=== PATIENT | female | born 1935 | race African-American/Black ===

== ENCOUNTER 2023-07-27 06:03 | Inpatient (IN) | payer OTHER, SELFPAY ==
[2023-07-27] VITALS (9 sets, daily range): BP systolic 86–166; BP diastolic 53–84; BMI 16.8
[2023-07-27 04:35] LABS: % Basophils 0.4 % (0-2); % Eosinophils 0.3 % (0-6); % Immature Granulocytes 0.5 % (0-0.5); % Lymphocytes 15.2 % (20.5-51.1); % Monocytes 6.2 % (1.7-9.3); % Neutrophils 77.4 % (42.2-75.2); Absolute Immature Granulocytes 0.1 10^3/uL (0-0.05); Absolute Lymphocytes 1.4 10^3/uL (1.2-3.4); Absolute Monocytes 0.6 10^3/uL (0.1-0.6); Absolute Neutrophils 7.1 10^3/uL (1.4-6.5); Hematocrit 27.8 % (37.0-47.0); Hemoglobin 9.9 g/dL (12.0-16.0); Mean Corp Hgb Conc. 35.6 g/dL (33.0-37.0); Mean Corpuscular Hgb 22.8 pg (27.0-31.0); Mean Corpuscular Volume 63.9 fL (81.0-99.0); Nucleated Red Blood Cells % 0.2 %; Platelet Count 154 10^3/uL (130-400); Red Blood Cell Count 4.35 10^6/uL (4.20-5.40); Red Cell Dist. Width 21.3 % (11.5-14.5); White Blood Cell Count 9.2 10^3/uL (4.8-10.8)
[2023-07-27 04:49] LABS: ALT (SGPT) 20 U/L (0-35); AST (SGOT) 23 U/L (14-36); Albumin 4.2 g/dl (3.5-5.0); Alkaline Phosphatase 60 U/L (38-126); Blood Urea Nitrogen 27 mg/dl (7-17); Calcium 9.2 mg/dl (8.4-10.2); Carbon Dioxide 28 mmol/L (22-30); Chloride 102 mmol/L (98-107); Estimated Creatinine Clearance 22 ml/min; Glucose 121 mg/dl (70-99); Potassium 3.7 mmol/L (3.5-5.1); Sodium 136 mmol/L (135-145); Total Bilirubin 1.1 mg/dl (0.2-1.3); Total Protein 6.9 g/dl (6.3-8.2); eGFR 48.33
--- NOTE | 2023-07-27 05:04 | ED.GENMED ---
History of Present Illness
<CHRIS Mckeon - Last Filed: 07/27/23 05:08>
General
Chief Complaint: Fall
Source: patient
Exam Limitations: none
Time Seen by Provider: 07/27/23 04:29
Nursing documentation reviewed up to this point in time: agreed with
Travel History
Have you had any contact with someone who has COVID-19?: No
Do you have any symptoms of coronavirus? Fever > 100 degrees, chills, cough, shortness of breath, sore throat, loss of taste or smell, muscle aches, or headache?: No
History of Present Illness
History of Present Illness:
patient is a 88 y/o female presenting after a fall. Patient states she was going to the bathroom when she got disoriented and fell on her right hip. Patient states that she has been in a different room and bathroom due to construction which caused
her disorientation. Patient denies a head strike. Patient denies DELVALLE, SOB, CP, weakness, tingling, blurry vision, V/N/D/C. Patient is on Eliquis.
Past History
<CHRIS Mckeon - Last Filed: 07/27/23 05:08>
Past History
ED Past Medical History: Other (Parkinson's disease)
ED Past Surgical History: None
Social History
Tobacco: Non-smoker
Alcohol: None
Drug: None
Review of Systems
<CHRIS Mckeon - Last Filed: 07/27/23 05:08>
Review of Systems
All Other Systems: Not applicable
Constitutional: Reports no symptoms
EENT: Reports no symptoms
Respiratory: Reports no symptoms
Cardiac: Reports no symptoms
ABD/GI: Reports no symptoms
: Reports no symptoms
Musculoskeletal: Reports joint pain (right hip )
Skin: Reports no symptoms
Neurological: Reports no symptoms
Endocrine: Reports no symptoms
Hematologic/Lymphatic: Reports no symptoms
Psychiatric: Reports no symptoms
Phy Exam
<CHRIS Mckeon - Last Filed: 07/27/23 05:08>
General Physical Exam
General Presentation: well appearing and no apparent distress
General Skin: warm and dry
General Habitus: normal
General Mental: alert
General Hydration: appears well hydrated
ENT Exam
ENT Exam: EOMI, pharynx normal, neck supple and normocephalic
Eye Exam
Eye Exam: PERRL, cornea clear and conjunctiva normal
Cardiovascular Exam
Cardiovascular Exam: regular rate/rhythm, no edema, no murmur and normal peripheral pulses
Pulmonary Exam
Pulmonary Exam: lungs clear, no respiratory distress, no rales, no crackles, no rhonchi, no stridor, no wheezing and no cough
Gastrointestinal Exam
Gastrointestinal Exam: normal bowel sounds, non tender, soft, no organomegaly, no pulsatile mass and non distended
Neurological Exam
Neurological Exam: alert, oriented x3, no motor deficits and speech normal
Musculoskeletal Exam
Musculoskeletal Exam: other (right hip pain with swelling and decreased ROM, hip held in external rotation )
Skin Exam
Skin Exam: normal color, warm/dry, no rash and no petechia
Psychiatric Exam
Psychiatric Exam: normal mood/affect
Course
<CHRIS Mckeon - Last Filed: 07/27/23 05:08>
Orders/Labs/Results
Orders:
Orders
07/27/23 04:19
Hip, Right 2-3 Views [CR Hip - RT w/wo Pel 2-3 Vw*] Urgent
Comment:
Reason For Exam: fall
Include a pelvis x-ray?: Yes
07/27/23 04:21
CMP [Comprehensive Metabolic Panel] Urgent
Complete Blood Count/With Diff Urgent
Abnormal Lab Results
07/27/23
04:21
Hgb 9.9 L g/dL
(12.0-16.0)
Hct 27.8 L %
(37.0-47.0)
MCV 63.9 L fL
(81.0-99.0)
MCH 22.8 L pg
(27.0-31.0)
RDW 21.3 H %
(11.5-14.5)
Abs Immat Gran (auto) 0.1 H 10^3/uL
(0-0.05)
Absolute Neuts (auto) 7.1 H 10^3/uL
(1.4-6.5)
Neutrophils % 77.4 H %
(42.2-75.2)
Lymphocytes % 15.2 L %
(20.5-51.1)
BUN 27 H mg/dl
(7-17)
Creatinine 1.1 H mg/dL
(0.6-1.0)
Glucose 121 H mg/dl
(70-99)
07/27/23 04:21
07/27/23 04:21
Vital Signs
Initial and Last Documented VS:
Initial Vital Signs
Temp Pulse Resp BP Pulse Ox
98.4 F 89 16 166/84 98
07/27/23 04:11 07/27/23 04:11 07/27/23 04:11 07/27/23 04:11 07/27/23 04:11
Last Documented Vital Signs
Temp Pulse Resp BP Pulse Ox
98.4 F 89 16 166/84 98
07/27/23 04:11 07/27/23 04:11 07/27/23 04:11 07/27/23 04:11 07/27/23 04:11
<Darryn Santos, DO - Last Filed: 07/27/23 05:15>
Orders/Labs/Results
Orders:
Orders
07/27/23 04:19
Hip, Right 2-3 Views [CR Hip - RT w/wo Pel 2-3 Vw*] Urgent
Comment:
Reason For Exam: fall
Include a pelvis x-ray?: Yes
07/27/23 04:21
CMP [Comprehensive Metabolic Panel] Urgent
Complete Blood Count/With Diff Urgent
Abnormal Lab Results
07/27/23
04:21
Hgb 9.9 L g/dL
(12.0-16.0)
Hct 27.8 L %
(37.0-47.0)
MCV 63.9 L fL
(81.0-99.0)
MCH 22.8 L pg
(27.0-31.0)
RDW 21.3 H %
(11.5-14.5)
Abs Immat Gran (auto) 0.1 H 10^3/uL
(0-0.05)
Absolute Neuts (auto) 7.1 H 10^3/uL
(1.4-6.5)
Neutrophils % 77.4 H %
(42.2-75.2)
Lymphocytes % 15.2 L %
(20.5-51.1)
BUN 27 H mg/dl
(7-17)
Creatinine 1.1 H mg/dL
(0.6-1.0)
Glucose 121 H mg/dl
(70-99)
07/27/23 04:21
07/27/23 04:21
Vital Signs
Initial and Last Documented VS:
Initial Vital Signs
Temp Pulse Resp BP Pulse Ox
98.4 F 89 16 166/84 98
07/27/23 04:11 07/27/23 04:11 07/27/23 04:11 07/27/23 04:11 07/27/23 04:11
Last Documented Vital Signs
Temp Pulse Resp BP Pulse Ox
98.4 F 89 16 166/84 98
07/27/23 04:11 07/27/23 04:11 07/27/23 04:11 07/27/23 04:11 07/27/23 04:11
<CHRIS Mckeon - Last Filed: 07/27/23 05:08>
MDM/Problems Addressed
Differential Diagnosis Includes:
hip fracture
soft tissue swelling
MDM/Problems Addressed:
fall
<CHRIS Mckeon - Last Filed: 07/27/23 05:08>
*Critical Care Note
Total Time (30-74mins, 75-104mins- exclusive of procedures): Not Applicable
<Darryn Santos DO - Last Filed: 07/27/23 05:15>
Patient Management
Discussion with other providers: Hospitalist and Plant Operator Helper (Dr. Wade, orthopedic surgery)
ED Attending Note
<CHRIS Mckeon - Last Filed: 07/27/23 05:08>
-
Portions of this chart may have been created with voice recognition software.� Occasional wrong word or��sound alike� substitutions may have occurred due to the inherent limitations of voice recognition software.
<Darryn Santos DO - Last Filed: 07/27/23 05:15>
ED Attending Note
Patient seen and examined by attending physician: Yes
I performed the substantive portion of visit, reviewed & personally made and approve the management plan that is documented in note by myself or LESIA.: Yes
ED Attending Note:
88-year-old female presents with right hip pain after a fall. She was getting up to the bathroom and was confused and fell her right hip. Patient did not pass out or hit her head. She is on Eliquis. Denies any other issues. Patient was seen in
conjunction with the PA student. I have reviewed and agree with the history and treatment plan presented. On my independent physical exam, patient is awake, alert, and and in mild to moderate pain while lying on the bed. Heart is regular rate and
rhythm lungs are clear to auscultation bilaterally without wheezes rales or rhonchi. Abdomen is soft and nontender. Right hip tenderness to palpation.
Spoke with orthopedics, Dr. Wade who is aware and has seen the x-rays. Patient to be admitted to the hospitalist service.
Discharge Plan
Departure
Patient Disposition: Admit
Date of Disposition: 07/27/23
Time of Disposition: 05:14
Presentation/result/management discussed w/ accepting MD/DO: Hospitalist
Condition: Good
Discharge Problem:
Closed fracture of right hip
Prescriptions:
No Action
carbidopa-levodopa 1 TABLET tablet extended release
1 tab PO HS
carbidopa-levodopa 1 TABLET tablet
1.5 tab PO TID
coenzyme Q10 100 MG capsule
400 mg PO TID
furosemide 20 MG tablet
20 mg PO DAILY 30 Days Qty: 30 0RF
Eliquis 2.5 MG tablet
2.5 mg PO BID 30 Days Qty: 60 0RF
metoprolol succinate 100 MG tablet extended release 24 hr
100 mg PO DAILY 30 Days Qty: 30 0RF
Referrals:
UNKNOWN - PT DOES,NOT KNOW [Family Provider] -
Interventions
Interventions:
*Risk Screen - Suicide Last Done: 07/27/23 04:11
*General Assessment Last Done: 07/27/23 04:11
*Neglect/Abuse Screening Last Done: 07/27/23 04:11
*ED COVID-19 Vaccine History Last Done: 07/27/23 04:11
Discharge Date and Time
Print Language: YEMENI
--- NOTE | 2023-07-27 05:48 | HPS.HSE ---
Family Physician
-
Family Physician: NOT KNOW UNKNOWN - PT DOES
Chief Complaint
-
fall , Rt hip pain
History of Present Illness
88F on chronic Eliquis for HX Prx AF, HX Chr HFpEF , HX Parkinson dz, ambulatory dysfunction, CKD3a, chr microcytic anemia seen at ER for acute Rt Hip pain s/p fall while going to [place].
last dose of Eliquis on yesterday
ROS
Denies a head strike.
No DELVALLE, SOB, CP, weakness, tingling, blurry vision
Medical History
Past Medical History
Past Medical History: Reports Arrhythmia (Prx AF ), CHF (chr HFpEF ) and Other (chr Microcytic anemia. HX thrombocytopenia. Parkinson's disease. Hyperlipidemia.)
Past Surgical History: Reports None
Social History
Tobacco: Non-smoker
Alcohol: None
Drug: None
Family History
Family History: Not pertinent
Allergies / Home Medications
Allergies reflects when Allergies were last updated in [facility].
Home Medications with original date entered in [facility]
Allergy/Medication List:
Allergies
Allergy/AdvReac Type Severity Reaction Status Date / Time
No Known Allergies Allergy Verified 07/27/23 04:18
Home Medications
carbidopa 25 mg-levodopa 100 mg tablet 1.5 tab PO TID Neurological Condition 11/30/20
carbidopa ER 25 mg-levodopa 100 mg tablet,extended release 1 tab PO HS Neurological Condition 11/30/20
coenzyme Q10 100 mg capsule 400 mg PO TID Supplement 11/30/20
apixaban 2.5 mg tablet (Eliquis) 2.5 mg PO BID 30 days #60 tabs 12/06/20
furosemide 20 mg tablet 20 mg PO DAILY 30 days #30 tabs 12/06/20
metoprolol succinate 100 mg tablet,extended release 24 hr 100 mg PO DAILY 30 days #30 tabs 12/06/20
Review of Systems
-
Constitutional: Reports No Symptoms
EENT: Reports No Symptoms
Respiratory: Reports No Symptoms
Cardiac: Reports No Symptoms
Abdomen/GI: Reports No Symptoms
: Reports No Symptoms and See HPI
Skin: Reports No Symptoms
Neurological: Reports No Symptoms
Endocrine: Reports No Symptoms
Hematologic/Lymphatic: Reports No Symptoms
Psych: Reports No Symptoms
Physical Exam
Vital Signs
Vital Signs
Temp Pulse Resp BP Pulse Ox
98.4 F 89 16 166/84 98
07/27/23 04:11 07/27/23 04:11 07/27/23 04:11 07/27/23 04:11 07/27/23 04:11
Physical Exam
General: No Apparent Distress and Pain (Rt Hip )
HEENT: NormoCephalic and Moist mucous membranes
Respiratory: Clear; No Wheezes, Rales or Rhonchi
Cardiac: S1/S2 and Regular Rhythm
Breast: Deferred by me
GI: Soft, Non Tender, Non Distended and Normal Bowel Sounds
Rectal: Deferred by Provider
Genito-urinary: Deferred by me
Musculoskeletal: No Edema and Other (decreased ROM, hip held in external rotation)
Skin: Warm and Dry
Neuro: AO x 3
Psych: Calm
Laboratory Results
-
07/27/23 04:21
07/27/23 04:21
Laboratory Results
Total Bilirubin 1.1 mg/dl (0.2-1.3) 07/27/23 04:21
AST 23 U/L (14-36) 07/27/23 04:21
ALT 20 U/L (0-35) 07/27/23 04:21
Alkaline Phosphatase 60 U/L (38-126) 07/27/23 04:21
Data Reviewed
-
Diagnostic Radiology: Report Reviewed by me
Lab Data: Labs Reviewed by me
Old Records: Reviewed
Impression/Plan
-
Reviewed VS: afebrile HR 89 BP 165./85 POx 98
Data
nl WCC
Hgb 9.9 - baseline is mid yo hi 9s MCV 63
BUN 27
Cr 1.1 - baseline range is 1.1- 1.3
eGFR 48 c/w CKDa
12/21/20 ECHO
LVEF 55-60
mild MR
mild AR
mild TR
Estimated pulmonary artery pressure of 35-40 mmHg
Last hospitalist admission: 11/30/20 - 12/06/20
DC Dx: fast AF, acute mixed CHF , hyponatremia
ASSESSMENT & PLAN
Pending Rx reconciliation
Acute Rt Hip Fx s/p mechanical fall
last dose of Eliquis on 4/7 AM
Class II RCRI risk but not prohibited ORIF
No CP, No SoB, No palliation
- Held Eliquis
- cont PO diet for today
- Fx set protocol for pain control and supportive care
- per Ortho consult : OR in next 24- 48hrs to wash out Eliquis
HX Prx AF on chr eliquis
P Crd : Dr Reyes /CBC card
- held Eliquis
- cont. Metoprolol succinate
- check preop EKG
- CBC card consult
HX ch r HFpEF stable on PO Lasix and BB
- cont PO Lasix and Metoprolol succinate
HX Parkinson's disease on Sinemet.
HX CKD3 a
- stable
- Observe
DVT Px: SCD
Code: Full code
IP TLM
Case dw daughter on the phone and Grand daughter at bed side.
--- NOTE | 2023-07-27 06:20 | EDRN ---
Patient and family updated on plan, patient reports still no pain, aware to call if pain increases
--- NOTE | 2023-07-27 08:59 | W.PN.UPDATE ---
Update Note
Progress Note Update
Patient seen on AM rounds. Full consult note to follow.
Patient with right intertrochanteric femur fracture. We recommend proceeding with right hip cephalomedullary nail. We plan to proceed with this tomorrow under the direction of Dr. Nick. The risks, benefits, alternative, recovery process and
potential complications were discussed in detail.
--NPO after midnight for OR 07/27.
--NWB to right lower extremity until surgery.
--Continue current pain management regimen.
--T+S ordered.
[2023-07-27] MEDS: SINEMET 25-100 1.5 TABLET PO ×3 (09:06→21:32)
[2023-07-27] MEDS: LASIX 20 MG PO (09:06)
[2023-07-27] MEDS: TOPROL XL 100 MG PO (09:06)
[2023-07-27] MEDS: TYLENOL 650 MG PO ×4 (09:07→19:50)
--- NOTE | 2023-07-27 10:54 | CON.ORTHO ---
Consultation
-
Date/Time Consultation Requested: 07/27/2023; time unknown
Date/Time Consultation Performed: 07/27/2023; 0800
Requesting Provider: unknown
Performing Provider: Gloria Gonsalez PA-C / Dr. Al Hutchison
Reason for Consultation: Right hip fracture
Consultation - Orthopedics
History
Ms. Pinedo is an 88 year old female with PMH of a-fib on Eliquis, Chr HFpEF ,Parkinson dz, ambulatory dysfunction, CKD3a, chr microcytic anemia seen today for her right hip. She reports she was getting up to use the restroom last night when she
tripped and fell onto her right side. She experienced immediate onset of pain, and was unable to get up off the floor. Her granddaughter was able to help her back into bed, but noticed she couldn't bear weight on her right leg. She was brought to
ED via EMS where x-rays revealed a right intertrochanteric femur fracture. She is resting comfortably in bed at present. She does endorse intense pain with movement.
She lives at home with her daughter. She ambulates without assistance at baseline. She reports she is very active, and exercises nearly every day. She denies PMH of blood clot, DM, stroke or heart attack. She denies any known history of difficulty
with anesthesia in the past.
Allergies / Home Medications
Allergy/AdvReac Type Severity Reaction Status Date / Time
No Known Allergies Allergy Verified 07/27/23 04:18
�Medication �Instructions �Recorded
carbidopa 25 mg-levodopa 100 mg 1.5 tab PO TID Neurological 11/30/20
tablet Condition
carbidopa ER 25 mg-levodopa 100 mg 1 tab PO HS Neurological Condition 11/30/20
tablet,extended release
coenzyme Q10 100 mg capsule 400 mg PO TID Supplement 11/30/20
apixaban 2.5 mg tablet (Eliquis) 2.5 mg PO BID 30 days #60 tabs 12/06/20
furosemide 20 mg tablet 20 mg PO DAILY 30 days #30 tabs 12/06/20
metoprolol succinate 100 mg 100 mg PO DAILY 30 days #30 tabs 12/06/20
tablet,extended release 24 hr
Vital Signs / Lab Results
Temp Pulse Resp BP Pulse Ox
98.1 F 81 16 139/78 97
07/27/23 07:48 07/27/23 09:06 07/27/23 07:48 07/27/23 09:06 07/27/23 07:48
07/27/23 04:21
07/27/23 04:21
XR Right Hip 07/27/2023 IMPRESSION:
Comminuted fracture in the intertrochanteric region of the right proximal femur.
Directed exam of the right lower extremity reveals right leg lengthened and externally rotated. No significant erythema, ecchymosis or lesions about the hip. Tenderness to palpation about the anterior and lateral hip. Thigh soft and compressible.
Calf soft and nontender. Patient able to wiggle toes, plantar and dorsiflex ankle. Sensation intact to light touch. Palpable dp and pt pulses.
Assessment / Plan
Right intertrochanteric femur fracture
--Unfortunately, Sheila sustained a right intertrochanteric femur fracture in her fall. I recommend proceeding with surgical fixation of her fracture. The risks, benefits, alternatives, recovery process and potential complications were discussed in
detail. All patient questions were answered. Patient elected to proceed with surgery. We will proceed with right hip cephalomedullary nail under the direction of Dr. Nick tomorrow (07/28/2023). Will obtain surgical and blood consent tomorrow AM.
--NPO after midnight for OR 07/28/23.
--NWB to RLE until surgery.
--Continue pain control per primary. Ice for pain and edema control.
--T+S ordered. Monitor Hgb closely as patient is chronically anemic.
--Orthopedics will continue to follow along.
[2023-07-27] MEDS: NSS 1000 IV ×2 (16:07→18:13)
--- NOTE | 2023-07-27 19:04 | W.PN.HOSP.TC ---
Addendum entered and electronically signed by Andrew Moore MD 07/27/23 20:54:
Attending Addendum-
I saw and evaluated the patient. I reviewed the resident�s note and agree with findings and plan as documented in the resident�s note. Patient seen with granddaughter. Denies pain in hip. Very pleasant. Full 12 point ROS reviewed and negative except
as documented Exam: gen NAD heart irreg irreg lungs clear abd osft LE right LE externally rotated and shortened. pulses in tact B/L no edema b/l Plan:
# Right Hip Fx- for right hip CM nail in am 07/27- Dr. Nick, RCRI class 2 risk due to CHF- patient is medically optimized for OR hold eliquis for restart after OR PT OT likely rehab after DC
# Hypotension- from hypovolemia- hold lasix start IVF repeat labs in am
# Persistent a fib- hold eliquis due to OR per ortho, restart 12-24 after procedure d/w ortho cards c/s pending
# HFpEF- appears on the hypovolemic side- hold lasix start IVF repeat labs in am
# Parkinsons- cont meds
# HTN- hold lasix
# CKD 3b- avoid nephrotoxic agents baseline @ 1.2
Dispo- possibly rehab on DC
Time spent coordinating care, review of plan of care with resident, review of records, med rec, consults, notes, labs, rads, d/w nursing � 55 mins
Original Note:
Today's Communication/Plan
-
Discontinued Lasix and started IV fluids. NPO from midnight. Orthopedic surgery planned for tomorrow.
Assessment / Plan
Assessment / Plan
IMPRESSION:
This is a 88 year old female patient with PMH of persisten Afib, chronic HFpEF, Parkinson's disease, CKD3a, chronic microcytic anemia seen at ED for acute rigth hip pain after she suffered a fall while going to the [employer].
PLAN:
#Acute Right Hip Pain
-Hold Eliquis as per ortho (not taking since 07/25)
-RCRI risk is Class II 6.0% risk,no SOB, can proceed with surgery
-planned for surgery (right hip cephalomedullary nail) with on 07/27
-NPO from midnight
-No weight bearing to RLE until surgery as per Ortho
-continue pain meds prn (oxycodone, dilaudid)
#Hx of Chronic HFpEF
-Discontinued Lasix after assessing volume status (dry) and decreasing BP
-Started IV fluids
-continue metoprolol (hold if SBP <100)
#Hx of Atrial Fibrillation
-hold eliquis as per ortho
-continue metoprolol
-cardiology consulted
#Chronic microcytic anemia
-Hb trending up, today 9.9 from 9.6 yesterday
-monitor CBC
#Parkinson's
-Continue Sinemet, Rasagaline.
DVT: SCD
Full Code
Anticipated Discharge: > 48 hours
Subjective/Interval History
-
Date of Service: July 27, 2023
Patient does not have any acute concerns besides right hip pain.
Objective Data
-
Vital Signs:
Vital Signs
Temp Pulse Resp BP Pulse Ox
98 F 87 16 86/53 98
07/27/23 15:21 07/27/23 15:21 07/27/23 15:21 07/27/23 15:21 07/27/23 15:21
I&O
07/26/23 07/27/23 07/28/23
06:59 06:59 06:59
Intake Total 960 / 960
Balance 960 / 960
Review of Systems
-
History Source: Patient
All other systems: Reviewed and negative
Physical Exam
-
General: No Apparent Distress
HEENT: Normocephalic; Negative Moist Mucous Membranes
Respiratory: Clear to Auscultation
Cardiac: Regular Rhythm and S1/S2; Negative Murmur
GI: Soft, Nontender and Nondistended
Musculoskeletal: Other (right LE externally rotated and appears shorter in length compared to LLE)
Neuro: Awake, Alert and Oriented
Psych: Intact Judgement/Insight
[2023-07-27] MEDS: COLACE 100 MG PO (19:50)
[2023-07-27] MEDS: SENOKOT 17.1999999999999993 MG PO (19:50)
[2023-07-27] MEDS: SINEMET CR 25-100 (EXTENDED RELEASE) 1 TABLET PO (21:32)
[2023-07-28] VITALS (14 sets, daily range): BP systolic 88–154; BP diastolic 52–80; BMI 16.9
[2023-07-28] MEDS: TYLENOL PO ×2 (00:21→15:43)
[2023-07-28] MEDS: ROXICODONE 5 MG PO (03:42)
[2023-07-28] MEDS: TYLENOL 650 MG PO ×4 (03:44→20:41)
[2023-07-28] MEDS: NSS 1000 IV (05:26)
[2023-07-28 06:40] LABS: % Basophils 0.4 % (0-2); % Eosinophils 0.1 % (0-6); % Immature Granulocytes 0.5 % (0-0.5); % Lymphocytes 9.4 % (20.5-51.1); % Monocytes 6.6 % (1.7-9.3); Absolute Immature Granulocytes 0.1 10^3/uL (0-0.05); Absolute Monocytes 0.7 10^3/uL (0.1-0.6); Absolute Neutrophils 8.8 10^3/uL (1.4-6.5); Hemoglobin 7.7 g/dL (12.0-16.0); Mean Corp Hgb Conc. 37.4 g/dL (33.0-37.0); Mean Corpuscular Hgb 23.3 pg (27.0-31.0); Mean Corpuscular Volume 62.2 fL (81.0-99.0); Nucleated Red Blood Cells % 0.2 %; Platelet Count 133 10^3/uL (130-400); Red Blood Cell Count 3.31 10^6/uL (4.20-5.40); Red Cell Dist. Width 21.1 % (11.5-14.5); White Blood Cell Count 10.6 10^3/uL (4.8-10.8)
[2023-07-28 06:41] LABS: Hematocrit 20.6 % (37.0-47.0)
[2023-07-28 07:01] LABS: Blood Urea Nitrogen 33 mg/dl (7-17); Calcium 8.3 mg/dl (8.4-10.2); Carbon Dioxide 27 mmol/L (22-30); Chloride 101 mmol/L (98-107); Estimated Creatinine Clearance 19 ml/min; Glucose 103 mg/dl (70-99); Potassium 4.5 mmol/L (3.5-5.1); Sodium 134 mmol/L (135-145); eGFR 39.55
[2023-07-28] MEDS: RASAGILINE MESYLATE 1 MG PO (08:13)
[2023-07-28] MEDS: SENOKOT 17.1999999999999993 MG PO ×2 (08:13→20:41)
--- NOTE | 2023-07-28 08:13 | W.PN.UPDATE ---
Update Note
Progress Note Update
Ms. Pinedo is resting comfortably in bed this morning. She reports her pain is well controlled at present. She is scheduled for right hip gamma nail under the direction of Dr. Nick later this morning. The risks, benefits, alternatives, recovery
process and potential complications were reviewed again this morning. Surgical and blood consents are signed and in the patients chart. Surgical site marked.
--Patient's hemoglobin this AM came back at 7.7. I have reached out to Dr. Nick, but will place 2 units PRBC on hold for OR.
--NPO until surgery.
--NWB to RLE until surgery.
--Continue current pain management regimen.
[2023-07-28] MEDS: SINEMET 25-100 1.5 TABLET PO ×3 (08:14→22:25)
[2023-07-28] MEDS: COLACE 100 MG PO ×2 (08:14→20:41)
[2023-07-28] MEDS: TOPROL XL 100 MG PO (08:14)
[2023-07-28 09:08] LABS: ALT (SGPT) < 10 U/L (0-35); AST (SGOT) 20 U/L (14-36); Albumin 3.4 g/dl (3.5-5.0); Alkaline Phosphatase 47 U/L (38-126); Direct Bilirubin 0.4 mg/dl (0.0-0.4); Total Bilirubin 0.7 mg/dl (0.2-1.3); Total Protein 5.7 g/dl (6.3-8.2)
[2023-07-28 09:22] LABS: INR 1.19; PT 14.9 Sec (11.4-14.6)
[2023-07-28 09:23] LABS: APTT 31.4 Sec (23.4-35.0)
--- NOTE | 2023-07-28 11:26 | PTCARENOTE ---
While attempting to do second set of CHG wipes, patient on phone w/ daughter, patient confused, disoriented, uncooperative. Refusing CHG wipes. Patient transported to OR.
--- NOTE | 2023-07-28 12:50 | CM ---
Reviewed chart, placed a call to patient's daughter to obtain information for assessment. Patient's daughter answered but stated that she would not be able to talk at the time of call. Will attempt again later this afternoon.
Plan: Case management will continue to follow and assist with discharge planning. Will return call to patient's daughter to obtain information for assessment.
[2023-07-28] MEDS: HALDOL 1 MG IV (15:47)
[2023-07-28 16:13] LABS: Lactic Acid 1.4 mmol/L (0.7-2.0)
[2023-07-28 16:14] LABS: Blood Urea Nitrogen 32 mg/dl (7-17); Calcium 8.3 mg/dl (8.4-10.2); Carbon Dioxide 26 mmol/L (22-30); Chloride 100 mmol/L (98-107); Estimated Creatinine Clearance 20 ml/min; Glucose 113 mg/dl (70-99); Potassium 4.2 mmol/L (3.5-5.1); Sodium 131 mmol/L (135-145); eGFR 43.54
[2023-07-28 16:39] LABS: % Basophils 0.4 % (0-2); % Eosinophils 0.1 % (0-6); % Immature Granulocytes 0.7 % (0-0.5); % Lymphocytes 7.9 % (20.5-51.1); % Monocytes 8.4 % (1.7-9.3); % Neutrophils 82.5 % (42.2-75.2); Absolute Immature Granulocytes 0.1 10^3/uL (0-0.05); Absolute Lymphocytes 0.8 10^3/uL (1.2-3.4); Absolute Monocytes 0.9 10^3/uL (0.1-0.6); Absolute Neutrophils 8.5 10^3/uL (1.4-6.5); Mean Corp Hgb Conc. 35.9 g/dL (33.0-37.0); Mean Corpuscular Hgb 22.7 pg (27.0-31.0); Mean Corpuscular Volume 63.2 fL (81.0-99.0); Nucleated Red Blood Cells % 0.3 %; Platelet Count 128 10^3/uL (130-400); Red Blood Cell Count 3.26 10^6/uL (4.20-5.40); Red Cell Dist. Width 21.8 % (11.5-14.5); White Blood Cell Count 10.3 10^3/uL (4.8-10.8)
[2023-07-28 16:41] LABS: Hematocrit 20.6 % (37.0-47.0); Hemoglobin 7.4 g/dL (12.0-16.0)
[2023-07-28] MEDS: NSS IV (17:07)
[2023-07-28 17:50] LABS: Urine Albumin Negative (Neg - Trace); Urine Bilirubin Negative (Negative); Urine Character Clear (Clear); Urine Color Yellow; Urine Glucose Negative (Negative); Urine Ketone Trace (Negative); Urine Leukocyte Trace (Negative); Urine Nitrite Negative (Negative); Urine Occult Blood Negative (Negative); Urine Specific Gravity 1.015 (<1.030); Urine Urobilinogen Negative (Neg - 1+)
[2023-07-28 18:05] LABS: Urine Red Blood Cell 0-2 /HPF (0-2)
[2023-07-28 18:08] LABS: Urine Bacteria Few (Negative); Urine White Cell 0-2 /HPF (0-5)
--- NOTE | 2023-07-28 19:19 | PTCARENOTE ---
Family able to assist in patient's cooperation in care while at bedside. Due to family presence, restraints were not applied. Restraints order cancelled per protocol.
--- NOTE | 2023-07-28 19:36 | W.PN.HOSP.TC ---
Addendum entered and electronically signed by Andrew Moore MD 07/28/23 20:54:
Attending Addendum-
I saw and evaluated the patient. I reviewed the resident�s note and agree with findings and plan as documented in the resident�s note. called by nursing re severe agitation and confusion. patient is screaming stating she wants to go upstairs and
that she is leaving. tryin got get out of bed. Full 12 point ROS limited due to confusion Exam: gen distressed heart irreg irreg tachycardic lungs clear abd soft LE right LE externally rotated and shortened. pulses in tact B/L no edema b/l Neuro
AAO x 1 oving all extremities PEERLA Plan:
# Acute Delirium- unclear if underlying dementia, full infectious workup ordered, start soft restraints as she is a danger to herself with her fracture, give haldol x 1 STAT cont to monitor check ct head repeat labs in am
# Right Hip Fx- was for right hip CM nail today- Dr. Nick- aborted due to change in mental status. RCRI class 2 risk due to CHF- patient is medically optimized for OR hold eliquis for restart after OR
# Hypotension- from hypovolemia- hold lasix cont IVF repeat labs in am
# CKD3b- mildly worse cont IVF repeat in am check UA renal US/FeNA if not improved
# Anemia- acute- transfuse 2 units prbcs
# Persistent a fib- hold eliquis due to OR per ortho, restart 12-24 after procedure d/w ortho cards c/s pending
# HFpEF- appears on the hypovolemic side- hold lasix start IVF repeat labs in am
# Parkinsons- cont meds
# HTN- hold lasix
Dispo- possibly rehab on DC
Time spent coordinating care, review of plan of care with resident, review of records, med rec, consults, notes, labs, rads, d/w nursing � 65 mins
Original Note:
Today's Communication/Plan
-
Given Halodol for agitation
Assessment / Plan
Assessment / Plan
IMPRESSION:
This is a 88 year old female patient with PMH of persisten Afib, chronic HFpEF, Parkinson's disease, CKD3a, chronic microcytic anemia seen at ED for acute rigth hip pain after she suffered a fall while going to the [employer].
PLAN:
#Acute Right Hip Pain
-Hold Eliquis as per ortho (not taking since 07/25)
-RCRI risk is Class II 6.0% risk
-No weight bearing to RLE until surgery as per Ortho
-continue pain meds prn (oxycodone, dilaudid)
-surgery was not done (right hip cephalomedullary nail) with due to patient agitation
#Agitation
-given single dose of Haloperidol, patient become much calmer upon seeing her afterward
-granddaughter stated that she or the daughter of patient would like to be called when surgery is scheduled and be present before surgery
-Ordered CBC, BMP, lactic acid, blood cultures, U/A stat and soft restraints to upper extremities
-Na: 131, lactic acid 1.4
-U/A: trace leukocytes, trace ketones, few bacteria, could possibly be due to UTI
-check bmp in am
#Hx of Chronic HFpEF
-Discontinued Lasix after assessing volume status (dry) and decreasing BP
-Continue IV fluids
-continue metoprolol (hold if SBP <100)
#Hx of Atrial Fibrillation
-hold eliquis as per ortho
-continue metoprolol
-cardiology consulted
#Chronic microcytic anemia
-Hb trended down, HB 7.4 on 07/27
-Hct: 20.6
-monitor CBC
#Parkinson's
-Continue Sinemet, Rasagaline.
DVT: SCD
Full Code
Anticipated Discharge: > 48 hours
Subjective/Interval History
-
Date of Service: July 28, 2023
Patient was confused and agitated in the morning/early afternoon.
Objective Data
-
Labs:
Laboratory Results
07/28/23 07/28/23 07/28/23
06:14 09:06 15:50
WBC 10.3
Hgb 7.4 L
Hct 20.6 L*
Plt Count 128 L
PT 14.9 H
INR 1.19
APTT 31.4
Sodium 134 L 131 L
Potassium 4.5 4.2
Chloride 101 100
Carbon Dioxide 27 26
BUN 33 H 32 H
Creatinine 1.3 H 1.2 H
Glucose 103 H 113 H
Calcium 8.3 L 8.3 L
Total Bilirubin 0.7
AST 20
ALT < 10
Alkaline Phosphatase 47
Vital Signs:
Vital Signs
Temp Pulse Resp BP Pulse Ox
97.6 F 81 16 94/54 97
07/28/23 17:38 07/28/23 17:38 07/28/23 17:38 07/28/23 17:38 07/28/23 17:38
I&O
07/27/23 07/28/23 07/29/23
06:59 06:59 06:59
Intake Total 2200 / 2200 360 / 360
Output Total 100 / 100 50 / 50
Balance 2100 / 2100 310 / 310
Review of Systems
-
History Source: Patient
All other systems: Reviewed and negative
Physical Exam
-
General: No Apparent Distress
HEENT: Normocephalic
Respiratory: Clear to Auscultation
Cardiac: Regular Rhythm and S1/S2; Negative Murmur
GI: Soft, Nontender and Nondistended
Musculoskeletal: No Edema and Other (RLE externally rotated and shortened )
Neuro: Awake, Alert and Oriented
Psych: Agitated
[2023-07-28] MEDS: SINEMET CR 25-100 (EXTENDED RELEASE) 1 TABLET PO (22:25)
[2023-07-29] VITALS (7 sets, daily range): BP systolic 112–158; BP diastolic 70–88; BMI 17.8
[2023-07-29] MEDS: TYLENOL PO ×4 (00:42→23:03)
--- NOTE | 2023-07-29 02:47 | PTCARENOTE ---
Daughter called this RN asking for nursing assistants teacher. Daughter expressed to this RN that she was frustrated and that she felt 'out of the loop.' Gave daughter updated plan of care, including the new order for a CT head. Daughter expressed that she
wanted to come in to go down to CT with patient. CT notified. Family not allowed to be in CT room. Notified daughter that she would be able to walk down with patient but would not be able to enter the CT room. Daughter and granddaugter agreed and
came to visit patient. PCT wheeled pt down in stretcher with daughter and granddaughter to CT. After CT scan, transferred back into bed in room 316-2. Daughter and granddaughter at bedside. This RN provided emotional support to family and answered
all questions. Daughter and granddaughter again expressed feeling frustrated about lack of communication from medical team. Again, gave updated plan of care and reassurance to family. Daughter expressed wanting patient to be transferred to [place]
tomorrow. Will pass along to appropriate staff. 2nd unit PRBC finished infusing. VSS. Pt. reoriented several times this shift. Pt. believing she needs 'to go upstairs to bed.' This RN able to redirect patient and provide comfort. Bed alarm intact.
Call de jesus within reach. Plan of care ongoing.
[2023-07-29] MEDS: NSS 1000 IV (07:12)
[2023-07-29 07:58] LABS: % Basophils 0.4 % (0-2); % Eosinophils 0.3 % (0-6); % Immature Granulocytes 0.7 % (0-0.5); % Lymphocytes 8.5 % (20.5-51.1); % Monocytes 8.3 % (1.7-9.3); % Neutrophils 81.8 % (42.2-75.2); Absolute Immature Granulocytes 0.1 10^3/uL (0-0.05); Absolute Lymphocytes 0.9 10^3/uL (1.2-3.4); Absolute Monocytes 0.8 10^3/uL (0.1-0.6); Absolute Neutrophils 8.2 10^3/uL (1.4-6.5); Hematocrit 28.7 % (37.0-47.0); Mean Corp Hgb Conc. 36.9 g/dL (33.0-37.0); Mean Corpuscular Hgb 25.1 pg (27.0-31.0); Mean Corpuscular Volume 67.8 fL (81.0-99.0); Nucleated Red Blood Cells % 0.3 %; Platelet Count 109 10^3/uL (130-400); Red Blood Cell Count 4.23 10^6/uL (4.20-5.40); Red Cell Dist. Width 23.6 % (11.5-14.5)
[2023-07-29 08:04] LABS: Hemoglobin 10.6 g/dL (12.0-16.0)
[2023-07-29 08:27] LABS: Blood Urea Nitrogen 29 mg/dl (7-17); Calcium 8.2 mg/dl (8.4-10.2); Carbon Dioxide 25 mmol/L (22-30); Chloride 102 mmol/L (98-107); Estimated Creatinine Clearance 25 ml/min; Glucose 104 mg/dl (70-99); Potassium 4.2 mmol/L (3.5-5.1); Sodium 132 mmol/L (135-145); eGFR 54.19
[2023-07-29 08:37] LABS: Total Iron Binding Capacity 189 ug/dl (265-497)
--- NOTE | 2023-07-29 08:42 | W.PN.UPDATE ---
Update Note
Progress Note Update
Tentative plan to proceed with OR later today under the direction of Dr. Walker or Dr. Richard. NPO until OR.
I spoke with Sheila's nurse, Steffanie, and family would like to wait for surgery until they have spoken with one of the orthopedic surgeons. Dr. Walker will plan to call the family mid-morning to discuss.
Hgb improved to 10.6 after receiving transfusion yesterday.
Patient AAO this AM.
--- NOTE | 2023-07-29 09:06 | W.PN.UPDATE ---
Addendum entered and electronically signed by Garry Walker MD 07/29/23 12:17:
I saw the patient, who is alert and oriented
She also wishes to be transferred to [place].
All risks were explained to the patient
Original Note:
Update Note
Progress Note Update
I had a lengthy conversation with the patient's daughter Linnette Pinedo [phone]
She is adamant that she was wants the patient to be transferred to [facility].
She understands that I can do the surgery today. She also understands that the transfer may not happen today and that they may not be able to do the surgery the day she gets transferred.
She know that the transfer will delay the care of this fracture.
I explained several times that she will be at a risk of complications, including blood clots due to the delay of her care.
She still wants to proceed with the transfer
--- NOTE | 2023-07-29 09:13 | CM ---
Addendum entered by Nery Spencer 07/29/23 10:05:
Per Shira Hutchinson at / please fax clinical information [phone] to /[facility] stating that it is a hospital to hospital transfer and accepted for Dr.Jean-Claude Alvarado . Patient transfer is family request. No hospital to hospital
authorization needed but requested clinical information be faxed or peer portal request completion. Update provided to [facility] nurse Gamez and she will send clinical information. CM will continue to follow for discharge planning needs.
Original Note:
Patient seen at bedside with resident and Physician. Patient indicated that she is aware that her daughter is asking for transfer to [facility] for surgery. Patient states that she lives with her daughter in a 2 story home and normally needs no DME for
ambulation. Patient stated normally she is independent of ADL's. Patient indicated daughter has information about PCP. Per chart review patient Uses the [facility] in [place]. Physician identified accepting physician and awaiting receipt of buy back
agreement to be faxed to unit. CM will continue to follow for discharge planning needs.
Plan; pending possible transfer to [place]; review for possible need for authorization
--- NOTE | 2023-07-29 10:10 | W.PN.HOSP.TC ---
Addendum entered and electronically signed by Carolina Deras MD 07/29/23 18:02:
Patient's BMI corresponds to being underweight
Atrial fibrillation should read persistent
Given patient's age, hip fracture was certainly due to mechanical fall with trauma but cannot rule out age-related osteoporosis
Addendum entered and electronically signed by Carolina Deras MD 07/29/23 11:13:
pt seen and examined independently--agree with resident note as set forth below
GENERAL: well developed, well nourished, female in no apparent distress
HEENT: NC/AT
HEART: irreg irreg
LUNGS : clear to auscultation bilaterally
ABDOM: soft, nontender, nondistended, + bowel sounds
EXT: no cyanosis, clubbing, or edema
NEUROLOGIC: alert, answers questions appropriately--asking about transfer
mechanical fall with traumatic Acute right intertrochanteric femur fracture--awaiting surgery but pt was agitated 07/27 prior to surgery which was then cancelled--cont to hold Eliquis--cont pain meds--bedrest until surgery--cont diet--would start SQ
heparin for DVT prophylaxis in lieu of eliquis at this time
Agitation-- likely hospital delirium--no h/o dementia--? pain meds--infectious w/u underway--UA negative, blood cultures pending--pt calm this AM--did receive haldol x 1 07/28/23
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
Hx of Chronic HFpEF-- no exacerbation--since pt eating can stop IVF--lasix on hold--continue metoprolol (hold if SBP <100)
Hx of permanent Atrial Fibrillation--cont metoprolol--hold eliquis
acute blood loss on Chronic microcytic anemia--due to long bone fracture and IVF dilution--s/p 2 units pRBC--HGB improved to 10.6
Parkinson's--no h/o dementia--Continue Sinemet, Rasagaline
DVT proph--SQ heparin
code status -- FULL CODE
Dr. Benitez and myself were informed that the patient's daughter wanted the patient transferred to [facility] for her surgery. We confirmed this information with the patient's daughter Linnette. We spoke to the [place] transfer center
and spoke with Nasima the coordinator and Dr. Alvarado, the orthopedic surgeon who has agreed to accept the patient in transfer. We did explain that this is patient request and that our surgeons can do the hip surgery today here at [facility].
Orthopedics indicated that it would be in the patient's best interest to have the patient have surgery here at [facility] as she is already out 24 to 48 hours from her fall and fracture; nevertheless, he would accept the patient in transfer if the
family is adamant in that regard. We spoke with the patient's daughter again relating this information, and she is in agreement that she will 'take her chances' and wants the patient transferred to [facility] due to
'miscommunication here'. I did not inquire further as to what that meant.
Accepting physician Dr. Alvarado at [facility]. Patient to be transferred when bed available. Case management aware.
Original Note:
Today's Communication/Plan
-
Continue to hold eliquis, pending transfer to [place] upon bed availability.
Assessment / Plan
Assessment / Plan
IMPRESSION:
This is a 88 year old female patient with PMH of persisten Afib, chronic HFpEF, Parkinson's disease, CKD3a, chronic microcytic anemia seen at ED for acute right hip pain after she suffered a fall while going to the [facility].
PLAN:
#Acute Right Hip Pain
-Hold Eliquis as per ortho (not taking since 07/25)
-RCRI risk is Class II 6.0% risk
-No weight bearing to RLE until surgery as per Ortho
-continue pain meds prn (oxycodone, dilaudid)
-surgery was not done (right hip cephalomedullary nail) with due to patient agitation
-As surgery is not scheduled, restarted diet
#Agitation
-Patient is calm, alert and oriented. (single dose of halodol given yesterday)
-blood cultures still pending
-BMP: Na increased to 132 from 131 yesterday, lactic acic 1.4
-U/A: trace leukocytes, trace ketones, few bacteria
-monitor bmp in AM
#Hx of Chronic HFpEF
-Discontinued Lasix after assessing volume status (dry) and decreasing BP
-Continue IV fluids
-continue metoprolol (hold if SBP <100)
#Hx of Atrial Fibrillation
-hold eliquis as per ortho
-continue metoprolol
#Chronic microcytic anemia
-Hb 10.6, Hct 28.7 after transfusion
-monitor CBC
#Parkinson's
-Continue Sinemet, Rasagaline.
Transfer to [place] Request
Patient's daughter stated that she wants her mother's surgery to be done [place] stating that she did not like miscommunication about surgery. We (myself and ) had called [place] transfer service, spoke with orthopedic and
Nasima the coordinator. We had given orthopedic brief history about patient. They stated that they did not have bed availability for patient but offered by back as an option. Orthopedics stated that he recommended best option is to have surgery for
patient done at [facility] due to it being already 24-48 hours after fall. We had stated that patient's daughter is adamant about transfer and they agreed to put patient in queue for bed availability. We then called patient's daughter
back to explain that patient will need to stay at [facility] until a bed is available at [place] and that it was recommended by [place] orthopedic the best option is to have surgery done at [facility]. Explained to her that transfer will not
happen today and can take 1-2 days. Patient's daughter said she still wants to pursue transfer after being made aware of situation.
DVT: SCD
Full Code
Anticipated Discharge: 24 - 48 hours
Subjective/Interval History
-
Date of Service: July 29, 2023
Patient was feeling fine and was alert and orientated today.
Objective Data
-
Labs:
Laboratory Results
07/29/23
07:04
WBC 10.0
Hgb 10.6 L D
Hct 28.7 L
Plt Count 109 L
Sodium 132 L
Potassium 4.2
Chloride 102
Carbon Dioxide 25
BUN 29 H
Creatinine 1.0
Glucose 104 H
Calcium 8.2 L
Vital Signs:
Vital Signs
Temp Pulse Resp BP Pulse Ox
98.7 F 81 18 154/88 95
07/29/23 07:00 07/29/23 07:00 07/29/23 07:00 07/29/23 07:00 07/29/23 07:00
I&O
07/28/23 07/29/23 07/30/23
06:59 06:59 06:59
Intake Total 2200 / 2200 1420 / 1420
Output Total 100 / 100 50 / 50
Balance 2099 / 2099 1370 / 1370
Review of Systems
-
History Source: Patient
All other systems: Reviewed and negative
Physical Exam
-
General: No Apparent Distress
HEENT: Normocephalic
Respiratory: Clear to Auscultation
Cardiac: S1/S2; Negative Murmur
GI: Soft, Nontender and Nondistended
Musculoskeletal: No Edema and Other (right lower extremity externally rotated and shortened)
Neuro: Awake, Alert and Oriented
Psych: Calm
--- NOTE | 2023-07-29 10:10 | PTCARENOTE ---
Update given to Jeri at [facility], reports patient has been accepted at [facility], pending bed availability.
[2023-07-29] MEDS: SINEMET 25-100 1.5 TABLET PO ×3 (10:30→21:17)
[2023-07-29] MEDS: RASAGILINE MESYLATE 1 MG PO (10:31)
[2023-07-29] MEDS: COLACE PO ×2 (10:31→10:38)
[2023-07-29] MEDS: TOPROL XL 100 MG PO (10:32)
[2023-07-29] MEDS: SENOKOT PO ×2 (10:34→10:38)
[2023-07-29] MEDS: TYLENOL 650 MG PO ×3 (10:34→20:33)
--- NOTE | 2023-07-29 14:48 | PN.CDI ---
CDI
- -
CDI:
Physician Documentation Request
Admit Date: 07/27/23 06:03
Dear Doctor Braeden,
Please review the following and provide your response in the progress notes.
Clinical Indicators:
[place] Former, 07/27
#Chart reviewed due to pt with BMI < 19.
#CBW: 86 lbs 11.2 oz BMI 16.9 underweight range 07/27.
#...Pts weight per external summary report was 88lbs 03/09/23
#...reflective of 2 lb (2%) weight change in 5 months.
Please provide an associated diagnosis related to the BMI,...:
BMI, 16.9, underweight
BMI is not significant
Other (please specify)
BMI < or = to 19
Underweight
Weight Loss
Cachectic
Anorexia
Use of terms such as suspected, likely, concern for, or probable (associated with a specific diagnosis that is being evaluated, monitored, or treated as if it exists) are acceptable and can be coded in the inpatient setting, when documented at the
time of discharge.
Thank you,
Carolina Ray RN BSN CCDS
CDI Specialist
please contact via tiger text
Please use your independent medical judgment in providing your response.
--- NOTE | 2023-07-29 14:52 | PN.CDI ---
CDI
- -
CDI:
Physician Documentation Request
Admit Date: 07/27/23 06:03
Dear Doctor Braeden,
Please review the following and provide your response in the progress notes.
Due to conflicting documentation, please clarify the specificity of the atrial fibrillation...
Clinical Indicators:
H+P, 07/26
#HX Prx AF on chr eliquis
PN, 07/26
# Persistent a fib- hold eliquis due to OR per ortho,
#...restart 12-24 after procedure d/w ortho cards c/s pending
PN, 07/28
#Hx of permanent Atrial Fibrillation--cont metoprolol--hold eliquis
Please clarify specificity regarding atrial fibrillation, such as:
Paroxysmal atrial fibrillation - terminates spontaneously or with intervention within 7 days of onset
Persistent atrial fibrillation - episodes of continuous AF that last more than 7 days and do not self-terminate
Permanent atrial fibrillation - when a decision has been made to accept the presence of AF and there is no further attempt to restore or maintain sinus rhythm
Other - please specify
Use of terms such as suspected, likely, concern for, or probable (associated with a specific diagnosis that is being evaluated, monitored, or treated as if it exists) are acceptable and can be coded in the inpatient setting, when documented at the
time of discharge.
Thank you,
Carolina Ray RN BSN CCDS
CDI Specialist
please contact via tiger text
Please use your independent medical judgment in providing your response.
--- NOTE | 2023-07-29 14:57 | PN.CDI ---
CDI
- -
CDI:
Physician Documentation Request
Admit Date: 07/27/23 06:03
Dear Doctor Braeden,
Please review the following and provide your response in the progress notes.
Clinical Indicators:
ED, 07/26
#ED Past Medical History: Other (Parkinson's disease)
#Closed fracture of right hip
PN, 07/27
mechanical fall with traumatic Acute right intertrochanteric femur fracture
#...--awaiting surgery but pt was agitated 07/27 prior to surgery which was then cancelled--
Please clarify the etiology of the right hip fracture:
Multifactorial due to mechanical fall, trauma and age related osteoporosis
Traumatic fracture only
Other(please specify)
Type Fracture
Age-related With current pathological fx
Drug induced (specify drug) without current pathological fx
Idiopathic
Osteoporosis of disuse
Post traumatic
Use of terms such as suspected, likely, concern for, or probable (associated with a specific diagnosis that is being evaluated, monitored, or treated as if it exists) are acceptable and can be coded in the inpatient setting, when documented at the
time of discharge.
Thank you,
Carolina Ray RN BSN CCDS
CDI Specialist
please contact via tiger text
Please use your independent medical judgment in providing your response.
[2023-07-29] MEDS: HEPARIN 5000 UNITS SC (20:33)
[2023-07-29] MEDS: COLACE 100 MG PO (20:33)
[2023-07-29] MEDS: SENOKOT 17.1999999999999993 MG PO (20:34)
[2023-07-29] MEDS: SINEMET CR 25-100 (EXTENDED RELEASE) 1 TABLET PO (21:18)
[2023-07-30] MEDS: TYLENOL PO (03:17)
[2023-07-30 03:49] VITALS: BP 124/77
[2023-07-30 04:01] VITALS: BMI 17.8
[2023-07-30 06:00] VITALS: BMI 17.8
[2023-07-30 07:00] VITALS: BP 133/91
[2023-07-30 07:23] LABS: Hematocrit 29.4 % (37.0-47.0); Hemoglobin 10.8 g/dL (12.0-16.0); Mean Corp Hgb Conc. 36.7 g/dL (33.0-37.0); Mean Corpuscular Hgb 25.2 pg (27.0-31.0); Mean Corpuscular Volume 68.5 fL (81.0-99.0); Platelet Count 117 10^3/uL (130-400); Red Blood Cell Count 4.29 10^6/uL (4.20-5.40); Red Cell Dist. Width 24.6 % (11.5-14.5); White Blood Cell Count 8.8 10^3/uL (4.8-10.8)
[2023-07-30 07:49] LABS: Blood Urea Nitrogen 25 mg/dl (7-17); Calcium 8.7 mg/dl (8.4-10.2); Carbon Dioxide 28 mmol/L (22-30); Chloride 102 mmol/L (98-107); Estimated Creatinine Clearance 25 ml/min; Glucose 102 mg/dl (70-99); Magnesium 2.1 mg/dl (1.6-2.3); Potassium 4.3 mmol/L (3.5-5.1); Sodium 136 mmol/L (135-145); eGFR 54.19
[2023-07-30] MEDS: RASAGILINE MESYLATE 1 MG PO (08:20)
[2023-07-30] MEDS: TYLENOL 650 MG PO ×5 (08:21→23:23)
[2023-07-30] MEDS: HEPARIN 5000 UNITS SC ×2 (08:21→20:21)
[2023-07-30] MEDS: SINEMET 25-100 1.5 TABLET PO ×3 (08:21→21:22)
[2023-07-30] MEDS: TOPROL XL 100 MG PO (08:21)
[2023-07-30] MEDS: COLACE 100 MG PO ×2 (08:21→20:21)
[2023-07-30] MEDS: SENOKOT PO ×2 (08:22→20:21)
--- NOTE | 2023-07-30 09:50 | PTOTSP ---
chart reviewed, noted daughter wanting transfer to outside facility for surgery. will sign off at this time, as fracture unstable. will require new orders once pt is medically optimized to participate in therapy.
[2023-07-30 11:00] VITALS: BP 116/72
--- NOTE | 2023-07-30 11:28 | W.PN.HOSP.TC ---
Today's Communication/Plan
-
Transfer pending;patient not agitated.
Assessment / Plan
Assessment / Plan
IMPRESSION:
This is a 88 year old female patient with PMH of persisten Afib, chronic HFpEF, Parkinson's disease, CKD3a, chronic microcytic anemia seen at ED for acute right hip pain after she suffered a fall while going to the bathroom.
PLAN:
#Acute Right Hip Pain
-Hold Eliquis as per ortho (not taking since 07/25)
-RCRI risk is Class II 6.0% risk
-No weight bearing to RLE until surgery as per Ortho
-continue pain meds prn (oxycodone, dilaudid)
-surgery pending on transfer to [place] bed availability
#Agitation
-Patient is calm today (single dose of halodol given on 07/27)
-blood cultures negative
-BMP: Na 136 today
-monitor bmp in AM
#Hx of Chronic HFpEF
-Discontinued Lasix after assessing volume status (dry) and decreasing BP
-Discontinued IVF
-continue metoprolol (hold if SBP <100)
#Hx of Atrial Fibrillation
-hold eliquis as per ortho
-continue metoprolol
#Chronic microcytic anemia
-Hb 10.6, Hct 28.7 after transfusion on 07/27
-Hb.10.8 today.
-monitor CBC
#Parkinson's
-Continue Sinemet, Rasagaline.
Transfer to [place] Request
Patient's daughter stated that she wants her mother's surgery to be done [place] stating that she did not like miscommunication about surgery. We (myself and ) had called [place] transfer service, spoke with orthopedic and
Nasima the coordinator. We had given orthopedic brief history about patient. They stated that they did not have bed availability for patient but offered by back as an option. Orthopedics stated that he recommended best option is to have surgery for
patient done at [facility] due to it being already 24-48 hours after fall. We had stated that patient's daughter is adamant about transfer and they agreed to put patient in queue for bed availability. We then called patient's daughter
back to explain that patient will need to stay at [facility] until a bed is available at [place] and that it was recommended by [facility] the best option is to have surgery done at [place]. Explained to her that transfer will not
happen today and can take 1-2 days. Patient's daughter said she still wants to pursue transfer after being made aware of situation.
DVT: SCD
Full Code
Anticipated Discharge: 24 - 48 hours
Subjective/Interval History
-
Date of Service: July 30, 2023
Patient continues to have right hip pain.
Objective Data
-
Labs:
Laboratory Results
07/30/23
06:48
WBC 8.8
Hgb 10.8 L
Hct 29.4 L
Plt Count 117 L
Sodium 136
Potassium 4.3
Chloride 102
Carbon Dioxide 28
BUN 25 H
Creatinine 1.0
Glucose 102 H
Calcium 8.7
Vital Signs:
Vital Signs
Temp Pulse Resp BP Pulse Ox
98.4 F 82 18 133/91 96
07/30/23 07:00 07/30/23 08:21 07/30/23 07:00 07/30/23 08:21 07/30/23 07:00
I&O
07/29/23 07/30/23 07/31/23
06:59 06:59 06:59
Intake Total 1420 / 1420 360 / 360
Output Total 50 / 50 950 / 950
Balance 1370 / 1370 -590 / -590
Review of Systems
-
History Source: Patient
All other systems: Reviewed and negative
Physical Exam
-
General: No Apparent Distress
HEENT: Normocephalic
Respiratory: Clear to Auscultation
Cardiac: Regular Rhythm and S1/S2; Negative Murmur
GI: Soft, Nontender and Nondistended
Musculoskeletal: No Edema and Other (right lower extremity externally and shortened in length)
Neuro: Awake, Alert and Oriented
Psych: Calm
--- NOTE | 2023-07-30 12:14 | W.PN.HOSP.TC ---
Today's Communication/Plan
-
waiting for transfer to [facility]
Assessment / Plan
Assessment / Plan
pt is an 88 year old female
07/29/23 Dr. Benitez and myself were informed that the patient's daughter wanted the patient transferred to [facility] for her surgery. We confirmed this information with the patient's daughter Linnette. We spoke to the [facility] transfer
center and spoke with Nasima the coordinator and Dr. Alvarado, the orthopedic surgeon who has agreed to accept the patient in transfer. We did explain that this is patient request and that our surgeons can do the hip surgery today here at
[place]. Orthopedics indicated that it would be in the patient's best interest to have the patient have surgery here at [place] as she is already out 24 to 48 hours from her fall and fracture; nevertheless, he would accept the patient in
transfer if the family is adamant in that regard. We spoke with the patient's daughter again relating this information, and she is in agreement that she will 'take her chances' and wants the patient transferred to [facility] due to
'miscommunication here'. I did not inquire further as to what that meant.
Accepting physician Dr. Alvarado at [facility]. Patient to be transferred when bed available. Case management aware.
mechanical fall with traumatic Acute right intertrochanteric femur fracture but cannot rule out age-related osteoporosis --awaiting surgery but pt was agitated 07/27 prior to surgery which was then cancelled--cont to hold Eliquis--cont pain
meds--bedrest until surgery--cont diet--would start SQ heparin for DVT prophylaxis in lieu of eliquis at this time
Agitation-- likely hospital delirium--no h/o dementia--? pain meds--infectious w/u underway--UA negative, blood cultures pending--pt calm this AM--did receive haldol x 1 07/28/23
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
Hx of Chronic HFpEF-- no exacerbation--since pt eating can stop IVF--lasix on hold--continue metoprolol (hold if SBP <100)
Hx of persistent Atrial Fibrillation--cont metoprolol--hold eliquis
acute blood loss on Chronic microcytic anemia--due to long bone fracture and IVF dilution--s/p 2 units pRBC--HGB improved to 10.6
Parkinson's--no h/o dementia--Continue Sinemet, Rasagaline
underweight BMI
DVT proph--SQ heparin
code status -- FULL CODE
From Dr. Benitez
Transfer to [facility] Request
Patient's daughter stated that she wants her mother's surgery to be done [facility] stating that she did not like miscommunication about surgery. We (myself and ) had called [facility] transfer service, spoke with orthopedic and
Nasima the coordinator. We had given orthopedic brief history about patient. They stated that they did not have bed availability for patient but offered by back as an option. Orthopedics stated that he recommended best option is to have surgery for
patient done at [facility] due to it being already 24-48 hours after fall. We had stated that patient's daughter is adamant about transfer and they agreed to put patient in queue for bed availability. We then called patient's daughter
back to explain that patient will need to stay at [facility] until a bed is available at [facility] and that it was recommended by [facility] orthopedic the best option is to have surgery done at [place]. Explained to her that transfer will not
happen today and can take 1-2 days. Patient's daughter said she still wants to pursue transfer after being made aware of situation.
DVT: SCD
Full Code
Anticipated Discharge: 24 - 48 hours
Subjective/Interval History
-
Date of Service: July 30, 2023
pt waiting for transfer to [facility]
Objective Data
-
Labs:
Laboratory Results
07/30/23
06:48
WBC 8.8
Hgb 10.8 L
Hct 29.4 L
Plt Count 117 L
Sodium 136
Potassium 4.3
Chloride 102
Carbon Dioxide 28
BUN 25 H
Creatinine 1.0
Glucose 102 H
Calcium 8.7
Vital Signs:
max temp for 24 hour
07/30/23
07:00
Temp 98.4 F
Vital Signs
Temp Pulse Resp BP Pulse Ox
97.9 F 76 16 116/72 97
07/30/23 11:00 07/30/23 11:00 07/30/23 11:00 07/30/23 11:00 07/30/23 11:00
I&O
07/29/23 07/30/23 07/31/23
06:59 06:59 06:59
Intake Total 1420 / 1420 360 / 360
Output Total 50 / 50 950 / 950
Balance 1370 / 1370 -590 / -590
Review of Systems
-
All other systems: Reviewed and negative
Physical Exam
-
General: Well Developed, Well Nourished and No Apparent Distress
HEENT: Normocephalic and Atraumatic
Respiratory: Clear to Auscultation; Negative Wheezes or Rhonchi
Cardiac: Regular Rhythm and S1/S2; Negative Murmur
GI: Soft, Nontender, Nondistended and Normal Bowel Sounds
Musculoskeletal: No Clubbing, No Cyanosis and No Edema
Neuro: Awake and Alert
--- NOTE | 2023-07-30 12:50 | CM ---
Buyback for patient completed and signed by family and attending MD. Faxed to [facility] as requested to initiate transfer. Copy on chart. Medical Records scanned copy in electronically.
Plan: Case management will continue to follow and assist with discharge planning. Transfer for sx to [facility].
[2023-07-30 15:00] VITALS: BP 141/87
[2023-07-30] MEDS: SINEMET CR 25-100 (EXTENDED RELEASE) 1 TABLET PO (21:22)
[2023-07-30 23:00] VITALS: BP 124/78
[2023-07-31 01:41] LABS: Transferrin 134 mg/dL (200-360)
[2023-07-31] MEDS: TYLENOL 650 MG PO ×4 (03:56→16:33)
[2023-07-31 06:00] VITALS: BMI 17.4
[2023-07-31 07:12] LABS: % Basophils 0.6 % (0-2); % Eosinophils 1.2 % (0-6); % Immature Granulocytes 0.4 % (0-0.5); % Monocytes 7.5 % (1.7-9.3); % Neutrophils 76.3 % (42.2-75.2); Absolute Eosinophils 0.1 10^3/uL (0-0.7); Absolute Monocytes 0.5 10^3/uL (0.1-0.6); Absolute Neutrophils 5.2 10^3/uL (1.4-6.5); Hematocrit 28.2 % (37.0-47.0); Hemoglobin 10.1 g/dL (12.0-16.0); Mean Corp Hgb Conc. 35.8 g/dL (33.0-37.0); Mean Corpuscular Volume 69.8 fL (81.0-99.0); Nucleated Red Blood Cells % 0 %; Platelet Count 120 10^3/uL (130-400); Red Blood Cell Count 4.04 10^6/uL (4.20-5.40); Red Cell Dist. Width 25.4 % (11.5-14.5); White Blood Cell Count 6.8 10^3/uL (4.8-10.8)
[2023-07-31 07:25] LABS: Blood Urea Nitrogen 23 mg/dl (7-17); Calcium 8.3 mg/dl (8.4-10.2); Carbon Dioxide 24 mmol/L (22-30); Chloride 106 mmol/L (98-107); Estimated Creatinine Clearance 28 ml/min; Glucose 93 mg/dl (70-99); Potassium 4.2 mmol/L (3.5-5.1); Sodium 134 mmol/L (135-145); eGFR > 60.00
[2023-07-31 08:00] VITALS: BP 137/79
[2023-07-31 09:39] LABS: Anisocytosis 2+; Hypochromasia 2+; Poikilocytosis 1+; Target Cells 1+
[2023-07-31 09:40] LABS: Acanthocytes 1+; Tear Drop Red Blood Cells 1+
[2023-07-31] MEDS: SINEMET 25-100 1.5 TABLET PO ×2 (10:46→16:33)
[2023-07-31] MEDS: RASAGILINE MESYLATE 1 MG PO (10:46)
[2023-07-31] MEDS: SENOKOT PO (10:47)
[2023-07-31] MEDS: HEPARIN 5000 UNITS SC (10:47)
[2023-07-31] MEDS: TOPROL XL 100 MG PO (10:47)
[2023-07-31] MEDS: COLACE PO (10:47)
--- NOTE | 2023-07-31 10:49 | PTOTSP ---
Speech Therapy Assessment
No overt signs of aspiration during bedside assessment but risk is elevated given history of Parkinson's Disease, reported baseline coughing with intake and current deconditioned state. Education and strategies provided to patient and family member
at bedside.
Recommend
1. Regular Solids and Thin Liquids
2. Upright with meals
3. Single sips of liquid
4. Meds with liquid as tolerated. Whole in applesauce if coughing/difficulty when taking with liquids.
5. ST will follow up to ensure diet tolerance before signing off
[2023-07-31 11:33] LABS: Normal RBC Morphology No
--- NOTE | 2023-07-31 11:40 | W.PN.HOSP.TC ---
Addendum entered and electronically signed by Lonny Norris MD 07/31/23 19:03:
Dictation- [id number]
Original Note:
Today's Communication/Plan
-
Has a bed at [place]
Transport set up per staff
Already has a [place] placed for retention, follow protocol
Had a a BM yesterday
Assessment / Plan
Assessment / Plan
IMPRESSION:
This is a 88 year old female patient with PMH of persisten Afib, chronic HFpEF, Parkinson's disease, CKD3a, chronic microcytic anemia seen at ED for acute right hip pain after she suffered a fall while going to the bathroom.
CVS: S1-S2 normal
Chest: CTA B/L
Abdomen: Soft, NT / Bowel sounds present
Extremities: No edema
PLAN:
#Acute Right Hip Pain
-Hold Eliquis as per ortho (not taking since 07/25)
-RCRI risk is Class II 6.0% risk
-No weight bearing to RLE until surgery as per Ortho
-continue pain meds prn (oxycodone, Dilaudid)
-surgery pending on transfer to [place] bed availability
-Bed available today
#Agitation
-Patient is calm today (single dose of halodol given on 07/27)
-blood cultures negative
-U/A Neg
-If staying will get CXR
-BMP: Na 136 today
-monitor bmp in AM
#Hx of Chronic HFpEF
-Discontinued Lasix after assessing volume status (dry) and decreasing BP
-Discontinued IVF
-continue metoprolol (hold if SBP <100)
#Anemia
#Hx of Atrial Fibrillation, Paroxysmal
-In SR now
-hold eliquis as per ortho
-continue metoprolol
#Chronic microcytic anemia
-Hb 10.6, Hct 28.7 after transfusion on 07/27
-Hb.10.1 today.
-monitor CBC
#Parkinson's
-Continue Sinemet, Rasagaline.
#DVT: SCD, SQ heparin
#Full Code
'Transfer to [place] Request
Patient's daughter stated that she wants her mother's surgery to be done [place] stating that she did not like miscommunication about surgery. We (myself and ) had called [place] transfer service, spoke with orthopedic and
Nasima the coordinator. We had given orthopedic brief history about patient. They stated that they did not have bed availability for patient but offered by back as an option. Orthopedics stated that he recommended best option is to have surgery for
patient done at [facility] due to it being already 24-48 hours after fall. We had stated that patient's daughter is adamant about transfer and they agreed to put patient in queue for bed availability. We then called patient's daughter
back to explain that patient will need to stay at [facility] until a bed is available at [place] and that it was recommended by [place] orthopedic the best option is to have surgery done at [place]. Explained to her that transfer will not
happen today and can take 1-2 days. Patient's daughter said she still wants to pursue transfer after being made aware of situation.'
Anticipated Discharge: Today
Subjective/Interval History
-
Date of Service: July 31, 2023
Objective Data
-
Labs:
Laboratory Results
07/31/23
06:39
WBC 6.8
Hgb 10.1 L
Hct 28.2 L
Plt Count 120 L
Sodium 134 L
Potassium 4.2
Chloride 106
Carbon Dioxide 24
BUN 23 H
Creatinine 0.9
Glucose 93
Calcium 8.3 L
Vital Signs:
Vital Signs
Temp Pulse Resp BP Pulse Ox
98.3 F 77 16 137/79 95
07/31/23 08:00 07/31/23 08:00 07/31/23 08:00 07/31/23 08:00 07/31/23 08:00
I&O
07/30/23 07/31/23 08/01/23
06:59 06:59 06:59
Intake Total 360 / 360 1260 / 1260
Output Total 950 / 950 950 / 950
Balance -590 / -590 310 / 310
[2023-07-31 14:54] VITALS: BP 108/74
--- NOTE | 2023-07-31 17:09 | PTCARENOTE ---
Report called to receiving TANI Cabral at [place]. Transport scheduled for 1700.
== END 2023-07-31 17:40 | disposition short-term general hospital (02) | DRG 543 ==
LOC: 3 WEST ACU 06:03
PROVIDERS: Family Medicine; Internal Medicine; Student in an Organized Health Care Education/Training Program; ADMITTING PHYSICIAN Internal Medicine; ATTENDING PHYSICIAN Hospitalist; CONSULT PHYSICIAN Orthopaedic Surgery; EMERGENCY PHYSICIAN Student in an Organized Health Care Education/Training Program
PROC: 30233N1 Transfusion of Nonautologous Red Blood Cells into Peripheral Vein, Percutaneous Approach (ICD-10-PCS; 2023-07-28)
DX: M80.051A Age-related osteoporosis with current pathological fracture, right femur, initial encounter for fracture (principal); D62 Acute posthemorrhagic anemia; E22.2 Syndrome of inappropriate secretion of antidiuretic hormone; F05 Delirium due to known physiological condition; I50.32 Chronic diastolic (congestive) heart failure; I48.19 Other persistent atrial fibrillation; I13.0 Hypertensive heart and chronic kidney disease with heart failure and stage 1 through stage 4 chronic kidney disease, or unspecified chronic kidney disease; Z68.1 Body mass index [BMI] 19.9 or less, adult; G20.A1 Parkinson's disease without dyskinesia, without mention of fluctuations; N18.32 Chronic kidney disease, stage 3b; R26.2 Difficulty in walking, not elsewhere classified; R63.6 Underweight; I95.89 Other hypotension; D50.9 Iron deficiency anemia, unspecified; D69.6 Thrombocytopenia, unspecified; R45.1 Restlessness and agitation; E78.5 Hyperlipidemia, unspecified; W01.0XXA Fall on same level from slipping, tripping and stumbling without subsequent striking against object, initial encounter; Y93.01 Activity, walking, marching and hiking; Y92.002 Bathroom of unspecified non-institutional (private) residence as the place of occurrence of the external cause; Z53.8 Procedure and treatment not carried out for other reasons; Z79.01 Long term (current) use of anticoagulants; Z78.1 Physical restraint status; R33.9 Retention of urine, unspecified
CPT/HCPCS: 70450; 73502; 80048; 80053; 81003; 81015; 82248; 82728; 83550; 83605; 83735; 84466; 85025; 85027; 85610; 85730; 86850; 86900; 86901; 86920; 87040; 92610; 93005; 99285; P9016

== ENCOUNTER → 2023-08-10 11:37 | Outpatient (REF) | payer OTHER, SELFPAY ==
[2023-08-10 13:13] LABS: Hematocrit 22.3 % (37.0-47.0); Hemoglobin 7.9 g/dL (12.0-16.0); Mean Corp Hgb Conc. 35.4 g/dL (33.0-37.0); Mean Corpuscular Hgb 24.8 pg (27.0-31.0); Mean Corpuscular Volume 69.9 fL (81.0-99.0); Platelet Count 235 10^3/uL (130-400); Red Blood Cell Count 3.19 10^6/uL (4.20-5.40); Red Cell Dist. Width 27.5 % (11.5-14.5); White Blood Cell Count 8.9 10^3/uL (4.8-10.8)
[2023-08-10 13:53] LABS: ALT (SGPT) < 10 U/L (0-35); AST (SGOT) 23 U/L (14-36); Alkaline Phosphatase 78 U/L (38-126); Blood Urea Nitrogen 25 mg/dl (7-17); Calcium 8.5 mg/dl (8.4-10.2); Carbon Dioxide 29 mmol/L (22-30); Chloride 103 mmol/L (98-107); Glucose 88 mg/dl (70-99); Potassium 4.8 mmol/L (3.5-5.1); Sodium 134 mmol/L (135-145); Total Bilirubin 0.7 mg/dl (0.2-1.3); Total Protein 5.5 g/dl (6.3-8.2); eGFR > 60.00
== END ==
LOC: OLABWHC 11:37
PROVIDERS: ATTENDING PHYSICIAN Family Medicine
DX: D64.9 Anemia, unspecified (principal); I50.30 Unspecified diastolic (congestive) heart failure; S72.114D Nondisplaced fracture of greater trochanter of right femur, subsequent encounter for closed fracture with routine healing
CPT/HCPCS: 36415; 80053; 85027

== ENCOUNTER → 2023-08-13 10:21 | Outpatient (REF) | payer OTHER, SELFPAY ==
[2023-08-13 10:54] LABS: Hematocrit 21.3 % (37.0-47.0); Hemoglobin 7.5 g/dL (12.0-16.0); Mean Corp Hgb Conc. 35.2 g/dL (33.0-37.0); Mean Corpuscular Hgb 24.2 pg (27.0-31.0); Mean Corpuscular Volume 68.7 fL (81.0-99.0); Platelet Count 221 10^3/uL (130-400); Red Cell Dist. Width 27.7 % (11.5-14.5); White Blood Cell Count 6.4 10^3/uL (4.8-10.8)
== END ==
LOC: OLABWHC 10:21
PROVIDERS: ATTENDING PHYSICIAN Student in an Organized Health Care Education/Training Program; FAMILY PHYSICIAN Family Medicine
DX: D64.9 Anemia, unspecified (principal)
CPT/HCPCS: 36415; 85027

== ENCOUNTER → 2023-08-14 11:10 | Outpatient (REF) | payer OTHER, SELFPAY ==
[2023-08-14 11:34] LABS: % Basophils 0.3 % (0-2); % Eosinophils 1.1 % (0-6); % Lymphocytes 15.7 % (20.5-51.1); % Monocytes 8.6 % (1.7-9.3); % Neutrophils 73.3 % (42.2-75.2); Absolute Eosinophils 0.1 10^3/uL (0-0.7); Absolute Immature Granulocytes 0.1 10^3/uL (0-0.05); Absolute Lymphocytes 1.2 10^3/uL (1.2-3.4); Absolute Monocytes 0.6 10^3/uL (0.1-0.6); Absolute Neutrophils 5.4 10^3/uL (1.4-6.5); Hematocrit 22.2 % (37.0-47.0); Hemoglobin 7.7 g/dL (12.0-16.0); Mean Corp Hgb Conc. 34.7 g/dL (33.0-37.0); Mean Corpuscular Volume 69.2 fL (81.0-99.0); Nucleated Red Blood Cells % 0.3 %; Platelet Count 237 10^3/uL (130-400); Red Blood Cell Count 3.21 10^6/uL (4.20-5.40); Red Cell Dist. Width 28.2 % (11.5-14.5); White Blood Cell Count 7.3 10^3/uL (4.8-10.8)
[2023-08-14 12:20] LABS: Anisocytosis 1+; Hypochromasia 2+; Normal RBC Morphology No; Polychromasia 1+
[2023-08-14 12:21] LABS: Target Cells 1+
== END ==
LOC: OLABWHC 11:10
PROVIDERS: ATTENDING PHYSICIAN Family Medicine
DX: D64.9 Anemia, unspecified (principal); D69.6 Thrombocytopenia, unspecified
CPT/HCPCS: 36415; 85025; 86850; 86900; 86901; 86920

== ENCOUNTER → 2023-08-17 13:40 | Outpatient (REF) | payer OTHER, SELFPAY ==
[2023-08-17 15:13] LABS: Hematocrit 22.5 % (37.0-47.0); Hemoglobin 7.8 g/dL (12.0-16.0); Mean Corp Hgb Conc. 34.7 g/dL (33.0-37.0); Mean Corpuscular Hgb 23.6 pg (27.0-31.0); Mean Corpuscular Volume 68.2 fL (81.0-99.0); Platelet Count 217 10^3/uL (130-400); Red Cell Dist. Width 27.8 % (11.5-14.5); White Blood Cell Count 5.8 10^3/uL (4.8-10.8)
== END ==
LOC: OLABWHC 13:40
PROVIDERS: ATTENDING PHYSICIAN Family Medicine
DX: D64.9 Anemia, unspecified (principal); D69.6 Thrombocytopenia, unspecified
CPT/HCPCS: 36415; 85027

== ENCOUNTER → 2023-08-21 10:44 | Outpatient (REF) | payer OTHER, SELFPAY ==
[2023-08-21 11:31] LABS: Hematocrit 26.4 % (37.0-47.0); Hemoglobin 9.2 g/dL (12.0-16.0); Mean Corp Hgb Conc. 34.8 g/dL (33.0-37.0); Mean Corpuscular Hgb 23.3 pg (27.0-31.0); Mean Corpuscular Volume 66.8 fL (81.0-99.0); Platelet Count 208 10^3/uL (130-400); Red Blood Cell Count 3.95 10^6/uL (4.20-5.40); Red Cell Dist. Width 27.8 % (11.5-14.5); White Blood Cell Count 10.9 10^3/uL (4.8-10.8)
== END ==
LOC: OLABWHC 10:44
PROVIDERS: ATTENDING PHYSICIAN Family Medicine
DX: D64.9 Anemia, unspecified (principal)
CPT/HCPCS: 36415; 85027

== ENCOUNTER 2023-10-23 20:46 | Inpatient (IN) | payer OTHER, SELFPAY ==
[2023-10-23] VITALS (18 sets, daily range): BP systolic 87–117; BP diastolic 48–95; BMI 18.9
[2023-10-23 17:52] LABS: % Basophils 0.4 % (0-2); % Eosinophils 0.4 % (0-6); % Immature Granulocytes 0.5 % (0-0.5); % Lymphocytes 14.3 % (20.5-51.1); % Neutrophils 75.4 % (42.2-75.2); ALT (SGPT) 16 U/L (0-35); AST (SGOT) 38 U/L (14-36); Absolute Lymphocytes 1.1 10^3/uL (1.2-3.4); Absolute Monocytes 0.7 10^3/uL (0.1-0.6); Albumin 4.1 g/dl (3.5-5.0); Alkaline Phosphatase 86 U/L (38-126); Blood Urea Nitrogen 61 mg/dl (7-17); Calcium 9.4 mg/dl (8.4-10.2); Carbon Dioxide 23 mmol/L (22-30); Chloride 105 mmol/L (98-107); Glucose 99 mg/dl (70-99); Hematocrit 28.2 % (37.0-47.0); Hemoglobin 10.4 g/dL (12.0-16.0); Mean Corp Hgb Conc. 36.9 g/dL (33.0-37.0); Mean Corpuscular Hgb 22.2 pg (27.0-31.0); Mean Corpuscular Volume 60.3 fL (81.0-99.0); Nucleated Red Blood Cells % 0.4 %; Platelet Count 144 10^3/uL (130-400); Potassium 5.2 mmol/L (3.5-5.1); Red Blood Cell Count 4.68 10^6/uL (4.20-5.40); Red Cell Dist. Width 26.1 % (11.5-14.5); Sodium 137 mmol/L (135-145); Total Bilirubin 1.1 mg/dl (0.2-1.3); Total Protein 6.5 g/dl (6.3-8.2); White Blood Cell Count 7.9 10^3/uL (4.8-10.8); eGFR 25.08
[2023-10-23 18:01] LABS: NT-proBNP 15600 pg/ml; Troponin I < 0.012 ng/ml
[2023-10-23 18:20] LABS: Acanthocytes 1+; Anisocytosis 2+; Hypochromasia 2+; Poikilocytosis 2+; Target Cells Slight; Tear Drop Red Blood Cells Slight
[2023-10-23 18:21] LABS: Normal RBC Morphology No
--- NOTE | 2023-10-23 19:28 | ED.GENMED ---
History of Present Illness
General
Chief Complaint: Breathing Problem
Source: patient
Exam Limitations: none
Time Seen by Provider: 10/23/23 19:07
History of Present Illness
History of Present Illness:
88-year-old female presents to referral from family doctor's office with increased work of breathing shortness of breath leg swelling. She has a history of A-fib, CHF, and Parkinsons. She had a femur fracture on the right side that was fixed in
July of this year. She is prescribed Eliquis however she does admit and her daughter admits as well that she regularly misses doses of the Eliquis. She denies chest pain. No fever.
Past History
Past History
ED Past Medical History: Other (Parkinson's disease)
ED Past Surgical History: None
Social History
Tobacco: Non-smoker
Alcohol: None
Drug: None
Phy Exam
Physical Exam
Physical Exam:
General: Well-appearing female no acute respiratory distress
HEENT: Normocephalic atraumatic
Heart: Tachycardic and irregular
Lungs: Subtle rales at the base
Extremities: Pitting edema bilateral lower extremities
Skin: Warm no rash
Neurologic: Alert and oriented no facial asymmetry
Scores
Heart Failure Risk
Heart Failure Risk Score: Not Applicable
Course
Orders/Labs/Results
Orders:
Orders
10/23/23 17:11
Electrocardiogram (*1) Urgent
Reason for Study: Chest Pain
EKG- Treatment ONCE
10/23/23 17:24
Complete Blood Count/With Diff Urgent
Comprehensive Metabolic Panel Urgent
Pro-BNP [NT-proBNP] Urgent
Troponin I Urgent
10/23/23 19:25
Diltiazem 125 mg/125 ml Nss [Cardizem] 125 mg in 125 ml IV NOW
Initial dose in mg/hr, then titrate:: 5
Titrate to keep:: Heart rate 80-100 bpm
Titrate by mg/hr:: 5 mg/hr
Frequency of titrations (minutes):: 15
Maximum dose in mg/hr:: 15
Diltiazem HCl [Cardizem] 5 mg IV NOW STA
CR Chest Portable - 1 View Urgent
Comment:
Reason For Exam: sob
Reason Study Needs to be Portable: Unable to Transport
Abnormal Lab Results
10/23/23
17:24
Hgb 10.4 L g/dL
(12.0-16.0)
Hct 28.2 L %
(37.0-47.0)
MCV 60.3 L fL
(81.0-99.0)
MCH 22.2 L pg
(27.0-31.0)
RDW 26.1 H %
(11.5-14.5)
Absolute Lymphs (auto) 1.1 L 10^3/uL
(1.2-3.4)
Absolute Monos (auto) 0.7 H 10^3/uL
(0.1-0.6)
Neutrophils % 75.4 H %
(42.2-75.2)
Lymphocytes % 14.3 L %
(20.5-51.1)
Potassium 5.2 H mmol/L
(3.5-5.1)
BUN 61 H mg/dl
(7-17)
Creatinine 1.9 H mg/dL
(0.6-1.0)
AST 38 H U/L
(14-36)
10/23/23 17:24
10/23/23 17:24
Vital Signs
Initial and Last Documented VS:
Initial Vital Signs
Temp Pulse Resp BP Pulse Ox
98.1 F 79 16 112/72 95
10/23/23 17:07 10/23/23 17:07 10/23/23 17:07 10/23/23 17:07 10/23/23 17:07
Last Documented Vital Signs
Temp Pulse Resp BP Pulse Ox
98.1 F 119 16 111/82 99
10/23/23 17:07 10/23/23 20:00 10/23/23 20:00 10/23/23 20:00 10/23/23 19:10
MDM/Problems Addressed
Differential Diagnosis Includes:
Patient presents with increased work of breathing weight gain and leg swelling. Consider CHF versus A-fib versus anemia versus electrolyte abnormality
I have personally visualized EKG was demonstrates rapid atrial fibrillation which is likely causing her CHF flare. Will attempt rate control with 5 mg of Cardizem IV bolus as well as infusion starting at 5 mg. Portable chest x-ray pending. BNP is
elevated at over 15,000.
Patient also has acute kidney injury
*Critical Care Note
Total Time (30-74mins, 75-104mins- exclusive of procedures): Not Applicable
Update Note
Update Note:
Chest x-ray demonstrates vascular congestion with right-sided pleural effusion. Will start with rate control with diltiazem. Admit to hospitalist for A-fib, CHF and acute kidney injury
ED Attending Note
-
Portions of this chart may have been created with voice recognition software.� Occasional wrong word or��sound alike� substitutions may have occurred due to the inherent limitations of voice recognition software.
Discharge Plan
Departure
Patient Disposition: Admit
Date of Disposition: 10/23/23
Time of Disposition: 20:07
Admit to: Telemetry
Presentation/result/management discussed w/ accepting MD/DO: Hospitalist
Discharge Problem:
Atrial fibrillation, rapid, CHF (congestive heart failure), KALYAN (acute kidney injury)
Prescriptions:
No Action
carbidopa-levodopa 25-100 mg Tablet Extended Release
1 tab PO HS
metoprolol succinate 100 mg Tablet Extended Release 24 Hr
100 mg PO HS
furosemide 20 mg Tablet
20 mg PO MOWEFR
carbidopa-levodopa 25-100 mg Tablet
1.5 tab PO TID
Eliquis 2.5 MG tablet
2.5 mg PO BID
rasagiline 1 mg Tablet
1 mg PO HS
CoQ-10 capsule
1 cap PO TID
Referrals:
Josephine Zarate MD [Family Provider] -
Interventions
Interventions:
*Risk Screen - Suicide Last Done: 10/23/23 17:07
*General Assessment Last Done: 10/23/23 17:07
*Neglect/Abuse Screening Last Done: 10/23/23 17:07
*ED COVID-19 Vaccine History Last Done: 10/23/23 19:07
ED- Cardiac Assessment Last Done: 10/23/23 19:08
ED- Pulmonary Assessment Last Done: 10/23/23 19:08
Discharge Date and Time
Print Language: LAO
[2023-10-23] MEDS: CARDIZEM 5 MG IV (19:34)
[2023-10-23] MEDS: CARDIZEM 125 IV (19:42)
--- NOTE | 2023-10-23 20:07 | HPS.HSE ---
Family Physician
-
Family Physician: Josephine Zarate MD
Chief Complaint
-
LE edema
sob
palpitation
History of Present Illness
81-year-old with past medical history for Parkinson disease, A-fib, congestive heart failure, Parkinson's presented to close with progressively worsening short of breath for 1 week and bilateral lower extremities edema. Patient reports palpitations
this morning. As per daughter, patient not taking her medication for past few days. Patient denies any headache, dizziness, syncopal episode. Patient denies any fever, chills, c runny nose, congestion, cough patient denied abdominal pain, nausea,
vomiting, diarrhea. Patient denies dysuria hematuria.
Upon her arrival she was noted A-fib with RVR and CHF exacerbation. Initiated on Cardizem drip admitted for further management.
Medical History
Past Medical History
Past Medical History: Reports Other
Additional Past Medical History:
Stage III chronic kidney disease
Hypertension
paroxysmal atrial fib
Chronic heart failure
Parkinson disease
Past Surgical History: Reports Other
Additional Past Surgical History:
Right femur surgery
[place] tooth extraction
Social History
Tobacco: Non-smoker
Alcohol: None
Drug: None
Living: With Family
Family History
Family History: Not pertinent
Allergies / Home Medications
Allergies reflects when Allergies were last updated in [employer].
Home Medications with original date entered in [employer]
Allergy/Medication List:
Allergies
Allergy/AdvReac Type Severity Reaction Status Date / Time
No Known Allergies Allergy Verified 10/23/23 17:06
Home Medications
apixaban 2.5 mg tablet (Eliquis) 2.5 mg PO BID blod clot prevention 07/27/23
carbidopa 25 mg-levodopa 100 mg tablet 1.5 tab PO TID parkinsons 07/27/23
carbidopa ER 25 mg-levodopa 100 mg tablet,extended release 1 tab PO HS Parkinsons 07/27/23
furosemide 20 mg tablet 20 mg PO MOWEFR Fluid Retention/Swelling 07/27/23
metoprolol succinate 100 mg tablet,extended release 24 hr 100 mg PO HS Blood Pressure 07/27/23
rasagiline 1 mg tablet 1 mg PO HS parkinsons 07/27/23
CoQ-10 1 cap PO TID 10/23/23
Review of Systems
-
Constitutional: Reports No Symptoms
EENT: Reports No Symptoms
Respiratory: Reports Trouble Breathing
Cardiac: Reports No Symptoms
Abdomen/GI: Reports No Symptoms
: Reports No Symptoms
Musculoskeletal: Reports Edema (Lower extremities edema)
Skin: Reports No Symptoms
Neurological: Reports No Symptoms
Endocrine: Reports No Symptoms
Hematologic/Lymphatic: Reports No Symptoms
Psych: Reports No Symptoms
Physical Exam
Vital Signs
Vital Signs
Temp Pulse Resp BP Pulse Ox
98.1 F 119 16 111/82 99
10/23/23 17:07 10/23/23 20:00 10/23/23 20:00 10/23/23 20:00 10/23/23 19:10
Physical Exam
General: Well Developed, Well Nourished and No Apparent Distress
HEENT: NormoCephalic, Moist mucous membranes and Atraumatic
Respiratory: Rales
Cardiac: S1/S2 and Regular Rhythm; No Murmur or Rub
GI: Soft, Non Tender, Non Distended and Normal Bowel Sounds; No Organomegaly
Rectal: Deferred by Provider
Musculoskeletal: No Clubbing, No Cyanosis and Other (Bilateral lower extremities edema noted)
Skin: No Rash
Neuro: AO x 3 and Nonfocal/grossly intact
Psych: Calm
Laboratory Results
-
10/23/23 17:24
10/23/23 17:24
Laboratory Results
Total Bilirubin 1.1 mg/dl (0.2-1.3) 10/23/23 17:24
AST 38 U/L (14-36) H 10/23/23 17:24
ALT 16 U/L (0-35) 10/23/23 17:24
Alkaline Phosphatase 86 U/L (38-126) 10/23/23 17:24
Troponin I < 0.012 ng/ml 10/23/23 17:24
Data Reviewed
-
Diagnostic Radiology: Report Reviewed by me
Lab Data: Labs Reviewed by me
Impression/Plan
-
# Atrial fibrillation RVR likely from CHF exacerbation
-Initiated on diltiazem in ER
-EKG with atrial flutter with RVR
-Eliquis continued
# acute on chronic CHF exacerbation
-BNP 15,600
-Chest x-ray with small pleural effusion, mild pulmonary vascular congestion
-IV Lasix 40 daily
-Strict HARVINDER
-Daily weight
-Cardiology consult
-Obtain echocardiogram
# Anemia of chronic disease
-Hemoglobin stable at 10.4
-No active bleeding
-Continue to monitor
# Hyperkalemia/KALYAN likely from fluid overload
-K5.2, creatinine 1.9
-Continue diuretics
-monitor BMP in a.m.
#Parkinson's
-Continue Sinemet, Rasagiline.
#DVT: SCD, Eliquis
#Full Code
--- NOTE | 2023-10-23 20:32 | W.PN.UPDATE ---
Update Note
Progress Note Update
This is an addendum to the H&P written by Karla Vega on 10/23/2023.� Patient seen examined independently with FINAL TESTER.
88-year-old female past medical history of chronic HFpEF, paroxysmal atrial fibrillation on Eliquis , chronic microcytic anemia, Parkinson's, presenting with shortness of breath/leg swelling. Not compliant with Eliquis.
Labs show acute kidney injury, mild hyperkalemia.� Cardiac BNP 15,000.� Chest x-ray shows small right pleural effusion, mild pulmonary vascular congestion.� EKG shows atrial fibrillation with RVR with rate of 147.
Patient with CHF exacerbation, Afib with RVR and cardiorenal syndrome.
Cardizem drip started.� IV Lasix.� Continue Eliquis.� Check echo.� Cardiology consulted.
[2023-10-23] MEDS: LASIX 40 MG IV (20:47)
[2023-10-23] MEDS: RASAGILINE MESYLATE 1 MG PO (22:51)
[2023-10-23] MEDS: TOPROL XL PO (22:52)
[2023-10-23] MEDS: SINEMET CR 25-100 (EXTENDED RELEASE) 1 TABLET PO (22:52)
--- NOTE | 2023-10-23 23:26 | PTCARENOTE ---
Patient admitted to IVU. She is alert and oriented, forgetful especially in taking her medications at home. A-FIB HR 60-70, Cardizem dripped decreased to 5 mg/hr, last BP 94/68. Fingers cool, difficulty obtaining pulse ox, warmed with blankets,
placed on 2 liters NC, POX 100%, fine rales right base. Dependent +2 pitting edema, weak pulses. Patient oriented to call de jesus and instructed to ring for assistance out of bed, commode at bedside
[2023-10-24] VITALS (11 sets, daily range): BP systolic 84–118; BP diastolic 67–86; PULSE 81–100; BMI 18.4
[2023-10-24 04:36] LABS: ALT (SGPT) 18 U/L (0-35); AST (SGOT) 33 U/L (14-36); Albumin 3.6 g/dl (3.5-5.0); Alkaline Phosphatase 68 U/L (38-126); Blood Urea Nitrogen 63 mg/dl (7-17); Calcium 8.7 mg/dl (8.4-10.2); Carbon Dioxide 26 mmol/L (22-30); Chloride 105 mmol/L (98-107); Direct Bilirubin 0.4 mg/dl (0.0-0.4); Estimated Creatinine Clearance 14 ml/min; Glucose 127 mg/dl (70-99); HDL Cholesterol 59 mg/dl; LDL Cholesterol, Calculated 46 mg/dl; Magnesium 2.1 mg/dl (1.6-2.3); Potassium 4.9 mmol/L (3.5-5.1); Sodium 139 mmol/L (135-145); Total Bilirubin 0.9 mg/dl (0.2-1.3); Total Cholesterol 115 mg/dl (50-199); Total Protein 5.8 g/dl (6.3-8.2); Triglyceride 50 mg/dl (10-149); Very Low Density Lipoprotein 10 mg/dl (0-30); eGFR 25.08
[2023-10-24 05:07] LABS: TSH Reflex To Free T4 0.07 uIU/ml (0.47-4.68)
[2023-10-24 05:36] LABS: Free T4 1.56 ng/dl (0.78-2.19)
[2023-10-24] MEDS: ELIQUIS 2.5 MG PO ×2 (07:48→19:56)
[2023-10-24] MEDS: LASIX 40 MG IV (07:48)
[2023-10-24] MEDS: SINEMET 25-100 1.5 TABLET PO ×3 (07:52→18:43)
--- NOTE | 2023-10-24 09:04 | PTCARENOTE ---
Pt on O2 at 2L/min. O2 sat 100%. O2 removed, Pt 94% on RA. Denies SOB.
--- NOTE | 2023-10-24 10:15 | CON.CAR ---
Addendum entered and electronically signed by Gerson Casper MD 10/24/23 14:44:
I saw and examined the patient.
The resident's note was reviewed and edited portions of the note and I agree with the note. I was involved in all MDM including reviewing all data independently,reviewing imaging and tracings, labs.
Comment: Rate control, diuresis, continue anticoagulation. May need to progress to [place]/DCCV this admit. The impression and plan is my impression and plan below.
Original Note:
Consultation
Consultation Request
Date/Time Consultation Requested: 10/24/23 - 7.58am
Date/Time Consultation Performed: 10/24/23 - 10.18am
Requesting Provider: Christopher Michael
Performing Provider: Linda Major for Gerson Esparza
Reason for Consultation: Afib with RVR, Cardiorenal syndrome, CHF
Medical History
-
Chief Complaint: Shortness of breath and swelling of feet.
History of Present Illness:
81-year-old female with PMHx significant for Paroxysmal atrial fibrillation on Eliquis, CKD stage IIIa, Parkinson's disease, thrombocytopenia, CHF (HFpEF), anemia of chronic disease presents to the emergency room yesterday with gradual onset
shortness of breath and lower extremity swelling worsening for 1 week. Her shortness of breath is exertional, denies any orthopnea, PND, headache, dizziness, palpitations, syncopal episodes, change in bladder or bowel habits, fevers and chills.
Past Medical History
Past Medical History: Other (Paroxysmal atrial fibrillation on Eliquis, CKD stage IIIa, Parkinson's disease, thrombocytopenia, CHF (HFpEF), anemia of chronic disease.)
Past Surgical History: None
Social History
Tobacco: Non-Smoker
Alcohol: None
Drug: None
Personal: Single
Living: With Family
Employment: Retired
Family History
Family History: Reviewed & Not Pertinent
Allergies / Home Medications
Allergy/AdvReac Type Severity Reaction Status Date / Time
No Known Allergies Allergy Verified 10/23/23 17:06
�Medication �Instructions �Recorded �Confirmed �Type
apixaban 2.5 mg tablet (Eliquis) 2.5 mg PO BID blod clot prevention 07/27/23 10/23/23 History
carbidopa 25 mg-levodopa 100 mg 1.5 tab PO TID parkinsons 07/27/23 10/23/23 History
tablet
carbidopa ER 25 mg-levodopa 100 mg 1 tab PO HS Parkinsons 07/27/23 10/23/23 History
tablet,extended release
furosemide 20 mg tablet 20 mg PO MOWEFR Fluid 07/27/23 10/23/23 History
Retention/Swelling
metoprolol succinate 100 mg 100 mg PO HS Blood Pressure 07/27/23 10/23/23 History
tablet,extended release 24 hr
rasagiline 1 mg tablet 1 mg PO HS parkinsons 07/27/23 10/23/23 History
CoQ-10 1 cap PO TID Supplement 10/23/23 10/23/23 History
Was not taking meds at least for several days prior to admission
Review of Systems
-
History Source: Patient
All other systems: Negative unless noted (Unreliable b/c of her dementia)
Respiratory: Trouble Breathing (For 1 week, improving.)
Musculoskeletal: Edema
Physical Exam
Vital Signs
Temp Pulse Resp BP Pulse Ox
97.8 F 103 16 97/69 94
10/24/23 06:50 10/24/23 09:15 10/24/23 06:50 10/24/23 06:50 10/24/23 08:06
Lab Results
10/23/23 17:24
10/24/23 03:25
Troponin I < 0.012 ng/ml 10/23/23 17:24
Blo-M-Rfxywtjkmiw Pept 17700 pg/ml 10/23/23 17:24
Physical Exam
Respiratory: Crackles (In bilateral lower lobes anteriorly and posteriorly)
Cardiac: S1/S2 and Irregular Rhythm; Negative Murmur or Rub
GI: Soft, Non Tender, Non Distended and Normal Bowel Sounds
Musculoskeletal: Edema (3+ pitting B/L LE)
Neuro: AO x 3
Psych: Calm
Impression / Plan
-
Background: 88-year-old female with PMHx significant for paroxysmal A-fib, stage III CKD,essential hypertension, chronic heart failure, previously known to cardiology service for O-zap-Aizfjf 2021-was cardioverted, and started on rate control with
metoprolol and anticoagulation presents to the hospital with worsening shortness of breath for 1 week and bilateral swelling of lower legs.
From review of notes patient is found to be noncompliant with her home medication regimen over the last 1 week.
primary reed repairer - Darryn Lopez.
Impression:
Afib
- Recurrent
- Pattern uncertain, duration uncertain
- Rate fast on admit (147 bpm)
- Anticoagulated with Eliquis, but known missed doses
- Did well with Cardioversion 2020
- Will consider [place] / Cardioversion this admit, mona if rate hard to control
- [id number] 5 (HF, HTN, age2, female gender)
Acute on chronic HFpEF (by last echo):
- Goal weight for this admission may be 39kgs.
- CXR and pBNP support heart failure
- restrict fluid intake, salt intake/ Monitor daily weights and I&O.
- Repeat echocardiogram in the a.m. on Thursday.
- Main treatment is likely control of AFib and diuresis
- Can also pursue standard GDMT for HFpEF over time
Acute KALYAN
- Etiology may be cardiorenal
- Lets see how renal function responds to diuresis
- May need nephrology input
- Cr 0.28 July 2023
Subjective:
Feels better this morning
Data:
Echo 12/21/2020:EF 55-60%, mild LVH/MR/AR/TR, est PASP 35-40 mmHg
Data Reviewed
-
EKG: Tracing Personally Visualized and interpreted
Radiology: Image Personally Visualized and interpreted
Labs: Labs Reviewed by me
--- NOTE | 2023-10-24 10:45 | W.PN.HOSP.TC ---
Addendum entered and electronically signed by Christopher Mobley MD 10/24/23 13:04:
Updated daughter over the phone in detail.
Original Note:
Today's Communication/Plan
-
monitor HR
Trend cr
daily weight
IV lasix
Assessment / Plan
Assessment / Plan
General: Well Developed, Well Nourished and No Apparent Distress
HEENT: NormoCephalic, Moist mucous membranes and Atraumatic
Respiratory: Rales
Cardiac: S1/S2 and irregularly irregular
GI: Soft, Non Tender, Non Distended and Normal Bowel Sounds; No Organomegaly
Rectal: Deferred by Provider
Musculoskeletal: No Clubbing, No Cyanosis and Other (Bilateral lower extremities edema noted)
Skin: No Rash
Neuro: awake, non focal grossly intact
Psych: Calm
# Atrial fibrillation RVR likely from CHF exacerbation
-Initiated on diltiazem in ER
-EKG with atrial flutter with RVR
-Eliquis continued
#Acute on chronic CHF exacerbation
-BNP 15,600
-Chest x-ray with small pleural effusion, mild pulmonary vascular congestion
-IV Lasix 40 daily
-Strict HARVINDER
-Daily weight
-Cardiology consult
-Obtain echocardiogram
# Anemia of chronic disease
-Hemoglobin stable at 10.4
-No active bleeding
-Continue to monitor
# Hyperkalemia/KALYAN likely from fluid overload
-K5.2, creatinine 1.9
-Continue diuretics
-K improved.
-Trnd cr.
#Parkinson's
-Continue Sinemet, Rasagiline.
#DVT: SCD, Eliquis
#Full Code
Anticipated Discharge: > 48 hours
Subjective/Interval History
-
Date of Service: October 24, 2023
Remains in A-fib on Cardizem
Objective Data
-
Labs:
Laboratory Results
10/24/23
03:25
Sodium 139
Potassium 4.9
Chloride 105
Carbon Dioxide 26
BUN 63 H
Creatinine 1.9 H
Glucose 127 H
Calcium 8.7
Total Bilirubin 0.9
AST 33
ALT 18
Alkaline Phosphatase 68
Vital Signs:
Vital Signs
Temp Pulse Resp BP Pulse Ox
97.8 F 103 16 97/69 94
10/24/23 06:50 10/24/23 09:15 10/24/23 06:50 10/24/23 06:50 10/24/23 08:06
I&O
10/23/23 10/24/23 10/25/23
06:59 06:59 06:59
Intake Total 80 / 80
Output Total 175 / 175
Balance -95 / -95
[2023-10-24] MEDS: CARDIZEM 30 MG PO ×3 (13:06→22:22)
[2023-10-24] MEDS: TOPROL XL 100 MG PO (19:56)
[2023-10-24] MEDS: RASAGILINE MESYLATE 1 MG PO (22:22)
[2023-10-24] MEDS: SINEMET CR 25-100 (EXTENDED RELEASE) 1 TABLET PO (22:22)
--- NOTE | 2023-10-24 22:41 | PTCARENOTE ---
Patient walking to the bathroom assisted with rolling walker HR 140-100, A-FIB, irregular, +2 dependent pitting edema. Right base rales, denies SOB, POX 98%. She is forgetful at times but using the call de jesus for assistance.
[2023-10-25] VITALS (11 sets, daily range): BP systolic 85–121; BP diastolic 60–98; BMI 18.3
--- NOTE | 2023-10-25 03:30 | PTCARENOTE ---
Patient up walking in room, assisted to bathroom and bed. Confused to place and time of day. Bed alarm placed for safety. Labs collected, weight obtained, VSS, lights dimmed, call de jesus placed in reach
[2023-10-25 03:53] LABS: Blood Urea Nitrogen 53 mg/dl (7-17); Calcium 8.6 mg/dl (8.4-10.2); Carbon Dioxide 29 mmol/L (22-30); Chloride 101 mmol/L (98-107); Estimated Creatinine Clearance 17 ml/min; Glucose 101 mg/dl (70-99); Magnesium 1.8 mg/dl (1.6-2.3); Potassium 4.5 mmol/L (3.5-5.1); Sodium 136 mmol/L (135-145); eGFR 33.31
[2023-10-25] MEDS: CARDIZEM 30 MG PO ×2 (07:57→12:48)
[2023-10-25] MEDS: ELIQUIS 2.5 MG PO ×2 (07:57→19:29)
[2023-10-25] MEDS: SINEMET 25-100 1.5 TABLET PO ×3 (07:58→17:38)
[2023-10-25] MEDS: LASIX 40 MG IV (07:59)
--- NOTE | 2023-10-25 11:39 | W.PN.HOSP.TC ---
Today's Communication/Plan
-
monitor HR
IV lasix
trend cr
cards recs
Assessment / Plan
Assessment / Plan
General: Well Developed, Well Nourished and No Apparent Distress
HEENT: NormoCephalic, Moist mucous membranes and Atraumatic
Respiratory: Rales
Cardiac: S1/S2 and irregularly irregular
GI: Soft, Non Tender, Non Distended and Normal Bowel Sounds; No Organomegaly
Rectal: Deferred by Provider
Musculoskeletal: No Clubbing, No Cyanosis and Other (Bilateral lower extremities edema noted)
Skin: No Rash
Neuro: awake, non focal grossly intact
Psych: Calm
# Atrial fibrillation RVR likely from CHF exacerbation
-Initiated on diltiazem gtt in ER and now on 30mg cardizem QID
-HR remains elevated. Limited further adjustment due to soft bp.
-may need [place] DCCV
-EKG with atrial flutter with RVR
-Eliquis continued-
#Acute on chronic CHF exacerbation
-BNP 15,600
-Chest x-ray with small pleural effusion, mild pulmonary vascular congestion
-IV Lasix 40 daily
-Strict HARVINDER
-Daily weight
-Cardiology consult
-Obtain echocardiogram
# Anemia of chronic disease
-Hemoglobin stable at 10.4
-No active bleeding
-Continue to monitor
# Hyperkalemia
#KALYAN likely 2/2 CRS
-Cr improving to 1.5
-Continue diuretics
-K improved.
-Trnd cr.
#Parkinson's
-Continue Sinemet, Rasagiline.
#DVT: SCD, Eliquis
#Full Code
PT/OT-Home health.
update daughter on 10/23
Anticipated Discharge: > 48 hours
Subjective/Interval History
-
Date of Service: October 25, 2023
remains in afib w/ RVR
eating breakfast
Objective Data
-
Labs:
Laboratory Results
10/25/23
03:23
Sodium 136
Potassium 4.5
Chloride 101
Carbon Dioxide 29
BUN 53 H
Creatinine 1.5 H
Glucose 101 H
Calcium 8.6
Vital Signs:
Vital Signs
Temp Pulse Resp BP Pulse Ox
98.4 F 126 20 121/98 95
10/25/23 11:09 10/25/23 08:30 10/25/23 11:09 10/25/23 07:23 10/25/23 11:09
I&O
10/24/23 10/25/23 10/26/23
06:59 06:59 06:59
Intake Total 80 / 80 40 / 40
Output Total 425 / 425 900 / 900
Balance -345 / -345 -860 / -860
--- NOTE | 2023-10-25 14:52 | W.PN.CD ---
Today's Communication / Plan
-
A bit more rate control
Continue Diuresis, need lower weight
Impression / Plan
-
Background: 88-year-old female with PMHx significant for paroxysmal A-fib, stage III CKD,essential hypertension, chronic heart failure, previously known to cardiology service for H-soa-Uzrkjx 2021-was cardioverted, and started on rate control with
metoprolol and anticoagulation presents to the hospital with worsening shortness of breath for 1 week and bilateral swelling of lower legs.
From review of notes patient is found to be noncompliant with her home medication regimen over the last 1 week.
primary engineering surveyor - Darryn Lopez.
Impression:
Afib
- Recurrent
- Pattern uncertain, duration uncertain
- Rate fast on admit (147 bpm), but better now, not perfect yet
- Anticoagulated with Eliquis, but known missed doses
- Did well with Cardioversion 2020
- Will consider [place] / Cardioversion this admit, mona if rate hard to control
- [id number] 5 (HF, HTN, age2, female gender)
Acute on chronic HFpEF (by last echo):
- Goal weight for this admission may be 39kgs.
- CXR and pBNP support heart failure
- restrict fluid intake, salt intake/ Monitor daily weights and I&O.
- Repeat echocardiogram in the a.m. on Thursday.
- Main treatment is likely control of AFib and diuresis
- Can also pursue standard GDMT for HFpEF over time
Acute KALYAN
- Etiology may be cardiorenal
- Lets see how renal function responds to diuresis => so far Cr falling 1.9=>1.5
- May need nephrology input
- Cr 0.28 July 2023
Subjective:
Feels better this morning
Data:
Echo 12/21/2020:EF 55-60%, mild LVH/MR/AR/TR, est PASP 35-40 mmHg
Physical Exam
Vital Signs/Labs
Vital Signs
Temp Pulse Resp BP Pulse Ox
98.2 F 126 20 103/83 94
10/25/23 14:42 10/25/23 08:30 10/25/23 14:42 10/25/23 12:48 10/25/23 14:42
10/24/23 10/25/23 10/26/23
06:59 06:59 06:59
Actual Weight 42.7 kg 42.6 kg
10/23/23 17:24
10/25/23 03:23
Magnesium 1.8 mg/dl (1.6-2.3) 10/25/23 03:23
Triglycerides 50 mg/dl (10-149) 10/24/23 03:25
LDL Cholesterol, Calc 46 mg/dl 10/24/23 03:25
VLDL Cholesterol, Calc 10 mg/dl (0-30) 10/24/23 03:25
HDL Cholesterol 59 mg/dl 10/24/23 03:25
Free T4 1.56 ng/dl (0.78-2.19) 10/24/23 03:25
10/23/23
17:24
Jtf-D-Zysntxdmjsh Pept [id number]
LAB Results
10/23/23
17:24
Troponin I < 0.012
Physical Exam
Constitutional: No acute distress
Cardiovascular: Rhythm/rate is irregular, Systolic murmur present and S1S2 is normal
Respiratory: Respiratory effort normal and Lungs clear to auscul.
GI: Soft and Distention absent
Neuro/Psych: Alert
Data Reviewed
-
Date of Service: October 25, 2023
[2023-10-25] MEDS: CARDIZEM 60 MG PO (17:37)
--- NOTE | 2023-10-25 18:15 | PTCARENOTE ---
Pt ambulating in room with rolling walker, magalis well, HR in 110's in A-fib.
[2023-10-25] MEDS: CARDIZEM PO (22:20)
[2023-10-25] MEDS: SINEMET CR 25-100 (EXTENDED RELEASE) 1 TABLET PO (22:20)
[2023-10-25] MEDS: RASAGILINE MESYLATE 1 MG PO (22:21)
[2023-10-25] MEDS: TOPROL XL PO (22:21)
--- NOTE | 2023-10-25 22:29 | PTCARENOTE ---
Pt remains in afib 80-90s. BP 90/68. Cardizem and Metoprolol held per admin parameters. Pt currently offers no complaints. Assessment completed as documented. Currently in bed; call liza w/in reach.
[2023-10-26] VITALS (16 sets, daily range): BP systolic 72–123; BP diastolic 50–91; PULSE 54–64; BMI 17.9
[2023-10-26] MEDS: TOPROL XL 100 MG PO (03:11)
--- NOTE | 2023-10-26 03:39 | PTCARENOTE ---
Pt HR sustaining 120-130s. BP 114/68. POX 93% RA. Asymptomatic. Lucas SPLICING MACHINE OPERATOR AUTOMATIC notified. Metoprolol XL 100mg ordered and administered. Call liza w/in reach.
[2023-10-26 04:40] LABS: Blood Urea Nitrogen 49 mg/dl (7-17); Calcium 8.4 mg/dl (8.4-10.2); Carbon Dioxide 30 mmol/L (22-30); Chloride 99 mmol/L (98-107); Estimated Creatinine Clearance 18 ml/min; Glucose 90 mg/dl (70-99); Magnesium 1.7 mg/dl (1.6-2.3); Potassium 3.9 mmol/L (3.5-5.1); Sodium 135 mmol/L (135-145); eGFR 36.19
[2023-10-26] MEDS: CARDIZEM 60 MG PO ×4 (06:29→21:59)
--- NOTE | 2023-10-26 06:32 | PTCARENOTE ---
pt remains afib in 120s at rest. BP 123/91. 0800 PO Cardizem dose administered now per Chrissy Soliman DIESEL ENGINE OPERATOR. See JUN.
--- NOTE | 2023-10-26 08:22 | W.PN.CD ---
Today's Communication / Plan
-
Continue furosemide.
Allow for 3-4 doses of diltiazem 60 mg before changing medications (closer to steady state).
If HR remains uncontrolled, consider amiodarone vs. digoxin vs. [place] DCCV. If not controlled by EOD, we will make her NPO for [place] DCCV tomorrow as she responded well in the past.
Impression / Plan
-
Impression/Plan: 88-year-old female with PMHx significant for Parkinson's disease, paroxysmal A-fib, recent hip Fx (s/p unknown surgery @ [facility]), stage III CKD and essential hypertension admitted with AF/RVR leading to acute on chronic HFpEF
exacerbation in the context of medication misadventure/non-compliance.
#Atrial Fibrillation
-Recurrent.
-Pattern uncertain, duration uncertain.
-Rate fast on admit (147 bpm). Heart rate has improved but is still relatively uncontrolled.
-[id number] 5 (HF, HTN, age2, female gender)
-Anticoagulated with apixaban, but known missed doses.
-Continue to titrate diltiazem/metoprolol. Other options include amiodarone. Renal function may limit digoxin use.
-Will consider [place] / Cardioversion this admit, especially if rate hard to control.
#Acute on chronic HFpEF (by last echo):
-Goal weight for this admission ~ 39kgs.
-CXR and pBNP support heart failure.
-Restrict fluid intake, salt intake. Monitor daily weights and I&O.
-Repeat echocardiogram today.
-Main treatment is likely control of AFib and diuresis. Continue furosemide 40 mg IV.
-She may benefit from SGLT2i as renal function improves.
#Acute KALYAN
-Baseline Cr = 0.9.
-Etiology appears to be cardiorenal.
-Lets see how renal function responds to diuresis => so far Cr falling 1.9=>1.5 => 1.4.
Subjective/Interval History:
Weight is falling. Weight 41.5 <-- 42.6 <-- 42.7 <-- 43.9 <-- 44 (admission).
HR controlled overnight (70-90) but increases in the research study assistant hours. It is now hovering around 120 bpm.
Diltiazem increased to 60 mg q6h yesterday.
Mild hypotension yesterday (86/60).
SaO2 96% on room air.
Cr down to 1.4.
Data:
Echo, 12/21/2020:
CONCLUSIONS
Normal left ventricular systolic function. Left ventricular ejection fraction
is 55-60%.
Mild concentric left ventricular hypertrophy.
Mild mitral regurgitation.
Mild aortic regurgitation.
Mild tricuspid regurgitation. Estimated pulmonary artery pressure of 35-40 mmHg
Compared to prior study of Dec 03, 2020:
- MR is improved
- TR is improved and PASP is less
- overall appearance consistent with initial echocardiogram done in HF and
this one done after diuresis.
Physical Exam
Vital Signs/Labs
Vital Signs
Temp Pulse Resp BP Pulse Ox
36.6 C 119 16 123/91 96
10/26/23 07:44 10/26/23 07:44 10/26/23 03:28 10/26/23 06:29 10/26/23 07:44
10/24/23 10/25/23 10/26/23
11:59 11:59 11:59
Actual Weight 42.7 kg 42.6 kg 41.5 kg
10/23/23 17:24
10/26/23 03:36
Magnesium 1.7 mg/dl (1.6-2.3) 10/26/23 03:36
Triglycerides 50 mg/dl (10-149) 10/24/23 03:25
LDL Cholesterol, Calc 46 mg/dl 10/24/23 03:25
VLDL Cholesterol, Calc 10 mg/dl (0-30) 10/24/23 03:25
HDL Cholesterol 59 mg/dl 10/24/23 03:25
Free T4 1.56 ng/dl (0.78-2.19) 10/24/23 03:25
10/23/23
17:24
Hrw-E-Odcmrakjkec Pept [id number]
LAB Results
10/23/23
17:24
Troponin I < 0.012
Physical Exam
Constitutional: No acute distress and Comfortable
EENT: Anicteric and Moist mucous membranes
Cardiovascular: Pedal edema is absent, JVD pressure is normal, Rhythm/rate is irregular, S1S2 is normal and Murmur/rub/gallop absent
Respiratory: Respiratory effort normal, Lungs clear to auscul., Wheeze Absent, Crackles Absent and Rhonchi Absent
GI: Soft, Distention absent, Flat, Non tender and Normal bowel sounds
Neuro/Psych: AO x 3
Data Reviewed
-
Date of Service: October 26, 2023
Medical Decision Making: Reviewed Test Results, Independent Historian Assessment and Test Interpretation
EKG: Tracing Personally Visualized and interpreted and Report Reviewed by me
Echo: Report Reviewed by me
X-Ray/CT/US/MRI/NUC/PET: Image Personally Visualized and interpreted and Report Reviewed by me
Labs: Labs Reviewed by me
Old Records: Reviewed
[2023-10-26] MEDS: LASIX 40 MG IV (09:01)
[2023-10-26] MEDS: SINEMET 25-100 1.5 TABLET PO ×3 (09:14→17:37)
[2023-10-26] MEDS: ELIQUIS 2.5 MG PO ×2 (09:15→19:47)
--- NOTE | 2023-10-26 10:48 | W.PN.HOSP.TC ---
Addendum entered and electronically signed by Christopher Mobley MD 10/26/23 13:14:
underweight
Original Note:
Today's Communication/Plan
-
Monitor heart rate
Continue with Cardizem and metoprolol
IV Lasix
Trend BMP
Assessment / Plan
Assessment / Plan
General: Well Developed, Well Nourished and No Apparent Distress
HEENT: NormoCephalic, Moist mucous membranes and Atraumatic
Respiratory: Rales
Cardiac: S1/S2 and irregularly irregular
GI: Soft, Non Tender, Non Distended and Normal Bowel Sounds; No Organomegaly
Rectal: Deferred by Provider
Musculoskeletal: No Clubbing, No Cyanosis and Other (Bilateral lower extremities edema noted)
Skin: No Rash
Neuro: awake, non focal grossly intact
Psych: Calm
# Atrial fibrillation RVR likely from CHF exacerbation
-Initiated on diltiazem gtt in ER and now on 60mg cardizem QID and continue with Toprol 100 mg nightly
-Monitor blood pressure with high-dose medications
-may need [place] DCCV
-Eliquis continued-
#Acute on chronic CHF exacerbation
-BNP 15,600
-Chest x-ray with small pleural effusion, mild pulmonary vascular congestion
-IV Lasix 40 daily. Losing weight.
-Strict HARVINDER
-Daily weight
-Cardiology consult
-Obtain echocardiogram
# Anemia of chronic disease
-Hemoglobin stable at 10.4
-No active bleeding
-Continue to monitor
# Hyperkalemia
#KALYAN likely 2/2 CRS
-Cr improving to 1.4
-Continue diuretics
-K improved.
-Trnd cr.
#Parkinson's
-Continue Sinemet, Rasagiline.
#DVT: SCD, Eliquis
#Full Code
PT/OT-Home health.
update daughter on 7/6
Anticipated Discharge: > 48 hours
Subjective/Interval History
-
Date of Service: October 26, 2023
Yesterday with A-fib with rapid ventricular response
This morning heart rate improved
Objective Data
-
Labs:
Laboratory Results
10/26/23
03:36
Sodium 135
Potassium 3.9
Chloride 99
Carbon Dioxide 30
BUN 49 H
Creatinine 1.4 H
Glucose 90
Calcium 8.4
Vital Signs:
Vital Signs
Temp Pulse Resp BP Pulse Ox
97.8 F 76 16 100/69 96
10/26/23 07:44 10/26/23 09:15 10/26/23 03:28 10/26/23 09:04 10/26/23 07:44
I&O
10/25/23 10/26/23 10/27/23
06:59 06:59 06:59
Intake Total 40 / 40 510 / 510
Output Total 900 / 900 400 / 400 100 / 100
Balance -860 / -860 110 / 110 -100 / -100
--- NOTE | 2023-10-26 11:52 | CM ---
Chart reviewed. Patient is independent of ADLS, lives with her daughter in a [address], 5 [address], ambulates with a rolling walker. Patient did use [facility] in the past and is interested in restarting services. Referral sent to [facility]. Plan is for the
patient to return home with VN. CM to follow
--- NOTE | 2023-10-26 13:00 | PN.CDI ---
CDI
- -
CDI:
Physician Documentation Request
Admit Date: 10/23/23 20:46
Dear Doctor Leandra,
Clinical Indicators:
Patient admitted with acute on chronic CHF exacerbation.
Height: 5 ft
Weight: 91 lbs 7.8 oz
BMI: 17.9
10/23 note/assessment: '(BMI18.4-underweight) 10/23. As per current clinical data pt denied history of wt loss or decreased intake.'
If possible, please provide an associated diagnosis related to the abnormal BMI (BMI < or = to 19.9) , such as:
Underweight
Cachectic
BMI is not significant
Other
Use of terms such as suspected, likely, concern for, or probable (associated with a specific diagnosis that is being evaluated, monitored, or treated as if it exists) are acceptable and can be coded in the inpatient setting, when documented at the
time of discharge.
Thank you,
FARZANEH Lakhani RN
CDI Specialist
available via tiger text
Please use your independent medical judgment in providing your response.
--- NOTE | 2023-10-26 20:08 | PTCARENOTE ---
Received pt at handoff. OOB in chair. Tele- afib. HR 50-70s. Pt offers no complaints at this time. Assessment completed as documented. Currently in bed; call liza w/in reach.
[2023-10-26] MEDS: RASAGILINE MESYLATE 1 MG PO (21:56)
[2023-10-26] MEDS: SINEMET CR 25-100 (EXTENDED RELEASE) 1 TABLET PO (21:56)
[2023-10-26] MEDS: TOPROL XL PO (23:00)
[2023-10-27] VITALS (8 sets, daily range): BP systolic 89–127; BP diastolic 68–89; PULSE 88; BMI 17.8
[2023-10-27 05:49] LABS: Blood Urea Nitrogen 42 mg/dl (7-17); Calcium 8.7 mg/dl (8.4-10.2); Carbon Dioxide 31 mmol/L (22-30); Chloride 99 mmol/L (98-107); Estimated Creatinine Clearance 20 ml/min; Glucose 94 mg/dl (70-99); Magnesium 1.7 mg/dl (1.6-2.3); Potassium 3.8 mmol/L (3.5-5.1); Sodium 137 mmol/L (135-145); eGFR 39.55
--- NOTE | 2023-10-27 07:01 | PTCARENOTE ---
Pt remains in afib. Pt tachy in the 170s for short run and broke back into 90-100s in afib. Pt asymptomatic. BP 107/83. K 3.8 and Mag 1.7. Caterina PIERRE made aware and no new orders at this time. Jasmyn FREIRE aware. Call liza w/in reach.
[2023-10-27] MEDS: FLUSH (NSS) 1 FLUSH IV (07:12)
[2023-10-27] MEDS: ELIQUIS 2.5 MG PO ×2 (07:12→19:55)
[2023-10-27] MEDS: CARDIZEM 60 MG PO ×2 (07:12→12:56)
--- NOTE | 2023-10-27 08:04 | W.PN.CD ---
Today's Communication / Plan
-
KCl 20 mEq.
Mg 1g IV now.
Change diltiazem to ER 240 mg PO daily (qHS dosing to avoid further BP issues).
Start dapagliflozin 10 mg daily.
Case management consult.
Discuss management strategy with the patient's daughter at her request.
Impression / Plan
-
Impression/Plan: 88-year-old female with PMHx significant for Parkinson's disease, paroxysmal A-fib, recent hip Fx (s/p unknown surgery @ [facility]), stage III CKD and essential hypertension admitted with AF/RVR leading to acute on chronic HFpEF
exacerbation in the context of medication misadventure/non-compliance.
#Atrial Fibrillation
-Recurrent.
-Pattern uncertain, duration uncertain.
-Rate is controlled on metoprolol 50 mg PO BID and diltiazem 60 mg PO QID. Change diltiazem to ER 240 mg daily (PM dosing to avoid hypotension issues).
-[id number] = 5 (CHF, HTN, age x2, female gender).
-Anticoagulated with apixaban, but known missed doses.
#Tachycardia on monitor
-New diagnosis.
-Telemetry shows non-sustained monomorphic VT (23 seconds).
-DDx includes electrolyte abnormality vs. ischemia (less likely given monomorphic nature) vs. scar. Echo shows new regional wall motion abnormality compared to 2020.
-She is chest pain free.
-Correct Mg/K+ this morning.
-Given her age/frailty, pursuing an invasive course (cath +/- ICD) may not be in her best interest. She has asked me to discuss it with her daughter.
#Acute on chronic HFmEF
-Cardiomyopathy is new, LVEF now 42% with inferior/inferolateral hypokinesis.
-Goal weight for this admission ~ 39kgs.
-CXR and pBNP support heart failure.
-The presence of new inferior/inferolateral hypokinesis with reduced EF raises the possibility of ischemia, but I am reluctant to offer invasive management to this frail 88 y/o.
-Restrict fluid intake, salt intake. Monitor daily weights and I&O.
-Main treatment remains control of AFib, GDMT and diuresis.
-Start dapagliflozin 10 mg daily. Case management consult.
-Hold ACEI/ARB/ARNi given episodes of hypotension.
#Acute KALYAN
-Baseline Cr = 0.9.
-Etiology appears to be cardiorenal.
-Lets see how renal function responds to diuresis => so far Cr falling 1.9=>1.5 => 1.4 => 1.3.
Subjective/Interval History:
Rates are improved on higher doses of diltiazem (60 mg PO q6 hours).
Metoprolol PM dose held due to hypotension.
There was a brief run of tachycardia to 170 bpm which then broke.
K+ 3.8 and Mg++ 1.7.
Weight is down 0.2 kg from yesterday (41.3 <-- 41.5).
BP's remain borderline.
Cr down to 1.3.
Data:
TTE, 10/26/2023:
CONCLUSIONS
Mildly reduced left ventricular systolic function. Left ventricular ejection
fraction is 42%, by volumetric assessment.
Mild global hypokinesis of the basal to mid inferior and inferolateral wall.
Moderate to severe mitral regurgitation.
Mild eccentric aortic regurgitation.
Mild pulmonary hypertension.
Compared to previous echo 12/21/2020, there is new regional wall motion
abnormality with newly depressed systolic function. The mitral regurgitation
has increased. The pulmonary hypertension is new.
Echo, 12/21/2020:
CONCLUSIONS
Normal left ventricular systolic function. Left ventricular ejection fraction
is 55-60%.
Mild concentric left ventricular hypertrophy.
Mild mitral regurgitation.
Mild aortic regurgitation.
Mild tricuspid regurgitation. Estimated pulmonary artery pressure of 35-40 mmHg
Compared to prior study of Dec 03, 2020:
- MR is improved
- TR is improved and PASP is less
- overall appearance consistent with initial echocardiogram done in HF and
this one done after diuresis.
Physical Exam
Vital Signs/Labs
Vital Signs
Temp Pulse Resp BP Pulse Ox
36.5 C 99 18 127/83 96
10/27/23 06:56 10/27/23 07:30 10/27/23 06:56 10/27/23 07:12 10/27/23 06:56
10/25/23 10/26/23 10/27/23
11:59 11:59 11:59
Actual Weight 42.6 kg 41.5 kg 41.3 kg
10/23/23 17:24
10/27/23 04:30
Magnesium 1.7 mg/dl (1.6-2.3) 10/27/23 04:30
Triglycerides 50 mg/dl (10-149) 10/24/23 03:25
LDL Cholesterol, Calc 46 mg/dl 10/24/23 03:25
VLDL Cholesterol, Calc 10 mg/dl (0-30) 10/24/23 03:25
HDL Cholesterol 59 mg/dl 10/24/23 03:25
Free T4 1.56 ng/dl (0.78-2.19) 10/24/23 03:25
10/23/23
17:24
Vvl-C-Uavhqbqqedi Pept [id number]
Physical Exam
Constitutional: No acute distress and Comfortable
EENT: Anicteric and Moist mucous membranes
Cardiovascular: JVD pressure is normal, Rhythm/rate is irregular, Pedal edema present, S1S2 is normal and Murmur/rub/gallop absent
Respiratory: Respiratory effort normal, Lungs clear to auscul., Wheeze Absent, Rhonchi Absent and Crackles Present (Bibasilar.)
GI: Soft, Distention absent, Flat, Non tender and Normal bowel sounds
Neuro/Psych: AO x 3
Data Reviewed
-
Date of Service: October 27, 2023
Medical Decision Making: Reviewed Test Results, Independent Historian Assessment, Test Interpretation and Review of Case with other Provider
EKG: Tracing Personally Visualized and interpreted and Report Reviewed by me
Echo: Report Reviewed by me
X-Ray/CT/US/MRI/NUC/PET: Image Personally Visualized and interpreted and Report Reviewed by me
Labs: Labs Reviewed by me
Old Records: Reviewed
[2023-10-27] MEDS: MAGNESIUM SULFATE 100 IV (08:09)
[2023-10-27] MEDS: SINEMET 25-100 1.5 TABLET PO ×3 (08:10→17:45)
[2023-10-27] MEDS: KCL 20 MEQ PO (08:10)
--- NOTE | 2023-10-27 08:48 | PTCARENOTE ---
Received patient this morning resting in bed. While PCT was obtaining AM vitals patient had burst of AT/?VT on the monitor with rate up to 180's. Patient was asymptomatic with BP 127/83. Cardiology notified by freight router RN via tt. Gave patient her
AM dose of PO cardizem and eliquis. I notified attending via tt of event. Patient remains in AF, receiving mag rider as ordered and given stat dose of KCL PO. Call de jesus within reach, bed alarm in place. Patient to remain on bedrest until seen by
cardiology as per Dr. Mobley.
[2023-10-27] MEDS: LASIX 40 MG IV (10:10)
--- NOTE | 2023-10-27 12:05 | W.PN.HOSP.TC ---
Addendum entered and electronically signed by Christopher Mobley MD 10/27/23 13:05:
Acute on chronic HFmEF
Addendum entered and electronically signed by Christopher Mobley MD 10/27/23 12:30:
underweight
Original Note:
Today's Communication/Plan
-
Monitor heart rate
Monitor blood pressure
Replete KCl and mag
IV Lasix
Cardiology rec
? Ischemic eval
Assessment / Plan
Assessment / Plan
General: Well Developed, Well Nourished and No Apparent Distress
HEENT: NormoCephalic, Moist mucous membranes and Atraumatic
Respiratory: Rales
Cardiac: S1/S2 and irregularly irregular
GI: Soft, Non Tender, Non Distended and Normal Bowel Sounds; No Organomegaly
Rectal: Deferred by Provider
Musculoskeletal: No Clubbing, No Cyanosis and Other (Bilateral lower extremities edema noted)
Skin: No Rash
Neuro: awake, non focal grossly intact
Psych: Calm
# Atrial fibrillation RVR likely from CHF exacerbation
-Initiated on diltiazem gtt in ER
-Cont Toprol 100 mg nightly and cardizem 60qid switched to 240mg CD
-Monitor blood pressure with high-dose medications
-may need [place] DCCV
-Eliquis continued-
#NSVT
-Replete lytes KCl and IV mag orderd
-ECHO with reduce EF
-Ischemic eval -will defer to cards
#Acute on chronic CHF exacerbation
-BNP 15,600
-Chest x-ray with small pleural effusion, mild pulmonary vascular congestion
-IV Lasix 40 daily. Losing weight.
-Strict HARVINDER
-Daily weight
-Cardiology consult
-ECHO with mildly reduced left ventricular systolic function. EF 42%. Mild global hypokinesis of the basal to mid inferior inferior lateral wall. Moderate to severe mitral regurgitation. Mild eccentric aortic regurgitation. Mild pulmonary
hypertension. Compared to echo 01/08 newly depressed systolic function. Primary hypertension is new.
# Anemia of chronic disease
-Hemoglobin stable
-No active bleeding
-Continue to monitor
# Hyperkalemia
#KALYAN likely 2/2 CRS
-Cr improving to 1.4
-Continue diuretics
-K improved.
-Trnd cr.
#Parkinson's
-Continue Sinemet, Rasagiline.
#DVT: SCD, Eliquis
#Full Code
PT/OT-Home health.
update daughter on 10/26 over the phone in details
Anticipated Discharge: > 48 hours
Subjective/Interval History
-
Date of Service: October 27, 2023
episode of severe tachycardia
tolerating diet
no cp or palpaptions
Objective Data
-
Labs:
Laboratory Results
10/27/23
04:30
Sodium 137
Potassium 3.8
Chloride 99
Carbon Dioxide 31 H
BUN 42 H
Creatinine 1.3 H
Glucose 94
Calcium 8.7
Vital Signs:
Vital Signs
Temp Pulse Resp BP Pulse Ox
97.4 F 88 16 118/76 94
10/27/23 11:51 10/27/23 10:10 10/27/23 11:51 10/27/23 10:10 10/27/23 11:51
I&O
10/26/23 10/27/23 10/28/23
06:59 06:59 06:59
Intake Total 510 / 510 660 / 660 340 / 340
Output Total 400 / 400 875 / 875 200 / 200
Balance 110 / 110 -215 / -215 140 / 140
Data Reviewed
-
Total Time Spent with Patient (in minutes): 55
--- NOTE | 2023-10-27 12:41 | PN.CDI ---
CDI
- -
CDI:
Physician Documentation Request
Admit Date: 10/23/23 20:46
Dear Doctor Leandra,
Clinical Indicators:
Patient admitted with A Fib with RVR and CHF exacerbation. PMH includes HFpEF.
10/26 PN, 'Acute on chronic CHF exacerbation'
10/25 Echo report, 'Left ventricular ejection fraction is 42%, by volumetric assessment... Compared to previous echo 12/21/2020, there is no regional wall motion abnormality with newly depressed systolic function.'
Please provide further specificity regarding the most likely type of CHF you are evaluating, treating or monitoring.
Acute on chronic HFmrEF
Acute on chronic HFrEF
Other, please specify
Use of terms such as suspected, likely, concern for, or probable (associated with a specific diagnosis that is being evaluated, monitored, or treated as if it exists) are acceptable and can be coded in the inpatient setting, when documented at the
time of discharge.
Thank you,
FARZANEH Lakhani RN
CDI Specialist
available via tiger text
Please use your independent medical judgment in providing your response.
--- NOTE | 2023-10-27 12:47 | CM ---
Chart reviewed. Patient OOB sitting in the chair. Patient lives with her daughter in a [address], 5 [address], ambulates with a rolling walker. Plan [facility] CM to follow
--- NOTE | 2023-10-27 16:39 | CM ---
Pricing on [employer] is $47 for a 30 day supply. I placed a free 30 day coupon in the patients red discharge folder
--- NOTE | 2023-10-27 19:26 | PTCARENOTE ---
Pt. seen in room, AOx3, no complaints. Continuing to monitor the pt.
[2023-10-27] MEDS: CARDIZEM CD 240 MG PO (19:55)
[2023-10-27] MEDS: RASAGILINE MESYLATE 1 MG PO (21:24)
[2023-10-27] MEDS: SINEMET CR 25-100 (EXTENDED RELEASE) 1 TABLET PO (21:24)
[2023-10-27] MEDS: TOPROL XL 100 MG PO (21:25)
[2023-10-28] VITALS (13 sets, daily range): BP systolic 84–127; BP diastolic 58–79; PULSE 90–94; BMI 17.4
[2023-10-28 03:15] LABS: % Basophils 0.6 % (0-2); % Immature Granulocytes 0.4 % (0-0.5); % Lymphocytes 22.4 % (20.5-51.1); % Monocytes 7.6 % (1.7-9.3); Absolute Eosinophils 0.1 10^3/uL (0-0.7); Absolute Lymphocytes 1.6 10^3/uL (1.2-3.4); Absolute Monocytes 0.5 10^3/uL (0.1-0.6); Absolute Neutrophils 4.7 10^3/uL (1.4-6.5); Hematocrit 30.6 % (37.0-47.0); Hemoglobin 11.4 g/dL (12.0-16.0); Mean Corp Hgb Conc. 37.3 g/dL (33.0-37.0); Nucleated Red Blood Cells % 0.3 %; Platelet Count 133 10^3/uL (130-400); Red Blood Cell Count 5.19 10^6/uL (4.20-5.40); Red Cell Dist. Width 25.5 % (11.5-14.5)
[2023-10-28 03:38] LABS: Blood Urea Nitrogen 29 mg/dl (7-17); Calcium 9.1 mg/dl (8.4-10.2); Carbon Dioxide 30 mmol/L (22-30); Chloride 97 mmol/L (98-107); Estimated Creatinine Clearance 22 ml/min; Glucose 90 mg/dl (70-99); Magnesium 1.8 mg/dl (1.6-2.3); Potassium 3.9 mmol/L (3.5-5.1); Sodium 135 mmol/L (135-145); eGFR 48.33
--- NOTE | 2023-10-28 06:43 | W.PN.HOSP.TC ---
Addendum entered and electronically signed by Shay Rosales MD 10/28/23 16:36:
Addendum
Plan d/w Dr Reyes, dc meds were reviewed
Total discharge time spent to see the patient, examine the patient, review data and lab results, and discuss the discharge plan with patient, laserist, nurse around 65 minutes
Original Note:
Today's Communication/Plan
-
f/w cardiology recommendation if further work up is planned or not
then we work on dc planning
Assessment / Plan
Assessment / Plan
Physical exam:
General: No Apparent Distress
HEENT: NormoCephalic, Moist mucous membranes and Atraumatic
Respiratory:limited, no Rales
Cardiac: S1/S2 and irregularly irregular
GI: Soft, Non Tender, Non Distended and Normal Bowel Sounds; No Organomegaly
Rectal: No rectal bleeding
Musculoskeletal: No Clubbing, No Cyanosis and Other (Bilateral lower extremities edema noted)
Skin: No Rash
Neuro: awake, non focal grossly intact
Psych: Calm
# Hx of paroxysmal atrial fibrillation RVR likely from CHF exacerbation
-Initiated on diltiazem gtt in ER
-Cont Toprol 100 mg nightly and Cardizem 60qid switched to 240mg CD
-Monitor blood pressure with high-dose medications
-Eliquis continued-
#NSVT
-Replete lytes KCl and IV mag orderd
-ECHO with reduce EF
-Ischemic eval -will defer to cards
#Acute on chronic CHF exacerbation
-BNP 15,600
-Chest x-ray with small pleural effusion, mild pulmonary vascular congestion
-IV Lasix 40 daily. Losing weight.
-Daily weight
-ECHO with mildly reduced left ventricular systolic function. EF 42%. Mild global hypokinesis of the basal to mid inferior inferior lateral wall. Moderate to severe mitral regurgitation. Mild eccentric aortic regurgitation. Mild pulmonary
hypertension. Compared to echo 9/21 newly depressed systolic function. Primary hypertension is new.
# Anemia of chronic disease
-Hemoglobin stable
-No active bleeding
-Continue to monitor
# Hyperkalemia
#KALYAN likely 2/2 CRS
-Cr improving to 1.4
-Continue diuretics
-K improved.
#Parkinson's
-Continue Sinemet, Rasagiline.
#DVT: SCD, Eliquis
#Full Code
PT/OT-Home health.
Total time spent to see the patient, examine the patient, review data and lab results, and discuss the treatment plan with patient, nurse around 55 minutes
Anticipated Discharge: 24 - 48 hours
Subjective/Interval History
-
Date of Service: October 28, 2023
No chest pain
No sob
Objective Data
-
Labs:
Laboratory Results
10/28/23
02:50
WBC 7.0
Hgb 11.4 L
Hct 30.6 L
Plt Count 133
Sodium 135
Potassium 3.9
Chloride 97 L
Carbon Dioxide 30
BUN 29 H
Creatinine 1.1 H
Glucose 90
Calcium 9.1
Vital Signs:
Vital Signs
Temp Pulse Resp BP Pulse Ox
98.0 F 97 20 105/76 97
10/27/23 19:24 10/28/23 02:38 10/27/23 19:24 10/28/23 02:38 10/27/23 19:24
I&O
10/26/23 10/27/23 10/28/23
06:59 06:59 06:59
Intake Total 510 / 510 660 / 660 780 / 780
Output Total 400 / 400 875 / 875 1400 / 1400
Balance 110 / 110 -215 / -215 -620 / -620
[2023-10-28] MEDS: ELIQUIS 2.5 MG PO (08:57)
[2023-10-28] MEDS: CARDIZEM CD 240 MG PO (08:57)
[2023-10-28] MEDS: SINEMET 25-100 1.5 TABLET PO ×3 (08:58→18:31)
[2023-10-28] MEDS: LASIX 40 MG IV (08:58)
[2023-10-28] MEDS: FLUSH (NSS) 2 FLUSH IV (08:59)
--- NOTE | 2023-10-28 10:20 | PTCARENOTE ---
Received patient this morning, assisted oob to the bathroom and sitting in the chair now. Offers no complaints, chair alarm in place.
--- NOTE | 2023-10-28 10:28 | CM ---
Chart reviewed. Patient is independent of ADLS, lives with her daughter in a [address], 5 [address], ambulates with a RW. Plan [facility] for the [facility].
--- NOTE | 2023-10-28 12:57 | W.PN.CD ---
Today's Communication / Plan
-
-Continue Toprol-XL 100 mg daily.
-Continue Cardizem CD 240 mg daily (although suboptimal in CHF; options are limited due to patient comorbidities and partial medication noncompliance).
-Anticoagulated with apixaban, but known missed doses; patient and daughter (Linnette) counseled on the importance of medication compliance.
-Given her age/frailty and KALYAN, pursuing an invasive course (cath, etc.) may not be in her best interest; discussed with patient and daughter--conservative cardiac management will be maintained.
-Recommend Lasix 20 mg PO daily at home.
-Compression stockings recommended.
-Relatively stable for discharge to home today; outpatient follow-up with Cardiology.
Impression / Plan
-
Impression/Plan: 88-year-old female with PMHx significant for Parkinson's disease, paroxysmal A-fib, recent hip Fx (s/p unknown surgery @ [facility]), stage III CKD and essential hypertension admitted with AF/RVR leading to acute on chronic HFpEF
exacerbation in the context of medication misadventure/non-compliance.
# Paroxysmal Atrial Fibrillation
-Heart rate is fairly controlled for the most part.
-Continue Toprol-XL 100 mg daily.
-Continue Cardizem CD 240 mg daily (although suboptimal in CHF; options are limited due to patient comorbidities and partial medication noncompliance).
-[id number] = 5 (CHF, HTN, age x2, female gender).
-Anticoagulated with apixaban, but known missed doses; patient and daughter (Linnette) counseled on the importance of medication compliance.
#Acute HFmEF (EF 40-45%)/moderate to severe MR
-Given her age/frailty and KALYAN, pursuing an invasive course (cath, etc.) may not be in her best interest; discussed with patient and daughter--conservative cardiac management will be maintained.
-The presence of new inferior/inferolateral hypokinesis with reduced EF raises the possibility of ischemia, but conservative cardiac management overall.
-On Eliquis as above; would not place on aspirin due to possible increased bleeding risk.
-No ACEi/ARB/ARNi given KALYAN and episodes of hypotension.
-Recommend Lasix 20 mg PO daily at home.
-Compression stockings recommended.
#Acute KALYAN
-Baseline Cr = 0.9.
-Etiology appears to be cardiorenal.
-Continues to improve 1.9=>1.5 => 1.4 => 1.3-->1.1.
Subjective/Interval History:
No major events overnight.
Data:
TTE, 10/26/2023:
CONCLUSIONS
Mildly reduced left ventricular systolic function. Left ventricular ejection
fraction is 42%, by volumetric assessment.
Mild global hypokinesis of the basal to mid inferior and inferolateral wall.
Moderate to severe mitral regurgitation.
Mild eccentric aortic regurgitation.
Mild pulmonary hypertension.
Compared to previous echo 12/21/2020, there is new regional wall motion
abnormality with newly depressed systolic function. The mitral regurgitation
has increased. The pulmonary hypertension is new.
Echo, 12/21/2020:
CONCLUSIONS
Normal left ventricular systolic function. Left ventricular ejection fraction
is 55-60%.
Mild concentric left ventricular hypertrophy.
Mild mitral regurgitation.
Mild aortic regurgitation.
Mild tricuspid regurgitation. Estimated pulmonary artery pressure of 35-40 mmHg
Compared to prior study of Dec 03, 2020:
- MR is improved
- TR is improved and PASP is less
- overall appearance consistent with initial echocardiogram done in HF and
this one done after diuresis.
Physical Exam
Vital Signs/Labs
Vital Signs
Temp Pulse Resp BP Pulse Ox
97.7 F 94 20 87/62 97
10/28/23 10:58 10/28/23 11:34 10/28/23 10:58 10/28/23 11:34 10/28/23 10:58
10/27/23 10/28/23 10/29/23
06:59 06:59 06:59
Actual Weight 41.3 kg 40.3 kg
10/28/23 02:50
10/28/23 02:50
Magnesium 1.8 mg/dl (1.6-2.3) 10/28/23 02:50
Triglycerides 50 mg/dl (10-149) 10/24/23 03:25
LDL Cholesterol, Calc 46 mg/dl 10/24/23 03:25
VLDL Cholesterol, Calc 10 mg/dl (0-30) 10/24/23 03:25
HDL Cholesterol 59 mg/dl 10/24/23 03:25
Free T4 1.56 ng/dl (0.78-2.19) 10/24/23 03:25
10/23/23
17:24
Vad-B-Mablezfzveg Pept [id number]
Physical Exam
Constitutional: No acute distress and Comfortable
EENT: Anicteric
Cardiovascular: Rhythm/rate is irregular, Pedal edema present (1+), Systolic murmur present (2/6) and S1S2 is normal
Respiratory: Respiratory effort normal, Wheeze Absent and Rhonchi Present (Mild bibasilar)
GI: Soft
Neuro/Psych: AO x 3
Other: Skin (Warm, dry)
Data Reviewed
-
Date of Service: October 28, 2023
EKG: Tracing Personally Visualized and interpreted (Telemetry: A-fib)
Echo: Report Reviewed by me (EF 42%, moderate to severe MR)
Medical Tests (PFT, Pathology etc): Discussed with Physician (Primary Hospitalist) and Discussed with Family (Daughter, Linnette)
Labs: Labs Reviewed by me
--- NOTE | 2023-10-28 15:54 | W.DCSUMMARY ---
Discharge Summary
Discharge Data
Date of Admission: 10/23/23
Date of Discharge: 10/28/23
-
Pending Results: No
Hospital Course
88 years old female presented with progressive shortness of breath and bilateral lower extremities edema. Possibility of noncompliance to medications and confusion regarding medications intake. Patient was found to have atrial fibrillation with
rapid ventricular response. And she was diagnosed with congestive heart failure. She was initially started on intravenous Cardizem drip, intravenous furosemide. She was admitted to the intermediate unit. Echocardiogram done on October 25 showed
left ventricular ejection fraction 42% with mild global hypokinesis, moderate to severe mitral regurgitation with mild pulmonary hypertension. Patient was followed by digital content coordinator. Intravenous Cardizem was stopped and she was started on oral
Cardizem. Options were limited due to the patient's comorbidities and partial medication noncompliance. She was maintained on apixaban and Toprol 100 mg. Patient was counseled regarding the importance of medication compliance. Patient had acute
kidney injury and creatinine was monitored with stability of around 1.1 upon discharge. She was able to void without hematuria or flank pain. Risk And Insurance Manager recommended to continue with daily Lasix 20 mg and to use compression stockings. Patient
remained hemodynamically stable and was discharged home with home care services to follow-up with digital content coordinator in the office.
Discharge Plan
-
Patient Disposition: Home with Home Care
Discharge Diagnosis/Procedures: Paroxysmal Atrial Fibrillation : new medication called Cardizem. Continue with Toprol and Eliquis regularly
Acute heart failure/moderate to severe mitral regurgitation: Continue with daily Lasix and compression stockings
Acute kidney injury, creatinine improved to 1.1
Parkinson disease, no changes recommended
Diet: As tolerated
Instructions: *CBC Heart Failure Instructions
Referrals:
[facility] [Outside]
Yenny Brown NP [Specified Professional Personl] - 11/18/23 9:00 am
Josephine Zarate MD [Family Provider] - in one to two weeks
Prescriptions:
New
diltiazem HCl 240 mg Capsule,Extended Release 24hr
240 mg PO DAILY Qty: 30 0RF
furosemide 20 mg Tablet
20 mg PO DAILY Qty: 30 0RF
Continued
carbidopa-levodopa 25-100 mg Tablet Extended Release
1 tab PO HS
metoprolol succinate 100 mg Tablet Extended Release 24 Hr
100 mg PO HS
carbidopa-levodopa 25-100 mg Tablet
1.5 tab PO TID
Eliquis 2.5 MG tablet
2.5 mg PO BID
rasagiline 1 mg Tablet
1 mg PO HS
CoQ-10 capsule
1 cap PO TID
Discontinued
furosemide 20 mg Tablet
20 mg PO MOWEFR
Discharge Orders:
Discharge Patient (As Directed); Ordered 10/28/23
Ordered By: Shay Rosales
Care Plan Goals
Care Plan Goals:
Problem: Readiness for enhanced knowledge related to diagnosis and treatment plan
Goal: Understand your diagnosis and treatment plan needs, including medications if applicable.
Instructions: Know your diagnosis, underlying causes and treatment plan options, including medications if applicable. Consult with your health care team to learn about your diagnosis and treatment plan, including medications if applicable.
Discharge Date and Time
Print Language: BHUTANESE
--- NOTE | 2023-10-28 19:35 | PTCARENOTE ---
Pt discharged home with granddaughter, granddaughter verbalized understanding of discharge instructions.
--- NOTE | 2023-10-29 08:27 | W.HF.CON ---
Heart Failure
- LV Function
Left ventricular function study result: LV Ejection fraction >40%
Ejection Fraction Percentage: 40-45
- ARNI
Patient already on ARNI: No
Heart Failure ARNI Not Indicated: LV Ejection Fraction >/= 40%
- ACEI/ARB
Patient already on ACEI/ARB: No
Heart Failure ACEI/ARB Not Indicated: LV Ejection Fraction > 40%
- Beta Peggy
Patient already on Evidence Based Beta Peggy: Yes
- Mineralocorticord Receptor Antagonist
Patient already on MRA: No
Heart Failure MRA Not Indicated: LV Ejection Fraction > 40%
- SGLT-2 Inhibitor
Patient already on SGLT-2 Inhibitor: No
Heart Failure SGLT-2 Inhibitor Not Indicated: LV Ejection Fraction >40%
- Afib Anticoagulation
Patient already on Anticoagulation for Afib: Yes
- NYHA CHF Classification
NYHA CHF Classification Level: Class III - Symptoms w/ min exertion, interferes w/ nml daily activity
- ACC/AHA Stage
ACC/AHA Stage: Stage C: Symptomatic Heart Failure
== END 2023-10-28 19:30 | disposition home health service (06) | DRG 291 ==
LOC: IVU 20:46
PROVIDERS: Emergency Medicine; Hospitalist; Registered Nurse; ADMITTING PHYSICIAN Hospitalist; ATTENDING PHYSICIAN Internal Medicine; CONSULT PHYSICIAN Internal Medicine Cardiovascular Disease; EMERGENCY PHYSICIAN Emergency Medicine; FAMILY PHYSICIAN Family Medicine
DX: I13.0 Hypertensive heart and chronic kidney disease with heart failure and stage 1 through stage 4 chronic kidney disease, or unspecified chronic kidney disease (principal); I50.23 Acute on chronic systolic (congestive) heart failure; N17.9 Acute kidney failure, unspecified; I48.92 Unspecified atrial flutter; Z68.1 Body mass index [BMI] 19.9 or less, adult; I47.29 Other ventricular tachycardia; I27.20 Pulmonary hypertension, unspecified; Z91.148 Patient's other noncompliance with medication regimen for other reason; N18.30 Chronic kidney disease, stage 3 unspecified; R63.6 Underweight; I48.0 Paroxysmal atrial fibrillation
CPT/HCPCS: 71045; 80048; 80053; 80061; 82248; 83735; 83880; 84439; 84443; 84484; 85025; 93005; 93306; 96374; 97116; 97163; 97166; 97535; 99285

== ENCOUNTER 2023-12-02 15:26 | Emergency (ER) | payer OTHER, SELFPAY ==
[2023-12-02] VITALS (8 sets, daily range): BP systolic 92–140; BP diastolic 64–97; BMI 21.3
--- NOTE | 2023-12-02 16:56 | EDRN ---
Jose WONG in room w/ pt.
--- NOTE | 2023-12-02 17:53 | EDRN ---
IV VAT RN Patricia in room w/pt at this time.
[2023-12-02 18:28] LABS: ALT (SGPT) 14 U/L (0-35); AST (SGOT) 92 U/L (14-36); Albumin 4.2 g/dl (3.5-5.0); Alkaline Phosphatase 61 U/L (38-126); Blood Urea Nitrogen 34 mg/dl (7-17); Calcium 9.2 mg/dl (8.4-10.2); Carbon Dioxide 27 mmol/L (22-30); Chloride 98 mmol/L (98-107); Estimated Creatinine Clearance 18 ml/min; Glucose 113 mg/dl (70-99); Potassium 5.3 mmol/L (3.5-5.1); Sodium 133 mmol/L (135-145); Total Bilirubin 1.2 mg/dl (0.2-1.3); Total Protein 6.6 g/dl (6.3-8.2); eGFR 33.31
[2023-12-02 18:37] LABS: NT-proBNP 9230 pg/ml; Troponin I < 0.012 ng/ml
[2023-12-02 19:04] LABS: % Basophils 0.5 % (0-2); % Eosinophils 0.3 % (0-6); % Immature Granulocytes 0.8 % (0-0.5); % Monocytes 8.6 % (1.7-9.3); % Neutrophils 77.8 % (42.2-75.2); Absolute Immature Granulocytes 0.1 10^3/uL (0-0.05); Absolute Monocytes 0.7 10^3/uL (0.1-0.6); Absolute Neutrophils 6.2 10^3/uL (1.4-6.5); Hematocrit 28.3 % (37.0-47.0); Hemoglobin 10.8 g/dL (12.0-16.0); Mean Corp Hgb Conc. 38.2 g/dL (33.0-37.0); Mean Corpuscular Hgb 22.2 pg (27.0-31.0); Mean Corpuscular Volume 58.1 fL (81.0-99.0); Nucleated Red Blood Cells % 1.5 %; Platelet Count 119 10^3/uL (130-400); Red Blood Cell Count 4.87 10^6/uL (4.20-5.40); White Blood Cell Count 7.9 10^3/uL (4.8-10.8)
[2023-12-02 19:12] LABS: Anisocytosis 1+; Macrocytosis 2+; Microcytosis 1+; Normal RBC Morphology No
[2023-12-02 19:13] LABS: Hypochromasia 1+; Poikilocytosis 1+
[2023-12-02 19:14] LABS: Stomatocytes Slight
[2023-12-02 19:15] LABS: Target Cells Slight
[2023-12-02 21:08] LABS: Urine Albumin Trace (Neg - Trace); Urine Bilirubin Negative (Negative); Urine Character Clear (Clear); Urine Color Yellow; Urine Glucose Negative (Negative); Urine Ketone Negative (Negative); Urine Leukocyte 2+ (Negative); Urine Nitrite Negative (Negative); Urine Occult Blood 2+ (Negative); Urine Urobilinogen Negative (Neg - 1+)
--- NOTE | 2023-12-02 21:13 | ED.GENMED ---
History of Present Illness
General
Chief Complaint: Fainting/Passed Out
Source: patient and family
Exam Limitations: none
Time Seen by Provider: 12/02/23 16:49
Nursing documentation reviewed up to this point in time: agreed with
History of Present Illness
History of Present Illness:
Patient to ED for eval after syncopal event. She was sitting outside with grandaughter and fainted. No head injury. SHe did not fall out of chair. [place] weak after. Brought to ED by family for eval. Denies fever/chills, recent illness. No n/v/d.
No cp/pressure, SOB. Brought to ED by daughter for eval.
Past History
Past History
ED Past Medical History: Other (Parkinson's disease)
ED Past Surgical History: None
Social History
Tobacco: Non-smoker
Alcohol: None
Drug: None
Review of Systems
Review of Systems
Allergies reviewed?: Yes
All Other Systems: ROS reviewed and negative except as documented in HPI and ROS
Constitutional: Reports no symptoms
EENT: Reports no symptoms
Respiratory: Reports no symptoms
Cardiac: Reports syncope
ABD/GI: Reports no symptoms
: Reports no symptoms
Musculoskeletal: Reports no symptoms
Skin: Reports no symptoms
Neurological: Reports weakness
Psychiatric: Reports no symptoms
Phy Exam
General Physical Exam
General Presentation: well appearing
General age: appears stated age
General Skin: warm and dry
General Habitus: normal
General Mental: alert
Pulmonary Exam
Pulmonary Exam: lungs clear and no respiratory distress
Gastrointestinal Exam
Gastrointestinal Exam: normal bowel sounds, non tender and soft
Musculoskeletal Exam
Musculoskeletal Exam: full ROM and neuro vasc intact
Skin Exam
Skin Exam: normal color, warm/dry and no rash
Psychiatric Exam
Psychiatric Exam: normal mood/affect
Course
Orders/Labs/Results
Orders:
Orders
12/02/23 15:30
Electrocardiogram (*1) Urgent
Reason for Study: Chest Pain
EKG- Treatment ONCE
12/02/23 17:05
Add On- LAB Urgent
Tests Added?: BNP
12/02/23 17:07
Cardiac Monitoring- Treatment ONCE
12/02/23 18:03
Complete Blood Count/With Diff Urgent
Comprehensive Metabolic Panel Urgent
NT-proBNP Urgent
Comment: ADD ON
Troponin I Urgent
12/02/23 21:01
Urinalysis Reflex To Culture Urgent
Date Specimen was Collected: 12/02/23
Time Specimen was Collected: 21:00
Urine Microscopic Reflex Cult Urgent
Urine Culture Urgent
VILMA Source: U
Specimen Description:
Date Specimen was Collected: 12/02/23
Time Specimen was Collected: 21:00
12/02/23 21:24
Cephalexin Monohydrate [Keflex] 500 mg PO NOW STA
Abnormal Lab Results
12/02/23 12/02/23
18:03 21:01
Hgb 10.8 L g/dL
(12.0-16.0)
Hct 28.3 L %
(37.0-47.0)
MCV 58.1 L fL
(81.0-99.0)
MCH 22.2 L pg
(27.0-31.0)
MCHC 38.2 H g/dL
(33.0-37.0)
RDW 24.0 H %
(11.5-14.5)
Plt Count 119 L 10^3/uL
(130-400)
Abs Immat Gran (auto) 0.1 H 10^3/uL
(0-0.05)
Absolute Lymphs (auto) 1.0 L 10^3/uL
(1.2-3.4)
Absolute Monos (auto) 0.7 H 10^3/uL
(0.1-0.6)
Immature Gran % 0.8 H %
(0-0.5)
Neutrophils % 77.8 H %
(42.2-75.2)
Lymphocytes % 12.0 L %
(20.5-51.1)
Sodium 133 L mmol/L
(135-145)
Potassium 5.3 H mmol/L
(3.5-5.1)
BUN 34 H mg/dl
(7-17)
Creatinine 1.5 H mg/dL
(0.6-1.0)
Glucose 113 H mg/dl
(70-99)
AST 92 H U/L
(14-36)
Ur Occult Blood Reflex 2+ A
(Negative)
Leukocyte Esterase Rfl 2+ A
(Negative)
Urine RBC 7-10 A /HPF
(0-2)
Urine WBC (Reflex) >100 A /HPF
(0-5)
Urine Bacteria (Reflex) Many A
(Negative)
12/02/23 18:03
12/02/23 18:03
Vital Signs
Initial and Last Documented VS:
Initial Vital Signs
Temp Pulse Resp BP Pulse Ox
98.2 F 54 16 92/64 98
12/02/23 15:28 12/02/23 15:28 12/02/23 15:28 12/02/23 15:28 12/02/23 15:28
Last Documented Vital Signs
Temp Pulse Resp BP Pulse Ox
98.2 F 107 17 132/84 97
12/02/23 15:28 12/02/23 21:25 12/02/23 21:25 12/02/23 21:25 12/02/23 21:25
*Radiology
Radiology exam reviewed: radiology read reviewed
*Pulse Oximetry
Patient hypoxic: no
*Critical Care Note
Total Time (30-74mins, 75-104mins- exclusive of procedures): Not Applicable
ED Attending Note
-
Portions of this chart may have been created with voice recognition software.� Occasional wrong word or��sound alike� substitutions may have occurred due to the inherent limitations of voice recognition software.
Discharge Plan
Departure
Patient Disposition: Home (Routine Discharge)
Date of Disposition: 12/02/23
Time of Disposition: 21:25
Patient with high blood pressure during this ER visit?: No
Condition: Good
Covid-19: Not Applicable
Discharge Problem:
Syncope, Acute UTI
Instructions: Urinary tract infections in adults, Syncope (Fainting) (DC)
Prescriptions:
New
cephalexin 500 mg capsule
500 mg PO BID 7 Days Qty: 14 0RF
No Action
carbidopa-levodopa 25-100 mg Tablet Extended Release
1 tab PO HS
metoprolol succinate 100 mg Tablet Extended Release 24 Hr
100 mg PO HS
carbidopa-levodopa 25-100 mg Tablet
1.5 tab PO TID
Eliquis 2.5 MG tablet
2.5 mg PO BID
rasagiline 1 mg Tablet
1 mg PO HS
CoQ-10 capsule
1 cap PO TID
diltiazem HCl 240 mg Capsule,Extended Release 24hr
240 mg PO DAILY Qty: 30 0RF
furosemide 20 mg Tablet
20 mg PO DAILY Qty: 30 0RF
Referrals:
Josephine Zarate MD [Family Provider] - Tomorrow
Activity Restrictions/Additional Instructions:
Return to the emergency department immediately for any changes in/worsening of your symptoms
Interventions
Interventions:
*Risk Screen - Suicide Last Done: 12/02/23 15:28
*General Assessment Last Done: 12/02/23 17:49
*Neglect/Abuse Screening Last Done: 12/02/23 15:28
ED- Fall Risk Assessment Last Done: 12/02/23 17:49
*ED COVID-19 Vaccine History Last Done: 12/02/23 17:49
*Nursing Disposition Last Done: 12/02/23 21:42
ED- Cardiac Assessment Last Done: 12/02/23 17:51
ED- Neurological Assessment Last Done: 12/02/23 17:51
Discharge Date and Time
Discharge Date/Time: 12/02/23 21:43
Print Language: HUNGARIAN
[2023-12-02 21:17] LABS: Urine Squamous Cell 0-2 /LPF (Few)
[2023-12-02 21:18] LABS: Urine Bacteria Many (Negative); Urine White Cell >100 /HPF (0-5)
[2023-12-02] MEDS: KEFLEX 500 MG PO (21:33)
== END 2023-12-02 21:43 | disposition home or self-care (01) ==
LOC: EMR 15:26
PROVIDERS: Emergency Medicine; Nurse Practitioner; EMERGENCY PHYSICIAN Emergency Medicine; FAMILY PHYSICIAN Family Medicine
DX: R55 Syncope and collapse (principal); N39.0 Urinary tract infection, site not specified; G20.A1 Parkinson's disease without dyskinesia, without mention of fluctuations; I48.91 Unspecified atrial fibrillation
CPT/HCPCS: 99283; 80053; 81003; 81015; 83880; 84484; 85025; 87077; 87086; 87186; 93005

== ENCOUNTER 2024-02-02 19:37 | Inpatient (IN) | payer OTHER, SELFPAY ==
[2024-02-02] VITALS (10 sets, daily range): BP systolic 61–137; BP diastolic 37–108; BMI 17.3
[2024-02-02 17:56] LABS: Glucose - Point of Care 171 mg/dl (70-99)
[2024-02-02] MEDS: NSS 1000 IV ×2 (18:02→19:45)
--- NOTE | 2024-02-02 18:10 | ED.GENMED ---
History of Present Illness
General
Chief Complaint: Fainting/Passed Out
Source: patient, records and ambulance crew
Exam Limitations: clinical condition and altered mental status
Time Seen by Provider: 02/02/24 17:44
Nursing documentation reviewed up to this point in time: agreed with
History of Present Illness
History of Present Illness:
80-year-old female chronic kidney disease Parkinson's UTIs A-fib heart failure
Apparently passed out in her chair today, EMS was called and left, called back as she was confused she is bradycardic hypotensive treated with atropine x 2 without any improvement in her heart rate also appears to be hypothermic unclear if this is
acute or chronic problem she was admitted previously with a UTI thought to have chronic kidney disease, not thought to be a candidate for aggressive cardiac interventions
Past History
Past History
ED Past Medical History: Other (Parkinson's disease)
ED Past Surgical History: None
Social History
Tobacco: Non-smoker
Alcohol: None
Drug: None
Phy Exam
Physical Exam
Physical Exam:
Physical Exam
General: Ill-appearing female
Neck: Dry lips
Heart: Bradycardia
Lungs: Crackles at the base
Abdomen: Not
Neuro: Confused globally weak moves extremity
Skin: no rash
Psychiatric: cooperative
Extremities: Edema is
Course
Orders/Labs/Results
Orders:
Orders
02/02/24 17:49
Electrocardiogram (*1) Urgent
Reason for Study: Other
Other Reason for Exam: sepsis
Cardiac Monitoring- Treatment ONCE
EKG- Treatment ONCE
IV Insert/Care/Rem.- Treatment PRN
Straight cath- Treatment ONCE
Urinalysis Reflex To Culture Urgent
Date Specimen was Collected: 02/02/24
Time Specimen was Collected: 18:02
0.9% Sodium Chloride 1000 ml [Nss] 1,000 ml IV BOLUS
02/02/24 17:50
Rectal Temp- Treatment ONCE
Cortisol, Random Urgent
TSH Urgent
CR Chest Portable - 1 View Urgent
Comment:
Reason For Exam: slow hr
Reason Study Needs to be Portable: Patient Unstable
02/02/24 17:56
Comprehensive Metabolic Panel Urgent
Troponin I Urgent
Blood Culture Routine
VILMA Source: Blood/Venous
Specimen Description:
Blood Culture Urgent
VILMA Source: Blood/Venous
Specimen Description:
02/02/24 17:57
Complete Blood Count/With Diff Urgent
Lactic Acid Q4H
Comment: CANCEL 2nd LACTIC ACID IF 1st LACTIC ACID IS LESS THAN 2
02/02/24 18:35
0.9% Sodium Chloride 1000 ml [Nss] 1,000 ml IV BOLUS
Piperacillin/Tazo 2.25 Gram [Zosyn] 2.25 grams in 50 ml IV NOW
02/02/24 18:36
Cardiac Monitoring- Treatment ONCE
Calcium Gluconate 1,000 mg IV NOW STA
Sodium Bicarbonate 50 meq IV NOW STA
02/02/24 18:37
Insulin Human Regular [Novolin R] 4 units IV NOW STA
02/02/24 18:38
Dextrose 50%-Water [Dextrose 50% Syringe] 25 grams IV NOW STA
02/02/24 18:45
NORepinephrine 4 MG/250 ML [Levophed] 4 mg in 250 ml IV PER PROTOCOL
Initial dose in mcg/min, then titrate:: 2
Titrate to keep:: SBP > 90 mmHg
Titrate by mcg/min:: 1-2 mcg/min
Frequency of titrations (minutes):: 5
Maximum dose in ICU in mcg/min:: 30
Maximum dose in IMU in mcg/min:: 8
Maximum dose in IVU in mcg/min:: 4
Begin to taper infusion when:: Remained at goal for 4hrs
Taper by mcg/min:: 1-2 mcg/min
Frequency of taper (minutes) if patient maintains goal:: 30
Taper to off?: Yes
If infusion off & no longer maintaining goal:: Contact Provider
02/02/24 19:03
Admit/Transfer Patient As Directed
Co-Sign Provider:
Level of Care: Inpatient admission
Assign to:: ICU
Physician / Group: hospitalist
Diagnosis: sepsis
Reason for Hospitalization: septic shock
Expected length of stay greater than two midnights?: Yes
ELOS- Estimated Length of Stay in days: 2
I certify the patient meets the requirements for IP care: Yes
Code Status As Directed
Resuscitation Status: Full Code
02/02/24 19:04
PRN Pain Medication Management As Directed
May give lesser potent ordered pain med per pt: Yes
preference::
Protocol:: Medication orders for pain may be administered in a
manner that supports deferring to patient preference
when the pt is:
- Requesting an ordered lesser potent pain medication.
Least to most potent pain medications are defined
as: acetaminophen < NSAID < tramadol < opioids
(morphine, oxycodone, hydromorphone).
- Requesting a lesser dose of the same medication IF
ORDERED.
- Requesting a less intrusive route of administration
if both routes are prescribed by the provider (PO <
IV).
02/02/24 19:10
Dexamethasone Sod Phosphate [Decadron] 10 mg IV NOW STA
EPINEPHrine PF [Adrenalin] 0.3 mg IM NOW STA
02/02/24 22:00
Lactic Acid Q4H
Comment: CANCEL 2nd LACTIC ACID IF 1st LACTIC ACID IS LESS THAN 2
Carbidopa/Levodopa Cr [Sinemet Cr 25-100 (Extended Release)] 1 tablet PO HS
Carbidopa/Levodopa [Sinemet 25-100] 1.5 tablet PO TID
Abnormal Lab Results
02/02/24 02/02/24 02/02/24
17:54 17:56 17:57
Hgb 10.7 L g/dL
(12.0-16.0)
Hct 29.2 L %
(37.0-47.0)
MCV 60.0 L fL
(81.0-99.0)
MCH 22.0 L pg
(27.0-31.0)
RDW 24.2 H %
(11.5-14.5)
Abs Immat Gran (auto) 0.1 H 10^3/uL
(0-0.05)
Absolute Neuts (auto) 7.5 H 10^3/uL
(1.4-6.5)
Absolute Lymphs (auto) 1.1 L 10^3/uL
(1.2-3.4)
Absolute Monos (auto) 0.7 H 10^3/uL
(0.1-0.6)
Neutrophils % 80.0 H %
(42.2-75.2)
Lymphocytes % 11.4 L %
(20.5-51.1)
Potassium 6.0 H mmol/L
(3.5-5.1)
Chloride 97 L mmol/L
(98-107)
Carbon Dioxide 17 L mmol/L
(22-30)
BUN 53 H mg/dl
(7-17)
Creatinine 2.8 H mg/dL
(0.6-1.0)
Glucose 149 H mg/dl
(70-99)
Lactic Acid 6.6 H* mmol/L
(0.7-2.0)
Total Bilirubin 2.0 H mg/dl
(0.2-1.3)
AST 332 H U/L
(14-36)
POC Glucose 171 H mg/dl
(70-99)
02/02/24 17:57
02/02/24 17:56
Vital Signs
Initial and Last Documented VS:
Initial Vital Signs
Pulse Resp BP Pulse Ox
40 15 77/52 90
02/02/24 17:38 02/02/24 17:38 02/02/24 17:38 02/02/24 17:38
Last Documented Vital Signs
Temp Pulse Resp BP Pulse Ox
96.1 F L 37 21 83/57 94
02/02/24 18:17 02/02/24 18:15 02/02/24 18:15 02/02/24 18:07 02/02/24 18:07
MDM/Problems Addressed
Differential Diagnosis Includes:
Sepsis heart block adrenal insufficiency hypothyroid electrolyte abnormality hyperkalemia UTI
MDM/Problems Addressed:
Fatigue weakness bradycardia
Chronic conditions affecting care: HTN, Cardiomyopathy, Arrhythmia, Neurological disorder and Kidney disease
Acute Exacerbation and/or Progression of Chronic Illness: HTN, Cardiomyopathy, Arrhythmia, Neurological disorder and Kidney disease
*Radiology
Radiology exam reviewed: preliminary read by ED provider
*Pulse Oximetry
Patient hypoxic: no
*EKG
Interpreted by ED Provider?: Yes
Interpretation: abnormal
Comparison EKG: changes noted
Heart Rate: 40
Rate: bradycardiac
Rhythm: a-fib
Ischemia: non-specific ST changes
*Property Claims Manager Interpretation
Rate: bradycardiac
Interpretation: abnormal
Heart Rate: 40
Rhythm: a-fib
*Critical Care Note
Total Time (30-74mins, 75-104mins- exclusive of procedures): 40
Update Note
Update Note:
Update labs noted, blood pressure low started on volume, norepinephrine treat for hyperkalemia antibiotics for sepsis likely urinary source
7:10 PM called the room received bicarb insulin glucose, tongue swelling no tongue bite, will give IM epi, and some steroid hold on Benadryl due to decreased mental status
Confirmed with daughter would not want shocks or intubation
ED Attending Note
-
Portions of this chart may have been created with voice recognition software.� Occasional wrong word or��sound alike� substitutions may have occurred due to the inherent limitations of voice recognition software.
Discharge Plan
Departure
Patient Disposition: Admit
Date of Disposition: 02/02/24
Time of Disposition: 18:41
Admit to: ICU
Presentation/result/management discussed w/ accepting MD/DO: Hospitalist
Patient with high blood pressure during this ER visit?: No
Condition: Serious
Covid-19: Not Applicable
Discharge Problem:
KALYAN (acute kidney injury), Hyperkalemia, Septic shock
Prescriptions:
No Action
carbidopa-levodopa 25-100 mg Tablet Extended Release
1 tab PO HS
metoprolol succinate 100 mg Tablet Extended Release 24 Hr
100 mg PO HS
carbidopa-levodopa 25-100 mg Tablet
1.5 tab PO TID
Eliquis 2.5 MG tablet
2.5 mg PO BID
rasagiline 1 mg Tablet
1 mg PO HS
diltiazem HCl 240 mg Capsule,Extended Release 24hr
240 mg PO DAILY Qty: 30 0RF
furosemide 20 mg Tablet
20 mg PO DAILY Qty: 30 0RF
metoprolol succinate 50 mg Tablet Extended Release 24 Hr
50 mg PO DAILY
acetaminophen [Tylenol Extra Strength] 500 mg Tablet
500 mg PO Q6HPRN PRN (Reason: mild pain)
coenzyme Q10 [CoQ-10] 100 mg Capsule
100 mg PO TID
Interventions
Interventions:
*Risk Screen - Suicide Last Done: 02/02/24 17:38
*General Assessment Last Done: 02/02/24 17:38
*Neglect/Abuse Screening Last Done: 02/02/24 17:38
Discharge Date and Time
Print Language: LUXEMBOURGISH
[2024-02-02 18:28] LABS: ALT (SGPT) 29 U/L (0-35); AST (SGOT) 332 U/L (14-36); Albumin 4.7 g/dl (3.5-5.0); Alkaline Phosphatase 53 U/L (38-126); Blood Urea Nitrogen 53 mg/dl (7-17); Carbon Dioxide 17 mmol/L (22-30); Chloride 97 mmol/L (98-107); Estimated Creatinine Clearance 10 ml/min; Glucose 149 mg/dl (70-99); Sodium 137 mmol/L (135-145); Total Protein 7.1 g/dl (6.3-8.2); eGFR 15.75
[2024-02-02 18:29] LABS: % Basophils 0.2 % (0-2); % Immature Granulocytes 0.5 % (0-0.5); % Lymphocytes 11.4 % (20.5-51.1); % Monocytes 7.9 % (1.7-9.3); Absolute Immature Granulocytes 0.1 10^3/uL (0-0.05); Absolute Lymphocytes 1.1 10^3/uL (1.2-3.4); Absolute Monocytes 0.7 10^3/uL (0.1-0.6); Absolute Neutrophils 7.5 10^3/uL (1.4-6.5); Anisocytosis 3+; Hematocrit 29.2 % (37.0-47.0); Hemoglobin 10.7 g/dL (12.0-16.0); Macrocytosis 1+; Mean Corp Hgb Conc. 36.6 g/dL (33.0-37.0); Microcytosis 2+; Nucleated Red Blood Cells % 4.3 %; Platelet Count 155 10^3/uL (130-400); Red Blood Cell Count 4.87 10^6/uL (4.20-5.40); Red Cell Dist. Width 24.2 % (11.5-14.5); White Blood Cell Count 9.4 10^3/uL (4.8-10.8)
[2024-02-02 18:30] LABS: Target Cells 3+
[2024-02-02 18:31] LABS: Normal RBC Morphology No
[2024-02-02 18:33] LABS: Troponin I < 0.012 ng/ml
[2024-02-02] MEDS: SODIUM BICARBONATE 50 MEQ IV (18:50)
[2024-02-02] MEDS: DEXTROSE 50% SYRINGE 25 GRAMS IV (18:50)
[2024-02-02] MEDS: NOVOLIN R 4 UNITS IV (18:51)
[2024-02-02] MEDS: CALCIUM GLUCONATE 1000 MG IV (18:51)
[2024-02-02 18:54] LABS: Lactic Acid 6.6 mmol/L (0.7-2.0)
[2024-02-02] MEDS: ADRENALIN 0.3 MG IM (19:15)
[2024-02-02] MEDS: DECADRON 10 MG IV (19:15)
--- NOTE | 2024-02-02 20:03 | HPS.HSE ---
Family Physician
-
Family Physician: Josephine Zarate MD
Chief Complaint
-
Found collapsed unresponsive
History of Present Illness
Patient nausea and home with past medical history significant for CHF with EF of around 42%, slow atrial fibrillation/atrial flutter, CKD, advanced Parkinson's disease, recurrent UTIs who presented from senior care with syncopal episode. Patient
was found to have collapsed in the chair. When aroused she was confused and barely coherent. She is currently awake and able to make decisions known. EMS was called and patient was immediately brought to the emergency department. Unable to
provide any additional history.
On arrival in the ED she was hypotensive to 80s over 50s pulse was in the 30s and temperature was 36.1. She was at 94% on room air. She complained of tongue swelling on arrival in the ED with dyspnea and was given Decadron and epinephrine.
ECG showed atrial fibrillation in the 30s. Potassium was 6.0 creatinine 2.8 and BUN 53. Bicarb was 17. White count was 9.4 hemoglobin 10.7 and platelet count of 155. Chest x-ray had findings suggesting moderate left lower lobe pneumonia which is
new. Progression of a mild right lower lobe pneumonia. Prominence of the central vasculature. Troponin was negative. BNP pending. Lactic acid was elevated at 6.4. UA is pending.
Medical History
Past Medical History
Past Medical History: Reports Arrhythmia (afib), CHF, HTN and Other (Parkinson)
Additional Past Medical History:
Parkinson's disease
CHF
Atrial flutter
Slow atrial fibrillation
Hypertension
Past Surgical History: Reports None
Social History
Tobacco: Non-smoker
Alcohol: None
Drug: None
Personal: Single
Living: With Family
Family History
Family History: Not pertinent
Allergies / Home Medications
Allergies reflects when Allergies were last updated in [facility].
Home Medications with original date entered in [facility]
Allergy/Medication List:
Allergies
Allergy/AdvReac Type Severity Reaction Status Date / Time
No Known Allergies Allergy Verified 02/02/24 17:37
Home Medications
apixaban 2.5 mg tablet (Eliquis) 2.5 mg PO BID blod clot prevention 07/27/23
carbidopa 25 mg-levodopa 100 mg tablet 1.5 tab PO TID parkinsons 07/27/23
carbidopa ER 25 mg-levodopa 100 mg tablet,extended release 1 tab PO HS Parkinsons 07/27/23
metoprolol succinate 100 mg tablet,extended release 24 hr 100 mg PO HS Blood Pressure 07/27/23
rasagiline 1 mg tablet 1 mg PO HS parkinsons 07/27/23
diltiazem HCl 240 mg capsule,extended release 24 hr 240 mg PO DAILY #30 caps 10/28/23
furosemide 20 mg tablet 20 mg PO DAILY #30 tabs 10/28/23
acetaminophen 500 mg tablet (Tylenol Extra Strength) 500 mg PO Q6HPRN PRN mild pain 02/02/24
coenzyme Q10 100 mg capsule (CoQ-10) 100 mg PO TID 02/02/24
metoprolol succinate 50 mg tablet,extended release 24 hr 50 mg PO DAILY 02/02/24
Review of Systems
-
Unable to obtain full review of systems at this time due to: Acuity
Physical Exam
Vital Signs
Vital Signs
Temp Pulse Resp BP Pulse Ox
96.1 F L 58 22 125/75 95
02/02/24 18:17 02/02/24 19:31 02/02/24 19:31 02/02/24 19:31 02/02/24 19:30
Physical Exam
General: Appears in Distress
HEENT: NormoCephalic, Anicteric, Moist mucous membranes and PERRLA
Respiratory: Clear
Cardiac: S1/S2 and Bradycardia
Breast: Deferred by me
GI: Soft, Non Tender and Non Distended
Rectal: Deferred by Provider
Genito-urinary: Deferred by me
Musculoskeletal: No Clubbing, No Cyanosis, Edema, Left Lower Extremity and Edema, Right Lower Extremity
Skin: Warm
Neuro: Alert
Hematologic/Lymphatic: No Lymphadenopathy
Psych: Calm
Laboratory Results
-
02/02/24 17:57
02/02/24 17:56
Laboratory Results
Lactic Acid 6.6 mmol/L (0.7-2.0) H* 02/02/24 17:57
Total Bilirubin 2.0 mg/dl (0.2-1.3) H 02/02/24 17:56
AST 332 U/L (14-36) H 02/02/24 17:56
ALT 29 U/L (0-35) 02/02/24 17:56
Alkaline Phosphatase 53 U/L (38-126) 02/02/24 17:56
Troponin I < 0.012 ng/ml 02/02/24 17:56
Data Reviewed
-
Diagnostic Radiology: Image Personally Visualized and interpreted and Report Reviewed by me
Medical Tests (Nuc Med, Echo, EKG etc): Image Personally Visualized and interpreted
Lab Data: Labs Reviewed by me
Old Records: Reviewed
Impression/Plan
-
IMPRESSION:
There is here 88-year-old with history of Parkinson's disease, congestive heart failure, atrial fibrillation hypertension CKD found down and hypotensive outside of the hospital brought into the ED found to be hyperkalemic and hypotensive and slow
afebrile. Chest x-ray shows bilateral pneumonia and new 1 in the left lower lobe and progression of the right lower lobe infiltrate. She is not hypoxic. In ED complaint of tongue swelling prior to getting any medications. Was given Decadron and
epinephrine x 1.
PLAN:
1. Sepsis/Pna -hypotension, elevated lactic acid, positive x-ray for pneumonia. UA pending. ?Cardiogenic given slow afib and peripheral edema but no significant pulmonary edema.
- admit to ICU
- s/p 1.5 L NS bolus, repeat for 500 if respiratory stable
- Vanc/Zosyn. check procalcitonin, MRSA swab
- ID consultation
- started on pressors to maintain map > 60 and heart rate > 40
2. CHF - Chronic, no obvious exacerbation.
- holding lasix for now
- holding metoprolol
- echo in am
3. AFIB - Slow, rate controlled on dilt and metoprolol
- holding rate agents for now
- restart apixaban in am if CBC stable
4 Tongue Swelling - Unclear if real. No stridor or wheezing. Given epi and decadrone
- monitor airways
5 KALYAN/Hyperkalemia - suspect hemodynamic
- s/p temporization in Ed with ca/gluc, insulin, dextrose. Gave kayexellate enema
- repeat in 3 hours and evaluate
- map > 60, Renal dose medications and avoid nephrotoxins
- consider nephrology consult in am
DVT PPX - heparin sq
Code Status - DNR
--- NOTE | 2024-02-02 20:40 | PTCARENOTE ---
pt adm from ED; oriented to self, intermittently to place; AFib HR 30s-40s. Rectal probe inserted- temp 94.9F- BDoughertyNP aware- Thiago bass applied. RA IV x 2 patent. 6LNC, Sat difficult to obtain consistently due to cold extremities. purewick in
place. CHG cloths. family to bedside and updated. bed alarm on.
[2024-02-02 21:00] LABS: TSH 0.31 uIU/ml (0.47-4.68)
[2024-02-02] MEDS: ZOSYN 50 IV (21:40)
[2024-02-02] MEDS: VANCOCIN 200 IV (21:40)
[2024-02-02] MEDS: HEPARIN 5000 UNITS SC (21:40)
[2024-02-02 21:42] LABS: Cortisol, Random 66.1 ug/dl
--- NOTE | 2024-02-02 22:01 | W.PN.UPDATE ---
Update Note
Progress Note Update
Rediscussed with daughter Code status if patient would escalate to a cardiac arrest. (Need a clear direction in case) Per ED doctor notes, �Confirmed with daughter would not want shocks or intubation.� She was admitted a as DNR. �The daughter wants
her as a full code and if her prognosis was poor after arrest she will progress to comfort.�
[2024-02-02] MEDS: SINEMET CR 25-100 (EXTENDED RELEASE) PO (22:05)
[2024-02-02 22:24] LABS: Lactic Acid 4.7 mmol/L (0.7-2.0)
[2024-02-02 22:49] LABS: Blood Urea Nitrogen 52 mg/dl (7-17); Calcium 8.9 mg/dl (8.4-10.2); Carbon Dioxide 21 mmol/L (22-30); Chloride 100 mmol/L (98-107); Estimated Creatinine Clearance 10 ml/min; Glucose 157 mg/dl (70-99); Potassium 4.9 mmol/L (3.5-5.1); Sodium 139 mmol/L (135-145); eGFR 16.45
[2024-02-03] VITALS (24 sets, daily range): BP systolic 103–157; BP diastolic 43–106; BMI 17.0
--- NOTE | 2024-02-03 04:06 | CON.INTV ---
Consultation
Consultation Request
Date/Time Consultation Requested: 02/03/2024-6 AM
Date/Time Consultation Performed: 02/03/2024-6 AM
Requesting Provider: Hospitalist
Performing Provider: Dr. Kelly
Reason for Consultation: Sepsis
Medical History
-
Chief Complaint: Sepsis and pneumonia
History of Present Illness:
88-year-old female patient with underlying Parkinson's, CHF, atrial fibrillation, hypertension, chronic kidney disease presented with hypotension, hyperkalemia, and felt to be in septic shock requiring pressors-appliance service representative consulted for septic
shock/pneumonia/critical care management 02/03/2024. Patient overall feels better, tongue swelling is decreased, does not complain of shortness of breath at rest, chest pain, chest congestion, productive cough, abdominal pain, nausea, focal
weakness or increased swelling
Past Medical History
Past Medical History: None (Parkinson's. CHF. Atrial fibrillation. Hypertension. Chronic kidney disease.)
Social History
Tobacco: Non-smoker
Alcohol: None
Drug: None
Personal: Single
Living: With Family
Occupational Exposures: No known asbestos exposure
Environmental Exposures: No known tuberculosis exposure
Family History
Family History: Reviewed & Not Pertinent
Allergies / Home Medications
Allergies
Allergy/AdvReac Type Severity Reaction Status Date / Time
No Known Allergies Allergy Verified 02/02/24 17:37
Home Medications
�Medication �Instructions �Recorded �Confirmed �Last Taken �Type
apixaban 2.5 mg tablet (Eliquis) 2.5 mg PO BID blod clot prevention 07/27/23 02/02/24 02/02/24 History
carbidopa 25 mg-levodopa 100 mg 1.5 tab PO TID parkinsons 07/27/23 02/02/24 02/02/24 History
tablet
carbidopa ER 25 mg-levodopa 100 mg 1 tab PO HS Parkinsons 07/27/23 02/02/24 02/01/24 History
tablet,extended release
metoprolol succinate 100 mg 100 mg PO HS Blood Pressure 07/27/23 02/02/24 02/01/24 History
tablet,extended release 24 hr
rasagiline 1 mg tablet 1 mg PO HS parkinsons 07/27/23 02/02/24 02/01/24 History
diltiazem HCl 240 mg 240 mg PO DAILY #30 caps 10/28/23 02/02/24 02/02/24 Rx
capsule,extended release 24 hr
furosemide 20 mg tablet 20 mg PO DAILY #30 tabs 10/28/23 02/02/24 02/02/24 Rx
acetaminophen 500 mg tablet 500 mg PO Q6HPRN PRN mild pain 02/02/24 02/02/24 02/02/24 History
(Tylenol Extra Strength)
coenzyme Q10 100 mg capsule 100 mg PO TID 02/02/24 02/02/24 02/02/24 History
(CoQ-10)
metoprolol succinate 50 mg 50 mg PO DAILY 02/02/24 02/02/24 02/02/24 History
tablet,extended release 24 hr
Review of Systems
-
Unable to Obtain full review of systems at this time due to: Other (Per HPI)
Vitals / Labs / Diagnostic Testing
Vital Signs
Temp Pulse Resp BP Pulse Ox
97 F 74 17 112/87 100
02/03/24 00:00 02/03/24 00:45 02/03/24 00:45 02/03/24 00:00 02/03/24 00:45
Lab Data
02/02/24 21:50
Diagnostic Testing:
Physical Exam
-
Exam:
Well-nourished and well-developed in no apparent distress
HEENT-atraumatic, normocephalic
Neck-supple, no JVD, no bruit
Heart-regular rate and rhythm-no murmurs, rubs or gallops
Chest with basilar crackles but no wheezes or rhonchi
Back without tenderness
Abdomen-soft, nontender, nondistended, no hepatosplenomegaly
Extremities-no cyanosis, clubbing, edema and good peripheral pulses
Integument-intact, no rashes, lesions or ecchymosis
Neurology-alert and oriented, nonfocal motor and sensory exam
Assessment
-
88-year-old female patient with underlying Parkinson's, CHF, atrial fibrillation, hypertension, chronic kidney disease presented with hypotension, hyperkalemia, and felt to be in septic shock requiring pressors-appliance service representative consulted for septic
shock/pneumonia/critical care management 02/03/2024.
Septic shock unresponsive to fluids requiring pressors
Ceoznflkm-btrdmsoqa-cpenyugx
Aspiration risk
Tongue swelling status post epinephrine and Decadron of unclear etiology
KALYAN
Hyperkalemia
Ibsvcp-czmdgaxare-tqhcbvdfeg 10.2, MCV 60
Thrombocytopenia-platelet count 128
Lactic acidosis
Hyperglycemia
Conditions present prior to admission:
Parkinson's.
CHF-EF 42%
Atrial fibrillation/atrial flutter
Mitral regurgitation-severe
Hypertension.
Chronic kidney disease.
Plan
Admit patient to medical intensive care unit for persistent hypotension despite fluid resuscitation requiring pressors
Supplement oxygen as needed
High flow oxygen if needed
BiPAP if necessary
Intubate and mechanically ventilate if necessary
Aspiration precautions-at risk for swallowing dysfunction with underlying Parkinson's
Consider speech therapy evaluation
Nebulizers if needed
Obtain cultures
Empiric antibiotics-Zosyn initiated-1 dose of vancomycin also provided in ED-add doxycycline to cover atypicals
Consider Infectious disease consultation
Monitor leukocytosis
Follow chest x-ray
Fluid resuscitation with 30 mL/kg crystalloid-preferably lactated ringer-(less KALYAN) with subsequent boluses as needed
Monitor lactate
Follow CVP if possible
Attempt noninvasive bedside tissue perfusion evaluation to see if fluid bolus responsive
Measure pulse pressure and stroke volume variation if patient on ventilator, passively breathing without arrhythmia and with temporary large tidal volume ventilation and if > 13% then likely fluid bolus responsive
If patient active then consider measuring bedside leg lift for 3 minutes and if cardiac output increases or if there is a rise of 2-4 on end-tidal CO2 then fluid bolus
If bedside ultrasound available then measure IVC diameter variation to evaluate for fluid bolus responsiveness
Begin pressors as needed for MAP goal of 65-Norepinephrine first, then Vasopressin and consider Angiotensin II if continues to be hypotensive
Consider methylene blue if available-specific inhibitor of induced nitric oxide synthase iNOS and its downstream enzyme soluble guanylate cyclase-noninferiority study shown to reduce time to vasopressor discontinuation, decreased ICU length of stay,
hospital stay but no change in mortality-published Critical Care 06/30/2022
If persistently hypotensive then consider checking random cortisol-hydrocortisone if random less than 3, if 3-15 then consider ACTH stimulation test
If persistently hyperthermic then correcting hyperthermia can decrease pressor requirements, increased chances of reversal of shock and decrease mortality
Monitor tongue swelling-received epinephrine and Decadron-etiology unclear
Monitor blood sugar
Insulin supplementation as needed
Monitor hemoglobin
Check iron studies if not recently performed
Transfuse as needed
DVT prophylaxis-on heparin
GI prophylaxis-on pantoprazole
Early nutrition if possible
Early mobilization/bedside range of motion
If able to be weaned off norepinephrine then could be transferred out of ICU-pulmonary will follow briefly for pneumonia
Critical care statement: A total of 50 minutes of critical care time was provided for this patient today. This includes management of unstable vital signs, evaluation of the patient at bedside, reviewing the patient's pertinent medical records
including radiographs, microbiology, laboratory evaluations, and discussion with primary team, consultants, pharmacy, nutrition, physical therapy, case management, charge nurse, critical care nursing, and respiratory therapy.
Diagnostic data:
Chest x-ray 11/30/2020-mild CHF and trace right pleural effusion
Chest x-ray 10/23/2023-small right pleural effusion, mild pulmonary vascular congestion
Chest x-ray 02/02/2024-moderate left lower lobe pneumonia
Echocardiogram 10/26/2023-EF 42%, severe mitral regurgitation, mild pulmonary hypertension
Data Reviewed
-
EKG: Report reviewed by me
Radiology: Image personally visualized and interpreted and Report reviewed by me
CT Scan: Report reviewed by me
MRI: Report reviewed by me
Medical Tests (Nuc Med, Echo etc): Report reviewed by me
Labs: Labs reviewed by me
Critical Care Time (in minutes): 50
--- NOTE | 2024-02-03 04:11 | DOWNTIME ---
There was a [employer] Client Sonogram Technician Downtime on 02/03/2024 from 0100 to 02/03/2024 at 0355. Downtime documentation of patient's care, including medication administrations, has been reconciled in the electronic record per guidelines. Refer to the
patient's paper chart under the miscellaneous tab to see printed paper medication records and downtime forms.
[2024-02-03 04:22] LABS: Lactic Acid 2.7 mmol/L (0.7-2.0)
[2024-02-03 04:46] LABS: White Blood Cell Count 9.5 10^3/uL (4.8-10.8)
[2024-02-03 04:48] LABS: Hematocrit 27.7 % (37.0-47.0); Hemoglobin 10.2 g/dL (12.0-16.0); Mean Corp Hgb Conc. 36.8 g/dL (33.0-37.0); Mean Corpuscular Hgb 22.1 pg (27.0-31.0); Mean Corpuscular Volume 60.1 fL (81.0-99.0); Platelet Count 128 10^3/uL (130-400); Red Blood Cell Count 4.61 10^6/uL (4.20-5.40)
[2024-02-03] MEDS: ZOSYN 50 IV ×3 (05:00→21:10)
[2024-02-03 05:35] LABS: Cortisol, Random 32.5 ug/dl
--- NOTE | 2024-02-03 08:06 | CON.CAR ---
Addendum entered and electronically signed by Gerson Casper MD 02/03/24 13:15:
I saw and examined the patient.
The ASSISTANT IN NURSING's note was reviewed and I agree with the note.
Comment:
She clearly was poorly responsive prompting EMS but it is not clear she was unconscious and it is not clear that she had syncope.
Her presenting bradycardia seems to have been precipitated by her medical illness with presumed infection, hypothermia, acidosis (HCO3 17) and hyperkalemia (K+ 6) combined with her meds used for AFib rate control. As her metabolic status has
improved and meds washed out her AFib rates are increasing.
I do not think that she needs a cardiac workup for her bradycardia or neurologic status prompting admit.
I do not think that she will require a pacemaker.
Last time I saw sinus was July 2023. She may be progressing to persistent AFib.
Low voltage on EKG noted. Could consider work up for amyloid as an outpatient.
Family tells me that her LE edema is chronic and may be a bit less than normal. 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
Add back rate controlling meds as she improves.
Add back HF meds as she improves (furosemide and metorpolol ER).
Will watch telemetry.
Original Note:
Consultation
Consultation Request
Date/Time Consultation Requested: 02/03/2024 07:30
Date/Time Consultation Performed: 02/03/2024 08:05
Requesting Provider: Dr. Sherman
Performing Provider: MARVIN Foley for Dr. Casper
Reason for Consultation: Bradycardia
Medical History
-
Chief Complaint: Unresponsive
History of Present Illness:
Sheila Pinedo is an 81-year-old female (known to Dr. Reyes, her primary funeral service apprentice), with a past medical history significant for paroxysmal atrial fibrillation (on Eliquis), CKD stage IIIa, Parkinson's disease, thrombocytopenia, HFmrEF,
moderate to severe mitral regurgitation, and anemia of chronic disease who presented with an episode of unresponsiveness. She was found to be significantly bradycardic and was given atropine x 2 by EMS. This did not improve her heart rate. ECG
showed junctional bradycardia in the 30s. On arrival she was found to be hyperkalemic, hypotensive, and hypothermic. Labs were also notable for KALYAN. She complained of tongue swelling on arrival and was given Decadron and epinephrine. Per EMS
report there was no syncopal episode.
Past Medical History
Past Medical History: Arrhythmias, CHF (HFmrEF), Renal Failure (CKD), Valvular Disease (moderate to severe mitral regurgitation) and Other (Advanced Parkinson's disease)
Past Surgical History: and Orthopedic
Social History
Tobacco: Non-Smoker
Alcohol: None
Drug: None
Personal: Single
Living: With Family
Employment: Retired
Family History
Family History: Reviewed & Not Pertinent
Allergies / Home Medications
Allergy/AdvReac Type Severity Reaction Status Date / Time
No Known Allergies Allergy Verified 02/02/24 17:37
�Medication �Instructions �Recorded �Confirmed �Type
apixaban 2.5 mg tablet (Eliquis) 2.5 mg PO BID blod clot prevention 07/27/23 02/02/24 History
carbidopa 25 mg-levodopa 100 mg 1.5 tab PO TID parkinsons 07/27/23 02/02/24 History
tablet
carbidopa ER 25 mg-levodopa 100 mg 1 tab PO HS Parkinsons 07/27/23 02/02/24 History
tablet,extended release
metoprolol succinate 100 mg 100 mg PO HS Blood Pressure 07/27/23 02/02/24 History
tablet,extended release 24 hr
rasagiline 1 mg tablet 1 mg PO HS parkinsons 07/27/23 02/02/24 History
diltiazem HCl 240 mg 240 mg PO DAILY #30 caps 10/28/23 02/02/24 Rx
capsule,extended release 24 hr
furosemide 20 mg tablet 20 mg PO DAILY #30 tabs 10/28/23 02/02/24 Rx
acetaminophen 500 mg tablet 500 mg PO Q6HPRN PRN mild pain 02/02/24 02/02/24 History
(Tylenol Extra Strength)
coenzyme Q10 100 mg capsule 100 mg PO TID 02/02/24 02/02/24 History
(CoQ-10)
metoprolol succinate 50 mg 50 mg PO DAILY 02/02/24 02/02/24 History
tablet,extended release 24 hr
Review of Systems
-
History Source: Patient
All other systems: Negative unless noted
Constitutional: Fatigue
EENT: No Symptoms
Respiratory: No Symptoms
Cardiac: No Symptoms
Abdomen/GI: No Symptoms
: No Symptoms
Musculoskeletal: No Symptoms
Skin: No Symptoms
Neurological: No Symptoms
Endocrine: No Symptoms
Hematologic/Lymphatic: No Symptoms
Physical Exam
Vital Signs
Temp Pulse Resp BP Pulse Ox
99.4 F 70 28 150/85 98
02/03/24 07:00 02/03/24 06:00 02/03/24 06:00 02/03/24 06:00 02/03/24 06:00
Lab Results
Troponin I < 0.012 ng/ml 02/02/24 17:56
Physical Exam
General: Well Developed, Well Nourished, No Apparent Distress and Comfortable
HEENT: Normocephalic, Anicteric and Moist Mucous Membranes
Respiratory: Clear and Non Labored Respirations
Cardiac: S1/S2, Murmur and Peripheral Edema (+2 B/L LE)
Breast: Deferred by me
GI: Soft, Non Tender, Non Distended and Normal Bowel Sounds
Rectal: Deferred by Provider
Genito-urinary: No Costovertebral Tender
Musculoskeletal: No Clubbing
Skin: Warm and Dry
Neuro: Awake and Alert
Hematologic/Lymphatic: No Lymphadenopathy
Psych: Calm
Impression / Plan
-
BACKGROUND: 88F with paroxysmal atrial fibrillation, heart failure with mildly reduced ejection fraction, CKD, moderate to severe mitral regurgitation, and advanced Parkinson's disease presented unresponsive.
Manager Strategy & Account: Dr. Reyes
PLAN:
Sepsis, in the setting of pneumonia
-Initial lactate 6.6, now down to 2.7
-Hypothermic on arrival
Junctional bradycardia
Paroxysmal Atrial Fibrillation
-AV gadiel agents are on hold
-She was on Cardizem despite her HFmrEF (although suboptimal in CHF; options are limited due to patient comorbidities and partial medication noncompliance).
-Oral anticoagulation: Apixaban 2.5 mg twice daily, on hold per primary service, consider resumption
-[id number] = 5 (CHF, HTN, age x2, female gender)
CKD on KALYAN
-BMP pending, trend
Hyperkalemia, resolved, per primary
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
-Her proBNP is less than last time and she has an KALYAN
-Prior hospitalization as reflected given age/frail, conservative management
-No ACEi/ARB/ARNi given KALYAN
-Hold diuretic in the setting of sepsis and KALYAN
-Compression for her LE edema
Moderate to severe mitral regurgitation, maintain euvolemia
Advanced Parkinson's disease
DATA:
Transthoracic echocardiogram, 10/26/2023:
Mildly reduced left ventricular systolic function. Left ventricular ejection
fraction is 42%, by volumetric assessment.
Mild global hypokinesis of the basal to mid inferior and inferolateral wall.
Moderate to severe mitral regurgitation.
Mild eccentric aortic regurgitation.
Mild pulmonary hypertension.
Compared to previous echo 12/21/2020, there is no regional wall motion
abnormality with newly depressed systolic function. The mitral regurgitation
has increased. The pulmonary hypertension is new.
Data Reviewed
-
EKG: Report Reviewed by me (Junctional bradycardia, low voltage QRS, rate 40)
Radiology: Report Reviewed by me (CXR: Mild right lower lobe pneumonia, progressed. Moderate left lower lobe pneumonia.)
Labs: Labs Reviewed by me
Old Records: Reviewed
[2024-02-03 08:29] LABS: PT 23.8 Sec (11.4-14.6)
[2024-02-03 08:30] LABS: APTT 31.7 Sec (23.4-35.0); Hemoglobin 11.1 g/dL (12.0-16.0); Mean Corpuscular Hgb 22.3 pg (27.0-31.0); Mean Corpuscular Volume 60.4 fL (81.0-99.0); Platelet Count 120 10^3/uL (130-400); Red Blood Cell Count 4.97 10^6/uL (4.20-5.40); Red Cell Dist. Width 24.1 % (11.5-14.5); White Blood Cell Count 9.9 10^3/uL (4.8-10.8)
[2024-02-03 08:37] LABS: Lactic Acid 2.2 mmol/L (0.7-2.0)
[2024-02-03 08:44] LABS: COVID-19 Antigen Negative (Negative)
[2024-02-03 08:50] LABS: NT-proBNP 10900 pg/ml; Troponin I < 0.012 ng/ml
--- NOTE | 2024-02-03 09:13 | PTCARENOTE ---
Heparin gtt started via R wrist IV site at 500 units/hr.
--- NOTE | 2024-02-03 09:30 | PTCARENOTE ---
Rec'd pt at 0800 dozing. Awakened easily to verbal stimuli. Oriented to self and could tell me her birthdate but initally could not tell me she is in the hospital or what had happened. Later she could say she was in the hospital but did not know
which one only saying that she thought it was [facility] because she had been there before. [place]. Speech is clear. Denies pain. Skin is brown wm and dry. Respirs are shallow but non-labored- initally on 6l nc with sats of 99%- currently decreased to 4l
nc with sats of 98-99%. BS with few base crackles otherwise clear. Coughs an intermittent non-prod cough. Monitor AFib rates 70-100's. Denies chest pain. VS as documented. +2LE edema. ABd is soft with + BS. Took am meds with sip of water and
swallowed them ok. Denies need to void. Purewick in place. Capped ints intact R wrist and R ac-sites wnl. Turned and repositioned. Skin and mouth care given. Labs sent. Covid and Flu swabs sent as ordered. Call de jesus in reach. Plan of care reviewed
with pt and with granddaughters who are at the bedside,
[2024-02-03] MEDS: PROTONIX IV 40 MG IV (09:37)
[2024-02-03] MEDS: HEPARIN 25000 UNITS/250 ML IV (09:39)
[2024-02-03] MEDS: SINEMET 25-100 1.5 TABLET PO ×3 (09:41→18:41)
[2024-02-03] MEDS: FLUSH (NSS) 1 FLUSH IV (09:45)
--- NOTE | 2024-02-03 10:51 | W.PN.HOSP.TC ---
Today's Communication/Plan
-
now tachycardic - start low dose lopressor
Deescalate Abx
UA pending
Assessment / Plan
Assessment / Plan
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 She was also feeling weak for the past few days and on the day of admission noted to have tongue swelling. On admission
found severely bradycardic and with concern for LLL pneumonia
A/P:
#Syncope, most likely 2/2 bradycardia, possible iatrogenic
resolved while holding CCB and BB
Cardio consult
#sepsis 2/2 LLL CAP with unspecified organism
Vanco/Zosyn to be deescalated to Ceftriaxone/Doxy
Bcx pending
Check UA
COVID-19 and influenza neg
#Swallen tongue
resolved
s/p Decadron and Epi-pen x2 in ED
Could be after she took Joseph Gluconate on the day prior as it was not her usual supplement
monitor
#Afib, permanent
gradually restart AV gadiel blocking agents
Telemetry
Cardio consult
Heparin drip and restart Eliquis if confirmed Hgb stable
#KALYAN on CKD stage 3a
unclear if 2/2 sepsis or hypotension
monitor off diuretics
#chronic HFmrEF exacerbation
#Parkinson
#Chronic anemia
#recurrent mild thrombocytopenia
cont home meds and monitor
No need in Lasix as proBNP on the baseline as per Cardio
DVT ppx on hep drip
FUll code as per family
I have spent at least 59min reviewing chart, test results, communication with consultants and direct patient care
Anticipated Discharge: > 48 hours
Subjective/Interval History
-
Date of Service: February 03, 2024
Objective Data
-
Labs:
Laboratory Results
02/03/24 02/03/24 02/03/24
03:34 08:05 08:05
WBC 9.5 9.9
Hgb 10.2 L 11.1 L
Hct 27.7 L 30.0 L
Plt Count 128 L 120 L
PT 23.8 H
INR 2.10
APTT 31.7 Pending
Sodium Pending
Potassium Pending
Chloride Pending
Carbon Dioxide Pending
BUN Pending
Creatinine Pending
Glucose Pending
Calcium Pending
02/03/24
10:46
WBC
Hgb
Hct
Plt Count
PT
INR
APTT
Sodium Pending
Potassium Pending
Chloride Pending
Carbon Dioxide Pending
BUN Pending
Creatinine Pending
Glucose Pending
Calcium Pending
Vital Signs:
Vital Signs
Temp Pulse Resp BP Pulse Ox
99.4 F 70 28 150/85 98
02/03/24 07:00 02/03/24 06:00 02/03/24 06:00 02/03/24 06:00 02/03/24 06:00
I&O
02/02/24 02/03/24 02/04/24
06:59 06:59 06:59
Intake Total 250 / 250
Balance 250 / 250
Review of Systems
-
Unable to obtain full review of systems at this time due to: Dementia
History Source: Patient
All other systems: Reviewed and negative
Physical Exam
-
General: No Apparent Distress
HEENT: Normocephalic
Respiratory: Clear to Auscultation
Cardiac: Irregular Rhythm and Tachycardic
GI: Soft, Nontender and Nondistended
Skin: Warm
Neuro: Awake, Alert and Oriented (not to time)
Psych: Calm
--- NOTE | 2024-02-03 11:00 | PTCARENOTE ---
Changed to room air currently- sats are 97-98%.
--- NOTE | 2024-02-03 11:30 | PTCARENOTE ---
Pt a little more appropriately conversant. States she feels comfortable. Speech therapy consulted as she does have some coughing after drinking liquids. Has not voided. Bladder scanned for [address] cathed for 130 mls. Urine studies sent. BMP
sent as ordered and ECG done as ordered. Remains in Afib iwth rates in the 90-[address] Casper in and updated. Heparin gtt infusing at 500 units/hr. Turned and repositioned. Call de jesus in reach.
[2024-02-03 11:54] LABS: Blood Urea Nitrogen 61 mg/dl (7-17); Calcium 9.4 mg/dl (8.4-10.2); Carbon Dioxide 21 mmol/L (22-30); Chloride 101 mmol/L (98-107); Estimated Creatinine Clearance 9 ml/min; Glucose 153 mg/dl (70-99); Potassium 5.5 mmol/L (3.5-5.1); Sodium 138 mmol/L (135-145)
[2024-02-03 12:03] LABS: Urine Albumin 1+ (Neg - Trace); Urine Bilirubin Negative (Negative); Urine Character Slightly Cloudy (Clear); Urine Color Yellow; Urine Glucose Negative (Negative); Urine Ketone Trace (Negative); Urine Leukocyte 2+ (Negative); Urine Nitrite Positive (Negative); Urine Occult Blood 3+ (Negative); Urine Specific Gravity 1.015 (<1.030); Urine Urobilinogen Negative (Neg - 1+)
[2024-02-03] MEDS: LOPRESSOR 25 MG PO (12:30)
[2024-02-03 12:57] LABS: Urine Mucus Few
[2024-02-03 12:58] LABS: Urine Amorphous Seen
[2024-02-03 12:59] LABS: Urine Red Blood Cell 16-20 /HPF (0-2)
[2024-02-03 13:00] LABS: Urine Bacteria Many (Negative); Urine White Cell >100 /HPF (0-5)
[2024-02-03 13:21] LABS: Blood Urea Nitrogen 62 mg/dl (7-17); Calcium 9.5 mg/dl (8.4-10.2); Carbon Dioxide 19 mmol/L (22-30); Chloride 101 mmol/L (98-107); Estimated Creatinine Clearance 9 ml/min; Glucose 155 mg/dl (70-99); Iron 87 ug/dl (37-170); Potassium 5.5 mmol/L (3.5-5.1); Sodium 138 mmol/L (135-145)
--- NOTE | 2024-02-03 13:29 | W.PN.UPDATE ---
Update Note
Progress Note Update
Persistent KALYAN and hyperkalemia - locelma given, as per RN - bladder scan 100ml. Urine NA and Cr ordered, with concern for UTI - Zosyn to cont and will get CT abd/pelvis w/o contrast. Nephrology consult. Serial BMP
[2024-02-03 13:30] LABS: Percent Saturation 38 % (20-50); Total Iron Binding Capacity 226 ug/dl (265-497)
--- NOTE | 2024-02-03 13:54 | CM ---
CM following re: discharge planning.
Discussed in rounds, reviewed pt's chart, met with pt. Two pt's granddaughters at bedside. CM spoke to pt's daughter over the phone.
Pt is an 88 year old female, admitted with primary dx of Syncope, most likely 2/2 bradycardia.
Per granddaughters, pt lives with daughter in a 2SH, 4 steps to enter, pt stays mostly in the basement and was able to take steps. Per daughter, pt ambulates with a walker and a cane, known to [facility] and was at [facility] in the past. per daughter, if
SNF level of care recommended, then she preferred pt goes to [facility] and of home PT/OT recommended then pt's daughter preferred [facility].
PT and OT will evaluate the pt to determine a level of care at discharge.
PCP: Josephine Shannon
Pharmacy: [facility]
D/C plan: [facility] or home with [facility]. PT and OT to confirm.
CM will follow with discharge plan updates as hospitalization progresses
--- NOTE | 2024-02-03 14:00 | PTCARENOTE ---
Speech therapy in to evaluate pt. Pureed diet recommended and VSE 02/03. Pt then taken via bed for CT of the abd and pelvis. Assessment is unchanged. Heparin gtt continues at 500 units/hr
--- NOTE | 2024-02-03 14:08 | PTOTSP ---
SPEECH THERAPY SWALLOW EVALUATION:
Patient exhibits clinical signs of oropharyngeal dysphagia, likely chronic related to Parkinson's Disease and acutely exacerbated by sepsis/pneumonia/UTI. Patient currently with pneumonia in lower lobes, suspicious for aspiration-related infection.
Family/pt endorse history of coughing with p.o. intake. Recommend Videofluoroscopic Swallowing Study to further assess swallow physiology. Given no signs of aspiration at bedside, chronicity of dysphagia, and stable respiratory status during CSE,
patient appears safe for oral diet prior to VSE. Recommend cautious IDDSI Level 4 Puree diet, thin liquids. Medications whole or crushed in puree. Aspiration precautions: 1:1 assistance/supervision with meals; Upright positioning; Only feed when
awake/alert; Only provide p.o. when Sp)2>90% and RR<30; Small single sips/bites; Slow rate of intake; Ensure pt swallows prior to next bite; Monitor for signs of aspiration; D/c oral diet and initiate NPO should pt exhibit any decline in mental or
respiratory status. ST to continue to follow with additional recommendations following VSE results. Pt/family agreeable to plan of care.
RECOMMEND:
1) Videofluoroscopic Swallowing Study
2) cautious IDDSI Level 4 Puree diet, thin liquids
3) Medications whole or crushed in puree
4) Aspiration precautions: 1:1 assistance/supervision with meals; Upright positioning; Only feed when awake/alert; Only provide p.o. when Sp)2>90% and RR<30; Small single sips/bites; Slow rate of intake; Ensure pt swallows prior to next bite;
Monitor for signs of aspiration; D/c oral diet and initiate NPO should pt exhibit any decline in mental or respiratory status
5) ST to follow
[2024-02-03 14:22] LABS: Creatine Phosphokinase 35 U/L (30-135)
[2024-02-03] MEDS: LOKELMA 5 GRAM PO (14:28)
--- NOTE | 2024-02-03 14:30 | PTCARENOTE ---
K+5.5 on labs sent at 1130- Dr. Sherman aware and [place]elne [address] Thornton in to see pt and updated.
--- NOTE | 2024-02-03 14:41 | PN.CDI ---
CDI
- -
CDI:
Physician Documentation Request
Admit Date: 02/02/24 19:37
Dear Doctor Mark,
Patient admitted with sepsis.
Please review the following and provide your response in the progress notes.
Clinical Indicators:
Height: 5' 3'
Weight: 96 lb 1 oz
BMI: 17.0
Please provide an associated diagnosis related to the abnormal BMI, such as:
Underweight
Cachectic
Anorexia
BMI is not significant
Other
BMI < or = to 19
Underweight
Weight Loss
Cachectic
Anorexia
Use of terms such as suspected, likely, concern for, or probable (associated with a specific diagnosis that is being evaluated, monitored, or treated as if it exists) are acceptable and can be coded in the inpatient setting, when documented at the
time of discharge.
Thank you,
Joseline MOY,RN,CCDS
CDI Specialist
Available via [place] text
Please use your independent medical judgment in providing your response.
--- NOTE | 2024-02-03 14:44 | W.CON.NEPH ---
Consultation
-
Date/Time Consultation Requested: 02/03/2024 1 PM
Date/Time Consultation Performed: 02/03/2024 2:45 PM
Requesting Provider: Dr. Aguirre
Performing Provider: Dr. Thornton
Reason for Consultation: KALYAN
Medical History
-
Chief Complaint: Unresponsiveness
History of Present Illness:
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
She is brought in by EMS after family found her unarousable. Initially it seemed that she was improving decompensated again and EMS returned and brought her to the hospital. She was noted to be hypotensive and bradycardic. Her creatinine at the
time of admission was 2.8 off her baseline of 1.3 representing acute kidney injury. She also had significant hyperkalemia and metabolic acidosis. She was sent to the ICU on pressors. She is currently critically ill.
Past Medical History
Parkinson's disease
CHFrEF
Atrial flutter
atrial fibrillation
Hypertension
?vitiligo
Right femur screw
Social History
Tobacco: Non-Smoker
Alcohol: None
Family History
Family History: Not Pertinent
Allergies / Home Medications
Allergy/AdvReac Type Severity Reaction Status Date / Time
No Known Allergies Allergy Verified 02/02/24 17:37
�Medication �Instructions �Recorded �Confirmed �Type
apixaban 2.5 mg tablet (Eliquis) 2.5 mg PO BID blod clot prevention 07/27/23 02/02/24 History
carbidopa 25 mg-levodopa 100 mg 1.5 tab PO TID parkinsons 07/27/23 02/02/24 History
tablet
carbidopa ER 25 mg-levodopa 100 mg 1 tab PO HS Parkinsons 07/27/23 02/02/24 History
tablet,extended release
metoprolol succinate 100 mg 100 mg PO HS Blood Pressure 07/27/23 02/02/24 History
tablet,extended release 24 hr
rasagiline 1 mg tablet 1 mg PO HS parkinsons 07/27/23 02/02/24 History
diltiazem HCl 240 mg 240 mg PO DAILY #30 caps 10/28/23 02/02/24 Rx
capsule,extended release 24 hr
acetaminophen 500 mg tablet 500 mg PO Q6HPRN PRN mild pain 02/02/24 02/02/24 History
(Tylenol Extra Strength)
coenzyme Q10 100 mg capsule 100 mg PO TID Supplement 02/02/24 02/02/24 History
(CoQ-10)
metoprolol succinate 50 mg 50 mg PO DAILY Heart 02/02/24 02/02/24 History
tablet,extended release 24 hr Disease/Condition
furosemide 20 mg tablet 20 mg PO DAILY Fluid 02/03/24 02/02/24 History
Retention/Swelling
Review of Systems
-
No chest pain or shortness of breath. Hungry and thirsty. No pain. No issues with urination.
All other systems: Negative unless noted
Physical Exam
Vital Signs
Vital Signs
Temp Pulse Resp BP Pulse Ox
98.9 F 102 22 132/55 98
02/03/24 11:00 02/03/24 12:30 02/03/24 11:00 02/03/24 12:30 02/03/24 11:00
Lab Results
WBC 9.9 10^3/uL (4.8-10.8) 02/03/24 08:05
RBC 4.97 10^6/uL (4.20-5.40) 02/03/24 08:05
Hgb 11.1 g/dL (12.0-16.0) L 02/03/24 08:05
Hct 30.0 % (37.0-47.0) L 02/03/24 08:05
Plt Count 120 10^3/uL (130-400) L 02/03/24 08:05
eGFR 14.50 02/03/24 11:25
Fkc-Z-Gubagcbzxwi Pept 20797 pg/ml 02/03/24 08:05
Albumin 4.7 g/dl (3.5-5.0) 02/02/24 17:56
Laboratory Tests
12/02/23 02/02/24 02/03/24
18:03 17:56 03:34
Potassium 5.3 H
Creatinine 1.5 H 2.8 H
Lactic Acid
Creatine Kinase
Azr-U-Gwejcuirfkj Pept
Random Cortisol 32.5
02/03/24 02/03/24
08:05 11:25
Potassium
Creatinine
Lactic Acid 2.2 H
Creatine Kinase 35
Mnj-R-Xsbimnhadbd Pept 45934
Random Cortisol
Physical Exam
Patient is awake alert oriented and in no distress. Mood and affect were pleasant, insight and judgment were good. Pupils are equal round and reactive to light, extraocular movements are intact, sclera were anicteric. Hearing was normal, ears and
nose are intact. Oropharynx was clear and slightly dry. Neck was supple with trachea midline and no thyromegaly. Heart was regular rate and rhythm without rubs. Lower extremities with 2+ edema. Lungs were coarse to auscultation bilaterally and
with normal excursion. Abdomen was soft, nontender, with normal active bowel sounds, and no hepatosplenomegaly. Skin was without rash and with normal turgor. There is depigmentation lower jaw
Data Reviewed
-
Radiology: Image Personally Visualized and interpreted (Chest x-ray on 02/02/2024 by my reading shows bilateral lower lobe pneumonia, cardiomegaly)
CT Scan: Report Reviewed by me (CT abdomen and pelvis without contrast on 02/03/2024 shows no hydronephrosis right renal cysts, subcentimeter hypodensity lesions in the left kidney, L1 hemangioma)
Medical Tests (Nuc Med, Echo etc): Image Personally Visualized and interpreted (EKG on 02/03/2024 by read shows atrial fibrillation)
Labs: Labs Reviewed by me
Old Records: Reviewed
Assessment/Plan
-
Assessment
KALYAN
Sepsis
Hypotension
A-fib
Bradycardia now tachycardia
Hyperkalemia
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
Heart failure reduced ejection fraction 42%
Parkinson's
UTI
Pneumonia bilateral
Plan
Empiric antibiotics per primary team
Light IV fluids today
Follow BMP
Check urine studies
No evidence of obstruction
KALYAN likely from hypotension, bradycardia, sepsis
Discussed with daughter and granddaughter and patient
Critical care time spent 31 minutes
[2024-02-03] MEDS: NSS 500 IV (16:30)
--- NOTE | 2024-02-03 16:30 | PTCARENOTE ---
Assessment is unchanged. PTT sent as ordered. Pt still forgetful and at times keeps sliding down in the bed-however some conversation is more appropriate. Denies pain. SKin care given. Repositioned.
--- NOTE | 2024-02-03 17:00 | PTCARENOTE ---
NSS hung at 70 ml/hr via rAC IV site per md order
[2024-02-03 17:16] LABS: APTT 50.1 Sec (23.4-35.0)
[2024-02-03 17:19] LABS: Osmolality Urine 349 mOsm/kg (300-900)
[2024-02-03 17:28] LABS: Urine Sodium 33 mmol/L (30-90)
--- NOTE | 2024-02-03 18:30 | PTCARENOTE ---
Labs sent as ordered. Pt has not voided since st cathed earlier. Bladder scanned for 86 mls. Will update RIPSAWYER. No other changes. Dinner ordered.
[2024-02-03 18:59] LABS: Lactic Acid 1.9 mmol/L (0.7-2.0)
[2024-02-03 20:40] LABS: Blood Urea Nitrogen 63 mg/dl (7-17); Calcium 9.2 mg/dl (8.4-10.2); Carbon Dioxide 21 mmol/L (22-30); Chloride 99 mmol/L (98-107); Estimated Creatinine Clearance 9 ml/min; Glucose 141 mg/dl (70-99); Potassium 4.8 mmol/L (3.5-5.1); Sodium 139 mmol/L (135-145); eGFR 13.94
[2024-02-03] MEDS: TOPROL XL 25 MG PO (21:10)
[2024-02-03] MEDS: VIBRAMYCIN 100 MG PO (21:10)
[2024-02-03] MEDS: SINEMET CR 25-100 (EXTENDED RELEASE) 1 TABLET PO (21:11)
[2024-02-04] VITALS (21 sets, daily range): BP systolic 109–140; BP diastolic 70–119; BMI 17.4
[2024-02-04 00:33] LABS: APTT 66.4 Sec (23.4-35.0)
[2024-02-04] MEDS: ZOSYN 50 IV ×3 (04:49→20:16)
[2024-02-04 06:57] LABS: APTT 97.9 Sec (23.4-35.0)
--- NOTE | 2024-02-04 07:29 | W.PN.INTV ---
Today's Communication / Plan
Recommendations
Antibiotics
Wean oxygen
Increase activity
Video swallow
Aspiration precautions
Transfer out of ICU-call pulmonary if respiratory issues arise
Assessment
-
88-year-old female patient with underlying Parkinson's, CHF, atrial fibrillation, hypertension, chronic kidney disease presented with hypotension, hyperkalemia, and felt to be in septic shock requiring pressors-marine engine machinist consulted for septic
shock/pneumonia/critical care management 02/03/2024.
Septic shock unresponsive to fluids requiring pressors
Izzgfxouu-gsxpofzry-qihsaicr
Aspiration risk
Tongue swelling status post epinephrine and Decadron of unclear etiology
KALYAN
Hyperkalemia
Rxbooh-zoaqhsxsqo-yxcozrysku 10.2, MCV 60
Thrombocytopenia-platelet count 128
Lactic acidosis
Hyperglycemia
Conditions present prior to admission:
Parkinson's.
CHF-EF 42%
Atrial fibrillation/atrial flutter
Mitral regurgitation-severe
Hypertension.
Chronic kidney disease.
Plan
Hemodynamics have improved, not requiring pressors
Supplement oxygen as needed-currently on nasal cannula
Aspiration precautions-at risk for swallowing dysfunction with underlying Parkinson's
Speech therapy evaluation noted
Video swallow study recommended
Level few pur�ed diet with thin liquids
Nebulizers if needed
Cultures reviewed
Influenza negative
Blood cultures negative
Urine 02/03/2024 with gram-negative bacilli
Empiric antibiotics-Zosyn initiated-1 dose of vancomycin also provided in ED-add doxycycline to cover atypicals
Consider Infectious disease consultation
Monitor leukocytosis
Follow chest x-ray
Decrease IV fluids
Lactate trended
Norepinephrine discontinued
Monitor tongue swelling-received epinephrine and Decadron-etiology unclear-possibly zinc oxalate or gluconate
Monitor blood sugar
Insulin supplementation as needed
Monitor hemoglobin
Check iron studies if not recently performed
Transfuse as needed
DVT prophylaxis-on heparin
GI prophylaxis-on pantoprazole
Early nutrition if possible
Early mobilization/bedside range of motion
If able to be weaned off norepinephrine then could be transferred out of ICU--follow chest x-ray to clearing-marine engine machinist will sign off-call pulmonary if respiratory issues arise
Reviewed the patient's pertinent medical records including radiographs, microbiology, laboratory evaluations, and discussion with primary team, consultants, pharmacy, nutrition, physical therapy, case management, charge nurse, critical care
nursing, and respiratory therapy.
Diagnostic data:
Chest x-ray 11/30/2020-mild CHF and trace right pleural effusion
Chest x-ray 10/23/2023-small right pleural effusion, mild pulmonary vascular congestion
Chest x-ray 02/02/2024-moderate left lower lobe pneumonia
Echocardiogram 10/26/2023-EF 42%, severe mitral regurgitation, mild pulmonary hypertension
Subjective Dataa
Subjective Data
Date of Service:
Date of Service: February 04, 2024
Chief Complaint: Air Crew Supervisor Follow Up and Pulmonary Follow Up
Subjective:
Did not sleep well, no complaints of shortness of breath, chest pain or abdominal pain
Review of Systems
General: Other (Per HPI)
Objective Data
Data Reviewed
Vital Signs / I&O / Oxygen:
Vital Signs
Temp Pulse Resp BP Pulse Ox
97.0 F 124 16 139/106 99
02/04/24 03:49 02/04/24 06:00 02/04/24 06:00 02/04/24 04:00 02/04/24 03:00
Intake and Output
02/03/24 02/04/24 02/05/24
06:59 06:59 06:59
Intake Total 250 / 250 1221 / 1221
Output Total 130 / 130
Balance 250 / 250 1091 / 1091
SaO2 99
Nasal Cannula flow liters per 2
minute
Physical Exam
General: Respiratory Distress (n) and Comfortable
HEENT: Normocephalic, Anicteric and Moist Mucous Membranes
Cardiovascular: Regular Rhythm
Respiratory: Crackles (n), Rhonchi (n), Non-Labored Respirations, Accessory Resp Muscle Use (n) and Stridor (n)
GI: Soft, Non Distended and Non Tender
Neurology: Awake, Alert and No Motor Deficits
Skin: Warm, Good Color, Cyanosis (n), Jaundice (n) and Rash (n)
Labs/Micro/Reports
Lab Data
02/03/24 08:05
Laboratory Results
02/03/24 02/03/24 02/03/24
08:05 08:05 16:21
PT 23.8 H
INR 2.10
APTT 31.7 Cancelled 50.1 H
02/04/24 02/04/24
00:13 06:28
PT
INR
APTT 66.4 H 97.9 H
Microbiology
02/02/24 17:56 Blood/Venous Blood Culture - Preliminary
No Growth in 24 hours- Final report to follow
02/02/24 17:56 Blood/Venous Blood Culture - Preliminary
No Growth in 24 hours- Final report to follow
02/03/24 08:05 Nasal Swab Influenza Types A & B (MELITA) - Final
Negative for Influenza A & B, NAAT
Negative results must be combined with clinical observations
and patient history.
Nucleic Acid Amplification test (NAAT)performed on the
[employer] platform.
[2024-02-04 07:38] LABS: Blood Urea Nitrogen 65 mg/dl (7-17); Carbon Dioxide 22 mmol/L (22-30); Chloride 100 mmol/L (98-107); Estimated Creatinine Clearance 10 ml/min; Glucose 142 mg/dl (70-99); Potassium 4.7 mmol/L (3.5-5.1); Sodium 137 mmol/L (135-145); eGFR 16.45
[2024-02-04] MEDS: ELIQUIS 2.5 MG PO ×2 (07:55→19:56)
[2024-02-04] MEDS: SINEMET 25-100 1.5 TABLET PO ×3 (07:55→17:23)
[2024-02-04] MEDS: NSS (PRESERVATIVE FREE) 10 ML IV (07:55)
[2024-02-04] MEDS: VIBRAMYCIN 100 MG PO ×2 (07:55→19:56)
[2024-02-04] MEDS: TOPROL XL 25 MG PO ×2 (07:55→10:52)
[2024-02-04] MEDS: PROTONIX IV 40 MG IV (07:56)
[2024-02-04] MEDS: FLUSH (NSS) 1 FLUSH IV ×2 (07:58→11:24)
--- NOTE | 2024-02-04 08:50 | PTCARENOTE ---
Rec'd pt at 0730 sleeping. Does awaken easily to verbal stimuli. Overall oriented to self. Could tell me her birthdate and with some prompting that she is in the hospital but could not tell me which one then became focused on her dog that she
thought was with her and she couldn't find. Is forgetful and does make confusing/forgetful comments. Reoriented. Denies pain-just always admits to feeling cold. Multiple blankets in place. Skin is brown wm and dry. Respirs are shallow but overall
non-labored although does get sl ROTH.. Currently remains on RA with sats of 97. BS are decreased at the bases wiith few base crackles. Coughs an occasional non-prod cough- did one time after swallowing applejuice. Monitor AFib. HR 118-140's mostly
in the 130's. Will update Dr. Casper. + pulses. +2 LE edema. Denies chest pain. Abd is soft with + BS. Fed some breakfast-Pureed diet but appetite is limited. Denies nausea. Purewick in place and voided earlier sarah urine. Rec'd pt on Heparin gtt at
800 units/hr via RAC IV site. Heparin gtt dc'd at 0815 after Eliquis given. Capped int intact L forearm. Sites wnl. Pt repositioned. Mouth care given. Pt for VSE this am. Call de jesus in reach and pt reoriented and plan of care reviewed with pt.
--- NOTE | 2024-02-04 09:09 | W.PN.NEPH.PH ---
Today's Communication / Plan
-
follow BMP
Assessment/Plan
-
Assessment
KALYAN
Sepsis
Hypotension
A-fib
Bradycardia now tachycardia
Hyperkalemia
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
Heart failure reduced ejection fraction 42%
Parkinson's
UTI
Pneumonia bilateral
Plan
Empiric antibiotics per primary team
no IVF/Lasix today
Follow BMP
KALYAN likely from hypotension, bradycardia, sepsis
will need more rate control. BP is better, so more room for beta blockade
Critical care time spent 31 minutes
-
-
Date of Service: February 04, 2024
CC / HPI / ROS
-
Chief Complaint:
KALYAN
History of Present Illness:
KALYAN/Cr down to 2.7
Platelets drifting down 120
BP stable
remains in Afib RVR
Review of Systems:
no CP/SOB
back pain
Labs
-
Labs:
WBC 9.9 10^3/uL (4.8-10.8) 02/03/24 08:05
RBC 4.97 10^6/uL (4.20-5.40) 02/03/24 08:05
Hgb 11.1 g/dL (12.0-16.0) L 02/03/24 08:05
Hct 30.0 % (37.0-47.0) L 02/03/24 08:05
Plt Count 120 10^3/uL (130-400) L 02/03/24 08:05
Sodium 137 mmol/L (135-145) 02/04/24 06:28
Potassium 4.7 mmol/L (3.5-5.1) 02/04/24 06:28
Chloride 100 mmol/L (98-107) 10/17/24 06:28
Carbon Dioxide 22 mmol/L (22-30) 02/04/24 06:28
BUN 65 mg/dl (7-17) H 02/04/24 06:28
Creatinine 2.7 mg/dL (0.6-1.0) H 02/04/24 06:28
eGFR 16.45 02/04/24 06:28
Glucose 142 mg/dl (70-99) H 02/04/24 06:28
Calcium 9.0 mg/dl (8.4-10.2) 02/04/24 06:28
Wcq-U-Cmlvqejwvgd Pept 25274 pg/ml 02/03/24 08:05
Albumin 4.7 g/dl (3.5-5.0) 02/02/24 17:56
Physical Exam
-
Vital Signs:
Vital Signs
Temp Pulse Resp BP Pulse Ox
98.0 F 131 22 127/87 97
02/04/24 08:14 02/04/24 07:55 02/04/24 07:35 02/04/24 07:55 02/04/24 08:00
Cardiovascular:: Irregular rate and rhythm
Respiratory:: Bilateral: CTA
Lung Excursion:: Normal
Abdomen:: Nontender and Soft
Bowel Sounds:: Normal
Extremity Edema:: +2: Bilateral:
--- NOTE | 2024-02-04 09:13 | W.PN.CD ---
Today's Communication / Plan
-
-
- Resuming her rate control meds (short acting and or divided dosing for now but later convert to once daily dosing
- Hold diuretic for another day of two
- Watch for bradycardia
- 34 min spent in ICU today caring for this patient today
-
Impression / Plan
-
Background: 88F with paroxysmal atrial fibrillation, heart failure with mildly reduced ejection fraction, CKD, moderate to severe mitral regurgitation, and advanced Parkinson's disease presented unresponsive.
Looper Operator: Dr. Reyes
Junctional bradycardia, RESOLVED
- Almost certainly secondary from acute medical illness
- Primary heart block (paroxysmal) leading to her presentation is much much less likely
Paroxysmal Atrial Fibrillation => progressing to persistent as we have not documented sinus since July 2023
- Resuming her rate control meds (short acting and or divided dosing for now but later convert to once daily dosing
- She was on Cardizem despite her HFmrEF (although suboptimal in HF; options are limited
- [id number] = 5 (CHF, HTN, age x2, female gender)
KALYAN on CKD, improving
Hyperkalemia, resolved, per primary
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
- Her proBNP is less than last time and she has an KALYAN
- Conservative management
- No ACEi/ARB/ARNi at this time given KALYAN
- Hold diuretic for another day of two
- Compression for her LE edema
Moderate to severe mitral regurgitation, maintain euvolemia
Advanced Parkinson's disease
Subjective:
No palps/CP/dyspnea
DATA:
Transthoracic echocardiogram, 10/26/2023:
Mildly reduced left ventricular systolic function. Left ventricular ejection
fraction is 42%, by volumetric assessment.
Mild global hypokinesis of the basal to mid inferior and inferolateral wall.
Moderate to severe mitral regurgitation.
Mild eccentric aortic regurgitation.
Mild pulmonary hypertension.
Compared to previous echo 12/21/2020, there is no regional wall motion
abnormality with newly depressed systolic function. The mitral regurgitation
has increased. The pulmonary hypertension is new.
Physical Exam
Vital Signs/Labs
Vital Signs
Temp Pulse Resp BP Pulse Ox
98.0 F 131 22 127/87 97
02/04/24 08:14 02/04/24 07:55 02/04/24 07:35 02/04/24 07:55 02/04/24 08:00
02/03/24 02/04/24 02/05/24
06:59 06:59 06:59
Actual Weight 43.6 kg 44.6 kg
02/03/24 08:05
02/04/24 06:28
PT 23.8 Sec (11.4-14.6) H 02/03/24 08:05
INR 2.10 02/03/24 08:05
APTT 97.9 Sec (23.4-35.0) H 02/04/24 06:28
TSH 0.31 uIU/ml (0.47-4.68) L 02/02/24 17:56
02/03/24
08:05
Rmj-S-Rztzjgdtvti Pept 45217
LAB Results
02/02/24 02/03/24 02/03/24
17:56 08:05 13:45
Troponin I < 0.012 < 0.012 Cancelled
02/03/24
19:45
Troponin I Cancelled
Physical Exam
Constitutional: No acute distress
EENT: Anicteric
Cardiovascular: Rhythm/rate is irregular, Systolic murmur present and S1S2 is normal
Respiratory: Respiratory effort normal and Rhonchi Present
GI: Soft and Distention absent
Neuro/Psych: Alert
Data Reviewed
-
Date of Service: February 04, 2024
--- NOTE | 2024-02-04 09:23 | PTCARENOTE ---
Pt sent for VSE via stretcher on tele pack. Magdalena Casper and Hillary in prior to leaving. Dr. Casper aware of HR 118-140's A fib.
--- NOTE | 2024-02-04 11:07 | PTCARENOTE ---
Returned from [facility] at 1030. See speech recommendations. Complete CHG bath given. Pt incont of a saturated amt of urine and also on arrival back to ICU assisted on to the commode for yellow urine and a Very small amt of brown stool. Gait is sl weak
but easily able to bear wt. Currently sitting oob in the chair. Will place chair alarm on pt as she is forgetful. Hr remains 120-140's afib. Per Cardiology additional 25 mg Toprol XL given po. Pt for transfer to IMU
--- NOTE | 2024-02-04 12:30 | PTOTSP ---
Speech Therapy VSE:
Pt with moderate oral stage dysphagia and mild - moderate pharyngeal stage dysphagia as characterized by silent aspiration of thin liquids, trace penetration of mildly thick liquids, and mild pharyngeal stasis. Pt remains at an increased risk of
aspiration due to advanced Parkinson's with acute exacerbation related to sepsis, pneumonia, and UTI.
Recommend:
1. IDDSI Level 5 (minced and moist) and mildly thick liquids
2. medications whole in puree
3. Initiate AHRP following thorough oral care. Allow sips of water per AHRP protocol.
4. Assistance/supervision with PO intake
5. Standard aspiration precautions
6. Continued ST to assess tolerance of diet and assess ability to advance diet.
--- NOTE | 2024-02-04 12:47 | PN.CDI ---
CDI
- -
CDI:
Physician Documentation Request
Admit Date: 02/02/24 19:37
Dear Doctor Mark,
Patient admitted with sepsis.
02/03 PN, 'Afib, permanent....gradually restart AV gadiel blocking agents.'
02/03 Cardiology note, 'Paroxysmal Atrial Fibrillation => progressing to persistent as we have not documented sinus since July 2023.'
Due to conflicting documentation, please clarify in your note the type of atrial fibrillation being evaluated, monitored and/ or treated:
Paroxysmal atrial fibrillation - terminates spontaneously or with intervention within 7 days of onset
Persistent atrial fibrillation - episodes of continuous AF that last more than 7 days and do not self-terminate
Permanent atrial fibrillation - when a decision has been made to accept the presence of AF and there is no further attempt to restore or maintain sinus rhythm
Other - please specify
Use of terms such as suspected, likely, concern for, or probable (associated with a specific diagnosis that is being evaluated, monitored, or treated as if it exists) are acceptable and can be coded in the inpatient setting, when documented at the
time of discharge.
Thank you,
Joseline MOY,RN,CCDS
CDI Specialist
Available via [place] text
Please use your independent medical judgment in providing your response.
--- NOTE | 2024-02-04 13:00 | W.PN.HOSP.TC ---
Today's Communication/Plan
-
cont Abx
started Eliquis
Assessment / Plan
Assessment / Plan
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 She was also feeling weak for the past few days and on the day of admission noted to have tongue swelling. On admission
found severely bradycardic and with concern for LLL pneumonia and UTI. ALso had KALYAN most likely 2/2 sepsis and hypotension
A/P:
#Syncope, most likely 2/2 bradycardia, possible iatrogenic
resolved while holding CCB and BB
Cardio consult
#sepsis 2/2 LLL CAP with unspecified organism
#Cannot r/o UTI
Vanco/Zosyn to be deescalated to Zosyn/Doxy
Bcx pending
Ucx pending
CT abd/pelvis without hydronephrosis or nephrolithiasis
COVID-19 and influenza neg
#Swollen tongue
resolved
s/p Decadron and Epi-pen x2 in ED
Could be after she took Joseph Gluconate on the day prior as it was not her usual supplement
monitor
#Extremely elevated ferritin
most likely acute reaction
advise repeat test as outpatient, might need hematology as outpatient if remains high
#Afib, permanent
gradually restart AV gadiel blocking agents
Telemetry
Cardio consult
COnt Eliquis
#KALYAN on CKD stage 3a
#Hyperkalemia 2/2 KALYAN
S/P Lokelma
unclear if 2/2 sepsis or hypotension
monitor off diuretics
Nephro: light hydration completed, monitor
#Dysphagia
unspecified
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
VSE
Dysphagia diet
#chronic HFmrEF exacerbation
#Parkinson
#Chronic anemia
#recurrent mild thrombocytopenia
cont home meds and monitor
No concern for CHF exacerbation as proBNP on the baseline as per Cardio
DVT ppx on hep drip
FUll code as per family
I have spent at least 59min reviewing chart, test results, communication with consultants and direct patient care
Anticipated Discharge: > 48 hours
Subjective/Interval History
-
Date of Service: February 04, 2024
Objective Data
-
Labs:
Laboratory Results
02/04/24
06:28
APTT 97.9 H
Sodium 137
Potassium 4.7
Chloride 100
Carbon Dioxide 22
BUN 65 H
Creatinine 2.7 H
Glucose 142 H
Calcium 9.0
Vital Signs:
Vital Signs
Temp Pulse Resp BP Pulse Ox
97.6 F 125 24 130/101 95
02/04/24 11:52 02/04/24 12:00 02/04/24 12:00 02/04/24 12:00 02/04/24 11:00
I&O
02/03/24 02/04/24 02/05/24
06:59 06:59 06:59
Intake Total 250 / 250 1221 / 1229 166 / 166
Output Total 230 / 230 150 / 150
Balance 250 / 250 991 / 999
Review of Systems
-
Unable to obtain full review of systems at this time due to: Dementia
History Source: Patient
All other systems: Reviewed and negative
Physical Exam
-
General: No Apparent Distress
HEENT: Normocephalic and Atraumatic
Respiratory: Clear to Auscultation
Cardiac: Regular Rhythm
GI: Soft, Nontender and Nondistended
Neuro: Awake, Alert and Oriented
Psych: Calm
[2024-02-04] MEDS: CARDIZEM 60 MG PO ×3 (13:04→21:31)
--- NOTE | 2024-02-04 13:10 | PTCARENOTE ---
No changes in assessment. HR 120-140's Afib. VS as documented. Remains resting in the recliner chair. Pt for transfer to IMU. Report given and pt transferred via chair on monitor
--- NOTE | 2024-02-04 13:38 | CM ---
CM following re: discharge planning.
Discussed in Rounds, reviewed pt's chart, met with pt. Per Rounds meeting, pt is downgraded from ICU level of care, continue supportive care.
PT and OT will evaluate the pt to determine a level of care at discharge.
Both pt and her daughter agree if SNF level of care recommended, then she preferred pt goes to [facility] and of home PT/OT recommended then pt's daughter preferred [facility].
Awaiting for PT/OT evaluations and recommendations.
D/C plan: [facility] or home with [facility]. PT and OT to confirm.
CM will follow with discharge plan updates as hospitalization progresses
--- NOTE | 2024-02-04 14:41 | PTCARENOTE ---
Pt received from ICU via chair. Aox1, forgetful/confused but easily reoriented. Afib on tele monitor, rates mostly controlled in 80-90's with occasional burst to 150's. Assessment as documented. Call de jesus within reach. Chair alarm in place for
safety.
[2024-02-04] MEDS: TOPROL XL 50 MG PO (19:56)
[2024-02-04] MEDS: SINEMET CR 25-100 (EXTENDED RELEASE) 1 TABLET PO (21:31)
[2024-02-05] VITALS (16 sets, daily range): BP systolic 106–140; BP diastolic 66–95; PULSE 76–92
[2024-02-05] MEDS: ZOSYN 50 IV (04:58)
[2024-02-05 05:53] LABS: % Basophils 0.1 % (0-2); % Immature Granulocytes 0.9 % (0-0.5); % Lymphocytes 7.7 % (20.5-51.1); % Monocytes 8.5 % (1.7-9.3); % Neutrophils 82.8 % (42.2-75.2); Absolute Immature Granulocytes 0.1 10^3/uL (0-0.05); Absolute Lymphocytes 0.8 10^3/uL (1.2-3.4); Absolute Monocytes 0.9 10^3/uL (0.1-0.6); Hematocrit 28.2 % (37.0-47.0); Hemoglobin 10.4 g/dL (12.0-16.0); Mean Corp Hgb Conc. 36.9 g/dL (33.0-37.0); Mean Corpuscular Hgb 22.2 pg (27.0-31.0); Mean Corpuscular Volume 60.3 fL (81.0-99.0); Nucleated Red Blood Cells % 2.3 %; Platelet Count 110 10^3/uL (130-400); Red Blood Cell Count 4.68 10^6/uL (4.20-5.40); Red Cell Dist. Width 24.1 % (11.5-14.5); White Blood Cell Count 10.8 10^3/uL (4.8-10.8)
[2024-02-05 06:01] LABS: ALT (SGPT) 40 U/L (0-35); AST (SGOT) 80 U/L (14-36); Albumin 3.7 g/dl (3.5-5.0); Alkaline Phosphatase 55 U/L (38-126); Blood Urea Nitrogen 64 mg/dl (7-17); Calcium 8.7 mg/dl (8.4-10.2); Carbon Dioxide 24 mmol/L (22-30); Chloride 102 mmol/L (98-107); Estimated Creatinine Clearance 11 ml/min; Glucose 126 mg/dl (70-99); Potassium 4.7 mmol/L (3.5-5.1); Sodium 139 mmol/L (135-145); Total Bilirubin 1.1 mg/dl (0.2-1.3); Total Protein 6.1 g/dl (6.3-8.2); eGFR 18.95
[2024-02-05] MEDS: VIBRAMYCIN 100 MG PO ×2 (08:20→21:28)
[2024-02-05] MEDS: SINEMET 25-100 1.5 TABLET PO ×3 (08:20→17:51)
[2024-02-05] MEDS: CARDIZEM 60 MG PO ×4 (08:20→21:29)
[2024-02-05] MEDS: TOPROL XL 50 MG PO ×2 (08:30→21:28)
[2024-02-05] MEDS: NSS (PRESERVATIVE FREE) 10 ML IV (08:30)
[2024-02-05] MEDS: PROTONIX IV 40 MG IV (08:30)
[2024-02-05] MEDS: ELIQUIS 2.5 MG PO ×2 (08:30→21:28)
--- NOTE | 2024-02-05 09:55 | CM ---
Patient with Hx Parkinson Dz with Dx PAF, KALYAN, VSE yesterday - dysphagia diet. Receiving IV Zosyn. Per nurse assessment; confused/forgetful.
Message to Dr Flores requesting PT/OT Evals- he was planning to order today.
As per prior CM notes, patient's daughter prefers [facility] or home with [facility].
Plan follow up with daughter Linnette after seen by PT/OT.
--- NOTE | 2024-02-05 10:34 | W.PN.NEPH.PH ---
Today's Communication / Plan
-
Follow BMP
Will likely add back Lasix if creatinine continues to improve tomorrow
Assessment/Plan
-
Assessment
KALYAN
Sepsis
Hypotension
A-fib
Bradycardia now tachycardia
Hyperkalemia
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
Heart failure reduced ejection fraction 42%
Parkinson's
UTI
Pneumonia bilateral
Plan
Urine output recorded at 150 cc
will add back lasix in am
Creatinine improved to 2.4
Empiric antibiotics per primary team
no IVF/Lasix today
Follow BMP
KALYAN likely from hypotension, bradycardia, sepsis, currently hemodynamically stable
Gram-negative bacilli identified in urine, remains on Zosyn renally dosed
-
-
Date of Service: February 05, 2024
CC / HPI / ROS
-
Chief Complaint:
KALYAN
History of Present Illness:
KALYAN/Cr down to 2.4
Platelets drifting down 120
BP stable
Review of Systems:
no CP/SOB
back pain
Subjectively nonoliguric
Labs
-
Labs:
WBC 10.8 10^3/uL (4.8-10.8) 02/05/24 05:11
RBC 4.68 10^6/uL (4.20-5.40) 02/05/24 05:11
Hgb 10.4 g/dL (12.0-16.0) L 02/05/24 05:11
Hct 28.2 % (37.0-47.0) L 02/05/24 05:11
Plt Count 110 10^3/uL (130-400) L 02/05/24 05:11
Sodium 139 mmol/L (135-145) 02/05/24 05:11
Potassium 4.7 mmol/L (3.5-5.1) 02/05/24 05:11
Chloride 102 mmol/L (98-107) 02/05/24 05:11
Carbon Dioxide 24 mmol/L (22-30) 02/05/24 05:11
BUN 64 mg/dl (7-17) H 02/05/24 05:11
Creatinine 2.4 mg/dL (0.6-1.0) H 02/05/24 05:11
eGFR 18.95 02/05/24 05:11
Glucose 126 mg/dl (70-99) H 02/05/24 05:11
Calcium 8.7 mg/dl (8.4-10.2) 02/05/24 05:11
Xct-L-Dregijqmzsy Pept 09585 pg/ml 02/03/24 08:05
Albumin 3.7 g/dl (3.5-5.0) 02/05/24 05:11
Physical Exam
-
Vital Signs:
Vital Signs
Temp Pulse Resp BP Pulse Ox
97.9 F 68 21 125/94 99
02/05/24 07:17 02/05/24 10:00 02/05/24 10:00 02/05/24 10:00 02/04/24 21:37
Cardiovascular:: Irregular rate and rhythm and Regular rate and rhythm
Respiratory:: Bilateral: Coarse and Bilateral: Wheeze
Lung Excursion:: Normal
Abdomen:: Nontender
Bowel Sounds:: Normal
Extremity Edema:: +1: Bilateral:
[2024-02-05] MEDS: STERILE WATER FOR INJECTION 10 ML IV (12:29)
[2024-02-05] MEDS: ROCEPHIN 1000 MG IV (12:30)
--- NOTE | 2024-02-05 13:13 | W.PN.CD ---
Today's Communication / Plan
-
- Will transition to Toprol-XL 100 mg daily and Cardizem CD 120 mg daily tomorrow morning.
- Holding diuretic for another day; Nephrology following, appreciate input.
Impression / Plan
-
Background: 88F with paroxysmal atrial fibrillation, heart failure with mildly reduced ejection fraction, CKD, moderate to severe mitral regurgitation, and advanced Parkinson's disease presented unresponsive.
Ironworker: Dr. Reyes
Pneumonia/UTI:
-Continue antibiotics as per primary team.
Junctional bradycardia, RESOLVED
- Almost certainly secondary from acute medical illness
- Primary heart block (paroxysmal) leading to her presentation is much much less likely
Paroxysmal Atrial Fibrillation => progressing to persistent as we have not documented sinus since July 2023
-Will transition to Toprol-XL 100 mg daily and Cardizem CD 120 mg daily tomorrow morning.
- She was on Cardizem despite her HFmrEF (although suboptimal in HF; options are limited
- [id number] = 5 (CHF, HTN, age x2, female gender)
KALYAN on CKD, improving
-Management as per primary team.
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
- Her proBNP is less than last time and she has an KALYAN
- Conservative management
- No ACEi/ARB/ARNi at this time given KALYAN
- Holding diuretic for another day; Nephrology following, appreciate input.
- Compression for her LE edema
Moderate to severe mitral regurgitation - maintain euvolemia
Advanced Parkinson's disease
Subjective:
No major events overnight. No cardiac complaints this a.m.
DATA:
Transthoracic echocardiogram, 10/26/2023:
Mildly reduced left ventricular systolic function. Left ventricular ejection
fraction is 42%, by volumetric assessment.
Mild global hypokinesis of the basal to mid inferior and inferolateral wall.
Moderate to severe mitral regurgitation.
Mild eccentric aortic regurgitation.
Mild pulmonary hypertension.
Compared to previous echo 12/21/2020, there is no regional wall motion
abnormality with newly depressed systolic function. The mitral regurgitation
has increased. The pulmonary hypertension is new.
Physical Exam
Vital Signs/Labs
Vital Signs
Temp Pulse Resp BP Pulse Ox
97.5 F 76 20 140/82 94
02/05/24 11:49 02/05/24 12:29 02/05/24 11:00 02/05/24 12:29 02/05/24 08:00
02/04/24 02/05/24 02/06/24
06:59 06:59 06:59
Actual Weight 44.6 kg
02/05/24 05:11
02/05/24 05:11
PT 23.8 Sec (11.4-14.6) H 02/03/24 08:05
INR 2.10 02/03/24 08:05
APTT 97.9 Sec (23.4-35.0) H 02/04/24 06:28
TSH 0.31 uIU/ml (0.47-4.68) L 02/02/24 17:56
02/03/24
08:05
Grj-I-Mzfswydoudb Pept 11907
LAB Results
02/02/24 02/03/24 02/03/24
17:56 08:05 13:45
Troponin I < 0.012 < 0.012 Cancelled
02/03/24
19:45
Troponin I Cancelled
Physical Exam
Constitutional: No acute distress and Comfortable
EENT: Anicteric
Cardiovascular: Rhythm/rate is irregular, Pedal edema present (1+), Systolic murmur present (2/6) and S1S2 is normal
Respiratory: Respiratory effort normal and Crackles Present (left >> right)
GI: Soft
Neuro/Psych: Alert and Oriented
Other: Skin (warm)
Data Reviewed
-
Date of Service: February 05, 2024
EKG: Tracing Personally Visualized and interpreted (Telemetry: A-fib)
Medical Tests (PFT, Pathology etc): Discussed with Family (Granddaughter at bedside and daughter via telephone)
Labs: Labs Reviewed by me
--- NOTE | 2024-02-05 13:50 | W.PN.HOSP.TC ---
Today's Communication/Plan
-
Ceftriaxone
PT/OT
Assessment / Plan
Assessment / Plan
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 She was also feeling weak for the past few days and on the day of admission noted to have tongue swelling. On admission
found severely bradycardic and with concern for LLL pneumonia and UTI. ALso had KALYAN most likely 2/2 sepsis and hypotension. Improved on Abx tailored to cultures.
A/P:
#Syncope, most likely 2/2 bradycardia, possible iatrogenic
resolved while holding CCB and BB
Cardio consult: adjusting meds
#sepsis 2/2 LLL CAP with unspecified organism
#Cannot r/o UTI
Vanco/Zosyn to be deescalated to Zosyn/Doxy, then Doxy/Ceftriaxone
Bcx pending
Ucx with E.coli - switch to ceftriaxone
CT abd/pelvis without hydronephrosis or nephrolithiasis
COVID-19 and influenza neg
#Swollen tongue
resolved
s/p Decadron and Epi-pen x2 in ED
Could be after she took Joseph Gluconate on the day prior as it was not her usual supplement
monitor
#Extremely elevated ferritin
most likely acute reaction
advise repeat test as outpatient, might need hematology as outpatient if remains high
#Afib, paroxysmal
gradually restart AV gadiel blocking agents
Telemetry
Cardio consult
COnt Eliquis
#KALYAN on CKD stage 3a
#Hyperkalemia 2/2 KALYAN
S/P Lokelma
unclear if 2/2 sepsis or hypotension
monitor off diuretics
Nephro: light hydration completed, monitor
#Dysphagia
unspecified
MANAGER ONLINE
VSE
Dysphagia diet
#chronic HFmrEF exacerbation
#Parkinson
#Chronic anemia
#recurrent mild thrombocytopenia
cont home meds and monitor
No concern for CHF exacerbation as proBNP on the baseline as per Cardio
#Underweight
BMI 17.4
advice supplement with Ensure
DVT ppx on Eliquis
FUll code as per family
I have spent at least 59min reviewing chart, test results, communication with consultants and direct patient care
Anticipated Discharge: 24 - 48 hours
Subjective/Interval History
-
Date of Service: February 05, 2024
Objective Data
-
Labs:
Laboratory Results
02/05/24
05:11
WBC 10.8
Hgb 10.4 L
Hct 28.2 L
Plt Count 110 L
Sodium 139
Potassium 4.7
Chloride 102
Carbon Dioxide 24
BUN 64 H
Creatinine 2.4 H
Glucose 126 H
Calcium 8.7
Total Bilirubin 1.1
AST 80 H
ALT 40 H
Alkaline Phosphatase 55
Vital Signs:
Vital Signs
Temp Pulse Resp BP Pulse Ox
97.5 F 76 20 140/82 94
02/05/24 11:49 02/05/24 12:29 02/05/24 11:00 02/05/24 12:29 02/05/24 08:00
I&O
02/04/24 02/05/24 02/06/24
06:59 06:59 06:59
Intake Total 1221 / 1229 166 / 166 240 / 240
Output Total 230 / 230 150 / 150
Balance 991 / 999 16 240 / 240
--- NOTE | 2024-02-05 16:39 | PTCARENOTE ---
Patient AAOx1-2. No complaints. Confused but pleasant. Bed alarm on for safety. Tolerating diet, good appetite. RA 95%. Afib on monitor. Continuing to closely monitor.
[2024-02-05] MEDS: SINEMET CR 25-100 (EXTENDED RELEASE) 1 TABLET PO (21:28)
[2024-02-06] VITALS (12 sets, daily range): BP systolic 113–136; BP diastolic 79–101; BMI 17.9
--- NOTE | 2024-02-06 02:09 | PTCARENOTE ---
Pt AAOx2-3. During assessment Pt able to tell me she is in the hospital but not sure which one. Pt able to tell me it was Thursday. Pt able to make needs known. Pt has no complaints at this time. Pt appearing to be able to get some sleep this evening,
respiration even unlabored spo2 96% RA. Assessment care and vitals as charted. Call de jesus within reach bed alarm on.
[2024-02-06 04:31] LABS: % Basophils 0.1 % (0-2); % Eosinophils 0.2 % (0-6); % Immature Granulocytes 0.8 % (0-0.5); % Lymphocytes 10.9 % (20.5-51.1); % Monocytes 10.3 % (1.7-9.3); % Neutrophils 77.7 % (42.2-75.2); Absolute Immature Granulocytes 0.1 10^3/uL (0-0.05); Absolute Neutrophils 7.4 10^3/uL (1.4-6.5); Hematocrit 28.2 % (37.0-47.0); Hemoglobin 10.4 g/dL (12.0-16.0); Mean Corp Hgb Conc. 36.9 g/dL (33.0-37.0); Mean Corpuscular Hgb 22.7 pg (27.0-31.0); Mean Corpuscular Volume 61.4 fL (81.0-99.0); Platelet Count 117 10^3/uL (130-400); Red Blood Cell Count 4.59 10^6/uL (4.20-5.40); Red Cell Dist. Width 23.8 % (11.5-14.5); White Blood Cell Count 9.6 10^3/uL (4.8-10.8)
[2024-02-06 04:43] LABS: Blood Urea Nitrogen 61 mg/dl (7-17); Calcium 8.3 mg/dl (8.4-10.2); Carbon Dioxide 25 mmol/L (22-30); Chloride 105 mmol/L (98-107); Estimated Creatinine Clearance 16 ml/min; Glucose 113 mg/dl (70-99); Potassium 4.8 mmol/L (3.5-5.1); Sodium 142 mmol/L (135-145); eGFR 26.77
[2024-02-06] MEDS: SINEMET 25-100 1.5 TABLET PO ×3 (08:07→18:25)
[2024-02-06] MEDS: VIBRAMYCIN 100 MG PO ×2 (08:08→20:28)
[2024-02-06] MEDS: TOPROL XL 100 MG PO (08:08)
[2024-02-06] MEDS: CARDIZEM CD 120 MG PO (08:12)
[2024-02-06] MEDS: ELIQUIS 2.5 MG PO ×2 (08:12→20:28)
[2024-02-06] MEDS: PROTONIX 40 MG PO (08:13)
--- NOTE | 2024-02-06 08:54 | W.PN.NEPH.PH ---
Today's Communication / Plan
-
Add back Lasix 20 mg daily
Follow-up BMP in a.m.
Assessment/Plan
-
Assessment
KALYAN
Sepsis
Hypotension
A-fib
Bradycardia now tachycardia
Hyperkalemia
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
Heart failure reduced ejection fraction 42%
Parkinson's
UTI
Pneumonia bilateral
Plan
Urine output not recorded
Creatinine improved to 1.8
Empiric antibiotics per primary team
Will add back Lasix 20 mg today as weights climbing
Follow BMP
KALYAN likely from hypotension, bradycardia, sepsis, currently hemodynamically stable
Gram-negative bacilli identified in urine, remains on Zosyn renally dosed
-
-
Date of Service: February 06, 2024
CC / HPI / ROS
-
Chief Complaint:
KALYAN
History of Present Illness:
KALYAN/Cr down to 1.8
Platelets drifting down 120
BP stable
Review of Systems:
no CP/SOB
back pain
Subjectively nonoliguric
Weights up
Labs
-
Labs:
WBC 9.6 10^3/uL (4.8-10.8) 02/06/24 03:59
RBC 4.59 10^6/uL (4.20-5.40) 02/06/24 03:59
Hgb 10.4 g/dL (12.0-16.0) L 02/06/24 03:59
Hct 28.2 % (37.0-47.0) L 02/06/24 03:59
Plt Count 117 10^3/uL (130-400) L 02/06/24 03:59
Sodium 142 mmol/L (135-145) 02/06/24 03:59
Potassium 4.8 mmol/L (3.5-5.1) 02/06/24 03:59
Chloride 105 mmol/L (98-107) 02/06/24 03:59
Carbon Dioxide 25 mmol/L (22-30) 02/06/24 03:59
BUN 61 mg/dl (7-17) H 02/06/24 03:59
Creatinine 1.8 mg/dL (0.6-1.0) H 02/06/24 03:59
eGFR 26.77 02/06/24 03:59
Glucose 113 mg/dl (70-99) H 02/06/24 03:59
Calcium 8.3 mg/dl (8.4-10.2) L 02/06/24 03:59
Jpt-G-Ivfpgsjppqp Pept 06875 pg/ml 02/03/24 08:05
Albumin 3.7 g/dl (3.5-5.0) 02/05/24 05:11
Physical Exam
-
Vital Signs:
Vital Signs
Temp Pulse Resp BP Pulse Ox
98.5 F 68 11 118/88 96
02/06/24 04:28 02/06/24 06:00 02/06/24 06:00 02/06/24 06:00 02/06/24 06:00
Cardiovascular:: Irregular rate and rhythm and Regular rate and rhythm
Respiratory:: Bilateral: Coarse and Bilateral: Wheeze
Lung Excursion:: Normal
Abdomen:: Nontender
Bowel Sounds:: Normal
Extremity Edema:: +1: Bilateral:
[2024-02-06] MEDS: LASIX 20 MG PO (10:30)
--- NOTE | 2024-02-06 12:14 | W.PN.HOSP.TC ---
Today's Communication/Plan
-
Noted Lasix
Watch Cr
Transfer to F
Assessment / Plan
Assessment / Plan
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 She was also feeling weak for the past few days and on the day of admission noted to have tongue swelling. On admission
found severely bradycardic and with concern for LLL pneumonia and UTI. ALso had KALYAN most likely 2/2 sepsis and hypotension. Improved on Abx tailored to cultures. If Cr continues to improve - will be able to switch to oral Abx and D/C to rehab as
recommended and agreed with the family
A/P:
#Syncope, most likely 2/2 bradycardia, possible iatrogenic
resolved while holding CCB and BB
Cardio consult: adjusting meds
#sepsis 2/2 LLL CAP with unspecified organism
#Cannot r/o UTI
Vanco/Zosyn to be deescalated to Zosyn/Doxy, then Doxy/Ceftriaxone, cont to 02/10/24, can switch to oral upon d/c
Bcx NTD
Ucx with E.coli - switch to ceftriaxone
CT abd/pelvis without hydronephrosis or nephrolithiasis
COVID-19 and influenza neg
#Swollen tongue
resolved
s/p Decadron and Epi-pen x2 in ED
Could be after she took Joseph Gluconate on the day prior as it was not her usual supplement
monitor
#Extremely elevated ferritin
most likely acute reaction
advise repeat test as outpatient, might need hematology as outpatient if remains high
#Afib, paroxysmal
gradually restart AV gadiel blocking agents
Telemetry
Cardio consult
COnt Eliquis
#KALYAN on CKD stage 3a
#Hyperkalemia 2/2 KALYAN
S/P Lokelma
unclear if 2/2 sepsis or hypotension
monitor off diuretics
Nephro: light hydration completed, monitor. started Lasix on 02/06/24
#Dysphagia
unspecified
PHYSICS TUTOR
VSE
Dysphagia diet
#chronic HFmrEF
#Parkinson
#Chronic anemia
#recurrent mild thrombocytopenia
cont home meds and monitor
No concern for CHF exacerbation as proBNP on the baseline as per Cardio
#Underweight
BMI 17.4
advice supplement with Ensure
DVT ppx on Eliquis
FUll code as per family
I have spent at least 59min reviewing chart, test results, communication with consultants and direct patient care
Anticipated Discharge: 24 - 48 hours
Subjective/Interval History
-
Date of Service: February 06, 2024
Objective Data
-
Labs:
Laboratory Results
02/06/24
03:59
WBC 9.6
Hgb 10.4 L
Hct 28.2 L
Plt Count 117 L
Sodium 142
Potassium 4.8
Chloride 105
Carbon Dioxide 25
BUN 61 H
Creatinine 1.8 H
Glucose 113 H
Calcium 8.3 L
Vital Signs:
Vital Signs
Temp Pulse Resp BP Pulse Ox
98.4 F 68 11 118/88 96
02/06/24 07:23 02/06/24 06:00 02/06/24 06:00 02/06/24 06:00 02/06/24 06:00
I&O
02/05/24 02/06/24 02/07/24
06:59 06:59 06:59
Intake Total 166 / 166 360 / 360
Output Total 150 / 150
Balance 16 / 16 360 / 360
Review of Systems
-
History Source: Patient
All other systems: Reviewed and negative
Physical Exam
-
General: No Apparent Distress
HEENT: Normocephalic
Respiratory: Clear to Auscultation
GI: Soft, Nontender and Nondistended
Musculoskeletal: No Clubbing, No Cyanosis and No Edema
Neuro: Awake, Alert, Oriented and AO x 3
Psych: Calm
--- NOTE | 2024-02-06 12:28 | W.PN.CD ---
Today's Communication / Plan
-
- Toprol-XL 100 mg daily and Cardizem CD 120 mg daily today
- Restart Lasix 20 mg once a day.
Impression / Plan
-
Background: 88F with paroxysmal atrial fibrillation, heart failure with mildly reduced ejection fraction, CKD, moderate to severe mitral regurgitation, and advanced Parkinson's disease presented unresponsive.
Booster Plant Operator: Dr. Reyes
Pneumonia/UTI:
-Continue antibiotics as per primary team.
Junctional bradycardia, RESOLVED
- Almost certainly secondary from acute medical illness
- Primary heart block (paroxysmal) leading to her presentation is much much less likely
Paroxysmal Atrial Fibrillation => progressing to persistent as we have not documented sinus since July 2023
-Will transition to Toprol-XL 100 mg daily and Cardizem CD 120 mg daily today
- She was on Cardizem despite her HFmrEF (although suboptimal in HF; options are limited
- [id number] = 5 (CHF, HTN, age x2, female gender)
KALYAN on CKD, improving
-Management as per primary team.
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
- Her proBNP is less than last time and she has an KALYAN
- Conservative management
- No ACEi/ARB/ARNi at this time given KALYAN
- Holding diuretic for another day; Nephrology following, appreciate input.
- Compression for her LE edema
Moderate to severe mitral regurgitation - maintain euvolemia
Advanced Parkinson's disease
Subjective:
No major events overnight. No cardiac complaints this a.m.
DATA:
Transthoracic echocardiogram, 10/26/2023:
Mildly reduced left ventricular systolic function. Left ventricular ejection
fraction is 42%, by volumetric assessment.
Mild global hypokinesis of the basal to mid inferior and inferolateral wall.
Moderate to severe mitral regurgitation.
Mild eccentric aortic regurgitation.
Mild pulmonary hypertension.
Compared to previous echo 12/21/2020, there is no regional wall motion
abnormality with newly depressed systolic function. The mitral regurgitation
has increased. The pulmonary hypertension is new.
Physical Exam
Vital Signs/Labs
Vital Signs
Temp Pulse Resp BP Pulse Ox
98.4 F 68 11 118/88 96
02/06/24 07:23 02/06/24 06:00 02/06/24 06:00 02/06/24 06:00 02/06/24 06:00
02/05/24 02/06/24 02/07/24
06:59 06:59 06:59
Actual Weight 45.9 kg
02/06/24 03:59
02/06/24 03:59
PT 23.8 Sec (11.4-14.6) H 02/03/24 08:05
INR 2.10 02/03/24 08:05
APTT 97.9 Sec (23.4-35.0) H 02/04/24 06:28
TSH 0.31 uIU/ml (0.47-4.68) L 02/02/24 17:56
02/03/24
08:05
Ess-Z-Tyddiyfcgqk Pept 40520
Physical Exam
Constitutional: No acute distress and Comfortable
EENT: Anicteric and Moist mucous membranes
Cardiovascular: JVD pressure is normal, Systolic murmur absent and Rhythm/rate is irregular
Respiratory: Respiratory effort normal, Crackles Absent and Rhonchi Absent
GI: Soft and Normal bowel sounds
Neuro/Psych: Alert and Oriented
Data Reviewed
-
Date of Service: February 06, 2024
Medical Decision Making: Reviewed Test Results, Test Interpretation and Review of Case with other Provider
EKG: Tracing Personally Visualized and interpreted
Echo: Report Reviewed by me
Labs: Labs Reviewed by me
Old Records: Reviewed
[2024-02-06] MEDS: STERILE WATER FOR INJECTION 10 ML IV (13:12)
[2024-02-06] MEDS: ROCEPHIN 1000 MG IV (13:13)
[2024-02-06] MEDS: VISBIOME 2 CAP PO (13:31)
--- NOTE | 2024-02-06 14:20 | PTCARENOTE ---
report called to Ayse FREIRE, pt to be transferred to [address] [place] [address].
--- NOTE | 2024-02-06 15:00 | PTCARENOTE ---
Rec'd pt from IMU via wheelchair. Pt AAO x3, flat affect but pleasant. Pt had no c/o pain. AHR irreg and Lungs are clear but decreased throughout. Pt on monitor with a hx of Afib. HR rate increase at times to 130. will cont to monitor.
[2024-02-06] MEDS: LOPRESSOR 2.5 MG IV ×2 (21:26→22:23)
[2024-02-06] MEDS: SINEMET CR 25-100 (EXTENDED RELEASE) 1 TABLET PO (21:26)
[2024-02-06 21:46] LABS: Blood Urea Nitrogen 47 mg/dl (7-17); Calcium 8.6 mg/dl (8.4-10.2); Carbon Dioxide 28 mmol/L (22-30); Chloride 103 mmol/L (98-107); Estimated Creatinine Clearance 19 ml/min; Glucose 115 mg/dl (70-99); Magnesium 1.6 mg/dl (1.6-2.3); Potassium 4.8 mmol/L (3.5-5.1); Sodium 141 mmol/L (135-145); eGFR 33.31
[2024-02-07] VITALS (8 sets, daily range): BP systolic 100–137; BP diastolic 64–94; BMI 17.0
--- NOTE | 2024-02-07 00:01 | W.PN.UPDATE ---
Update Note
Progress Note Update
Patient is a-fib with hr 130-140s, bp 138/88, afebrile, SPO2 97% on RA. asymptomatic, EKG done, BMP and mag ordered. K and mag within normal level.
One time order of Lopressor 5 mg, hr still with 120s-140s, Cardizem IV bolus give total 10mg hr rate still in 130s-140s, Cardizem drip started at rate 5mg/hr.
[2024-02-07] MEDS: CARDIZEM 5 MG IV ×2 (00:05→01:40)
[2024-02-07] MEDS: CARDIZEM 125 IV (02:53)
--- NOTE | 2024-02-07 05:43 | PTCARENOTE ---
Pt in afib RVR with HR between 120s-140s. BP 132/88. Pt asymptomatic. Notified PROSPECT MANAGER, Lopressor 2.5mg ordered and administered x2. HR still sustaining 120s-140s. PROSPECT MANAGER ordered 5mg Cardizem IV push x2. HR sustaining 100-120s. PROSPECT MANAGER placed order for
Cardizem gtt. Cardizem gtt initiated at 5 mg/hr @ 02:53. Pt HR remains in Afib with HR mainly in the 90s. BP stable at 125/87. Pt comfortable in bed, no complaints at this time.
[2024-02-07 07:09] LABS: Blood Urea Nitrogen 43 mg/dl (7-17); Calcium 8.7 mg/dl (8.4-10.2); Carbon Dioxide 27 mmol/L (22-30); Chloride 104 mmol/L (98-107); Estimated Creatinine Clearance 21 ml/min; Glucose 84 mg/dl (70-99); Magnesium 1.7 mg/dl (1.6-2.3); Potassium 4.7 mmol/L (3.5-5.1); Sodium 141 mmol/L (135-145); eGFR 39.55
[2024-02-07] MEDS: MAGNESIUM SULFATE 50 IV (08:22)
[2024-02-07] MEDS: LASIX 20 MG PO (08:24)
[2024-02-07] MEDS: ELIQUIS 2.5 MG PO ×2 (08:24→21:26)
[2024-02-07] MEDS: PROTONIX 40 MG PO (08:24)
[2024-02-07] MEDS: SINEMET 25-100 1.5 TABLET PO ×3 (08:25→19:28)
[2024-02-07] MEDS: TOPROL XL 100 MG PO (08:26)
[2024-02-07] MEDS: VIBRAMYCIN 100 MG PO ×2 (08:26→21:26)
[2024-02-07] MEDS: VISBIOME 2 CAP PO (08:26)
[2024-02-07] MEDS: CARDIZEM CD 120 MG PO ×2 (08:29→11:21)
--- NOTE | 2024-02-07 09:09 | W.PN.CD ---
Today's Communication / Plan
-
- Home regimen initiated
- Persistent AF with rate control and Eliquis for now.
- Please call with questions.
Impression / Plan
-
Background: 88F with paroxysmal atrial fibrillation, heart failure with mildly reduced ejection fraction, CKD, moderate to severe mitral regurgitation, and advanced Parkinson's disease presented unresponsive.
Commercial Sales Director: Dr. Reyes
Pneumonia/UTI:
-Continue antibiotics as per primary team.
Junctional bradycardia, RESOLVED
- Almost certainly secondary from acute medical illness
- Primary heart block (paroxysmal) leading to her presentation is much much less likely
Persistent Atrial Fibrillation => progressing to persistent as we have not documented sinus since July 2023
-on Toprol-XL 100 mg daily and Cardizem CD 240 mg daily today
- She was on Cardizem despite her HFmrEF (although suboptimal in HF; options are limited
- [id number] = 5 (CHF, HTN, age x2, female gender)
- rates are better controlled now.
KALYAN on CKD, improving
-Management as per primary team.
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
- Her proBNP is less than last time and she has an KALYAN
- Conservative management
- No ACEi/ARB/ARNi at this time given KALYAN
- Lasix 20 mg QD restarted.
- Compression for her LE edema
Moderate to severe mitral regurgitation - maintain euvolemia
Advanced Parkinson's disease
Subjective:
No major events overnight. No cardiac complaints this a.m.
DATA:
Transthoracic echocardiogram, 10/26/2023:
Mildly reduced left ventricular systolic function. Left ventricular ejection
fraction is 42%, by volumetric assessment.
Mild global hypokinesis of the basal to mid inferior and inferolateral wall.
Moderate to severe mitral regurgitation.
Mild eccentric aortic regurgitation.
Mild pulmonary hypertension.
Compared to previous echo 12/21/2020, there is no regional wall motion
abnormality with newly depressed systolic function. The mitral regurgitation
has increased. The pulmonary hypertension is new.
Physical Exam
Vital Signs/Labs
Vital Signs
Temp Pulse Resp BP Pulse Ox
98.4 F 68 18 130/88 99
02/07/24 07:58 02/07/24 07:58 02/07/24 07:58 02/07/24 07:58 02/07/24 07:58
02/06/24 02/07/24 02/08/24
06:59 06:59 06:59
Actual Weight 45.9 kg 43.59 kg
02/06/24 03:59
02/07/24 06:01
PT 23.8 Sec (11.4-14.6) H 02/03/24 08:05
INR 2.10 02/03/24 08:05
APTT 97.9 Sec (23.4-35.0) H 02/04/24 06:28
Magnesium 1.7 mg/dl (1.6-2.3) 02/07/24 06:01
TSH 0.31 uIU/ml (0.47-4.68) L 02/02/24 17:56
02/03/24
08:05
Pkg-B-Vznvvccogox Pept [id number]
Physical Exam
Constitutional: No acute distress and Comfortable
EENT: Anicteric and Moist mucous membranes
Cardiovascular: Pedal edema is absent, JVD pressure is normal, Systolic murmur absent and Rhythm/rate is irregular
Respiratory: Respiratory effort normal, Lungs clear to auscul. and Crackles Absent
GI: Soft, Distention absent and Normal bowel sounds
Neuro/Psych: Oriented, AO x 3 and Motor deficits absent
Data Reviewed
-
Date of Service: February 07, 2024
Medical Decision Making: Reviewed Test Results, Independent Historian Assessment and Review of Case with other Provider
EKG: Tracing Personally Visualized and interpreted
Echo: Report Reviewed by me
Medical Tests (PFT, Pathology etc): Discussed with Physician and Discussed with Patient
Labs: Labs Reviewed by me
Old Records: Reviewed
--- NOTE | 2024-02-07 11:07 | W.PN.HOSP.TC ---
Today's Communication/Plan
-
Increase oral diltizem to 240mg (home dose) and RN to attempt to wean off
cont ABx
PT/OT to reassess
Assessment / Plan
Assessment / Plan
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 She was also feeling weak for the past few days and on the day of admission noted to have tongue swelling. On admission
found severely bradycardic and with concern for LLL pneumonia and UTI. ALso had KALYAN most likely 2/2 sepsis and hypotension. Improved on Abx tailored to cultures. If Cr continues to improve - will be able to switch to oral Abx. PT/OT recommended home
PT, but needs to reassess. Developed RVR on 02/07/24 - continue to adjust rate control meds
A/P:
#Syncope, most likely 2/2 bradycardia, possible iatrogenic
#Afib, paroxysmal with RVR
bradycardia resolved while holding CCB and BB, however later patient developed RVR
Cardio consult: adjusting meds
#sepsis 2/2 LLL CAP with unspecified organism
#Cannot r/o UTI
Vanco/Zosyn to be deescalated to Zosyn/Doxy, then Doxy/Ceftriaxone, cont to 02/10/24, can switch to oral upon d/c
Bcx NTD
Ucx with E.coli - switch to ceftriaxone
CT abd/pelvis without hydronephrosis or nephrolithiasis
COVID-19 and influenza neg
#Swollen tongue
resolved
s/p Decadron and Epi-pen x2 in ED
Could be after she took Joseph Gluconate on the day prior as it was not her usual supplement
monitor
#Extremely elevated ferritin
most likely acute reaction
advise repeat test as outpatient, might need hematology as outpatient if remains high
#Afib, paroxysmal
gradually restart AV gadiel blocking agents
Telemetry
Cardio consult
COnt Eliquis
#KALYAN on CKD stage 3a
#Hyperkalemia 2/2 KALYAN
S/P Lokelma
unclear if 2/2 sepsis or hypotension
monitor off diuretics
Nephro: light hydration completed, monitor. started Lasix on 02/06/24
#Dysphagia
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
Dysphagia diet
#chronic HFmrEF
#Parkinson
#Chronic anemia
#recurrent mild thrombocytopenia
cont home meds and monitor
No concern for CHF exacerbation as proBNP on the baseline as per Cardio
#Underweight
BMI 17.4
advice supplement with Ensure
DVT ppx on Eliquis
FUll code as per family
I have spent at least 59min reviewing chart, test results, communication with consultants and direct patient care
Anticipated Discharge: 24 - 48 hours
Subjective/Interval History
-
Date of Service: February 07, 2024
Objective Data
-
Labs:
Laboratory Results
02/07/24
06:01
Sodium 141
Potassium 4.7
Chloride 104
Carbon Dioxide 27
BUN 43 H
Creatinine 1.3 H
Glucose 84
Calcium 8.7
Vital Signs:
Vital Signs
Temp Pulse Resp BP Pulse Ox
98.4 F 68 18 130/88 99
02/07/24 07:58 02/07/24 07:58 02/07/24 07:58 02/07/24 07:58 02/07/24 07:58
I&O
02/06/24 02/07/24 02/08/24
06:59 06:59 06:59
Intake Total 360 / 360 960 / 960
Balance 360 / 360 960 / 960
Review of Systems
-
History Source: Patient
All other systems: Reviewed and negative
Physical Exam
-
General: No Apparent Distress
HEENT: Normocephalic
Respiratory: Clear to Auscultation
Cardiac: Irregular Rhythm
GI: Soft, Nontender and Nondistended
Neuro: Awake, Alert, Oriented and AO x 3
Psych: Calm
[2024-02-07] MEDS: ROCEPHIN 1000 MG IV (11:50)
[2024-02-07] MEDS: STERILE WATER FOR INJECTION 10 ML IV (11:51)
--- NOTE | 2024-02-07 12:34 | W.PN.NEPH.PH ---
Today's Communication / Plan
-
Sign off
Maintain Lasix
Assessment/Plan
-
Assessment
KALYAN
Sepsis
Hypotension
A-fib
Bradycardia now tachycardia
Hyperkalemia
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
Heart failure reduced ejection fraction 42%
Parkinson's
UTI
Pneumonia bilateral
Plan
Urine output not recorded
Creatinine improved to 1.3 (baseline)
Empiric antibiotics per primary team
back on Lasix 20 mg , weights down
Follow BMP
KALYAN likely from hypotension, bradycardia, sepsis, currently hemodynamically stable
Gram-negative bacilli identified in urine, remains on Zosyn renally dosed
We will sign off
-
-
Date of Service: February 07, 2024
CC / HPI / ROS
-
Chief Complaint:
KALYAN
History of Present Illness:
KALYAN/Cr down to 1.3
Platelets drifting down 120
BP stable
Review of Systems:
no CP/SOB
back pain
Subjectively nonoliguric
Weights down
Labs
-
Labs:
WBC 9.6 10^3/uL (4.8-10.8) 02/06/24 03:59
RBC 4.59 10^6/uL (4.20-5.40) 02/06/24 03:59
Hgb 10.4 g/dL (12.0-16.0) L 02/06/24 03:59
Hct 28.2 % (37.0-47.0) L 02/06/24 03:59
Plt Count 117 10^3/uL (130-400) L 02/06/24 03:59
Sodium 141 mmol/L (135-145) 02/07/24 06:01
Potassium 4.7 mmol/L (3.5-5.1) 02/07/24 06:01
Chloride 104 mmol/L (98-107) 02/07/24 06:01
Carbon Dioxide 27 mmol/L (22-30) 02/07/24 06:01
BUN 43 mg/dl (7-17) H 02/07/24 06:01
Creatinine 1.3 mg/dL (0.6-1.0) H 02/07/24 06:01
eGFR 39.55 02/07/24 06:01
Glucose 84 mg/dl (70-99) 02/07/24 06:01
Calcium 8.7 mg/dl (8.4-10.2) 02/07/24 06:01
Khm-L-Ewvuvcelvfl Pept 75986 pg/ml 02/03/24 08:05
Albumin 3.7 g/dl (3.5-5.0) 02/05/24 05:11
Physical Exam
-
Vital Signs:
Vital Signs
Temp Pulse Resp BP Pulse Ox
97.5 F 79 18 100/64 96
02/07/24 11:43 02/07/24 11:43 02/07/24 11:43 02/07/24 11:43 02/07/24 11:43
Cardiovascular:: Irregular rate and rhythm and Regular rate and rhythm
Respiratory:: Bilateral: Coarse and Bilateral: Wheeze
Lung Excursion:: Normal
Abdomen:: Nontender
Bowel Sounds:: Normal
Extremity Edema:: +1: Bilateral:
--- NOTE | 2024-02-07 16:27 | CM ---
CM reviewed chart. Plan is for SNF. Pt will require a repeat PT and OT eval within 24hrs of discharge for insurance auth. Bed offer follow up needed/pending.
CM/SW will continue to follow to ensure a safe and timely dc.
[2024-02-07] MEDS: SINEMET CR 25-100 (EXTENDED RELEASE) 1 TABLET PO (21:26)
[2024-02-08] VITALS (7 sets, daily range): BP systolic 105–139; BP diastolic 63–91; PULSE 72; O2SAT 95; BMI 17.1
[2024-02-08] MEDS: CARDIZEM 125 IV (05:20)
[2024-02-08 07:14] LABS: Blood Urea Nitrogen 41 mg/dl (7-17); Calcium 8.9 mg/dl (8.4-10.2); Carbon Dioxide 29 mmol/L (22-30); Chloride 102 mmol/L (98-107); Estimated Creatinine Clearance 21 ml/min; Glucose 96 mg/dl (70-99); Potassium 4.3 mmol/L (3.5-5.1); Sodium 142 mmol/L (135-145); eGFR 39.55
[2024-02-08] MEDS: TOPROL XL 100 MG PO (08:59)
[2024-02-08] MEDS: VISBIOME 2 CAP PO (08:59)
[2024-02-08] MEDS: ELIQUIS 2.5 MG PO ×2 (08:59→21:10)
[2024-02-08] MEDS: CARDIZEM CD 240 MG PO (09:00)
[2024-02-08] MEDS: PROTONIX 40 MG PO (09:00)
[2024-02-08] MEDS: VIBRAMYCIN 100 MG PO ×2 (09:00→21:10)
[2024-02-08] MEDS: LASIX 20 MG PO (09:01)
[2024-02-08] MEDS: SINEMET 25-100 1.5 TABLET PO ×3 (09:01→17:09)
--- NOTE | 2024-02-08 11:59 | W.PN.HOSP.TC ---
Today's Communication/Plan
-
Monitor vital signs
see plan
PT/OT
Monitor heart rate; cw cardizem,metoprolol
wean gtt
Assessment / Plan
Assessment / Plan
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 She was also feeling weak for the past few days and on the day of admission noted to have tongue swelling. On admission
found severely bradycardic and with concern for LLL pneumonia and UTI. ALso had KALYAN most likely 2/2 sepsis and hypotension. Improved on Abx tailored to cultures. If Cr continues to improve - will be able to switch to oral Abx. PT/OT recommended home
PT, but needs to reassess. Developed RVR on 02/07/24 - continue to adjust rate control meds
A/P:
#Syncope, most likely 2/2 bradycardia, possible iatrogenic
#Afib, paroxysmal with RVR
bradycardia resolved while holding CCB and BB, however later patient developed RVR. Now back on Cardizem and metoprolol
Cardio consult: adjusting meds
wean gtt
#sepsis 2/2 LLL CAP with unspecified organism
#Cannot r/o UTI
Vanco/Zosyn to be deescalated to Zosyn/Doxy, then Doxy/Ceftriaxone, cont to 02/10/24, can switch to oral upon d/c
Bcx NTD
Ucx with E.coli - switch to ceftriaxone
CT abd/pelvis without hydronephrosis or nephrolithiasis
COVID-19 and influenza neg
#Swollen tongue
resolved
s/p Decadron and Epi-pen x2 in ED
Could be after she took Joseph Gluconate on the day prior as it was not her usual supplement
monitor
#Extremely elevated ferritin
most likely acute reaction
advise repeat test as outpatient, might need hematology as outpatient if remains high
#Afib, paroxysmal
gradually restart AV gadiel blocking agents
Telemetry
Cardio consult
COnt Eliquis
#KALYAN on CKD stage 3a
#Hyperkalemia 2/2 KALYAN
S/P Lokelma
unclear if 2/2 sepsis or hypotension
monitor off diuretics
Nephro: light hydration completed, monitor. started Lasix on 02/06/24
#Dysphagia
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
Dysphagia diet per speech
#chronic HFmrEF
#Parkinson
#Chronic anemia
#recurrent mild thrombocytopenia
cont home meds and monitor
No concern for CHF exacerbation as proBNP on the baseline as per Cardio
#Underweight
BMI 17.4
advice supplement with Ensure
DVT ppx on Eliquis
FUll code as per family
I have spent at least 52 min reviewing chart, test results, communication with consultants and direct patient care
General: No Apparent Distress
HEENT: Normocephalic
Respiratory: Clear to Auscultation
Cardiac: Irregular Rhythm
GI: Soft, Nontender and Nondistended
Neuro: Awake, Alert, Oriented and AO x 3
Psych: Calm
Anticipated Discharge: 24 - 48 hours
Subjective/Interval History
-
Date of Service: February 08, 2024
denies pain
Objective Data
-
Labs:
Laboratory Results
02/08/24
06:07
Sodium 142
Potassium 4.3
Chloride 102
Carbon Dioxide 29
BUN 41 H
Creatinine 1.3 H
Glucose 96
Calcium 8.9
Vital Signs:
Vital Signs
Temp Pulse Resp BP Pulse Ox
97.8 F 91 16 107/73 94
02/08/24 11:20 02/08/24 11:20 02/08/24 11:20 02/08/24 11:20 02/08/24 11:20
I&O
02/07/24 02/08/24 02/09/24
06:59 06:59 06:59
Intake Total 960 / 960 120 / 120
Output Total
Balance 960 / 960 118 / 118
[2024-02-08] MEDS: ROCEPHIN 1000 MG IV (12:22)
[2024-02-08] MEDS: STERILE WATER FOR INJECTION 10 ML IV (12:23)
--- NOTE | 2024-02-08 14:25 | CM ---
Reviewed the chart notes. PT recommending SNF/rehab. Per notes, family interested in [facility]. Referral sent. CM continues to be available to patient/family and is monitoring medical plan for needs at discharge.
Plan: Discharge to SNF/rehab once bed found. Precert will be required.
[2024-02-08] MEDS: SINEMET CR 25-100 (EXTENDED RELEASE) 1 TABLET PO (21:10)
[2024-02-09] VITALS (7 sets, daily range): BP systolic 110–145; BP diastolic 69–88; PULSE 63; BMI 17.2
[2024-02-09 07:37] LABS: Blood Urea Nitrogen 45 mg/dl (7-17); Carbon Dioxide 29 mmol/L (22-30); Chloride 102 mmol/L (98-107); Estimated Creatinine Clearance 21 ml/min; Glucose 108 mg/dl (70-99); Potassium 4.4 mmol/L (3.5-5.1); Sodium 142 mmol/L (135-145); eGFR 39.55
[2024-02-09] MEDS: SINEMET 25-100 1.5 TABLET PO ×3 (09:17→17:14)
[2024-02-09] MEDS: VIBRAMYCIN 100 MG PO ×2 (09:18→20:29)
[2024-02-09] MEDS: VISBIOME 2 CAP PO (09:18)
[2024-02-09] MEDS: CARDIZEM CD 240 MG PO (09:19)
[2024-02-09] MEDS: TOPROL XL 100 MG PO (09:20)
[2024-02-09] MEDS: LASIX 20 MG PO (09:20)
[2024-02-09] MEDS: PROTONIX 40 MG PO (09:20)
[2024-02-09] MEDS: ELIQUIS 2.5 MG PO ×2 (09:20→20:29)
--- NOTE | 2024-02-09 11:38 | W.PN.HOSP.TC ---
Today's Communication/Plan
-
Monitor vital signs
see plan
Continue antibiotics
PT/OT
Add metoprolol adjust as well
Continue with Cardizem, metoprolol
Assessment / Plan
Assessment / Plan
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 She was also feeling weak for the past few days and on the day of admission noted to have tongue swelling. On admission
found severely bradycardic and with concern for LLL pneumonia and UTI. ALso had KALYAN most likely 2/2 sepsis and hypotension. Improved on Abx tailored to cultures. If Cr continues to improve - will be able to switch to oral Abx. PT/OT recommended home
PT, but needs to reassess. Developed RVR on 02/07/24 - continue to adjust rate control meds
A/P:
#Syncope, most likely 2/2 bradycardia, possible iatrogenic
#Afib, paroxysmal with RVR
bradycardia resolved while holding CCB and BB, however later patient developed RVR. Now back on Cardizem and metoprolol
Cardio consult: adjusting meds; start metoprolol HS as well in addition to morning metoprolol
wean gtt
#sepsis 2/2 LLL CAP with unspecified organism
#Cannot r/o UTI
Vanco/Zosyn to be deescalated to Zosyn/Doxy, then Doxy/Ceftriaxone, cont to 02/10/24, can switch to oral upon d/c
Bcx NTD
Ucx with E.coli - switch to ceftriaxone
CT abd/pelvis without hydronephrosis or nephrolithiasis
COVID-19 and influenza neg
#Swollen tongue
resolved
s/p Decadron and Epi-pen x2 in ED
Could be after she took Joseph Gluconate on the day prior as it was not her usual supplement
monitor
#Extremely elevated ferritin
most likely acute reaction
advise repeat test as outpatient, might need hematology as outpatient if remains high
#Afib, paroxysmal
gradually restart AV gadiel blocking agents
Telemetry
Cardio consult
COnt Eliquis
#KALYAN on CKD stage 3a
#Hyperkalemia 2/2 KALYAN
S/P Lokelma
unclear if 2/2 sepsis or hypotension
monitor off diuretics
Nephro: light hydration completed, monitor. started Lasix on 02/06/24
#Dysphagia
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
Dysphagia diet per speech
#chronic HFmrEF
#Parkinson
#Chronic anemia
#recurrent mild thrombocytopenia
cont home meds and monitor
No concern for CHF exacerbation as proBNP on the baseline as per Cardio
#Underweight
BMI 17.4
advice supplement with Ensure
DVT ppx on Eliquis
FUll code as per family
I have spent at least 51 min reviewing chart, test results, communication with consultants and direct patient care
General: No Apparent Distress
HEENT: Normocephalic
Respiratory: Clear to Auscultation
Cardiac: Irregular Rhythm
GI: Soft, Nontender and Nondistended
Neuro: Awake, Alert, Oriented and AO x 3
Psych: Calm
Anticipated Discharge: 24 - 48 hours
Subjective/Interval History
-
Date of Service: February 09, 2024
denies pain
Objective Data
-
Labs:
Laboratory Results
02/09/24
06:10
Sodium 142
Potassium 4.4
Chloride 102
Carbon Dioxide 29
BUN 45 H
Creatinine 1.3 H
Glucose 108 H
Calcium 9.0
Vital Signs:
Vital Signs
Temp Pulse Resp BP Pulse Ox
98.8 F 106 18 145/88 98
02/09/24 07:40 02/09/24 09:19 02/09/24 07:40 02/09/24 09:19 02/09/24 11:03
I&O
02/08/24 02/09/24 02/10/24
06:59 06:59 06:59
Intake Total 120 / 120 1380 / 1380
Output Total 2 / 2
Balance 118 / 118 1380 / 1380
[2024-02-09 11:42] LABS: Magnesium 1.7 mg/dl (1.6-2.3)
[2024-02-09] MEDS: ROCEPHIN 1000 MG IV (11:46)
[2024-02-09] MEDS: LOPRESSOR 5 MG IV (11:46)
[2024-02-09] MEDS: STERILE WATER FOR INJECTION 10 ML IV (11:46)
--- NOTE | 2024-02-09 12:23 | CM ---
Reviewed the chart notes and spoke with the patient at the bedside. Patient agreeable to SNF. Referral sent to [facility] inquiring if a bed will be available for patient. Precert will be required. If [facility] will not have a bed to offer will need to reach
out to patient's daughter for additional names. CM continues to be available to patient/family and is monitoring medical plan for needs at discharge.
Plan: Discharge to SNF/rehab once bed found and precert obtained.
[2024-02-09] MEDS: MAGNESIUM SULFATE 50 IV (14:29)
[2024-02-09] MEDS: TOPROL XL 25 MG PO (21:42)
[2024-02-09] MEDS: SINEMET CR 25-100 (EXTENDED RELEASE) 1 TABLET PO (21:43)
[2024-02-10] VITALS (7 sets, daily range): BP systolic 115–150; BP diastolic 55–93; PULSE 77; O2SAT 97; BMI 16.8
[2024-02-10] MEDS: PROTONIX 40 MG PO (08:47)
[2024-02-10] MEDS: VIBRAMYCIN 100 MG PO (08:47)
[2024-02-10] MEDS: TOPROL XL 100 MG PO (08:47)
[2024-02-10] MEDS: ELIQUIS 2.5 MG PO ×2 (08:47→20:09)
[2024-02-10] MEDS: SINEMET 25-100 1.5 TABLET PO ×3 (08:47→18:17)
[2024-02-10 08:48] LABS: Blood Urea Nitrogen 41 mg/dl (7-17); Calcium 8.8 mg/dl (8.4-10.2); Carbon Dioxide 27 mmol/L (22-30); Chloride 102 mmol/L (98-107); Estimated Creatinine Clearance 24 ml/min; Glucose 86 mg/dl (70-99); Magnesium 2.2 mg/dl (1.6-2.3); Potassium 4.6 mmol/L (3.5-5.1); Sodium 139 mmol/L (135-145); eGFR 48.33
[2024-02-10] MEDS: CARDIZEM CD 240 MG PO (08:48)
[2024-02-10] MEDS: LASIX 20 MG PO (08:48)
[2024-02-10] MEDS: VISBIOME 2 CAP PO (08:48)
--- NOTE | 2024-02-10 11:55 | W.PN.HOSP.TC ---
Today's Communication/Plan
-
monitor vitals
see plan
Continue with Cardizem, metoprolol; depending on HR data, will determine if need to increase PM metoprolol
dc planning; needs SNF
on abx
Assessment / Plan
Assessment / Plan
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 She was also feeling weak for the past few days and on the day of admission noted to have tongue swelling. On admission
found severely bradycardic and with concern for LLL pneumonia and UTI. ALso had KALYAN most likely 2/2 sepsis and hypotension. Improved on Abx tailored to cultures. If Cr continues to improve - will be able to switch to oral Abx. PT/OT recommended home
PT, but needs to reassess. Developed RVR on 02/07/24 - continue to adjust rate control meds
A/P:
#Syncope, most likely 2/2 bradycardia, possible iatrogenic
#Afib, paroxysmal with RVR
bradycardia resolved while holding CCB and BB, however later patient developed RVR. Now back on Cardizem and metoprolol
Cardio consult: adjusting meds; start metoprolol HS as well in addition to morning metoprolol
wean gtt
#sepsis 2/2 LLL CAP with unspecified organism
#Cannot r/o UTI
Vanco/Zosyn to be deescalated to Zosyn/Doxy, then Doxy/Ceftriaxone, cont to 02/10/24, can switch to oral upon d/c
Bcx NTD
Ucx with E.coli - switch to ceftriaxone
CT abd/pelvis without hydronephrosis or nephrolithiasis
COVID-19 and influenza neg
#Swollen tongue
resolved
s/p Decadron and Epi-pen x2 in ED
Could be after she took Joseph Gluconate on the day prior as it was not her usual supplement
monitor
#Extremely elevated ferritin
most likely acute reaction
advise repeat test as outpatient, might need hematology as outpatient if remains high
#Afib, paroxysmal
uncontrolled at times; currently on Cardizem, metoprolol. Metoprolol 100 mg daily in a.m., started 25 mg at bedtime
Telemetry
Cardio consult
COnt Eliquis
#KALYAN on CKD stage 3a
#Hyperkalemia 2/2 KALYAN
S/P Lokelma
unclear if 2/2 sepsis or hypotension
monitor off diuretics
Nephro: light hydration completed, monitor. started Lasix on 02/06/24
#Dysphagia
unspecified
CLAY ARTIST
VSE noted;
Dysphagia diet per speech
#chronic HFmrEF
#Parkinson
#Chronic anemia
#recurrent mild thrombocytopenia
cont home meds and monitor
No concern for CHF exacerbation as proBNP on the baseline as per Cardio
#Underweight
BMI 17.4
advice supplement with Ensure
DVT ppx on Eliquis
FUll code as per family
I have spent at least 52 min reviewing chart, test results, communication with consultants and direct patient care
General: No Apparent Distress
HEENT: Normocephalic
Respiratory: Clear to Auscultation
Cardiac: Irregular Rhythm
GI: Soft, Nontender and Nondistended
Neuro: Awake, Alert, Oriented and AO x 3
Psych: Calm
Anticipated Discharge: Within 24 hours
Subjective/Interval History
-
Date of Service: February 10, 2024
denies pain
Objective Data
-
Labs:
Laboratory Results
02/10/24
07:54
Sodium 139
Potassium 4.6
Chloride 102
Carbon Dioxide 27
BUN 41 H
Creatinine 1.1 H
Glucose 86
Calcium 8.8
Vital Signs:
Vital Signs
Temp Pulse Resp BP Pulse Ox
97.7 F 106 18 123/71 99
02/10/24 11:17 02/10/24 11:17 02/10/24 11:17 02/10/24 11:17 02/10/24 11:17
I&O
02/09/24 02/10/24 02/11/24
06:59 06:59 06:59
Intake Total 1380 / 1380 800 / 800
Balance 1380 / 1380 800 / 800
--- NOTE | 2024-02-10 13:56 | CM ---
Reviewed the chart notes and spoke with the patient's daughter Cathie via telephone. IMM reviewed. PT recommending home with [facility] services. Patient's daughter agreeable with [facility]. Referral placed and accepted in [facility]. CM continues to be
available to patient/family and is monitoring medical plan for needs at discharge.
Plan: Discharge to home with [facility] services.
[2024-02-10] MEDS: RASAGILINE MESYLATE 1 MG PO (21:18)
[2024-02-10] MEDS: SINEMET CR 25-100 (EXTENDED RELEASE) 1 TABLET PO (21:19)
[2024-02-10] MEDS: TOPROL XL 25 MG PO (21:20)
[2024-02-11 03:09] VITALS: BP 132/71
[2024-02-11] MEDS: SINEMET 25-100 1.5 TABLET PO ×3 (07:32→17:15)
[2024-02-11] MEDS: LASIX 20 MG PO (07:32)
[2024-02-11] MEDS: TOPROL XL 100 MG PO (07:32)
[2024-02-11] MEDS: PROTONIX 40 MG PO (07:32)
[2024-02-11] MEDS: ELIQUIS 2.5 MG PO ×2 (07:32→19:41)
[2024-02-11] MEDS: CARDIZEM CD 240 MG PO (07:33)
[2024-02-11] MEDS: TYLENOL 650 MG PO (07:33)
[2024-02-11] MEDS: VISBIOME 2 CAP PO (07:34)
[2024-02-11 07:56] VITALS: BP 133/86
[2024-02-11 08:27] VITALS: BMI 16.9
[2024-02-11 09:00] LABS: Blood Urea Nitrogen 40 mg/dl (7-17); Carbon Dioxide 31 mmol/L (22-30); Chloride 100 mmol/L (98-107); Estimated Creatinine Clearance 22 ml/min; Glucose 104 mg/dl (70-99); Potassium 4.4 mmol/L (3.5-5.1); Sodium 142 mmol/L (135-145); eGFR 43.54
--- NOTE | 2024-02-11 09:52 | VNURNOTE ---
Home Health Liaison called patient's daughter Linnette to discuss [facility] nurse/therapy, visits, schedule and homebound status. No answer, left message. Referral accepted in [facility].
--- NOTE | 2024-02-11 10:31 | PTOTSP ---
ST Follow-Up
Pt continues to present with clinical signs of moderate oropharyngeal dysphagia as identified on VFSS on 02/04/24.
Attempted to call daughter, Linnette, via phone to discuss diet recommendations (per her request to MD). Unfortunately, Linnette was unable to talk at the time and requested a call back this afternoon.
Recommendations:
- Continue with minced moist solids, mildly thick liquids, and meds crushed in puree.
- ARHP after diligent oral care.
- Aspiration precautions: Fully awake, alert, and upright for all PO intake; encourage pt to alternate solids and liquids.
- RESIDENT SERVICES SUPERVISOR to f/u re: diet tolerance, candidacy for diet upgrades, and to determine if a repeat video fluoroscopic swallow study is warranted.
- RESIDENT SERVICES SUPERVISOR to f/u re: pt family education later today.
- Would recommend RESIDENT SERVICES SUPERVISOR services upon d/c at the or SNF level of care.
--- NOTE | 2024-02-11 11:32 | W.PN.HOSP.TC ---
Today's Communication/Plan
-
Monitor vital signs see plan
Increase night metoprolol to 50 mg
Continue with dysphagia diet
Hopeful DC tomorrow
Called daughter, left voicemail
PT now rec home health
Assessment / Plan
Assessment / Plan
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 She was also feeling weak for the past few days and on the day of admission noted to have tongue swelling. On admission
found severely bradycardic and with concern for LLL pneumonia and UTI. ALso had AKLYAN most likely 2/2 sepsis and hypotension. Improved on Abx tailored to cultures. If Cr continues to improve - will be able to switch to oral Abx. PT/OT recommended home
PT, but needs to reassess. Developed RVR on 02/07/24 - continue to adjust rate control meds
A/P:
#Syncope, most likely 2/2 bradycardia, possible iatrogenic
#Afib, paroxysmal with RVR
bradycardia resolved while holding CCB and BB, however later patient developed RVR. Now back on Cardizem and metoprolol
Cardio consult: adjusting meds; start metoprolol HS as well in addition to morning metoprolol; inc HD metoprolol to 50mg
off gtt
#sepsis 2/2 LLL CAP with unspecified organism
#Cannot r/o UTI
finished abx
Bcx NTD
Ucx with E.coli - switch to ceftriaxone
CT abd/pelvis without hydronephrosis or nephrolithiasis
COVID-19 and influenza neg
#Swollen tongue
resolved
s/p Decadron and Epi-pen x2 in ED
Could be after she took Joseph Gluconate on the day prior as it was not her usual supplement
monitor
#Extremely elevated ferritin
most likely acute reaction
advise repeat test as outpatient, might need hematology as outpatient if remains high
#Afib, paroxysmal
uncontrolled at times; currently on Cardizem, metoprolol. Metoprolol 100 mg daily in a.m., started 25 mg at bedtime, inc to 50mg HS
Telemetry
Cardio signed off
COnt Eliquis
#KALYAN on CKD stage 3a
#Hyperkalemia 2/2 KALYAN
S/P Lokelma
unclear if 2/2 sepsis or hypotension
monitor off diuretics
Nephro: light hydration completed, monitor. started Lasix on 02/06/24
#Dysphagia
unspecified
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
Dysphagia diet per speech
#chronic HFmrEF
#Parkinson
#Chronic anemia
#recurrent mild thrombocytopenia
cont home meds and monitor
No concern for CHF exacerbation as proBNP on the baseline as per Cardio
#Underweight
BMI 17.4
advice supplement with Ensure
DVT ppx on Eliquis
FUll code as per family
I have spent at least 51 min reviewing chart, test results, communication with consultants and direct patient care
PT now rec home health
General: No Apparent Distress
HEENT: Normocephalic
Respiratory: Clear to Auscultation
Cardiac: Irregular Rhythm
GI: Soft, Nontender and Nondistended
Neuro: Awake, Alert, Oriented and AO x 3
Psych: Calm
Anticipated Discharge: Within 24 hours
Subjective/Interval History
-
Date of Service: February 11, 2024
denies pain
Objective Data
-
Labs:
Laboratory Results
02/11/24 02/11/24
04:42 08:17
Sodium Cancelled 142
Potassium Cancelled 4.4
Chloride Cancelled 100
Carbon Dioxide Cancelled 31 H
BUN Cancelled 40 H
Creatinine Cancelled 1.2 H
Glucose Cancelled 104 H
Calcium Cancelled 9.0
Vital Signs:
Vital Signs
Temp Pulse Resp BP Pulse Ox
97.6 F 94 16 133/86 96
02/11/24 07:56 02/11/24 07:56 02/11/24 07:56 02/11/24 07:56 02/11/24 07:56
I&O
02/10/24 02/11/24 02/12/24
06:59 06:59 06:59
Intake Total 800 / 800 1020 / 1020
Balance 800 / 800 1020 / 1020
[2024-02-11 11:56] VITALS: BP 96/61
--- NOTE | 2024-02-11 12:00 | VNURNOTE ---
Home Health Liaison met with patient at bedside to discuss [facility] nurse/therapy, visits, schedule and homebound status. Patient is agreeable and understands that visits at home will be 2-3 x per week to assess and teach medical management. Patient is
aware that [facility] will contact them for start of care in 1-2 days after discharge from .
--- NOTE | 2024-02-11 14:17 | PTOTSP ---
ST Consult
Spoke with pt's daughter, Linnette, via phone to inform her about pt's diet recommendations for discharge. Advised her where she can get thickening agents at local pharmacy and pre-thickened liquids online. Answered all questions to the best of this
HEALTH CARE MARKETING MANAGER's ability. Recommending [facility] HEALTH CARE MARKETING MANAGER for f/u purposes.
--- NOTE | 2024-02-11 14:50 | CM ---
Reviewed the chart notes. CM continues to be available to patient/family and is monitoring medical plan for needs at discharge.
Plan: Discharge to home with [facility] services.
[2024-02-11 16:00] VITALS: BP 110/83
--- NOTE | 2024-02-11 16:07 | PTCARENOTE ---
school lunch monitor alarmed for this pt with a HR of 196. This RN went in to check on the pt, pt resting comfortably in the chair unsymptomatic and in no distress/pain. Vital signs taken, BP 110/83 with a HR of 232. made aware, stat IV Cardizem,
cards aware.
[2024-02-11] MEDS: CARDIZEM 5 MG IV (16:17)
--- NOTE | 2024-02-11 16:32 | W.PN.CD ---
Today's Communication / Plan
-
Rate is controlled on my manual review of telemetry (please see details below). She denies palpitations and looks well. Continue current metoprolol and diltiazem.
Impression / Plan
-
Background: 88F with paroxysmal atrial fibrillation, heart failure with mildly reduced ejection fraction, CKD, moderate to severe mitral regurgitation, and advanced Parkinson's disease presented unresponsive.
Marketing Planner: Dr. Reyes
Pneumonia/UTI:
-Continue antibiotics as per primary team.
Junctional bradycardia, RESOLVED
- Almost certainly secondary from acute medical illness
- Primary heart block (paroxysmal) leading to her presentation is much much less likely
Persistent Atrial Fibrillation => progressing to persistent as we have not documented sinus since July 2023
-on Toprol-XL 100 mg daily and Cardizem CD 240 mg daily today
-She was on Cardizem despite her HFmrEF (although suboptimal in HF; options are limited)
-[id number] = 5 (CHF, HTN, age x2, female gender)
-rates are better controlled now.
-we were called back since HR's were reading on monitor as quite fast. However, I personally reviewed telemetry and HR is actually relatively well-controlled around 90 BPM. When the monitor is reading as fast HR, the monitor is erroneously counting
the afib (with some level of artifact) waves as QRS, so reporting faster HR's than she has. She is feeling well and denies any palpitations or SOB. Reviewed with nursing.
KALYAN on CKD: improved
-Management as per primary team.
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
- Her proBNP is less than last time and she has an KALYAN
- Conservative management
- No ACEi/ARB/ARNi at this time given KALYAN
- Lasix 20 mg QD restarted.
- Leg edema is minimal
Moderate to severe mitral regurgitation - maintain euvolemia
Advanced Parkinson's disease
Subjective:
Feeling well with no complaints. Currently OOB to chair.
DATA:
Transthoracic echocardiogram, 10/26/2023:
Mildly reduced left ventricular systolic function. Left ventricular ejection
fraction is 42%, by volumetric assessment.
Mild global hypokinesis of the basal to mid inferior and inferolateral wall.
Moderate to severe mitral regurgitation.
Mild eccentric aortic regurgitation.
Mild pulmonary hypertension.
Compared to previous echo 12/21/2020, there is no regional wall motion
abnormality with newly depressed systolic function. The mitral regurgitation
has increased. The pulmonary hypertension is new.
Physical Exam
Vital Signs/Labs
Vital Signs
Temp Pulse Resp BP Pulse Ox
97.4 F 196 17 110/83 97
02/11/24 16:00 02/11/24 16:17 02/11/24 16:00 02/11/24 16:17 02/11/24 16:00
02/10/24 02/11/24 02/12/24
06:59 06:59 06:59
Actual Weight 43.091 kg 43.318 kg
02/06/24 03:59
02/11/24 08:17
PT 23.8 Sec (11.4-14.6) H 02/03/24 08:05
INR 2.10 02/03/24 08:05
APTT 97.9 Sec (23.4-35.0) H 02/04/24 06:28
Magnesium 2.2 mg/dl (1.6-2.3) 02/10/24 07:54
TSH 0.31 uIU/ml (0.47-4.68) L 02/02/24 17:56
02/03/24
08:05
Dmv-X-[id number] Pept [id number]
Physical Exam
Constitutional: No acute distress
EENT: Anicteric
Cardiovascular: Rhythm/rate is irregular
Respiratory: Respiratory effort normal and Lungs clear to auscul.
Neuro/Psych: AO x 3
Data Reviewed
-
Date of Service: February 11, 2024
EKG: Other (tele afib, rate-controlled)
[2024-02-11 16:53] LABS: Magnesium 1.9 mg/dl (1.6-2.3)
[2024-02-11 19:21] VITALS: BP 114/71
[2024-02-11] MEDS: RASAGILINE MESYLATE 1 MG PO (21:02)
[2024-02-11] MEDS: SINEMET CR 25-100 (EXTENDED RELEASE) 1 TABLET PO (21:02)
[2024-02-11] MEDS: TOPROL XL 25 MG PO (21:04)
[2024-02-11 23:26] VITALS: BP 129/72
[2024-02-12 03:42] VITALS: BP 110/76
[2024-02-12 06:00] VITALS: BMI 17.3
[2024-02-12 07:47] LABS: Blood Urea Nitrogen 33 mg/dl (7-17); Calcium 8.8 mg/dl (8.4-10.2); Carbon Dioxide 31 mmol/L (22-30); Chloride 100 mmol/L (98-107); Estimated Creatinine Clearance 27 ml/min; Glucose 76 mg/dl (70-99); Potassium 4.2 mmol/L (3.5-5.1); Sodium 138 mmol/L (135-145); eGFR 54.19
[2024-02-12 08:01] VITALS: BP 115/82
[2024-02-12] MEDS: VISBIOME 2 CAP PO (09:33)
[2024-02-12] MEDS: SINEMET 25-100 1.5 TABLET PO ×2 (09:34→12:55)
[2024-02-12] MEDS: PROTONIX 40 MG PO (09:35)
[2024-02-12] MEDS: CARDIZEM CD 240 MG PO (09:35)
[2024-02-12] MEDS: TOPROL XL 100 MG PO (09:35)
[2024-02-12] MEDS: ELIQUIS 2.5 MG PO (09:35)
[2024-02-12] MEDS: LASIX 20 MG PO (09:36)
--- NOTE | 2024-02-12 10:44 | W.PN.HOSP.TC ---
Today's Communication/Plan
-
Monitor vital signs see plan
Continue metoprolol, diltiazem
Discharge today
Time of discharge 38 minutes
Assessment / Plan
Assessment / Plan
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 She was also feeling weak for the past few days and on the day of admission noted to have tongue swelling. On admission
found severely bradycardic and with concern for LLL pneumonia and UTI. ALso had KALYAN most likely 2/2 sepsis and hypotension. Improved on Abx tailored to cultures. If Cr continues to improve - will be able to switch to oral Abx. PT/OT recommended home
PT, but needs to reassess. Developed RVR on 02/07/24 - continue to adjust rate control meds
A/P:
#Syncope, most likely 2/2 bradycardia, possible iatrogenic
#Afib, paroxysmal with RVR
bradycardia resolved while holding CCB and BB, however later patient developed RVR. Now back on Cardizem and metoprolol
Cardio consult: adjusting meds; start metoprolol HS as well in addition to morning metoprolol; inc HD metoprolol to 50mg
off gtt
#sepsis 2/2 LLL CAP with unspecified organism
#Cannot r/o UTI
finished abx
Bcx NTD
Ucx with E.coli
CT abd/pelvis without hydronephrosis or nephrolithiasis
COVID-19 and influenza neg
#Swollen tongue
resolved
s/p Decadron and Epi-pen x2 in ED
Could be after she took Joseph Gluconate on the day prior as it was not her usual supplement
monitor
#Extremely elevated ferritin
most likely acute reaction
advise repeat test as outpatient, might need hematology as outpatient if remains high
#Afib, paroxysmal
uncontrolled at times; currently on Cardizem, metoprolol. Metoprolol 100 mg daily in a.m., started 25 mg at bedtime. HR on tele is not accurate per cardiology. patient HR is currently controlled. denies chest pain,sob
Telemetry
Cardio signed off
Cont Eliquis
#KALYAN on CKD stage 3a
#Hyperkalemia 2/2 KALYAN
S/P Lokelma
unclear if 2/2 sepsis or hypotension
monitor off diuretics
Nephro: light hydration completed, monitor. started Lasix on 02/06/24
#Dysphagia
unspecified
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
VSE noted;
Dysphagia diet per speech
#chronic HFmrEF
#Parkinson
#Chronic anemia
#recurrent mild thrombocytopenia
cont home meds and monitor
No concern for CHF exacerbation as proBNP on the baseline as per Cardio
#Underweight
BMI 17.4
advice supplement with Ensure
DVT ppx on Eliquis
FUll code as per family
PT now rec home health
General: No Apparent Distress
HEENT: Normocephalic
Respiratory: Clear to Auscultation
Cardiac: Irregular Rhythm
GI: Soft, Nontender and Nondistended
Neuro: Awake, Alert, Oriented and AO x 3
Psych: Calm
Anticipated Discharge: Today
Subjective/Interval History
-
Date of Service: February 12, 2024
denies pain
Objective Data
-
Labs:
Laboratory Results
02/12/24
06:32
Sodium 138
Potassium 4.2
Chloride 100
Carbon Dioxide 31 H
BUN 33 H
Creatinine 1.0
Glucose 76
Calcium 8.8
Vital Signs:
Vital Signs
Temp Pulse Resp BP Pulse Ox
97.7 F 88 16 115/82 100
02/12/24 08:01 02/12/24 08:01 02/12/24 08:01 02/12/24 08:01 02/12/24 09:50
I&O
02/11/24 02/12/24 02/13/24
06:59 06:59 06:59
Intake Total 1020 / 1020 860 / 860
Balance 1020 / 1020 860 / 860
--- NOTE | 2024-02-12 11:15 | W.DCSUMMARY ---
Discharge Summary
Discharge Data
Date of Admission: 02/02/24
Date of Discharge: 02/12/24
-
Pending Results: No
Hospital Course
88-year-old female with past medical history of atrial fibrillation on Eliquis, CKD, Parkinson's disease, CHF came to the hospital with syncope which was initially thought was secondary to bradycardia. Patient was seen by cardiology throughout
hospitalization. Initially her calcium channel lloyd and beta-lloyd were held however then later she developed A-fib with RVR and her medications were restarted. She also had sepsis secondary to community-acquired pneumonia which was treated
with antibiotics. She finished treatment of antibiotics prior to discharge. She also initially had an KALYAN on CKD which over time continue to improve and her renal function was at baseline upon discharge. While she was here, she also had dysphagia
which was likely thought was secondary to Parkinson's disease. Speech therapy recommended patient to be on a dysphagia diet on discharge and to follow-up with them outpatient. She also had some high ferritin for which she was instructed to
follow-up outpatient with her primary care provider. Initially physical therapy recommended SNF however patient continued to improve with them and later they recommended home health. Once her symptoms continue to improve, she was then discharged
home with instructions to follow-up with all her physicians outpatient.
Discharge Plan
-
Patient Disposition: Home with Home Care
Discharge Diagnosis/Procedures: Syncope, most likely 2/2 bradycardia
Sepsis secondary to left lower lobe community-acquired pneumonia
Possible urinary tract infection
Paroxysmal atrial fibrillation
Dysphagia
Condition: Fair
Diet: Other diet
Additional Diets: Minced and moist diet with nectar thick liquid
Activity: As tolerated
Driving Restrictions: Not until seen by your Dr
Bathing Restrictions: None
Other Services: ST
Referrals:
Josephine Zarate MD [Family Provider] - in less than 1 week
Prescriptions:
New
metoprolol succinate 100 mg Tablet Extended Release 24 Hr
100 mg PO DAILY Qty: 30 0RF
pantoprazole 40 mg Tablet,Delayed Release (Dr/Ec)
40 mg PO DAILY Qty: 30 0RF
metoprolol succinate 25 mg Tablet Extended Release 24 Hr
25 mg PO HS Qty: 30 0RF
Continued
carbidopa-levodopa 25-100 mg Tablet Extended Release
1 tab PO HS
carbidopa-levodopa 25-100 mg Tablet
1.5 tab PO TID
Eliquis 2.5 MG tablet
2.5 mg PO BID
rasagiline 1 mg Tablet
1 mg PO HS
diltiazem HCl 240 mg Capsule,Extended Release 24hr
240 mg PO DAILY Qty: 30 0RF
acetaminophen [Tylenol Extra Strength] 500 mg Tablet
500 mg PO Q6HPRN PRN (Reason: mild pain)
coenzyme Q10 [CoQ-10] 100 mg Capsule
100 mg PO TID
furosemide 20 mg tablet
20 mg PO DAILY
Discontinued
metoprolol succinate 100 mg Tablet Extended Release 24 Hr
100 mg PO HS
metoprolol succinate 50 mg Tablet Extended Release 24 Hr
50 mg PO DAILY
Discharge Orders:
Discharge Patient (As Directed); Ordered 02/12/24
Ordered By: Giacomo Michael
Discharge Date and Time
Discharge Date/Time: 02/12/24 17:41
Print Language: AUSTRALIAN
--- NOTE | 2024-02-12 11:17 | CM ---
CM following re: discharge planning.
Reviewed pt's chart, met with pt and spoke to pt's daughter Linnette over the phone [phone].
Discharge order noted. Both pt and her daughter are aware, expressed their agreement with discharge and daughter stated she will pick her mother up at 12:15 p.m. IMM reviewed, placed on chart, pt has a copy.
A referral to [facility] noted.
Please fax discharge instructions to [facility] at [phone]
D/C plan; home with [facility] and family support. Daughter to transport at 12:15 p.m.
[2024-02-12 12:10] VITALS: BP 100/69
[2024-02-12 13:00] VITALS: O2SAT 97
[2024-02-12 15:55] VITALS: BP 102/63
== END 2024-02-12 17:41 | disposition home health service (06) | DRG 871 ==
LOC: 2 NORTH 19:37
PROVIDERS: Internal Medicine; Nurse Practitioner Family; Specialist; ADMITTING PHYSICIAN Internal Medicine; ATTENDING PHYSICIAN Internal Medicine; CONSULT PHYSICIAN Internal Medicine Cardiovascular Disease; CONSULT PHYSICIAN Internal Medicine Critical Care Medicine; CONSULT PHYSICIAN Specialist; EMERGENCY PHYSICIAN Emergency Medicine; FAMILY PHYSICIAN Family Medicine
DX: A41.9 Sepsis, unspecified organism (principal); J18.9 Pneumonia, unspecified organism; R65.21 Severe sepsis with septic shock; I50.22 Chronic systolic (congestive) heart failure; N39.0 Urinary tract infection, site not specified; E87.20 Acidosis, unspecified; N17.9 Acute kidney failure, unspecified; Z68.1 Body mass index [BMI] 19.9 or less, adult; I13.0 Hypertensive heart and chronic kidney disease with heart failure and stage 1 through stage 4 chronic kidney disease, or unspecified chronic kidney disease; N18.32 Chronic kidney disease, stage 3b; I48.0 Paroxysmal atrial fibrillation; G20.A1 Parkinson's disease without dyskinesia, without mention of fluctuations; E87.5 Hyperkalemia; Z66 Do not resuscitate; I34.0 Nonrheumatic mitral (valve) insufficiency; D69.6 Thrombocytopenia, unspecified; D50.9 Iron deficiency anemia, unspecified; R73.9 Hyperglycemia, unspecified; Z11.52 Encounter for screening for COVID-19; N18.31 Chronic kidney disease, stage 3a; R63.6 Underweight; Z79.01 Long term (current) use of anticoagulants
CPT/HCPCS: 71045; 74176; 74230; 80048; 80053; 81003; 81015; 82533; 82550; 82570; 82728; 82962; 83540; 83550; 83605; 83735; 83880; 83935; 84300; 84443; 84484; 85025; 85027; 85610; 85730; 86850; 86900; 86901; 87040; 87077; 87086; 87186; 87502; 87811; 90662; 92526; 92610; 92611; 93005; 96372; 96374; 96375; 97112; 97116; 97163; 97167; 97530; 97535; 99291; G0008

== ENCOUNTER → 2024-03-28 16:33 | Outpatient (REF) | payer OTHER, SELFPAY | LOC: RAD 16:33 | PROVIDERS: ATTENDING PHYSICIAN Nurse Practitioner Adult Health | DX: Z87.01 Personal history of pneumonia (recurrent) (principal); Z91.81 History of falling; M25.552 Pain in left hip | CPT/HCPCS: 71046; 72220; 73502 ==

== ENCOUNTER → 2024-04-05 13:12 | Outpatient (REF) | payer OTHER, SELFPAY | LOC: HWRAD 13:12 | PROVIDERS: ATTENDING PHYSICIAN Nurse Practitioner Adult Health; FAMILY PHYSICIAN Family Medicine | DX: R93.89 Abnormal findings on diagnostic imaging of other specified body structures (principal) | CPT/HCPCS: 72192 ==

== ENCOUNTER 2024-04-15 19:06 | Inpatient (IN) | payer OTHER, SELFPAY ==
[2024-04-15] VITALS (12 sets, daily range): BP systolic 85–127; BP diastolic 50–94; BMI 18.8
[2024-04-15 16:26] LABS: COVID-19 Antigen Negative (Negative)
[2024-04-15 16:27] LABS: ALT (SGPT) 34 U/L (0-35); AST (SGOT) 187 U/L (14-36); Albumin 4.7 g/dl (3.5-5.0); Alkaline Phosphatase 167 U/L (38-126); Blood Urea Nitrogen 73 mg/dl (7-17); Calcium 9.4 mg/dl (8.4-10.2); Carbon Dioxide 17 mmol/L (22-30); Chloride 102 mmol/L (98-107); Glucose 149 mg/dl (70-99); Potassium 6.2 mmol/L (3.5-5.1); Sodium 139 mmol/L (135-145); Total Bilirubin 1.4 mg/dl (0.2-1.3); Total Protein 7.4 g/dl (6.3-8.2); eGFR 15.65
[2024-04-15 16:30] LABS: NT-proBNP > 27000 pg/ml; Troponin I < 0.012 ng/ml
--- NOTE | 2024-04-15 16:55 | ED.GENMED ---
History of Present Illness
General
Chief Complaint: Breathing Problem
Source: patient and family
Exam Limitations: none
Time Seen by Provider: 04/15/24 16:55
Nursing documentation reviewed up to this point in time: agreed with
History of Present Illness
History of Present Illness:
89-year-old female with history of A-fib on Eliquis, CHF, Parkinson's, presents for increasing ROTH since 04/12, decreased appetite. She was up all night with heavy breathing per daughter and granddaughter at bedside. Pt denies chest pain, denies
feeling SOB now laying still on stretcher. Denies fever/chills.
Past History
Past History
ED Past Medical History: Arrthythmia (afib), CHF and Other (Parkinson's disease)
ED Past Surgical History: None
Social History
Tobacco: Non-smoker
Alcohol: None
Drug: None
Review of Systems
Review of Systems
Allergies reviewed?: Yes
All Other Systems: ROS reviewed and negative except as documented in HPI and ROS
Constitutional: Reports fatigue; Denies fever
Respiratory: Reports trouble breathing; Denies cough
Cardiac: Denies chest pain
ABD/GI: Reports anorexia; Denies abdominal pain, nausea, vomiting or diarrhea
: Denies dysuria or difficulty voiding
Musculoskeletal: Reports edema
Skin: Reports no symptoms
Neurological: Reports no symptoms
Phy Exam
Physical Exam
Physical Exam:
GENERAL: No acute distress. A&Ox3. Elderly and frail
CONSTITUTIONAL: Afebrile.
EYES: clear, conjunctivae normal
ENMT: moist mucus membranes
RESPIRATORY: Regular respirations, tachypneic, nonlabored, lungs with right side mildly coarse BS, Pulse ox 100% RA
CARDIOVASCULAR: Irregular rate and rhythm, no murmurs, no rubs.
GI: Soft, nontender, normal BS
MUSCULOSKELETAL: Moves with ease. Well perfused. +1-2 pitting edema ankles.
SKIN: Warm, dry, pale
PSYCH: Normal mood and affect. Well kept, interactive and appropriate
NEUROLOGIC: Awake, alert and oriented. No focal neurological deficits
Scores
Heart Failure Risk
Heart Failure Risk Score: Yes
History of Stroke or TIA: No
History of intubation for respiratory distress: No
Heart rate on ED arrival >/= 110: Yes
SaO2 <90% on arrival on room air: No
HR >/=110 during 3min walk test (or too ill to perform test): Yes
ECG has acute ischemic changes: No
Urea >/=12mmol/L (BUN 33.6mg/dL): Yes
Serum CO2>/=35mmol/L: No
Troponin I or T elevated to MD Level (0.4mg/dL): No
NT-proBNP >/=5,000ng/L (5,000pg/ml): Yes
HF Risk Score: 4
Admission Status: HIGH RISK 26.1% Consider SNF treatment or admission to hospital
Course
Orders/Labs/Results
Orders:
Orders
04/15/24 Dinner
Cholesterol Lowering
At Your Request: Full Participation
Does patient need a safe tray?: No
Fluid Restriction: 1800 mL/day (60 oz)
Cholesterol Lowering: Sodium, 2 Gram
04/15/24 15:23
Electrocardiogram (*1) Urgent
Reason for Study: Shortness of Breath
04/15/24 15:56
COVID-19 Antigen Urgent
Source: Nasal Swab
Complete Blood Count/With Diff Urgent
Comprehensive Metabolic Panel Urgent
Manual Differential Urgent
NT-proBNP Urgent
Troponin I Urgent
Influenza A+B Rapid Molecular Urgent
VILMA Source: Nasal Swab
Specimen Description:
04/15/24 16:56
CR Chest Portable - 1 View Urgent
Comment:
Reason For Exam: SOB
Reason Study Needs to be Portable: Patient Unstable
04/15/24 17:12
Diltiazem 125 mg/125 ml Nss [Cardizem] 125 mg in 125 ml IV NOW
Initial dose in mg/hr, then titrate:: 5
Titrate to keep:: Heart rate 80-100 bpm
Titrate by mg/hr:: 5 mg/hr
Frequency of titrations (minutes):: 15
Maximum dose in mg/hr:: 15
Diltiazem HCl [Cardizem] 10 mg IV NOW STA
Furosemide [Lasix] 40 mg IV NOW STA
04/15/24 17:54
Dextrose 50%-Water [Dextrose 50% Syringe] 12.5 grams IV NOW STA
Insulin Human Regular [Novolin R] 5 units IV NOW STA
04/15/24 18:03
Urine Culture Reflexed from UA [Urinalysis Reflex To Culture] Routine
04/15/24 18:13
Admit/Transfer Patient As Directed
Co-Sign Provider:
Level of Care: Inpatient admission
Assign to:: IVU
Physician / Group: Aurelio Prasad
Diagnosis: HFpEF, A-fib, acute on chronic kidney disease, hyperkalemia
Reason for Hospitalization: HFpEF, A-fib, acute on chronic kidney disease, hyperkalemia
Expected length of stay greater than two midnights?: Yes
ELOS- Estimated Length of Stay in days: 3
I certify the patient meets the requirements for IP care: Yes
PRN Pain Medication Management As Directed
May give lesser potent ordered pain med per pt: Yes
preference::
Protocol:: Medication orders for pain may be administered in a
manner that supports deferring to patient preference
when the pt is:
- Requesting an ordered lesser potent pain medication.
Least to most potent pain medications are defined
as: acetaminophen < NSAID < tramadol < opioids
(morphine, oxycodone, hydromorphone).
- Requesting a lesser dose of the same medication IF
ORDERED.
- Requesting a less intrusive route of administration
if both routes are prescribed by the provider (PO <
IV).
04/15/24 18:15
Code Status As Directed
Resuscitation Status: Full Code
04/15/24 20:06
Apixaban [Eliquis] 2.5 mg PO BID
04/15/24 20:06
CARDIOLOGY CONSULT Routine
Consulting Provider: Garrison Robles
Was physician already notified: Yes
HF DIETARY CONSULT Routine
HF EDUCATOR CONSULT Routine
Comment:
Activity As Directed
Activity Level: Out of Bed-Early Mobility
Bladder Scan As Directed
Follow Bladder Retention/Intermittent Cath Algorithm?: Yes
PRN if no void in __ hours: 6
Frequency: Per Retention Algorithm
If Bladder Scan Result >: 400
then:: Straight cath
Intake/ Output As Directed
Frequency: q12h
Patient Education As Directed
Type: CHF folder
Comment: give on admission. Document in Interdisciplinary Education record
Sleep Apnea Assessment by RN As Directed
Comment:
Physician Instructions:
Straight Cath As Directed
Frequency: Per Retention Algorithm
Additional Instructions: straight cath as needed per acute urinary retention algorithm for 24 hrs
Additional Instructions: for bladder scan greater than 400 mL
Vital Signs As Directed
Frequency: Other
Additional Instructions:: Q12 or per unit guidelines if more frequent.
Weight As Directed
Frequency: Daily
Type of Scale: Standing Scale
Comment: Daily morning weight. If unable to stand, use balanced bed scale.
Weight As Directed
Frequency: Once
Type of Scale: Standing Scale
Comment: Upon Admission. If unable to stand, use balanced bed scale.
Pulse Ox/cont/shift [RESP] Routine
Quantity: 1
Special Instructions: Daily pulse oximetry at rest. If greater than 92% at rest also obtain pulse oximetry
while ambulating as tolerated.
04/15/24 22:00
Carbidopa/Levodopa Cr [Sinemet Cr 25-100 (Extended Release)] 1 tablet PO HS
Metoprolol Xl [Toprol Xl] 25 mg PO HS
Rasagiline Mesylate 1 mg PO HS
04/16/24 03:01
Basic Metabolic Panel IN AM
Cardiovascular Evaluation IN AM
Complete Blood Count/No Diff IN AM
Magnesium IN AM
04/16/24 08:00
Carbidopa/Levodopa [Sinemet 25-100] 1.5 tablet PO TID @ 0800,1200,1700
Furosemide [Lasix] 40 mg IV DAILY
Metoprolol Xl [Toprol Xl] 100 mg PO DAILY
04/17/24 06:00
Basic Metabolic Panel IN AM
Complete Blood Count/No Diff IN AM
04/18/24 06:00
Basic Metabolic Panel IN AM
Complete Blood Count/No Diff IN AM
Abnormal Lab Results
04/15/24
15:56
WBC 15.2 H 10^3/uL
(4.8-10.8)
Hct 31.5 L %
(37.0-47.0)
MCV 59.7 L fL
(81.0-99.0)
MCH 22.7 L pg
(27.0-31.0)
MCHC 38.1 H g/dL
(33.0-37.0)
RDW 25.2 H %
(11.5-14.5)
Abs Neuts (Manual) 14.2 H 10^3/uL
(1.4-6.5)
Segmented Neutrophils 94 H %
(42-75)
Lymphocytes (Manual) 4 L %
(20-51)
Potassium 6.2 H* mmol/L
(3.5-5.1)
Carbon Dioxide 17 L mmol/L
(22-30)
BUN 73 H mg/dl
(7-17)
Creatinine 2.8 H mg/dL
(0.6-1.0)
Glucose 149 H mg/dl
(70-99)
Total Bilirubin 1.4 H mg/dl
(0.2-1.3)
AST 187 H U/L
(14-36)
Alkaline Phosphatase 167 H U/L
(38-126)
04/15/24 15:56
04/15/24 15:56
Vital Signs
Initial and Last Documented VS:
Initial Vital Signs
Temp Pulse Resp BP Pulse Ox
97.4 F 152 22 127/77 100
04/15/24 15:17 04/15/24 15:17 04/15/24 15:17 04/15/24 15:17 04/15/24 15:17
Last Documented Vital Signs
Temp Pulse Resp BP Pulse Ox
98.2 F 88 18 99/68 99
04/16/24 02:47 04/16/24 07:00 04/16/24 07:30 04/16/24 07:00 04/16/24 07:30
MDM/Problems Addressed
Differential Diagnosis Includes:
CHF, MD, PNA
MDM/Problems Addressed:
89-year-old female with history of A-fib on Eliquis, CHF, Parkinson's, presents for increasing ROTH since 04/12, decreased appetite. She was up all night with heavy breathing per daughter and granddaughter at bedside. Pt denies chest pain, denies
feeling SOB now laying still on stretcher. Denies fever/chills.
EKG: Afib w RVR Rate 154
CBC:
CMP: K+ 6.2, Bicarb 17, BUN/creat 73/2.8
Troponin WNL
BNP >47244
89yo female with afib w RVR, acute renal failure, CHF, hyperkalemia, hemodynamically stable
Plan: IV Lasix, Cardizem push then drip, Admit to Hospitalist
Case discussed with Dr. Minor who agrees with assessment and plan
5:15 p.m.
Hospitalist notified of admission.
Chronic conditions affecting care: Arrhythmia (a fib on eliquis) and Neurological disorder (Parkinson's)
*EKG
EKG Intrepretation Date: 04/15/24
Interpretation: abnormal
Heart Rate: 154
Rate: tachycardiac
Rhythm: a-fib
Rudyard: left axis deviation
QRS Pattern: normal QRS
Ischemia: no ischemia
*Critical Care Note
Total Time (30-74mins, 75-104mins- exclusive of procedures): Not Applicable
ED Attending Note
-
Portions of this chart may have been created with voice recognition software.� Occasional wrong word or��sound alike� substitutions may have occurred due to the inherent limitations of voice recognition software.
Discharge Plan
Departure
Patient Disposition: Admit
Date of Disposition: 04/15/24
Time of Disposition: 17:21
Admit to: Telemetry
Presentation/result/management discussed w/ accepting MD/DO: Hospitalist
Condition: Serious
Covid-19: Negative COVID-19
Discharge Problem:
CHF (congestive heart failure), Acute renal failure, Acute hyperkalemia, Atrial fibrillation with rapid ventricular response
Interventions
Interventions:
*Risk Screen - Suicide Last Done: 04/15/24 16:59
*General Assessment Last Done: 04/15/24 16:59
ED- Fall Risk Assessment Last Done: 04/15/24 17:22
*ED COVID-19 Vaccine History Last Done: 04/15/24 20:21
*Nursing Disposition Last Done: 04/15/24 20:17
ED- Cardiac Assessment Last Done: 04/15/24 17:22
ED- Pulmonary Assessment Last Done: 04/15/24 17:22
Discharge Date and Time
Discharge Date/Time: 04/15/24 20:17
[2024-04-15 17:24] LABS: Hematocrit 31.5 % (37.0-47.0); Mean Corp Hgb Conc. 38.1 g/dL (33.0-37.0); Mean Corpuscular Hgb 22.7 pg (27.0-31.0); Mean Corpuscular Volume 59.7 fL (81.0-99.0); Platelet Count 224 10^3/uL (130-400); Red Blood Cell Count 5.28 10^6/uL (4.20-5.40); Red Cell Dist. Width 25.2 % (11.5-14.5); White Blood Cell Count 15.2 10^3/uL (4.8-10.8)
[2024-04-15 17:25] LABS: Absolute Neutrophils -Man Diff 14.2 10^3/uL (1.4-6.5); Anisocytosis 3+; Band Neutrophils 0 % (0-3); Hypersegmented Neutrophil 2+; Hypochromasia 3+; Lymphocytes 4 % (20-51); Macrocytosis 2+; Monocytes 2 % (2-9); Normal RBC Morphology No; Nucleated Red Blood Cells 22 (-); Poikilocytosis 1+; Polychromasia 2+; Segmented Neutrophils 94 % (42-75)
[2024-04-15 17:26] LABS: Tear Drop Red Blood Cells 1+; Total Cells Counted 100
[2024-04-15 17:27] LABS: Platelets Checked Yes
--- NOTE | 2024-04-15 17:29 | HPS.HSE ---
Family Physician
-
Family Physician: Josephine Zarate MD
Chief Complaint
-
Shortness of breath
History of Present Illness
Patient is a 89=year-old female with past medical history significant for hypertension, Parkinson's disease, CKD, paroxysmal atrial fibrillation and HFpEF who presented to [place] ED for evaluation of increased dyspnea with exertion, increased
lethargy and decreased appetite. Patients daughter and granddaughter present in room to assist with history. Patient symptoms noticed on the and having been increasingly getting worse. Patient will need to stop and catch breath after two steps,
would eat a few bites of food and need to nap on couch. Patient denies any cough, chest pain, palpitations, fever, chills, nausea, vomiting, constipation, diarrhea or urinary symptoms.
Medical History
Past Medical History
Past Medical History: Reports Other
Additional Past Medical History:
hypertension
Parkinson's disease
CKD
paroxysmal atrial fibrillation
HFpEF
Past Surgical History: Reports Other
Additional Past Surgical History:
x2
wisdom teeth extraction
femor fx repair
Social History
Tobacco: Non-smoker
Alcohol: None
Drug: None
Personal:
Living: With Family
Employment: Retired
Family History
Family History: Not pertinent
Allergies / Home Medications
Allergies reflects when Allergies were last updated in [facility].
Home Medications with original date entered in [facility]
Allergy/Medication List:
Allergies
Allergy/AdvReac Type Severity Reaction Status Date / Time
zinc Allergy Tongue Verified 04/15/24 16:57
Swelling
Home Medications
apixaban 2.5 mg tablet (Eliquis) 2.5 mg PO BID blod clot prevention 07/27/23
carbidopa 25 mg-levodopa 100 mg tablet 1.5 tab PO TID parkinsons 07/27/23
carbidopa ER 25 mg-levodopa 100 mg tablet,extended release 1 tab PO HS Parkinsons 07/27/23
rasagiline 1 mg tablet 1 mg PO HS parkinsons 07/27/23
acetaminophen 500 mg tablet (Tylenol Extra Strength) 1,000 mg PO TID 02/02/24
coenzyme Q10 100 mg capsule (CoQ-10) 100 mg PO TID Supplement 02/02/24
furosemide 20 mg tablet 20 mg PO DAILY Fluid Retention/Swelling 02/03/24
metoprolol succinate 100 mg tablet,extended release 24 hr 100 mg PO DAILY #30 tabs 02/12/24
metoprolol succinate 25 mg tablet,extended release 24 hr 25 mg PO HS #30 tabs 02/12/24
diltiazem HCl 240 mg tablet,extended release 24 hr (Matzim LA) 240 mg PO DAILY 04/15/24
Review of Systems
-
History Source: Patient
Constitutional: Reports No Symptoms
EENT: Reports No Symptoms
Respiratory: Reports Other (shortness of breath with exertion)
Cardiac: Reports Other (intermittent edema in bilateral lower extremities )
Abdomen/GI: Reports No Symptoms
: Reports No Symptoms
Musculoskeletal: Reports No Symptoms
Skin: Reports No Symptoms
Neurological: Reports No Symptoms
Endocrine: Reports No Symptoms
Hematologic/Lymphatic: Reports No Symptoms
Psych: Reports No Symptoms
Physical Exam
Vital Signs
Vital Signs
Temp Pulse Resp BP Pulse Ox
97.4 F 152 22 127/77 100
04/15/24 15:17 04/15/24 15:17 04/15/24 15:17 04/15/24 15:17 04/15/24 15:17
Physical Exam
General: Well Developed, Well Nourished, No Apparent Distress, Comfortable and Conversant
HEENT: NormoCephalic, Moist mucous membranes, Atraumatic, Nose Appears Normal, Ears Appear Normal and Hearing Impaired
Respiratory: Clear, Accessory Resp Muscle Use and Decreased Breath Sounds
Cardiac: S1/S2 and Regular Rhythm; No Murmur, Rub or Gallop
Breast: Deferred by me
GI: Soft, Non Tender, Non Distended and Normal Bowel Sounds; No Organomegaly
Rectal: Deferred by Provider
Genito-urinary: Deferred by me
Musculoskeletal: No Clubbing, No Cyanosis and No Edema
Skin: Warm and IV/Catheter Site; No Rash
Neuro: Awake, Alert, AO x 3 and Nonfocal/grossly intact
Hematologic/Lymphatic: No Lymphadenopathy
Psych: Calm and Intact Judgment/Insight
Laboratory Results
-
04/15/24 15:56
04/15/24 15:56
Laboratory Results
Total Bilirubin 1.4 mg/dl (0.2-1.3) H 04/15/24 15:56
AST 187 U/L (14-36) H 04/15/24 15:56
ALT 34 U/L (0-35) 04/15/24 15:56
Alkaline Phosphatase 167 U/L (38-126) H 04/15/24 15:56
Troponin I < 0.012 ng/ml 04/15/24 15:56
Data Reviewed
-
Medical Tests (Nuc Med, Echo, EKG etc): Report Reviewed by me (EKG: ATRIAL FIBRILLATION WITH RAPID VENTRICULAR RESPONSE LEFT AXIS DEVIATION LOW VOLTAGE QRS SEPTAL INFARCT , AGE UNDETERMINED)
Lab Data: Labs Reviewed by me (WBC 15.2, K+ 6.2, BUN 73, Creat 2.8, AST 187, Alk Phos 167)
Impression/Plan
-
IMPRESSION/PLAN:
#paroxysmal atrial fibrillation
EKG: ATRIAL FIBRILLATION WITH RAPID VENTRICULAR RESPONSE
LEFT AXIS DEVIATION
LOW VOLTAGE QRS
SEPTAL INFARCT , AGE UNDETERMINED
- Admit to IVU
- Consult Cardiology
- Cardizem gtt
- continue Eliquis
#HFpEF
BNP >58785
- IV Lasix 40mg
- monitor I&Os
- daily weights
#CKD
BUN 73, Creat 2.8
- monitor BMP
- consider nephrology input
#Hyperkalemia
K+ 6.2
- Insulin IV with dextrose given
- repeat lytes in 2 hours
#Leukocytosis
WBC 15.2
- Covid and influenza negative
- UA pending
#hypertension
- continue metoprolol
#Parkinson's disease
- continue carbidopa-levodopa and rasagiline
Code status: Full Code
DVT Prophylaxis: Eliquis
[2024-04-15] MEDS: LASIX 40 MG IV (17:36)
[2024-04-15] MEDS: CARDIZEM 125 IV (17:36)
--- NOTE | 2024-04-15 18:15 | W.PN.UPDATE ---
Update Note
Progress Note Update
This is an addendum to the H&P written by Giovana Dougherty on 04/15/2024. Patient seen and examined independently with SHIATSU THERAPIST.
89-year-old female past medical history of paroxysmal atrial fibrillation on Eliquis, HFmrEF, moderate to severe MR, CKD 3A, Parkinson's disease, chronic anemia, frequent UTIs, presenting for shortness of breath for past 3 days and decreased
appetite. No chest pain or fevers or chills.
Patient found to be in A-fib with RVR with heart rate 150s. Labs show KALYAN with creatinine of 2.8. Potassium 6.2. Cardiac BNP greater than 27,000. Chest x-ray without significant pulmonary edema. COVID and influenza negative.
Presentation consistent with A-fib with RVR and acute CHF exacerbation. Unclear trigger but evaluate for UTI given leukocytosis. KALYAN likely cardiorenal. Cardizem drip started. IV Lasix given. Will recheck BMP to recheck potassium level.
Cardiology consulted. Monitor renal function may need nephrology input tomorrow.
[2024-04-15 19:18] LABS: Glucose - Point of Care 145 mg/dl (70-99)
[2024-04-15] MEDS: NOVOLIN R 5 UNITS IV (19:19)
[2024-04-15] MEDS: DEXTROSE 50% SYRINGE 12.5 GRAMS IV (19:25)
[2024-04-15 20:41] LABS: Glucose - Point of Care 136 mg/dl (70-99)
[2024-04-15] MEDS: ELIQUIS 2.5 MG PO (20:43)
--- NOTE | 2024-04-15 21:00 | PTCARENOTE ---
Pt. received from ED. Pt. arriving on stretcher with cardizem gtt running at 5mg/hr. Pt. AOx2, to self and place. Pt. states the year is 1924. Pt. reoriented to time. Grand daughters at bedside. This RN noticed stage 1 pressure injury on left
buttox. Foam in place and instructed patient to turn side to side q 2hours. Pt. verbalizes understanding. RN explained plan of care for the night, pt and family verbalize understanding. Call de jesus within reach. Fall precautions in place. Continuing
to monitor at this time.
[2024-04-15] MEDS: SINEMET CR 25-100 (EXTENDED RELEASE) 1 TABLET PO (22:53)
[2024-04-15] MEDS: RASAGILINE MESYLATE 1 MG PO (22:53)
[2024-04-15] MEDS: TOPROL XL 25 MG PO (22:53)
[2024-04-16] VITALS (19 sets, daily range): BP systolic 76–107; BP diastolic 55–86; PULSE 88–93
[2024-04-16 03:10] LABS: Hematocrit 26.5 % (37.0-47.0); Hemoglobin 9.9 g/dL (12.0-16.0); Mean Corp Hgb Conc. 37.4 g/dL (33.0-37.0); Mean Corpuscular Hgb 22.4 pg (27.0-31.0); Mean Corpuscular Volume 60.1 fL (81.0-99.0); Platelet Count 164 10^3/uL (130-400); Red Blood Cell Count 4.41 10^6/uL (4.20-5.40); Red Cell Dist. Width 24.5 % (11.5-14.5); White Blood Cell Count 13.4 10^3/uL (4.8-10.8)
[2024-04-16 03:35] LABS: Blood Urea Nitrogen 78 mg/dl (7-17); Calcium 8.6 mg/dl (8.4-10.2); Carbon Dioxide 20 mmol/L (22-30); Chloride 104 mmol/L (98-107); Estimated Creatinine Clearance 10 ml/min; Glucose 120 mg/dl (70-99); HDL Cholesterol 66 mg/dl; LDL Cholesterol, Calculated 34 mg/dl; Magnesium 2.5 mg/dl (1.6-2.3); Potassium 5.6 mmol/L (3.5-5.1); Sodium 139 mmol/L (135-145); Total Cholesterol 119 mg/dl (50-199); Triglyceride 97 mg/dl (10-149); Very Low Density Lipoprotein 19 mg/dl (0-30); eGFR 16.35
[2024-04-16 05:34] LABS: Blood Urea Nitrogen 79 mg/dl (7-17); Calcium 8.7 mg/dl (8.4-10.2); Carbon Dioxide 23 mmol/L (22-30); Chloride 103 mmol/L (98-107); Estimated Creatinine Clearance 10 ml/min; Glucose 114 mg/dl (70-99); Potassium 5.1 mmol/L (3.5-5.1); Sodium 139 mmol/L (135-145); eGFR 15.65
--- NOTE | 2024-04-16 06:33 | W.PN.HOSP.TC ---
Today's Communication/Plan
-
Hold diuretics
Work up for KALYAN
Consult nephrology
urine studies, straight cath
Assessment / Plan
Assessment / Plan
Physical Exam
General:chronically ill looking, No Apparent Distress,
HEENT: Normocephalic, Moist mucous membranes. and Hearing Impaired
Respiratory: limited with rales.
Cardiac: S1/S2
GI: Soft, + peg tube
Rectal: no bleeding
Genito-urinary: no hematuria
Musculoskeletal: + mild edema
Neuro: Awake, Alert, AO to surroundings, she followed simple commands.
Psych: Calm, no agitation
89 female presented with shortness of breath for past 3 days and decreased appetite.
#paroxysmal atrial fibrillation
c/w BB
- continue Eliquis
Appreciate cardiology help
#chronic HFpEF
BNP >16718
- given IV Lasix 40mg , hold further doses due to KALYAN
- monitor I&Os
- daily weights
#Acute on CKD stage IIIb or progression of CKD into stage IV to V
Hx of decreased oral intake
Check renal US
Check urine studies including UA, sodium, creatinine
Appreciate nephrology input
#Hyperkalemia
resolving
#Leukocytosis
- Covid and influenza negative
- UA pending, ordered straight cath
#hypertension
- continue metoprolol
#Parkinson's disease
- continue carbidopa-levodopa and rasagiline
Code status: Full Code
DVT Prophylaxis: Eliquis
Total time spent to see the patient, examine the patient, review data and lab results, discuss the treatment plan with patient, nursing staff around 55 minutes
Anticipated Discharge: > 48 hours
Subjective/Interval History
-
Date of Service: April 16, 2024
Objective Data
-
Labs:
Laboratory Results
04/16/24 04/16/24
03:01 04:54
WBC 13.4 H
Hgb 9.9 L
Hct 26.5 L
Plt Count 164 D
Sodium 139 139
Potassium 5.6 H 5.1
Chloride 104 103
Carbon Dioxide 20 L 23
BUN 78 H 79 H
Creatinine 2.7 H 2.8 H
Glucose 120 H 114 H
Calcium 8.6 8.7
Vital Signs:
Vital Signs
Temp Pulse Resp BP Pulse Ox
98.2 F 91 17 101/75 92
04/16/24 02:47 04/16/24 05:00 04/15/24 20:24 04/16/24 05:00 04/16/24 02:47
I&O
04/14/24 04/15/24 04/16/24
06:59 06:59 06:59
Intake Total 60 / 60
Balance 60 / 60
[2024-04-16] MEDS: TOPROL XL 100 MG PO (08:12)
[2024-04-16] MEDS: SINEMET 25-100 1.5 TABLET PO ×3 (08:12→17:00)
[2024-04-16] MEDS: ELIQUIS 2.5 MG PO ×2 (08:13→20:03)
--- NOTE | 2024-04-16 09:18 | CON.CAR ---
Addendum entered and electronically signed by Garrison Robles MD 04/16/24 13:29:
I saw and examined the patient.
The APICULTURIST's note was reviewed and I agree with the note.
Comment: 89 y/o female (patient of Dr. Reyes) with PAF on Eliquis, HFmEF, hypertension, moderate to severe MR/TR, CKD, anemia, and Parkinson's disease who is here for evaluation of SOB X 1 day and poor appetite. She is seen to be in AFIB with
RVR. She also has KALYAN and hypotension.
- agree holding lasix
- sepsis work up
- allow tachycardia given likely sepsis
Original Note:
Consultation
Consultation Request
Date/Time Consultation Requested: 04/15/242005
Date/Time Consultation Performed: 04/16/24919
Requesting Provider: Megan Powers
Performing Provider: Leana WONG for Dr. Robles
Reason for Consultation: CHF, AFIB
Medical History
-
Chief Complaint: CHF, AFIB
History of Present Illness:
89 y/o female (patient of Dr. Reyes) with PAF on Eliquis, HFmEF, hypertension, moderate to severe MR/TR, CKD, anemia, and Parkinson's disease who is here for evaluation of SOB X 1 day and poor appetite. She is seen to be in AFIB with RVR. KALYAN
noted. There was concern for CHF and she got a dose of IV diuretic. However, renal function worsened slightly with this. She is in no distress at the time of my assessment. SBP in 70's, not symptomatic. Diltiazem drip to be stopped.
Past Medical History
Past Medical History: Arrhythmias, CHF, HTN, Renal Failure, Valvular Disease and Other (as above)
Social History
Tobacco: Non-Smoker
Living: With Family
Family History
Family History: Reviewed & Not Pertinent
Allergies / Home Medications
Allergy/AdvReac Type Severity Reaction Status Date / Time
zinc Allergy Tongue Verified 04/15/24 16:57
Swelling
�Medication �Instructions �Recorded �Confirmed �Type
apixaban 2.5 mg tablet (Eliquis) 2.5 mg PO BID blod clot prevention 07/27/23 04/15/24 History
carbidopa 25 mg-levodopa 100 mg 1.5 tab PO TID parkinsons 07/27/23 04/15/24 History
tablet
carbidopa ER 25 mg-levodopa 100 mg 1 tab PO HS Parkinsons 07/27/23 04/15/24 History
tablet,extended release
rasagiline 1 mg tablet 1 mg PO HS parkinsons 07/27/23 04/15/24 History
acetaminophen 500 mg tablet 1,000 mg PO TID 02/02/24 04/15/24 History
(Tylenol Extra Strength)
coenzyme Q10 100 mg capsule 100 mg PO TID Supplement 02/02/24 04/15/24 History
(CoQ-10)
furosemide 20 mg tablet 20 mg PO DAILY Fluid 02/03/24 04/15/24 History
Retention/Swelling
metoprolol succinate 100 mg 100 mg PO DAILY #30 tabs 02/12/24 04/15/24 Rx
tablet,extended release 24 hr
metoprolol succinate 25 mg 25 mg PO HS #30 tabs 02/12/24 04/15/24 Rx
tablet,extended release 24 hr
diltiazem HCl 240 mg 240 mg PO DAILY 04/15/24 04/15/24 History
tablet,extended release 24 hr
(Matzim LA)
Review of Systems
-
History Source: Patient and Other (and chart)
All other systems: Negative unless noted
Constitutional: Other (poor appetite)
Respiratory: Trouble Breathing
Physical Exam
Vital Signs
Temp Pulse Resp BP Pulse Ox
98.2 F 88 18 99/68 99
04/16/24 02:47 04/16/24 07:00 04/16/24 07:30 04/16/24 07:00 04/16/24 07:30
Lab Results
04/16/24 03:01
04/16/24 04:54
Troponin I < 0.012 ng/ml 04/15/24 15:56
Iyj-O-Holbqlwgjzq Pept > 76859 pg/ml 04/15/24 15:56
Physical Exam
General: Well Developed and No Apparent Distress
HEENT: Normocephalic and Anicteric
Respiratory: Clear and Non Labored Respirations
Cardiac: Irregular Rhythm
Musculoskeletal: Edema (mild BLE edema)
Skin: Warm and Dry
Neuro: AO x 3
Psych: Calm
Impression / Plan
-
AFIB with RVR: seems to be persistent now, previously paroxysmal
-now rate controlled. However, have to stop diltiazem drip which is at 5 mg/hour now, since SBP is in 70's. She is not symptomatic. Monitor BP with this change.
-continue BB as tolerated
-follow telemetry
-continue Eliquis for OAC
HFmEF: chronic
-KALYAN worsened with diuresis, so is being held
-monitor volume status
Leukocytosis:
-Urine tests pending
-w/u per primary
Anemia:
-monitor closely- lower than yesterday, but similar to previous
-no obvious clinical bleeding
KALYAN:
-nephrology consulted
HTN:
-BP actually running on low end
-last OV SBP was in 90's on BB and CCB
Data Reviewed
-
EKG: Tracing Personally Visualized and interpreted (AFIB with RVR 154 BPM)
Radiology: Report Reviewed by me (CXR: Small, left greater than right, bilateral pleural effusions with adjacent atelectasis. Findings are overall similar to prior.)
Medical Tests (Nuc Med, Echo etc): Report Reviewed by me (Echo 10/26/23: EF 42%. Mild global hypokinesis of the basal to mid inferior and inferolateral wall. Moderate-severe MR. Mild eccentric AR. Mild pulmonary hypertension. )
Labs: Labs Reviewed by me
[2024-04-16] MEDS: NSS 500 IV (10:30)
--- NOTE | 2024-04-16 12:05 | W.CON.NEPH ---
Medical History
-
Chief Complaint: SOB
History of Present Illness:
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
She is brought in by EMS after family found her to be short of breath. She was noted to be hypotensive and bradycardic. She received Lasix in the emergency room. Her creatinine at the time of admission was 2.8 off her baseline of 1.3 representing
acute kidney injury again. She also had significant hyperkalemia and metabolic acidosis. She was also noted to have an elevated white count at this time new from last admission.
Past Medical History
Parkinson's disease
CHFrEF
Atrial flutter
atrial fibrillation
Hypertension
?vitiligo
Right femur screw
Social History
Tobacco: Non-Smoker
Alcohol: None
Family History
Family History: Not Pertinent
Allergies / Home Medications
Allergy/AdvReac Type Severity Reaction Status Date / Time
zinc Allergy Tongue Verified 04/15/24 16:57
Swelling
�Medication �Instructions �Recorded �Confirmed �Type
apixaban 2.5 mg tablet (Eliquis) 2.5 mg PO BID blod clot prevention 07/27/23 04/15/24 History
carbidopa 25 mg-levodopa 100 mg 1.5 tab PO TID parkinsons 07/27/23 04/15/24 History
tablet
carbidopa ER 25 mg-levodopa 100 mg 1 tab PO HS Parkinsons 07/27/23 04/15/24 History
tablet,extended release
rasagiline 1 mg tablet 1 mg PO HS parkinsons 07/27/23 04/15/24 History
acetaminophen 500 mg tablet 1,000 mg PO TID 02/02/24 04/15/24 History
(Tylenol Extra Strength)
coenzyme Q10 100 mg capsule 100 mg PO TID Supplement 02/02/24 04/15/24 History
(CoQ-10)
furosemide 20 mg tablet 20 mg PO DAILY Fluid 02/03/24 04/15/24 History
Retention/Swelling
metoprolol succinate 100 mg 100 mg PO DAILY #30 tabs 02/12/24 04/15/24 Rx
tablet,extended release 24 hr
metoprolol succinate 25 mg 25 mg PO HS #30 tabs 02/12/24 04/15/24 Rx
tablet,extended release 24 hr
diltiazem HCl 240 mg 240 mg PO DAILY 04/15/24 04/15/24 History
tablet,extended release 24 hr
(Matzim LA)
Review of Systems
-
no SOB/CP
All other systems: Negative unless noted
Physical Exam
Vital Signs
Vital Signs
Temp Pulse Resp BP Pulse Ox
98.2 F 84 18 85/66 99
04/16/24 02:47 04/16/24 10:27 04/16/24 07:30 04/16/24 10:27 04/16/24 07:30
Lab Results
WBC 13.4 10^3/uL (4.8-10.8) H 04/16/24 03:01
RBC 4.41 10^6/uL (4.20-5.40) 04/16/24 03:01
Hgb 9.9 g/dL (12.0-16.0) L 04/16/24 03:01
Hct 26.5 % (37.0-47.0) L 04/16/24 03:01
Plt Count 164 10^3/uL (130-400) D 04/16/24 03:01
Sodium 139 mmol/L (135-145) 04/16/24 04:54
Potassium 5.1 mmol/L (3.5-5.1) 04/16/24 04:54
Chloride 103 mmol/L (98-107) 04/16/24 04:54
Carbon Dioxide 23 mmol/L (22-30) 04/16/24 04:54
BUN 79 mg/dl (7-17) H 04/16/24 04:54
Creatinine 2.8 mg/dL (0.6-1.0) H 04/16/24 04:54
eGFR 15.65 04/16/24 04:54
Glucose 114 mg/dl (70-99) H 04/16/24 04:54
Calcium 8.7 mg/dl (8.4-10.2) 04/16/24 04:54
Igh-A-Gridiuoxynk Pept > 90623 pg/ml 04/15/24 15:56
Albumin 4.7 g/dl (3.5-5.0) 04/15/24 15:56
Laboratory Tests
02/06/24 02/12/24 04/15/24
03:59 06:32 15:56
WBC 9.6
Potassium 4.2
Creatinine 1.0
Box-U-Xixqxistuyx Pept > 19552
Physical Exam
Patient is awake alert oriented and in no distress. Mood and affect were pleasant, insight and judgment were good. Pupils are equal round and reactive to light, extraocular movements are intact, sclera were anicteric. Hearing was normal, ears and
nose are intact. Oropharynx was clear. Neck was supple with trachea midline and no thyromegaly. Heart was regular rate and rhythm without rubs. Lower extremities with 2+ thigh edema. Lungs were clear to auscultation bilaterally and with normal
excursion. Abdomen was soft, nontender, with normal active bowel sounds, and no hepatosplenomegaly. Skin was without rash and with normal turgor.
Data Reviewed
-
Radiology: Image Personally Visualized and interpreted (Chest x-ray on 04/15/2024 by my reading shows small effusions)
Medical Tests (Nuc Med, Echo etc): Image Personally Visualized and interpreted (EKG on 04/15/2024 by my read shows atrial fibrillation rapid ventricular rate, left axis deviation, septal Q)
Labs: Labs Reviewed by me
Old Records: Reviewed
Assessment/Plan
-
Assessment
KALYAN
Probable sepsis
Hypotension
A-fib
Bradycardia now tachycardia
Hyperkalemia
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
Heart failure reduced ejection fraction 42%
Parkinson's
Leukocytosis
Plan
Hold Lasix
Empiric antibiotics per primary team
Midodrine 5 mg twice daily with hold parameters
Follow BMP
KALYAN likely from hypotension, sepsis
Check urine, straight cath if necessary, check postvoid residual
Discussed with granddaughter
[2024-04-16 12:35] LABS: Urine Albumin Trace (Neg - Trace); Urine Bilirubin Negative (Negative); Urine Character Clear (Clear); Urine Color Yellow; Urine Glucose Negative (Negative); Urine Ketone Negative (Negative); Urine Leukocyte 2+ (Negative); Urine Nitrite Negative (Negative); Urine Occult Blood 1+ (Negative); Urine Specific Gravity 1.015 (<1.030); Urine Urobilinogen Negative (Neg - 1+)
[2024-04-16 13:01] LABS: Urine Sodium 61 mmol/L (30-90)
[2024-04-16 13:09] LABS: Urine Bacteria Many (Negative); Urine Red Blood Cell 0-2 /HPF (0-2); Urine Squamous Cell 0-2 /LPF (Few); Urine White Cell >100 /HPF (0-5)
[2024-04-16] MEDS: ROCEPHIN 1000 MG IV (18:16)
[2024-04-16] MEDS: STERILE WATER FOR INJECTION 10 ML IV (18:17)
--- NOTE | 2024-04-16 18:59 | PTCARENOTE ---
Pt received this am alert but disoriented to place and time. Pt denies any pain or discomfort. Room air sat 95%. Assisted oob to the chair and BSC with one assist and the walker. Tolerated oob for most of the day.
--- NOTE | 2024-04-16 21:54 | PTCARENOTE ---
Patient received at change of shift. Atrial fibrillation on patient monitor. Patient is able to state her name, the year, and that she is in a hospital. Patient is presently resting in bed, no complaints at this time. Denies feeling lightheaded or
dizzy. Denies pain and/or palpitations. Call de jesus within reach. Bed in lowest position. Plan of care ongoing.
[2024-04-16] MEDS: TOPROL XL 25 MG PO (22:24)
[2024-04-16] MEDS: RASAGILINE MESYLATE 1 MG PO (22:24)
[2024-04-16] MEDS: SINEMET CR 25-100 (EXTENDED RELEASE) 1 TABLET PO (22:24)
[2024-04-17] VITALS (26 sets, daily range): BP systolic 85–124; BP diastolic 51–91; BMI 19.5
[2024-04-17] MEDS: CARDIZEM 125 IV (02:34)
--- NOTE | 2024-04-17 02:41 | PTCARENOTE ---
Patient noted to be increasingly tachycardic on the monitor. Patient denies palpitations. Spoke with house JOLENE Soliman. Diltiazem gtt ordered and now up at 5mg/hr per order. Atrial fibrillation on engagement mgr. Plan of care ongoing.
[2024-04-17 03:13] LABS: Hematocrit 27.4 % (37.0-47.0); Hemoglobin 10.3 g/dL (12.0-16.0); Mean Corp Hgb Conc. 37.6 g/dL (33.0-37.0); Mean Corpuscular Hgb 22.9 pg (27.0-31.0); Mean Corpuscular Volume 60.9 fL (81.0-99.0); Platelet Count 183 10^3/uL (130-400); Red Cell Dist. Width 25.4 % (11.5-14.5); White Blood Cell Count 13.4 10^3/uL (4.8-10.8)
[2024-04-17 03:25] LABS: Blood Urea Nitrogen 74 mg/dl (7-17); Calcium 8.3 mg/dl (8.4-10.2); Carbon Dioxide 21 mmol/L (22-30); Chloride 105 mmol/L (98-107); Estimated Creatinine Clearance 12 ml/min; Glucose 119 mg/dl (70-99); Sodium 138 mmol/L (135-145); eGFR 19.82
--- NOTE | 2024-04-17 06:22 | W.PN.HOSP.TC ---
Today's Communication/Plan
-
Wean off Cardizem gtt
c/w Rocephin
PT/OT
Assessment / Plan
Assessment / Plan
Physical Exam
General:chronically ill looking, No Apparent Distress,
HEENT: Normocephalic, Moist mucous membranes. and Hearing Impaired
Respiratory: limited with rales.
Cardiac: S1/S2
GI: Soft, non tender.
Rectal: no bleeding
Genito-urinary: no hematuria
Musculoskeletal: + mild edema
Neuro: Awake, Alert, AO to surroundings, she followed simple commands.
Psych: Calm, no agitation
89 female presented with shortness of breath for past 3 days and decreased appetite.
# Sepsis POA / septic shock with tachycardia, KALYAN, leukocytosis and UTI
started on Rocephin and seems to do better
Await urine culture and blood culture
Holding Lasix
Given IVF
#paroxysmal atrial fibrillation
c/w BB
- continue Eliquis
Had rapid a fib over night, started back on Cardizem gtt, will wean off slowly, d/w probation manager
Appreciate cardiology help
#chronic HFpEF
BNP >57694
- given IV Lasix 40mg , hold further doses due to KALYAN
- monitor I&Os
- daily weights
#Acute on CKD stage IIIb due to sepsis and shock
Hx of decreased oral intake
Renal US, no hydronephrosis
urine sodium 61
Appreciate nephrology input
# Under weight
#Hyperkalemia
resolving
#Leukocytosis
- Covid and influenza negative
- UA pending, ordered straight cath
#hypertension
- continue metoprolol
#Parkinson's disease
- continue carbidopa-levodopa and rasagiline
Order PT/OT
Code status: Full Code
DVT Prophylaxis: Eliquis
Total time spent to see the patient, examine the patient, review data and lab results, discuss the treatment plan with patient, nursing staff around 55 minutes
Anticipated Discharge: > 48 hours
Subjective/Interval History
-
Date of Service: April 17, 2024
no chest pain
no abd pain
events over night noted
Objective Data
-
Labs:
Laboratory Results
04/17/24
02:27
WBC 13.4 H
Hgb 10.3 L
Hct 27.4 L
Plt Count 183
Sodium 138
Potassium 5.0
Chloride 105
Carbon Dioxide 21 L
BUN 74 H
Creatinine 2.3 H
Glucose 119 H
Calcium 8.3 L
Vital Signs:
Vital Signs
Temp Pulse Resp BP Pulse Ox
98.1 F 94 22 108/82 94
04/17/24 02:16 04/17/24 05:45 04/17/24 02:16 04/17/24 05:45 04/17/24 02:16
I&O
04/15/24 04/16/24 04/17/24
06:59 06:59 06:59
Intake Total 60 / 60
Balance 60 / 60
[2024-04-17] MEDS: ELIQUIS 2.5 MG PO ×2 (08:00→20:33)
[2024-04-17] MEDS: SINEMET 25-100 1.5 TABLET PO ×3 (08:00→17:30)
--- NOTE | 2024-04-17 09:35 | W.PN.NEPH.PH ---
Today's Communication / Plan
-
follow BMP
Assessment/Plan
-
Assessment
KALYAN
Probable sepsis
Hypotension
A-fib
Bradycardia now tachycardia
Hyperkalemia
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
Heart failure reduced ejection fraction 42%
Parkinson's
Leukocytosis
Plan
Hold Lasix today, can consider restarting tomorrow
Empiric antibiotics per primary team
no midodrine needed
Follow BMP
KALYAN likely from hypotension, sepsis
-
-
Date of Service: April 17, 2024
CC / HPI / ROS
-
Chief Complaint:
KALYAN
History of Present Illness:
KALYAN/Cr down to 2.3
WBC down to 13.4, on Abx
K better at 5
on cardizem gtt for Afib
BP stable low
Review of Systems:
no CP/SOB
Labs
-
Labs:
WBC 13.4 10^3/uL (4.8-10.8) H 04/17/24 02:27
RBC 4.50 10^6/uL (4.20-5.40) 04/17/24 02:27
Hgb 10.3 g/dL (12.0-16.0) L 04/17/24 02:27
Hct 27.4 % (37.0-47.0) L 04/17/24 02:27
Plt Count 183 10^3/uL (130-400) 04/17/24 02:27
Sodium 138 mmol/L (135-145) 04/17/24 02:27
Potassium 5.0 mmol/L (3.5-5.1) 04/17/24 02:27
Chloride 105 mmol/L (98-107) 04/17/24 02:27
Carbon Dioxide 21 mmol/L (22-30) L 04/17/24 02:27
BUN 74 mg/dl (7-17) H 04/17/24 02:27
Creatinine 2.3 mg/dL (0.6-1.0) H 04/17/24 02:27
eGFR 19.82 04/17/24 02:27
Glucose 119 mg/dl (70-99) H 04/17/24 02:27
Calcium 8.3 mg/dl (8.4-10.2) L 04/17/24 02:27
Tvu-U-Vfvadfzcnse Pept > 03825 pg/ml 04/15/24 15:56
Albumin 4.7 g/dl (3.5-5.0) 04/15/24 15:56
Physical Exam
-
Vital Signs:
Vital Signs
Temp Pulse Resp BP Pulse Ox
98.3 F 76 20 91/66 92
04/17/24 07:22 04/17/24 07:30 04/17/24 07:22 04/17/24 07:24 04/17/24 07:24
Cardiovascular:: Regular rate and rhythm
Respiratory:: Bilateral: Coarse
Lung Excursion:: Normal
Abdomen:: Nontender and Soft
Bowel Sounds:: Normal
Extremity Edema:: +1: Bilateral:
--- NOTE | 2024-04-17 11:30 | W.PN.CD ---
Today's Communication / Plan
-
Hold dilt gtt
Cont metop increase PM dose as able
Treat infxn
Impression / Plan
-
AFIB with RVR: seems to be persistent now, previously paroxysmal
-now rate controlled. However, have to stop diltiazem drip which is at 5 mg/hour now, since SBP is in 70's. She is not symptomatic. Monitor BP with this change.
-continue BB, increased PM dose
-follow telemetry
-continue Eliquis for OAC
- allow for some tachycardia given sepsis
HFmEF: chronic
-KALYAN worsened with diuresis, so is being held
-monitor volume status
Leukocytosis and UTI :
-hypotension w/ dilt gtt
- cont metoprolol as able
Anemia:
-monitor closely- lower than yesterday, but similar to previous
-no obvious clinical bleeding
KALYAN:
-nephrology consulted
HTN:
-BP actually running on low end
-last OV SBP was in 90's on BB and CCB
Subjective; overall feeling tired
Physical Exam
Vital Signs/Labs
Vital Signs
Temp Pulse Resp BP Pulse Ox
98.3 F 76 20 91/66 92
04/17/24 07:22 04/17/24 07:30 04/17/24 07:22 04/17/24 07:24 04/17/24 07:24
04/16/24 04/17/24 04/18/24
06:59 06:59 06:59
Actual Weight 102 lb 4.712 oz 99 lb 13.91 oz
04/17/24 02:27
04/17/24 02:27
Magnesium 2.5 mg/dl (1.6-2.3) H 04/16/24 03:01
Triglycerides 97 mg/dl (10-149) 04/16/24 03:01
LDL Cholesterol, Calc 34 mg/dl 04/16/24 03:01
VLDL Cholesterol, Calc 19 mg/dl (0-30) 04/16/24 03:01
HDL Cholesterol 66 mg/dl 04/16/24 03:01
04/15/24
15:56
Hzi-W-Sgaavsuvfnh Pept > [id number]
LAB Results
04/15/24
15:56
Troponin I < 0.012
Physical Exam
Constitutional: No acute distress
EENT: Anicteric
Cardiovascular: Rhythm/rate is irregular
Respiratory: Respiratory effort normal and Lungs clear to auscul.
GI: Soft
Neuro/Psych: Alert and Oriented
Data Reviewed
-
Date of Service: April 17, 2024
Medical Decision Making: Reviewed Test Results
EKG: Tracing Personally Visualized and interpreted (af)
Echo: Report Reviewed by me
Labs: Labs Reviewed by me
[2024-04-17] MEDS: TOPROL XL 100 MG PO (11:57)
[2024-04-17] MEDS: STERILE WATER FOR INJECTION 10 ML IV (17:33)
[2024-04-17] MEDS: ROCEPHIN 1000 MG IV (17:34)
--- NOTE | 2024-04-17 18:00 | PTCARENOTE ---
Pt received this am alert and oriented to person and place. Assisted to BSC to urinate with 1 assist and the walker. Pt tolerated oob in the chair for most of the day. Attends on for incontinence. Room air sat 94%. Denies any pain or discomfort. IV
stephanie discontinued this am at 0850 for .
--- NOTE | 2024-04-17 22:09 | PTCARENOTE ---
Pt rec'd in bed awake,alert finishing off dinner. appetite good\\harsh non productive cough noted. Lungs diminished with exp wheeze noted.
JVD noted with weeping noted lower ext, + anasarca. call de jesus within reach.
[2024-04-17] MEDS: SINEMET CR 25-100 (EXTENDED RELEASE) 1 TABLET PO (22:22)
[2024-04-17] MEDS: RASAGILINE MESYLATE 1 MG PO (22:22)
[2024-04-17] MEDS: TOPROL XL 50 MG PO (22:22)
--- NOTE | 2024-04-18 00:55 | PTCARENOTE ---
Pt confused to surroundings, reoriented. bed alarm remains activated. Unct afib on telemetry 120-130's.
[2024-04-18 05:22] VITALS: BP 130/87
[2024-04-18] MEDS: TOPROL XL 100 MG PO (05:32)
--- NOTE | 2024-04-18 05:50 | PTCARENOTE ---
Pt remains in afib with rate 110-140's. am Lopressor given early. Pt also appeared sob at rest, sat 92% on R/A O2 placed at 3 lit n/c.
[2024-04-18 05:53] LABS: Hematocrit 27.8 % (37.0-47.0); Hemoglobin 10.1 g/dL (12.0-16.0); Mean Corp Hgb Conc. 36.3 g/dL (33.0-37.0); Mean Corpuscular Hgb 22.4 pg (27.0-31.0); Mean Corpuscular Volume 61.6 fL (81.0-99.0); Platelet Count 141 10^3/uL (130-400); Red Blood Cell Count 4.51 10^6/uL (4.20-5.40); Red Cell Dist. Width 25.5 % (11.5-14.5)
[2024-04-18 06:00] VITALS: BMI 19.4
[2024-04-18 06:16] LABS: Blood Urea Nitrogen 63 mg/dl (7-17); Calcium 8.7 mg/dl (8.4-10.2); Carbon Dioxide 20 mmol/L (22-30); Chloride 106 mmol/L (98-107); Estimated Creatinine Clearance 17 ml/min; Glucose 131 mg/dl (70-99); Potassium 4.8 mmol/L (3.5-5.1); Sodium 139 mmol/L (135-145); eGFR 30.64
[2024-04-18 08:14] VITALS: BP 113/95
[2024-04-18] MEDS: ELIQUIS 2.5 MG PO ×2 (09:08→20:15)
[2024-04-18] MEDS: SINEMET 25-100 1.5 TABLET PO ×3 (09:08→17:39)
--- NOTE | 2024-04-18 09:12 | W.PN.CD ---
Today's Communication / Plan
-
Start dilt 30 mg q6hr
likely resume lasix tomorrow
cont metop
Impression / Plan
-
AFIB with RVR: seems to be persistent now, previously paroxysmal
-Increased metoprolol PM dose, start dilt 30 mg q6hr
-continue Eliquis for OAC
- allow for some tachycardia given sepsis
HFmEF: chronic
-restart lasix tomorrow 04/19
-monitor volume status
Leukocytosis and UTI :
-hypotension w/ dilt gtt
- cont metoprolol restart dilt 30 q6hr
Anemia:
-stable
KALYAN:
-nephrology consulted
HTN:
-BP actually running on low end
-last OV SBP was in 90's on BB and CCB
Subjective; overall feels much improved today
Physical Exam
Vital Signs/Labs
Vital Signs
Temp Pulse Resp BP Pulse Ox
98 F 115 20 130/87 99
04/18/24 08:14 04/18/24 05:22 04/18/24 08:14 04/18/24 05:22 04/18/24 08:14
04/17/24 04/18/24 04/19/24
06:59 06:59 06:59
Actual Weight 99 lb 13.91 oz
04/18/24 05:28
04/18/24 05:28
Magnesium 2.5 mg/dl (1.6-2.3) H 04/16/24 03:01
Triglycerides 97 mg/dl (10-149) 04/16/24 03:01
LDL Cholesterol, Calc 34 mg/dl 04/16/24 03:01
VLDL Cholesterol, Calc 19 mg/dl (0-30) 04/16/24 03:01
HDL Cholesterol 66 mg/dl 04/16/24 03:01
04/15/24
15:56
Tpx-N-Jpbekrhpebs Pept > [id number]
LAB Results
04/15/24
15:56
Troponin I < 0.012
Physical Exam
Constitutional: No acute distress
EENT: Anicteric
Cardiovascular: Rhythm/rate is irregular
Respiratory: Other (decreased b/s b/l)
GI: Soft
Neuro/Psych: AO x 3
Data Reviewed
-
Date of Service: April 18, 2024
EKG: Tracing Personally Visualized and interpreted (af rvr)
Echo: Report Reviewed by me
Labs: Labs Reviewed by me
--- NOTE | 2024-04-18 09:28 | PTCARENOTE ---
Assumed care of pt from night RN. Pt received asleep, but wakens easily to verbal. Pt is lethargic, disoriented to time and place. CM shows AF 100-140's, started on Cardizem 30 mg q 6hr po. Inc at baseline. Skin weeping in legs. Assisted to
chair, bed alarm and chair alarm intact.
--- NOTE | 2024-04-18 09:37 | W.PN.NEPH.PH ---
Today's Communication / Plan
-
Restart low-dose
Assessment/Plan
-
Assessment
KALYAN
Probable sepsis
Hypotension
A-fib
Bradycardia now tachycardia
Hyperkalemia
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
Heart failure reduced ejection fraction 42%
Parkinson's
Leukocytosis
Plan
creatinine down to 1.6, uop not recorded
Empiric antibiotics per primary team
no midodrine needed,hemodynamically more stable
Follow BMP
KALYAN likely from hypotension, sepsis
Will restart low-dose Lasix
-
-
Date of Service: April 18, 2024
CC / HPI / ROS
-
Chief Complaint:
KALYAN
History of Present Illness:
KALYAN/Cr down to 1.6
WBC down to 13.4, on Abx
K better at 4.8
BP stable
Review of Systems:
no CP/SOB
Labs
-
Labs:
WBC 12.0 10^3/uL (4.8-10.8) H 04/18/24 05:28
RBC 4.51 10^6/uL (4.20-5.40) 04/18/24 05:28
Hgb 10.1 g/dL (12.0-16.0) L 04/18/24 05:28
Hct 27.8 % (37.0-47.0) L 04/18/24 05:28
Plt Count 141 10^3/uL (130-400) D 04/18/24 05:28
Sodium 139 mmol/L (135-145) 04/18/24 05:28
Potassium 4.8 mmol/L (3.5-5.1) 04/18/24 05:28
Chloride 106 mmol/L (98-107) 12/30/24 05:28
Carbon Dioxide 20 mmol/L (22-30) L 04/18/24 05:28
BUN 63 mg/dl (7-17) H 04/18/24 05:28
Creatinine 1.6 mg/dL (0.6-1.0) H 04/18/24 05:28
eGFR 30.64 04/18/24 05:28
Glucose 131 mg/dl (70-99) H 04/18/24 05:28
Calcium 8.7 mg/dl (8.4-10.2) 04/18/24 05:28
Pwy-I-Epksuuqaviu Pept > 77933 pg/ml 04/15/24 15:56
Albumin 4.7 g/dl (3.5-5.0) 04/15/24 15:56
Physical Exam
-
Vital Signs:
Vital Signs
Temp Pulse Resp BP Pulse Ox
98 F 123 20 113/95 99
04/18/24 08:14 04/18/24 09:00 04/18/24 08:14 04/18/24 08:14 04/18/24 09:17
Cardiovascular:: Irregular rate and rhythm
Respiratory:: Bilateral: Coarse
Lung Excursion:: Normal
Abdomen:: Nontender and Soft
Bowel Sounds:: Normal
Extremity Edema:: +1: Bilateral:
[2024-04-18] MEDS: CARDIZEM 30 MG PO ×3 (10:08→22:56)
--- NOTE | 2024-04-18 11:13 | W.PN.HOSP.TC ---
Today's Communication/Plan
-
Afib still active. Active titration of meds per cardiology.
Assessment / Plan
Assessment / Plan
89 female presented with shortness of breath for past 3 days and decreased appetite.
1. Sepsis POA - leading to septic shock with tachycardia, KALYAN, leukocytosis, likely from UTI (e-coli >100k units)
started on Rocephin and seems to do better - wbc improved
Await full urine culture and blood culture results
Holding Lasix
Given IVF
2. paroxysmal atrial fibrillation - continues
- continue Eliquis
Appreciate cardiology help - meds being titrated
Keep in IVU today
3. chronic HFpEF, lungs with crackles - continues
BNP >32682
- monitor I&Os
- daily weights
- Should improve once hear trate slows down
4. Acute on C, CKD stage IIIb due to sepsis and shock
Hx of decreased oral intake
Renal US, no hydronephrosis
urine sodium 61
Appreciate nephrology input
BUN/Creat improved today
Continue current treatment
5. Under weight - encourage PO nutrition
6. Hyperkalemia - resolved
7. Leukocytosis - from sepsis, improving
8. Other ID - Covid and influenza negative
9. hypertension
- plan per cards as Afib is actively managed
- Review outpt meds prior to d/c.
10. Parkinson's disease
- continue carbidopa-levodopa and rasagiline
- Order PT/OT
Code status: Full Code
DVT Prophylaxis: Eliquis
Total time spent to see the patient, examine the patient, review data and lab results, discuss the treatment plan with patient, nursing staff around 55 minutes
Anticipated Discharge: > 48 hours
Subjective/Interval History
-
Date of Service: April 18, 2024
Sleeping. woke up to exam. Stated she was not in pain. Heart rate still elevated.
Objective Data
-
Labs:
Laboratory Results
04/18/24
05:28
WBC 12.0 H
Hgb 10.1 L
Hct 27.8 L
Plt Count 141 D
Sodium 139
Potassium 4.8
Chloride 106
Carbon Dioxide 20 L
BUN 63 H
Creatinine 1.6 H
Glucose 131 H
Calcium 8.7
Vital Signs:
Vital Signs
Temp Pulse Resp BP Pulse Ox
98 F 123 20 113/95 99
04/18/24 08:14 04/18/24 09:00 04/18/24 08:14 04/18/24 08:14 04/18/24 09:17
I&O
04/17/24 04/18/24 04/19/24
06:59 06:59 06:59
Intake Total 720 / 720
Balance 720 / 720
Review of Systems
-
History Source: Patient
All other systems: Reviewed and negative
Physical Exam
-
General: Well Developed, Well Nourished, No Apparent Distress and Comfortable
HEENT: Nose Appears Normal and Ears Appear Normal
Respiratory: Crackles and Decreased Breath Sounds
Cardiac: Irregular Rhythm and Tachycardic
GI: Soft, Nontender and Nondistended
Musculoskeletal: No Clubbing, No Cyanosis, Edema, Right Lower Extrem and Edema, Left Lower Extrem
Skin: Warm and Dry
Neuro: Awake and Alert
Psych: Calm
Data Reviewed
-
Labs: Labs Reviewed by me
[2024-04-18 11:20] VITALS: BP 98/72
--- NOTE | 2024-04-18 11:52 | PN.CDI ---
CDI
- -
CDI:
Physician Documentation Request
Admit Date: 04/15/24 19:06
Dear Doctor Ignacio,
Please review the following and provide your response in the progress notes.
Clinical Indicators:
- 04/18 Cardiology 'HFmEF: chronic'
- 04/18 PN 'chronic HFpEF'
- 10/26/23 Echo EF 42%
Please provide further specificity regarding the most likely type of CHF you are evaluating, treating or monitoring.
Chronic HFmrEF
Chronic HFrEF
Other (please specify)
Use of terms such as suspected, likely, concern for, or probable (associated with a specific diagnosis that is being evaluated, monitored, or treated as if it exists) are acceptable and can be coded in the inpatient setting, when documented at the
time of discharge.
Thank you,
Bryan Roberto RN
CDI Specialist
Please use your independent medical judgment in providing your response.
--- NOTE | 2024-04-18 11:57 | PN.CDI ---
CDI
- -
CDI:
Physician Documentation Request
Admit Date: 04/15/24 19:06
Dear Doctor Ignacio,
Please review the following and provide your response in the progress notes.
Clinical Indicators:
- 04/15 RN note indicates Stage 1 left buttock pressure injury, POA
Physician documentation of the type and location of wounds is required for compliant documentation. Based on the above clinical findings and your assessment, please provide the following in your progress note:
1. Location of the ulcer/wound, including laterality.
2. Type (etiology) of ulcer/wound:
- Diabetic ulcer
- Arterial (ischemic) ulcer
- Traumatic wound
- Venous stasis ulcer
- Pressure (decubitus) ulcer
- Non-healing surgical wound
- Other
- Unable to determine
Use of terms such as suspected, likely, concern for, or probable (associated with a specific diagnosis that is being evaluated, monitored, or treated as if it exists) are acceptable and can be coded in the inpatient setting, when documented at the
time of discharge.
Thank you,
Bryan Roberto RN
CDI Specialist
Please use your independent medical judgment in providing your response.
*Source: National Pressure Ulcer Advisory Panel (NPUAP)
--- NOTE | 2024-04-18 11:58 | PN.CDI ---
CDI
- -
CDI:
Physician Documentation Request
Admit Date: 04/15/24 19:06
Dear Doctor Ignacio,
Please review the following and provide your response in the progress notes.
Clinical Indicators:
- 04/18 Cardiology 'AFIB with RVR: seems to be persistent now, previously paroxysmal'
- 04/18 PN 'paroxysmal atrial fibrillation'
If possible, please provide further specificity regarding atrial fibrillation, such as:
Paroxysmal atrial fibrillation - terminates spontaneously or with intervention within 7 days of onset
Persistent atrial fibrillation - episodes of continuous AF that last more than 7 days and do not self-terminate
Permanent atrial fibrillation - when a decision has been made to accept the presence of AF and there is no further attempt to restore or maintain sinus rhythm
Other - please specify
Use of terms such as suspected, likely, concern for, or probable (associated with a specific diagnosis that is being evaluated, monitored, or treated as if it exists) are acceptable and can be coded in the inpatient setting, when documented at the
time of discharge.
Thank you,
Bryan Roberto RN
CDI Specialist
Please use your independent medical judgment in providing your response.
[2024-04-18 15:59] VITALS: BP 105/81
[2024-04-18] MEDS: STERILE WATER FOR INJECTION 10 ML IV (17:39)
[2024-04-18] MEDS: ROCEPHIN 1000 MG IV (17:39)
--- NOTE | 2024-04-18 17:44 | CM ---
Reviewed chart. Telephone call to daughterCathie to review discharge plans. She states Mrs. Pinedo resides with her daughter in a two story home with three steps to enter. Daughter states prior to admission Mrs. Pinedo was staying in the
basement. There is a bathroom in the basement. She has a full flight of steps to get to the basement. Prior to admission Mrs. Pinedo ambulated with a rolling walker. She has a rolling walker at home. Daughter is interested in getting a hospital
bed and stair glide in the home. Daughter states Mrs. Pinedo has been in [facility] SNF/Rehab. in the past. She has also had [facility] in the past. Daughter states she has a prescription plan. If she needs SNF will need to
pre=cert with her insurance. Medical work-up in progress. The discharge plan is to retun home with daughter and VNA Services versus SNF/Rehab. if indicated when medically stable.
[2024-04-18 18:23] VITALS: BP 124/93
[2024-04-18 22:41] VITALS: BP 98/81
[2024-04-18] MEDS: RASAGILINE MESYLATE 1 MG PO (22:56)
[2024-04-18] MEDS: TOPROL XL 50 MG PO (22:56)
[2024-04-18] MEDS: SINEMET CR 25-100 (EXTENDED RELEASE) 1 TABLET PO (22:56)
[2024-04-19] VITALS (8 sets, daily range): BP systolic 110–138; BP diastolic 73–98; PULSE 90; BMI 19.9
[2024-04-19] MEDS: CARDIZEM 30 MG PO ×4 (01:45→22:56)
--- NOTE | 2024-04-19 03:01 | PTCARENOTE ---
Assumed care of the patient @ 1900. Pt is drowsy by easily awakens A fib on the monitor 90-110. VSS Call [facility] within reach.
--- NOTE | 2024-04-19 03:04 | PTCARENOTE ---
0200 Pt's HR 118-140 @ rest no other symptoms. Jayla FERNÁNDEZ notified and ordered to give the scheduled Cardizem early.
[2024-04-19 04:53] LABS: Blood Urea Nitrogen 50 mg/dl (7-17); Calcium 8.5 mg/dl (8.4-10.2); Carbon Dioxide 28 mmol/L (22-30); Chloride 105 mmol/L (98-107); Estimated Creatinine Clearance 23 ml/min; Glucose 107 mg/dl (70-99); Magnesium 2.5 mg/dl (1.6-2.3); Potassium 5.1 mmol/L (3.5-5.1); Sodium 139 mmol/L (135-145); eGFR 43.27
[2024-04-19 04:57] LABS: Hematocrit 27.9 % (37.0-47.0); Mean Corp Hgb Conc. 35.8 g/dL (33.0-37.0); Mean Corpuscular Hgb 22.7 pg (27.0-31.0); Mean Corpuscular Volume 63.4 fL (81.0-99.0); Platelet Count 132 10^3/uL (130-400); Red Cell Dist. Width 25.5 % (11.5-14.5); White Blood Cell Count 11.1 10^3/uL (4.8-10.8)
[2024-04-19 05:22] LABS: TSH Reflex To Free T4 0.73 uIU/ml (0.47-4.68)
[2024-04-19] MEDS: LOPRESSOR 5 MG IV (06:08)
--- NOTE | 2024-04-19 06:14 | PTCARENOTE ---
Pt A fib rates sustaining 130-140 at rest [id number] Jayla WARDROBE COORDINATOR ordered 5 mg Lopressor IVP.
--- NOTE | 2024-04-19 08:00 | PTCARENOTE ---
Assumed care of pt from prev nsg shift; Pt drowsy but easily arousable, AAOX3, w/some mild forgetfulness. Pt w/no c/o CP or SOB. Pt's VS stable w/HR in the 90's-100's & BP 110/82 this AM. Pt is in Afib on telemetry monitoring. Pt assisted w/set up
for breakfast. Pt w/call de jesus within reach & plan of care ongoing.
--- NOTE | 2024-04-19 08:44 | W.PN.HOSP.TC ---
Addendum entered and electronically signed by Thee Pierre MD 04/19/24 14:04:
Patient qualifies for a hospital bed at home due to Parkinson's and heart failure.
Original Note:
Today's Communication/Plan
-
Doing well. Continue current plan. Keep in IVU today.
Assessment / Plan
Assessment / Plan
89 female presented with shortness of breath for 3 days and decreased appetite.
1. Sepsis - leading to septic shock with tachycardia, KALYAN, leukocytosis, likely from UTI (e-coli >100k units), resolving
started on Rocephin and seems to do better - wbc improved daily
full urine culture and blood culture results show good response to ceftriaxone
Holding Lasix
Given IVF
2. paroxysmal atrial fibrillation - continues
- continue Eliquis
Appreciate cardiology help - meds being titrated
Keep in IVU today
3. chronic HFpEF, lungs with crackles - continues
BNP >46743
- monitor I&Os
- daily weights
- Should improve once heart rate slows down and renal function improves
4. Acute on C, CKD stage IIIb due to sepsis and shock
Hx of decreased oral intake
Renal US, no hydronephrosis
urine sodium 61
Appreciate nephrology input
BUN/Creat improved again today, now 50/1.2 (down from 79/2.8)
Continue current treatment
5. Under weight - encourage PO nutrition
6. Hyperkalemia - resolved (now 5.1)
7. Leukocytosis - from sepsis, improving
8. Other ID - Covid and influenza negative
9. hypertension
- plan per cards as Afib is actively managed
- Review outpt meds prior to d/c.
10. Parkinson's disease
- continue carbidopa-levodopa and rasagiline
- Order PT/OT
Code status: Full Code
DVT Prophylaxis: Eliquis
Total time spent to see the patient, examine the patient, review data and lab results, discuss the treatment plan with patient, nursing staff around 55 minutes
Anticipated Discharge: > 48 hours
Subjective/Interval History
-
Date of Service: April 19, 2024
Feeling better this am. More alert.
Objective Data
-
Labs:
Laboratory Results
04/19/24
04:10
WBC 11.1 H
Hgb 10.0 L
Hct 27.9 L
Plt Count 132
Sodium 139
Potassium 5.1
Chloride 105
Carbon Dioxide 28
BUN 50 H
Creatinine 1.2 H
Glucose 107 H
Calcium 8.5
Vital Signs:
Vital Signs
Temp Pulse Resp BP Pulse Ox
99 F 109 15 138/98 100
04/19/24 04:02 04/19/24 08:00 04/19/24 04:02 04/19/24 06:08 04/19/24 04:02
I&O
04/18/24 04/19/24 04/20/24
06:59 06:59 06:59
Intake Total 720 / 720 240 / 240
Output Total 400 / 400
Balance 720 / 720 -400 / -400 240 / 240
Review of Systems
-
History Source: Patient
All other systems: Reviewed and negative
Physical Exam
-
General: Well Developed, No Apparent Distress, Comfortable and Conversant
HEENT: Normocephalic, Nose Appears Normal and Ears Appear Normal
Respiratory: Clear to Auscultation and Decreased Breath Sounds
Cardiac: Regular Rhythm, S1/S2 and Tachycardic
GI: Soft, Nontender and Nondistended
Musculoskeletal: No Clubbing, No Cyanosis, Edema, Right Lower Extrem and Edema, Left Lower Extrem
Skin: Warm and Dry
Neuro: Awake and Alert
Psych: Calm
Data Reviewed
-
Labs: Labs Reviewed by me
[2024-04-19] MEDS: LASIX 20 MG PO (08:53)
[2024-04-19] MEDS: TOPROL XL 100 MG PO (08:53)
[2024-04-19] MEDS: SINEMET 25-100 1.5 TABLET PO ×3 (08:53→17:05)
[2024-04-19] MEDS: ELIQUIS 2.5 MG PO ×2 (08:53→19:22)
--- NOTE | 2024-04-19 10:09 | W.PN.CD ---
Today's Communication / Plan
-
- Continue Toprol-XL 100 mg QAM and 50 mg QPM.
- Continue Cardizem 30 mg PO Q6; transition to Cardizem CD 180 mg or 240 mg daily tomorrow, if blood pressure allows (the patient was on Cardizem CD 240 mg daily at home).
Impression / Plan
-
89 y/o female (patient of Dr. 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 She is seen to be in AFIB with
RVR. KALYAN noted. She has been conservatively managed from a cardiac standpoint given her comorbidities.
Persistent AFIB with RVR:
- Continue Toprol-XL 100 mg QAM and 50 mg QPM.
- Continue Cardizem 30 mg PO Q6; transition to Cardizem CD 180 mg or 240 mg daily tomorrow, if blood pressure allows (the patient was on Cardizem CD 240 mg daily at home).
- Continue Eliquis for OAC.
- Allow for some tachycardia given UTI/sepsis.
HFmEF: chronic
-Continue Lasix 20 mg daily; Nephrology following.
Leukocytosis and UTI :
-Management as per primary team.
Anemia:
-stable
KALYAN:
-nephrology consulted
HTN:
-BP actually running on low end
-last OV SBP was in 90's on BB and CCB
Subjective:
-No major events overnight. No cardiac complaints exam.
Physical Exam
Vital Signs/Labs
Vital Signs
Temp Pulse Resp BP Pulse Ox
98.2 F 100 20 110/82 99
04/19/24 08:52 04/19/24 08:45 04/19/24 08:52 04/19/24 08:43 12/31/24 08:52
04/18/24 04/19/24 04/20/24
06:59 06:59 06:59
Actual Weight 45 kg 46.3 kg
04/19/24 04:10
04/19/24 04:10
Magnesium 2.5 mg/dl (1.6-2.3) H 04/19/24 04:10
Triglycerides 97 mg/dl (10-149) 04/16/24 03:01
LDL Cholesterol, Calc 34 mg/dl 04/16/24 03:01
VLDL Cholesterol, Calc 19 mg/dl (0-30) 04/16/24 03:01
HDL Cholesterol 66 mg/dl 04/16/24 03:01
04/15/24
15:56
Ayt-F-Dmqgobbodlp Pept > [id number]
Physical Exam
Constitutional: No acute distress and Comfortable
EENT: Anicteric
Cardiovascular: Rhythm/rate is irregular, Pedal edema present (1-2+), Systolic murmur present (2/6) and S1S2 is normal
Respiratory: Respiratory effort normal, Wheeze Absent and Rhonchi Present
GI: Soft
Neuro/Psych: Alert and Oriented
Other: Skin (Warm, dry, intact)
Data Reviewed
-
Date of Service: April 19, 2024
EKG: Report Reviewed by me (Telemetry: A-fib)
Echo: Report Reviewed by me (EF 40-45%, moderate to severe MR)
Labs: Labs Reviewed by me
--- NOTE | 2024-04-19 10:10 | W.PN.NEPH.PH ---
Today's Communication / Plan
-
po lasix
Assessment/Plan
-
Assessment
KALYAN
Probable sepsis
Hypotension
A-fib
Bradycardia now tachycardia
Hyperkalemia
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
Heart failure reduced ejection fraction 42%
Parkinson's
Leukocytosis
Plan
creatinine down to 1.6> 1.2 at baseline ,
antibiotics per primary team
,hemodynamically more stable
Follow BMP
KALYAN likely from hypotension, sepsis
low-dose Lasix
PT now
-
-
Date of Service: April 19, 2024
CC / HPI / ROS
-
Chief Complaint:
KALYAN
History of Present Illness:
KALYAN/Cr down to 1.6>1.2
BP stable
Review of Systems:
no CP/SOB
Labs
-
Labs:
WBC 11.1 10^3/uL (4.8-10.8) H 04/19/24 04:10
RBC 4.40 10^6/uL (4.20-5.40) 04/19/24 04:10
Hgb 10.0 g/dL (12.0-16.0) L 04/19/24 04:10
Hct 27.9 % (37.0-47.0) L 04/19/24 04:10
Plt Count 132 10^3/uL (130-400) 04/19/24 04:10
Sodium 139 mmol/L (135-145) 04/19/24 04:10
Potassium 5.1 mmol/L (3.5-5.1) 04/19/24 04:10
Chloride 105 mmol/L (98-107) 04/19/24 04:10
Carbon Dioxide 28 mmol/L (22-30) 04/19/24 04:10
BUN 50 mg/dl (7-17) H 04/19/24 04:10
Creatinine 1.2 mg/dL (0.6-1.0) H 04/19/24 04:10
eGFR 43.27 04/19/24 04:10
Glucose 107 mg/dl (70-99) H 04/19/24 04:10
Calcium 8.5 mg/dl (8.4-10.2) 04/19/24 04:10
Muw-O-Qjuelipnqex Pept > 35742 pg/ml 04/15/24 15:56
Albumin 4.7 g/dl (3.5-5.0) 04/15/24 15:56
Physical Exam
-
Vital Signs:
Vital Signs
Temp Pulse Resp BP Pulse Ox
98.2 F 100 20 110/82 99
04/19/24 08:52 04/19/24 08:45 04/19/24 08:52 04/19/24 08:43 04/19/24 08:52
Cardiovascular:: Irregular rate and rhythm
Respiratory:: Bilateral: CTA
Lung Excursion:: Normal
Abdomen:: Nontender and Soft
Bowel Sounds:: Normal
Extremity Edema:: +1: Bilateral:
--- NOTE | 2024-04-19 13:06 | CM ---
Addendum entered by Ana Thorpe 04/19/24 14:26:
Telephone call to [facility] Liaison to make referral for Hospital Bed. Sent script and documentation to [employer]. Awaiting to see if it gets approved.
Original Note:
Reviewed chart. Met with Mrs. Pinedo and her daughter to review discharge plans. We reviewed SNF/Rehab. recommendations. Daughter states she would like to return home if possible with caregiver help and [facility]. Daughter was agreeable to
having a referral made to [facility] SNF if it is needed. Telephone call to [facility] to make the referral. Sent the referral. Also sent referral to [facility] if family selects for her to go directly home.
Telephone call to [facility] to make the referral. Sent to referral. Will need pre-cert with her insurance foe SNF/Rehab. Family would like a hospital bed and stair glide in the home. Will continue to follow her progress in therapy. Medical
work-up in progress. The discharge plan is to return home with her daughter, caregiver, and [facility] versus SNF/Rehab. at [facility] if bed available and approved by insurance when medically stable.
[2024-04-19] MEDS: ROCEPHIN 1000 MG IV (17:05)
[2024-04-19] MEDS: FLUSH (NSS) 2 FLUSH IV (17:06)
[2024-04-19] MEDS: STERILE WATER FOR INJECTION 10 ML IV (17:07)
[2024-04-19] MEDS: RASAGILINE MESYLATE 1 MG PO (22:56)
[2024-04-19] MEDS: SINEMET CR 25-100 (EXTENDED RELEASE) 1 TABLET PO (22:56)
[2024-04-19] MEDS: TOPROL XL 50 MG PO (22:56)
--- NOTE | 2024-04-20 01:46 | PTCARENOTE ---
Tele remains Afib w/ HR in the 90-110's at rest. Pt denies any pain or discomfort. Ambulates w/ one assist to BSC, and denies any dizziness. Call de jesus within reach, bed alarm active. POC ongoing.
[2024-04-20 03:27] VITALS: BP 109/76
[2024-04-20] MEDS: CARDIZEM 30 MG PO ×2 (03:57→09:56)
[2024-04-20 04:34] LABS: Hematocrit 29.9 % (37.0-47.0); Hemoglobin 10.6 g/dL (12.0-16.0); Mean Corp Hgb Conc. 35.5 g/dL (33.0-37.0); Mean Corpuscular Hgb 22.6 pg (27.0-31.0); Mean Corpuscular Volume 63.9 fL (81.0-99.0); Platelet Count 136 10^3/uL (130-400); Red Blood Cell Count 4.68 10^6/uL (4.20-5.40); Red Cell Dist. Width 26.1 % (11.5-14.5); White Blood Cell Count 12.3 10^3/uL (4.8-10.8)
[2024-04-20 04:48] LABS: Blood Urea Nitrogen 45 mg/dl (7-17); Calcium 8.5 mg/dl (8.4-10.2); Carbon Dioxide 27 mmol/L (22-30); Chloride 103 mmol/L (98-107); Estimated Creatinine Clearance 27 ml/min; Glucose 106 mg/dl (70-99); Potassium 5.4 mmol/L (3.5-5.1); Sodium 139 mmol/L (135-145); eGFR 53.85
[2024-04-20 07:26] VITALS: BP 123/86
--- NOTE | 2024-04-20 08:00 | PTCARENOTE ---
Assumed care of pt from prev nsg shift; Pt drowsy but easily arousable, AAOX2-3, w/mild confusion to place & some forgetfulness. Pt w/no c/o CP or SOB. Pt's VS stable w/HR in the 90's-100's & BP 123/86 this AM. Pt is in Afib on telemetry monitoring.
Pt assisted OOB to obtain standing scale weight & sit OOB to for breakfast. Pt able to move much better this AM, only requiring a 1P assist OOB w/RW. Pt w/call de jesus within reach & plan of care ongoing.
[2024-04-20 09:00] VITALS: BMI 19.2
[2024-04-20] MEDS: ELIQUIS 2.5 MG PO ×2 (09:55→19:53)
[2024-04-20] MEDS: LASIX 20 MG PO (09:55)
[2024-04-20] MEDS: TOPROL XL 100 MG PO (09:55)
[2024-04-20] MEDS: SINEMET 25-100 1.5 TABLET PO ×3 (09:55→17:04)
--- NOTE | 2024-04-20 10:43 | W.PN.CD ---
Today's Communication / Plan
-
Transition diltiazem short acting to 120 mg daily.
Continue current dose of beta-lloyd.
No further cardiovascular recommendations will sign off.
Impression / Plan
-
89 y/o female (patient of Dr. 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 She is seen to be in AFIB with
RVR. KALYAN noted. She has been conservatively managed from a cardiac standpoint given her comorbidities.
Persistent AFIB with RVR:
- Continue Toprol-XL 100 mg QAM and 50 mg QPM.
- Continue Cardizem 30 mg PO Q6; transition to Cardizem CD 120mg daily as rates down the 60s to 70s.
- Continue Eliquis for OAC.
- Allow for some tachycardia given UTI/sepsis.
HFmEF: chronic
-Continue Lasix 20 mg daily; Nephrology following.
Leukocytosis and UTI :
-Management as per primary team.
Anemia:
-stable
KALYAN:
-nephrology consulted
HTN:
-BP stable
Subjective:
-No major events overnight. No cardiac complaints exam.
Physical Exam
Vital Signs/Labs
Vital Signs
Temp Pulse Resp BP Pulse Ox
97.9 F 112 16 123/86 98
04/20/24 07:27 04/20/24 08:00 04/20/24 07:27 04/20/24 07:26 04/20/24 07:27
04/19/24 04/20/24 04/21/24
06:59 06:59 06:59
Actual Weight 46.3 kg 44.6 kg
04/20/24 03:37
04/20/24 03:37
Magnesium 2.5 mg/dl (1.6-2.3) H 04/19/24 04:10
Triglycerides 97 mg/dl (10-149) 04/16/24 03:01
LDL Cholesterol, Calc 34 mg/dl 04/16/24 03:01
VLDL Cholesterol, Calc 19 mg/dl (0-30) 04/16/24 03:01
HDL Cholesterol 66 mg/dl 04/16/24 03:01
04/15/24
15:56
Nlm-F-Wuilpuxobzy Pept > 73504
Physical Exam
Constitutional: No acute distress
Cardiovascular: Pedal edema is absent, JVD pressure is normal, Systolic murmur absent, Diastolic murmur absent and Rhythm/rate is irregular
Respiratory: Respiratory effort normal, Lungs clear to auscul., Wheeze Absent and Crackles Absent
Neuro/Psych: AO x 3
Data Reviewed
-
Date of Service: April 20, 2024
Medical Decision Making: Review of Case with other Provider (Dr. Pierre will transition to p.o. diltiazem short acting to long-acting, will sign off)
EKG: Other (rate control fib)
--- NOTE | 2024-04-20 11:39 | W.PN.NEPH.PH ---
Today's Communication / Plan
-
Continue diuretic
Placed on 8 potassium restriction diet for potassium of 5.4
Assessment/Plan
-
Assessment
KALYAN
Probable sepsis
Hypotension
A-fib
Bradycardia now tachycardia
Hyperkalemia
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
Heart failure reduced ejection fraction 42%
Parkinson's
Leukocytosis
Plan
creatinine down to 1.6> 1.2 >1 at baseline ,
antibiotics per primary team
,hemodynamically more stable
Follow BMP
KALYAN likely from hypotension, sepsis
low-dose Lasix
Creatinine normalized to 1 just below her baseline
Potassium mildly elevated 5.4 I would just trend this. No intervention needed at this time I will place her on a low potassium diet
-
-
Date of Service: April 20, 2024
CC / HPI / ROS
-
Chief Complaint:
KALYAN
History of Present Illness:
KALYAN/Cr down to 1.6>1.2>1
BP stable
Review of Systems:
no CP/SOB
Labs
-
Labs:
WBC 12.3 10^3/uL (4.8-10.8) H 04/20/24 03:37
RBC 4.68 10^6/uL (4.20-5.40) 04/20/24 03:37
Hgb 10.6 g/dL (12.0-16.0) L 04/20/24 03:37
Hct 29.9 % (37.0-47.0) L 04/20/24 03:37
Plt Count 136 10^3/uL (130-400) 04/20/24 03:37
Sodium 139 mmol/L (135-145) 04/20/24 03:37
Potassium 5.4 mmol/L (3.5-5.1) H 04/20/24 03:37
Chloride 103 mmol/L (98-107) 04/20/24 03:37
Carbon Dioxide 27 mmol/L (22-30) 04/20/24 03:37
BUN 45 mg/dl (7-17) H 04/20/24 03:37
Creatinine 1.0 mg/dL (0.6-1.0) 04/20/24 03:37
eGFR 53.85 04/20/24 03:37
Glucose 106 mg/dl (70-99) H 04/20/24 03:37
Calcium 8.5 mg/dl (8.4-10.2) 04/20/24 03:37
Mzb-D-Pwsacwqulpq Pept > 72015 pg/ml 04/15/24 15:56
Albumin 4.7 g/dl (3.5-5.0) 04/15/24 15:56
Physical Exam
-
Vital Signs:
Vital Signs
Temp Pulse Resp BP Pulse Ox
97.9 F 112 16 123/86 98
04/20/24 07:27 04/20/24 08:00 04/20/24 07:27 04/20/24 07:26 04/20/24 07:55
Cardiovascular:: Irregular rate and rhythm
Respiratory:: Bilateral: CTA
Lung Excursion:: Normal
Abdomen:: Nontender and Soft
Bowel Sounds:: Normal
Extremity Edema:: +1: Bilateral:
--- NOTE | 2024-04-20 12:20 | W.PN.HOSP.TC ---
Addendum entered and electronically signed by Thee Pierre MD 04/27/24 07:07:
Three documentation addendum (CDI answers)
1. AFIB type became permanent (see cardiology note).
2. Nursing documented a Left Buttock Pressure injury POA
Location: LEFT buttock
Type: Pressure ulcer
3. The type of CHF she has is HFmEF (see cardiology note)
Original Note:
Today's Communication/Plan
-
Doing well. Case management, please help to start d/c planning. If stable, likely ready to be discharged tomorrow.
Assessment / Plan
Assessment / Plan
89 female presented with shortness of breath for 3 days and decreased appetite.
1. Sepsis - leading to septic shock with tachycardia, KALYAN, leukocytosis, likely from UTI (e-coli >100k units), resolving
started on Rocephin and seems to do better - wbc, however, still elevated
full urine culture and blood culture results show good response to ceftriaxone
Holding Lasix
Given IVF as needed.
2. paroxysmal atrial fibrillation - continues
- continue Eliquis
Appreciate cardiology help - meds being titrated
Keep in IVU today, likely home tomorrow if she remains stable
3. chronic HFpEF, lungs with crackles - continues
BNP >88988
- monitor I&Os
- daily weights
- Has improved now that her heart rate slowed down and renal function improved
4. Acute on C, CKD stage IIIb due to sepsis and shock
Hx of decreased oral intake
Renal US, no hydronephrosis
urine sodium 61
Appreciate nephrology input
BUN/Creat improved again today, now 45/1.0 (down from 79/2.8)
Continue current treatment
5. Under weight - encourage PO nutrition
6. Hyperkalemia - resolving (now 5.4) - placed on low K diet
7. Leukocytosis - from sepsis, improving, but still elevated
8. Other ID - Covid and influenza negative
9. hypertension
- plan per cards as Afib is actively managed
- Review outpt meds prior to d/c.
10. Parkinson's disease
- continue carbidopa-levodopa and rasagiline
- Order PT/OT
Code status: Full Code
DVT Prophylaxis: Eliquis
Total time spent to see the patient, examine the patient, review data and lab results, discuss the treatment plan with patient, nursing staff around 55 minutes
Anticipated Discharge: 24 - 48 hours
Subjective/Interval History
-
Date of Service: April 20, 2024
Appears improved and has more energy.
Objective Data
-
Labs:
Laboratory Results
04/20/24
03:37
WBC 12.3 H
Hgb 10.6 L
Hct 29.9 L
Plt Count 136
Sodium 139
Potassium 5.4 H
Chloride 103
Carbon Dioxide 27
BUN 45 H
Creatinine 1.0
Glucose 106 H
Calcium 8.5
Vital Signs:
Vital Signs
Temp Pulse Resp BP Pulse Ox
97.9 F 53 16 123/86 98
04/20/24 07:27 04/20/24 12:00 04/20/24 07:27 04/20/24 07:26 04/20/24 07:55
I&O
04/19/24 04/20/24 04/21/24
06:59 06:59 06:59
Intake Total 720 / 720 240 / 240
Output Total 400 / 400 450 / 450 275 / 275
Balance -400 / -400 270 / 270 -35 / -35
Review of Systems
-
History Source: Patient
All other systems: Reviewed and negative
Physical Exam
-
General: Well Developed, No Apparent Distress, Comfortable and Conversant
HEENT: Nose Appears Normal and Ears Appear Normal
Respiratory: Clear to Auscultation
Cardiac: Regular Rhythm and S1/S2
GI: Soft
Musculoskeletal: No Clubbing and No Cyanosis
Skin: Warm and Dry
Neuro: Awake and Alert
Psych: Calm
Data Reviewed
-
Labs: Labs Reviewed by me
[2024-04-20 12:56] VITALS: BP 108/74
[2024-04-20] MEDS: CARDIZEM CD 120 MG PO (14:08)
[2024-04-20 15:25] VITALS: BP 96/65
[2024-04-20] MEDS: ROCEPHIN 1000 MG IV (17:05)
[2024-04-20] MEDS: STERILE WATER FOR INJECTION 10 ML IV (17:05)
[2024-04-20] MEDS: FLUSH (NSS) 2 FLUSH IV (17:05)
[2024-04-20 19:15] VITALS: BP 94/59
[2024-04-20 22:13] VITALS: BP 115/80
[2024-04-20] MEDS: TOPROL XL 50 MG PO (22:14)
[2024-04-20] MEDS: RASAGILINE MESYLATE 1 MG PO (22:15)
[2024-04-20] MEDS: SINEMET CR 25-100 (EXTENDED RELEASE) 1 TABLET PO (22:15)
--- NOTE | 2024-04-20 22:45 | PTCARENOTE ---
Tele remains Afib on monitor. Denies any chest pain or discomfort. Sating 96-98% RA, denies any SOB at this time. Has an occasional moist cough. Patient requires one assist to BSC and uses RW. Denies any dizziness or lightheadedness. Patient had a
formed brown BM, and remains incontinent of urine. POC ongoing, call de jesus within reach. Bed alarm active.
[2024-04-21] VITALS (9 sets, daily range): BP systolic 108–136; BP diastolic 75–107; PULSE 108–124; O2SAT 94–95; BMI 19.5
[2024-04-21 01:47] LABS: % Basophils 0.2 % (0-2); % Eosinophils 0.8 % (0-6); % Immature Granulocytes 0.7 % (0-0.5); % Lymphocytes 13.5 % (20.5-51.1); % Monocytes 8.7 % (1.7-9.3); % Neutrophils 76.1 % (42.2-75.2); Absolute Eosinophils 0.1 10^3/uL (0-0.7); Absolute Immature Granulocytes 0.1 10^3/uL (0-0.05); Absolute Lymphocytes 1.5 10^3/uL (1.2-3.4); Absolute Neutrophils 8.3 10^3/uL (1.4-6.5); Hematocrit 27.7 % (37.0-47.0); Hemoglobin 10.1 g/dL (12.0-16.0); Mean Corp Hgb Conc. 36.5 g/dL (33.0-37.0); Mean Corpuscular Hgb 23.1 pg (27.0-31.0); Mean Corpuscular Volume 63.2 fL (81.0-99.0); Nucleated Red Blood Cells % 1.7 %; Platelet Count 125 10^3/uL (130-400); Red Blood Cell Count 4.38 10^6/uL (4.20-5.40); Red Cell Dist. Width 26.5 % (11.5-14.5); White Blood Cell Count 10.9 10^3/uL (4.8-10.8)
--- NOTE | 2024-04-21 01:57 | PTCARENOTE ---
Patients bed alarm went off. Upon arrival patient had both legs over the side rail, pt attempting to get OOB. This RN reoriented patient to place and situation. Patient had pulled out her IV. New IV placed, morning blood obtained via site. Bloody
linens changed, patient cleaned up w/ bathing cloths. Bed alarm in place. Call de jesus within reach.
[2024-04-21 02:11] LABS: Blood Urea Nitrogen 41 mg/dl (7-17); Calcium 8.6 mg/dl (8.4-10.2); Carbon Dioxide 25 mmol/L (22-30); Chloride 104 mmol/L (98-107); Estimated Creatinine Clearance 27 ml/min; Glucose 110 mg/dl (70-99); Magnesium 2.2 mg/dl (1.6-2.3); Sodium 138 mmol/L (135-145); eGFR 53.85
[2024-04-21] MEDS: SINEMET 25-100 1.5 TABLET PO ×2 (07:23→12:08)
[2024-04-21] MEDS: ELIQUIS 2.5 MG PO (07:23)
[2024-04-21] MEDS: CARDIZEM CD 120 MG PO (07:25)
[2024-04-21] MEDS: LASIX 20 MG PO (07:25)
[2024-04-21] MEDS: TOPROL XL 100 MG PO (07:25)
--- NOTE | 2024-04-21 09:30 | W.PN.NEPH.PH ---
Today's Communication / Plan
-
follow BMP
Assessment/Plan
-
Assessment
KALYAN
Probable sepsis
Hypotension
A-fib
Bradycardia now tachycardia
Hyperkalemia
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
Heart failure reduced ejection fraction 42%
Parkinson's
Leukocytosis
Plan
follow BMP
on OP lasix dosing
dc planning
-
-
Date of Service: April 21, 2024
CC / HPI / ROS
-
Chief Complaint:
KALYAN
History of Present Illness:
KALYAN/Cr down to 1.6>1.2>1, baseline stable
K better at 5
on OP lasix dose
BP stable
Review of Systems:
no CP/SOB
Labs
-
Labs:
WBC 10.9 10^3/uL (4.8-10.8) H 04/21/24 01:30
RBC 4.38 10^6/uL (4.20-5.40) 04/21/24 01:30
Hgb 10.1 g/dL (12.0-16.0) L 04/21/24 01:30
Hct 27.7 % (37.0-47.0) L 04/21/24 01:30
Plt Count 125 10^3/uL (130-400) L 04/21/24 01:30
Sodium 138 mmol/L (135-145) 04/21/24 01:30
Potassium 5.0 mmol/L (3.5-5.1) 04/21/24 01:30
Chloride 104 mmol/L (98-107) 04/21/24 01:30
Carbon Dioxide 25 mmol/L (22-30) 04/21/24 01:30
BUN 41 mg/dl (7-17) H 04/21/24 01:30
Creatinine 1.0 mg/dL (0.6-1.0) 04/21/24 01:30
eGFR 53.85 04/21/24 01:30
Glucose 110 mg/dl (70-99) H 04/21/24 01:30
Calcium 8.6 mg/dl (8.4-10.2) 04/21/24 01:30
Fei-O-Hyifruroqfx Pept > 11964 pg/ml 04/15/24 15:56
Albumin 4.7 g/dl (3.5-5.0) 04/15/24 15:56
Physical Exam
-
Vital Signs:
Vital Signs
Temp Pulse Resp BP Pulse Ox
98.2 F 134 22 136/96 96
04/21/24 07:28 04/21/24 07:25 04/21/24 07:28 04/21/24 07:25 04/21/24 07:28
Cardiovascular:: Regular rate and rhythm
Respiratory:: Bilateral: CTA
Lung Excursion:: Normal
Abdomen:: Nontender and Soft
Bowel Sounds:: Normal
Extremity Edema:: None: Bilateral:
--- NOTE | 2024-04-21 12:49 | CM ---
Addendum entered by Ana Thorpe 04/21/24 14:22:
Spoke with attending physician who gave a script for a wheelchair. Telephone call to [facility] to make the referral for the wheelchair. Faxed script and medical information. Awaiting to see if wheelchair approved. Telephone call to
daughter to update her on above and that she is discharged.
Original Note:
Reviewed chart. Met with daughter Cathie to review discharge plans. We reviewed SNF/Rehab. and [facility]. Daughter states she has a caregiver that is going to stay with them so she would like to take her mother home with [facility]. Referral already made to [facility]. Telephone call to [facility] to check on the hospital bed. Awaiting call back. Family requesting a wheelchair also. Will need script for wheelchair and note in a progress note. Family
will provide transportation home. Medical work-up in progress. The discharge plan is to return home with her family, DME and [facility] when medically stable.
--- NOTE | 2024-04-21 13:28 | W.PN.HOSP.TC ---
Today's Communication/Plan
-
Discharge home
Assessment / Plan
Assessment / Plan
89 female presented with shortness of breath for 3 days and decreased appetite.
1. Sepsis - leading to septic shock with tachycardia, KALYAN, leukocytosis, likely from UTI (e-coli >100k units), resolving
started on Rocephin and seems to do better - wbc, however, still elevated
full urine culture and blood culture results show good response to ceftriaxone
Holding Lasix
Given IVF as needed.
1/2
Resume Lasix
Will be discharged home and Ceftin.
2. paroxysmal atrial fibrillation - continues
- continue Eliquis
Appreciate cardiology help - meds being titrated
Keep in IVU today, likely home tomorrow if she remains stable
3. chronic HFpEF, lungs with crackles - continues
BNP >93581
- monitor I&Os
- daily weights
- Has improved now that her heart rate slowed down and renal function improved
4. Acute on C, CKD stage IIIb due to sepsis and shock
Hx of decreased oral intake
Renal US, no hydronephrosis
urine sodium 61
Appreciate nephrology input
BUN/Creat improved again today, now 45/1.0 (down from 79/2.8)
Continue current treatment
5. Under weight - encourage PO nutrition
6. Hyperkalemia - resolving (now 5.4) - placed on low K diet
7. Leukocytosis - from sepsis, improving, but still elevated
8. Other ID - Covid and influenza negative
9. hypertension
- plan per cards as Afib is actively managed
- Review outpt meds prior to d/c.
10. Parkinson's disease
- continue carbidopa-levodopa and rasagiline
- Order PT/OT
Code status: Full Code
DVT Prophylaxis: Eliquis
Total time spent to see the patient, examine the patient, review data and lab results, discuss the treatment plan with patient, nursing staff around 55 minutes
Anticipated Discharge: Today
Subjective/Interval History
-
Date of Service: April 21, 2024
Patient seen and examined at bedside, denies any chest pain or shortness of breath, no abdominal pain, no nausea, no vomiting, no diarrhea or constipation.
Objective Data
-
Labs:
Laboratory Results
04/21/24
01:30
WBC 10.9 H
Hgb 10.1 L
Hct 27.7 L
Plt Count 125 L
Sodium 138
Potassium 5.0
Chloride 104
Carbon Dioxide 25
BUN 41 H
Creatinine 1.0
Glucose 110 H
Calcium 8.6
Vital Signs:
Vital Signs
Temp Pulse Resp BP Pulse Ox
97.8 F 134 18 136/96 97
04/21/24 11:25 04/21/24 07:25 04/21/24 11:25 04/21/24 07:25 04/21/24 11:25
I&O
04/20/24 04/21/24 04/22/24
06:59 06:59 06:59
Intake Total 720 / 720 360 / 360
Output Total 450 / 450 275 / 275
Balance 270 / 270 85 / 85
Physical Exam
-
General: Well Developed, Well Nourished, No Apparent Distress and Comfortable
HEENT: Normocephalic, Atraumatic, Moist Mucous Membranes, No Ptosis, PERRLA and Nose Appears Normal
Respiratory: Rales and Non Labored Respirations
Cardiac: Regular Rhythm and S1/S2
Breast: Deferred by me
GI: Soft, Nontender, Nondistended and Normal Bowel Sounds
Genito-urinary: No Costovertebral Tender
Musculoskeletal: No Clubbing, No Cyanosis and No Edema
Skin: Warm
Neuro: Awake, Alert, Oriented, AO x 3 and No Motor Deficits
Psych: Calm
--- NOTE | 2024-04-21 13:32 | W.PN.UPDATE ---
Update Note
Progress Note Update
patient's mobility limitation impairs ability to participate in toileting, feeding, and dressing and patients functional mobility deficit can be resolved by the use of a wheelchair.
--- NOTE | 2024-04-21 13:59 | W.DCSUMMARY ---
Discharge Summary
Discharge Data
Date of Admission: 04/15/24
Date of Discharge: 04/21/24
-
Pending Results: No
Hospital Course
89 female presented with shortness of breath for 3 days and decreased appetite.
1. Sepsis - leading to septic shock with tachycardia, KALYAN, leukocytosis, likely from UTI (e-coli >100k units), resolving
started on Rocephin and seems to do better - wbc, however, still elevated
full urine culture and blood culture results show good response to ceftriaxone
Holding Lasix
Given IVF as needed.
1/2
Resume Lasix
Will be discharged home and Ceftin.
2. paroxysmal atrial fibrillation - continues
- continue Eliquis
Appreciate cardiology help - meds being titrated
Discharge home today
3. chronic HFpEF, lungs with crackles - continues
BNP >27351
- monitor I&Os
- daily weights
- Has improved now that her heart rate slowed down and renal function improved
4. Acute on C, CKD stage IIIb due to sepsis and shock
Hx of decreased oral intake
Renal US, no hydronephrosis
urine sodium 61
Appreciate nephrology input
BUN/Creat improved again today, now 45/1.0 (down from 79/2.8)
Continue current treatment
5. Under weight - encourage PO nutrition
6. Hyperkalemia - resolving (now 5.4) - placed on low K diet
7. Leukocytosis - from sepsis, improving, but still elevated
8. Other ID - Covid and influenza negative
9. hypertension
- plan per cards as Afib is actively managed
- Review outpt meds prior to d/c.
10. Parkinson's disease
- continue carbidopa-levodopa and rasagiline
- Order PT/OT
Code status: Full Code
DVT Prophylaxis: Eliquis
Total time spent to see the patient, examine the patient, review data and lab results, discuss the treatment plan with patient, nursing staff around 55 minutes
Anticipated Discharge: Today
Discharge Plan
-
Patient Disposition: Home with Home Care
Discharge Diagnosis/Procedures: Sepsis.
Paroxysmal A-fib.
Chronic congestive heart failure
Condition: Good
Diet: As tolerated and Low Cholesterol
Activity: With assistance
Other Services: PT and OT
Specialty Instructions: Weigh Daily- Call MD for wt gain/loss 3 lbs overnight/5 lbs in 1 week
Referrals:
[facility] [Outside]
Garrison Robles MD [Active] -
Paul Thornton MD [Active] -
Josephine Zarate MD [Family Provider] -
()
Prescriptions:
New
(DME) manual wheelchair
See Rx Instructions .Route .MEDSUPPLY Qty: 1 0RF
Rx Instructions:
As directed
metoprolol succinate 25 mg Tablet Extended Release 24 Hr
50 mg PO HS Qty: 30 0RF
cefuroxime axetil 500 mg tablet
500 mg PO BID 5 Days Qty: 10 0RF
Continued
carbidopa-levodopa 25-100 mg Tablet Extended Release
1 tab PO HS
carbidopa-levodopa 25-100 mg Tablet
1.5 tab PO TID
Eliquis 2.5 MG tablet
2.5 mg PO BID
rasagiline 1 mg Tablet
1 mg PO HS
acetaminophen [Tylenol Extra Strength] 500 mg Tablet
1,000 mg PO TID
coenzyme Q10 [CoQ-10] 100 mg Capsule
100 mg PO TID
furosemide 20 mg tablet
20 mg PO DAILY
metoprolol succinate 100 mg Tablet Extended Release 24 Hr
100 mg PO DAILY Qty: 30 0RF
diltiazem HCl [Matzim LA] 240 mg Tablet Extended Release 24 Hr
240 mg PO DAILY
Discontinued
metoprolol succinate 25 mg Tablet Extended Release 24 Hr
25 mg PO HS Qty: 30 0RF
Discharge Orders:
Discharge Patient (As Directed); Ordered 04/21/24
Ordered By: Kei Chapa
Care Plan Goals
Care Plan Goals:
Problem: Readiness for enhanced knowledge related to diagnosis and treatment plan
Goal: Understand your diagnosis and treatment plan needs, including medications if applicable.
Instructions: Know your diagnosis, underlying causes and treatment plan options, including medications if applicable. Consult with your health care team to learn about your diagnosis and treatment plan, including medications if applicable.
Discharge Date and Time
Print Language: LAO
--- NOTE | 2024-04-21 17:13 | PTCARENOTE ---
IV and tele removed. Discharge instructions reviewed w/ pt. Verbalizes understanding. Escorted via WC to home.
--- NOTE | 2024-04-26 07:22 | PN.CDI ---
CDI
- -
CDI:
Physician Documentation Request
Admit Date: 04/15/24 19:06
Dear Doctor Ignacio,
Please review the following and provide your response in the progress notes.
Clinical Indicators:
- 04/15 RN note indicates Stage 1 left buttock pressure injury, POA
Physician documentation of the type and location of wounds is required for compliant documentation. Based on the above clinical findings and your assessment, please provide the following in your progress note:
1. Location of the ulcer/wound, including laterality.
2. Type (etiology) of ulcer/wound:
- Diabetic ulcer
- Arterial (ischemic) ulcer
- Traumatic wound
- Venous stasis ulcer
- Pressure (decubitus) ulcer
- Other
Use of terms such as suspected, likely, concern for, or probable (associated with a specific diagnosis that is being evaluated, monitored, or treated as if it exists) are acceptable and can be coded in the inpatient setting, when documented at the
time of discharge.
Thank you,
Bryan Roberto RN
CDI Specialist
Please use your independent medical judgment in providing your response.
== END 2024-04-21 17:17 | disposition home health service (06) | DRG 871 ==
LOC: IVU 19:06
PROVIDERS: Internal Medicine; Nurse Practitioner Family; Nurse Practitioner Gerontology; Specialist; ADMITTING PHYSICIAN Hospitalist; ATTENDING PHYSICIAN General Practice; CONSULT PHYSICIAN Internal Medicine Cardiovascular Disease; CONSULT PHYSICIAN Specialist; EMERGENCY PHYSICIAN Emergency Medicine; FAMILY PHYSICIAN Family Medicine
DX: A41.9 Sepsis, unspecified organism (principal); R65.21 Severe sepsis with septic shock; I50.42 Chronic combined systolic (congestive) and diastolic (congestive) heart failure; N17.9 Acute kidney failure, unspecified; N39.0 Urinary tract infection, site not specified; Z68.1 Body mass index [BMI] 19.9 or less, adult; I13.0 Hypertensive heart and chronic kidney disease with heart failure and stage 1 through stage 4 chronic kidney disease, or unspecified chronic kidney disease; I48.21 Permanent atrial fibrillation; Z11.52 Encounter for screening for COVID-19; E87.5 Hyperkalemia; N18.32 Chronic kidney disease, stage 3b; G20.A1 Parkinson's disease without dyskinesia, without mention of fluctuations; Z79.01 Long term (current) use of anticoagulants; R63.6 Underweight; L89.329 Pressure ulcer of left buttock, unspecified stage
CPT/HCPCS: 71045; 76775; 80048; 80053; 80061; 81003; 81015; 82570; 82962; 83735; 83880; 84300; 84443; 84484; 85025; 85027; 87040; 87077; 87086; 87186; 87502; 87811; 93005; 96374; 96375; 97116; 97163; 97167; 97530; 97535; 99285

== ENCOUNTER 2024-04-24 14:07 | Emergency (ER) | payer OTHER, SELFPAY ==
[2024-04-24 14:14] VITALS: BP 104/66
[2024-04-24 14:47] LABS: % Basophils 0.5 % (0-2); % Eosinophils 0.1 % (0-6); % Immature Granulocytes 0.6 % (0-0.5); % Lymphocytes 10.6 % (20.5-51.1); % Monocytes 6.9 % (1.7-9.3); % Neutrophils 81.3 % (42.2-75.2); ALT (SGPT) 14 U/L (0-35); AST (SGOT) 23 U/L (14-36); Absolute Basophils 0.1 10^3/uL (0-0.2); Absolute Immature Granulocytes 0.1 10^3/uL (0-0.05); Absolute Lymphocytes 1.3 10^3/uL (1.2-3.4); Absolute Monocytes 0.8 10^3/uL (0.1-0.6); Absolute Neutrophils 9.7 10^3/uL (1.4-6.5); Albumin 4.1 g/dl (3.5-5.0); Alkaline Phosphatase 110 U/L (38-126); Blood Urea Nitrogen 34 mg/dl (7-17); Calcium 8.9 mg/dl (8.4-10.2); Carbon Dioxide 24 mmol/L (22-30); Chloride 103 mmol/L (98-107); Glucose 131 mg/dl (70-99); Hematocrit 31.6 % (37.0-47.0); Hemoglobin 11.6 g/dL (12.0-16.0); Mean Corp Hgb Conc. 36.7 g/dL (33.0-37.0); Mean Corpuscular Hgb 23.4 pg (27.0-31.0); Mean Corpuscular Volume 63.7 fL (81.0-99.0); Nucleated Red Blood Cells % 0.8 %; Platelet Count 154 10^3/uL (130-400); Potassium 4.9 mmol/L (3.5-5.1); Red Blood Cell Count 4.96 10^6/uL (4.20-5.40); Red Cell Dist. Width 27.9 % (11.5-14.5); Sodium 139 mmol/L (135-145); Total Bilirubin 1.4 mg/dl (0.2-1.3); Total Protein 6.9 g/dl (6.3-8.2); White Blood Cell Count 11.9 10^3/uL (4.8-10.8); eGFR 35.96
[2024-04-24 15:09] LABS: Anisocytosis 1+; Normal RBC Morphology No; Polychromasia 1+
[2024-04-24 15:10] LABS: Hypochromasia 2+; Ovalocytes 1+
[2024-04-24 15:12] LABS: Acanthocytes 1+
[2024-04-24 17:45] VITALS: BP 106/70
[2024-04-24 19:25] VITALS: BP 130/72
== END 2024-04-24 20:04 ==
LOC: EMR 14:07
PROVIDERS: EMERGENCY PHYSICIAN Emergency Medicine
DX: R00.2 Palpitations (principal); R53.83 Other fatigue; R47.81 Slurred speech; Z53.21 Procedure and treatment not carried out due to patient leaving prior to being seen by health care provider
CPT/HCPCS: 99281; 80053; 85025; 93005

== ENCOUNTER 2024-04-26 14:56 | Inpatient (IN) | payer OTHER, SELFPAY ==
[2024-04-26] VITALS (11 sets, daily range): BP systolic 95–143; BP diastolic 57–95; BMI 18.8
--- NOTE | 2024-04-26 11:22 | ED.GENMED ---
ED Provider Triage
<Kalyn Mancia PA-C - Last Filed: 04/26/24 19:05>
-
Patient seen by provider in Triage?: Seen in Triage
Attestation: A medical screening examination has been initiated by a qualified medical provider. Based on the assessment performed at this time, it has been determined that an emergent medical condition may exist and the patient has been informed
that further medical evaluation and possible additional diagnostic testing may be needed.
HPI: Per PCP note: 'Sweta Malone sending Sheila Pinedo [birth year] to the ER, her daughter will be bringing her. She was hospitalized at 04/15/06/14or urosepsis, KALYAN, acute on chronic heart failure, and rapid fib. She was discharged on
cefuroxime. Since discharge pt has had increase in confusion and presented to ED on 04/24 with these symptoms. She had labs done that indicated increase in WBC to 11.9 and increase in creatinine from 1 to 1.4, however, patient daughter decided not
to wait, reported they were waiting for 4 hours and more advised that there were no more beds. Pt today with HR in 120s, BP 94/60 and is unable to keep her eyes open during the visit/ keeps dozing off. Daughter agreed to take her back to the ER, but
wanted to take her herself.'
GENERAL: Alert , in no apparent distress
EYE: No visual abnormalities.
NECK: Trachea midline
ENT: No visible abnormalities.
LUNGS: No acute respiratory distress
NEUROLOGICAL: Alert and oriented
SKIN: Skin intact. No visible changes.
MUSCULOSKELETAL: Moving extremities normally
PSYCH: Normal and appropriate interaction.
This is a medical evaluation conducted in person to initiate diagnostic evaluation and provide initial therapeutics. Please see further documentation by the treating clinician.
Cardiac labs, EKG, UA, and CT head ordered.
History of Present Illness
<Kalyn Mancia PA-C - Last Filed: 04/26/24 19:05>
General
Chief Complaint: Weakness
Time Seen by Provider: 04/26/24 13:06
<Pascual Anton DO - Last Filed: 04/30/24 22:27>
General
Source: patient, records and physician
Exam Limitations: none
Nursing documentation reviewed up to this point in time: agreed with
History of Present Illness
History of Present Illness:
89-year-old female referred by her primary care provider for admission admitted with urosepsis in rapid A-fib recently sent home on cefuroxime, seen here few days ago with fatigue had blood work did not want to stay due to long wait, saw the PCP
today apparently was tachycardic with a blood pressure in the 90s referred back to the ER here she is not hypotensive she is afebrile she is tachycardic, labs are unchanged from a few days ago urine is noted CT ordered from triage, does admit to
constipation no bowel movement for 5 days
Past History
<Kalyn Mancia PA-C - Last Filed: 04/26/24 19:05>
Past History
ED Past Medical History: Arrthythmia (afib), CHF and Other (Parkinson's disease)
ED Past Surgical History: None
Social History
Tobacco: Non-smoker
Alcohol: None
Drug: None
<Pascual Anton DO - Last Filed: 04/30/24 22:27>
Social History
Employment: Retired
Phy Exam
<Pascual Anton DO - Last Filed: 04/30/24 22:27>
Physical Exam
Physical Exam:
Physical Exam
General: no apparent distress, not acutely ill
Neck: Lips slight dry
Heart: Tachycardic
Lungs: no acute respiratory distress. clear bilaterally
Abdomen: Not
Neuro: alert and oriented. no focal neurological deficits
Skin: no rash
Psychiatric: cooperative
Extremities: Compression stockings on
Course
<Kalyn Mancia PA-C - Last Filed: 04/26/24 19:05>
Orders/Labs/Results
Orders:
Orders
04/26/24 Breakfast
Cholesterol Lowering
At Your Request: Full Participation
Does patient need a safe tray?: No
Cholesterol Lowering: Sodium, 2 Gram
04/26/24 10:53
Electrocardiogram (*1) Urgent
Reason for Study: Tachycardia
04/26/24 10:54
EKG- Treatment ONCE
04/26/24 11:23
CT Head W/o Iv Contrast Urgent
Comment:
Reason For Exam: increasing confusion
04/26/24 11:27
Complete Blood Count/With Diff Urgent
Comprehensive Metabolic Panel Urgent
Creatine Phosphokinase Urgent
Comment: ADD ON
Free T4 Urgent
Lactic Acid Urgent
Magnesium Urgent
Comment: ADD ON
TSH Reflex To Free T4 Urgent
Comment: ADD ON
04/26/24 12:16
Urinalysis Reflex To Culture Urgent
Date Specimen was Collected: 04/26/24
Time Specimen was Collected: 12:14
Urine Microscopic Reflex Cult Urgent
04/26/24 13:15
0.9% Sodium Chloride 1000 ml [Nss] 1,000 ml IV 100 mls/hr
04/26/24 13:16
Cardiac Monitoring- Treatment ONCE
Lactulose [Duphalac/Chronulac] 20 grams PO NOW STA
04/26/24 13:22
Add On- LAB Urgent
Tests Added?: bnp
CR Chest - 2 Views Urgent
Comment:
Reason For Exam: Shortness of breath heart failure
04/26/24 13:44
NT-proBNP Urgent
Comment: ADD ON
Troponin I Urgent
04/26/24 13:54
Admit/Transfer Patient As Directed
Co-Sign Provider:
Level of Care: Inpatient admission
Assign to:: Telemetry
Physician / Group: osng marti
Diagnosis: atrial fib with RVr
Reason for Telemetry: Arrhythmia
Date to Stop Telemetry: 04/29/24
Time to Stop Telemetry: 11:00
Reason for Hospitalization: atrial fib with RVR
Expected length of stay greater than two midnights?: Yes
ELOS- Estimated Length of Stay in days: 3
I certify the patient meets the requirements for IP care: Yes
PRN Pain Medication Management As Directed
May give lesser potent ordered pain med per pt: Yes
preference::
Protocol:: Medication orders for pain may be administered in a
manner that supports deferring to patient preference
when the pt is:
- Requesting an ordered lesser potent pain medication.
Least to most potent pain medications are defined
as: acetaminophen < NSAID < tramadol < opioids
(morphine, oxycodone, hydromorphone).
- Requesting a lesser dose of the same medication IF
ORDERED.
- Requesting a less intrusive route of administration
if both routes are prescribed by the provider (PO <
IV).
04/26/24 13:56
Code Status As Directed
Resuscitation Status: Full Code
04/26/24 18:43
Acetaminophen [Tylenol] 650 mg PO Q4HPRN PRN
Bisacodyl [Dulcolax] 10 mg RECTAL [id number] PRN
Carbidopa/Levodopa [Sinemet 25-100] 1.5 tablet PO TID @ 0800,1200,1700
Docusate W/Senna [Senokot-S] 1 tablet PO BIDPRN PRN
Polyethylene Glycol Powder [Miralax] 17 grams PO DAILYPRN PRN
04/26/24 18:43
Activity As Directed
Activity Level: As Tolerated
Intake/ Output As Directed
Frequency: Per unit guidelines
Vital Signs As Directed
Frequency: Per unit guidelines
04/26/24 20:00
Apixaban [Eliquis] 2.5 mg PO BID
04/26/24 22:00
Carbidopa/Levodopa Cr [Sinemet Cr 25-100 (Extended Release)] 1 tablet PO HS
Metoprolol Xl [Toprol Xl] 50 mg PO HS
04/27/24 06:45
Basic Metabolic Panel IN AM
04/27/24 08:00
Diltiazem Extended Release [Cardizem Cd] 240 mg PO DAILY
Metoprolol Xl [Toprol Xl] 100 mg PO DAILY
04/29/24 08:23
Basic Metabolic Panel IN AM
04/29/24 11:00
DC Protocol for Telemetry ONCE
Abnormal Lab Results
04/26/24 04/26/24
11:27 12:16
RBC 5.49 H 10^6/uL
(4.20-5.40)
Hct 35.7 L %
(37.0-47.0)
MCV 65.0 L fL
(81.0-99.0)
MCH 23.0 L pg
(27.0-31.0)
RDW 27.1 H %
(11.5-14.5)
Absolute Neuts (auto) 7.6 H 10^3/uL
(1.4-6.5)
Absolute Lymphs (auto) 1.0 L 10^3/uL
(1.2-3.4)
Neutrophils % 81.1 H %
(42.2-75.2)
Lymphocytes % 11.1 L %
(20.5-51.1)
BUN 34 H mg/dl
(7-17)
Creatinine 1.4 H mg/dL
(0.6-1.0)
Glucose 117 H mg/dl
(70-99)
Total Bilirubin 1.6 H mg/dl
(0.2-1.3)
Creatine Kinase 24 L U/L
(30-135)
TSH (Reflex) 0.28 L uIU/ml
(0.47-4.68)
Leukocyte Esterase Rfl Trace A
(Negative)
Urine RBC 3-6 A /HPF
(0-2)
Urine Bacteria (Reflex) Few A
(Negative)
04/26/24 11:27
04/26/24 11:27
Vital Signs
Initial and Last Documented VS:
Initial Vital Signs
Temp Pulse Resp BP Pulse Ox
98.0 F 114 18 143/95 98
04/26/24 11:08 04/26/24 11:08 04/26/24 11:08 04/26/24 11:08 04/26/24 11:08
Last Documented Vital Signs
Temp Pulse Resp BP Pulse Ox
98 F 96 18 102/91 96
04/30/24 11:45 04/30/24 11:45 04/30/24 11:45 04/30/24 11:45 04/30/24 11:45
<Pascual Anton, DO - Last Filed: 04/30/24 22:27>
Orders/Labs/Results
Orders:
Orders
04/26/24 Breakfast
Cholesterol Lowering
At Your Request: Full Participation
Does patient need a safe tray?: No
Cholesterol Lowering: Sodium, 2 Gram
04/26/24 10:53
Electrocardiogram (*1) Urgent
Reason for Study: Tachycardia
04/26/24 10:54
EKG- Treatment ONCE
04/26/24 11:23
CT Head W/o Iv Contrast Urgent
Comment:
Reason For Exam: increasing confusion
04/26/24 11:27
Complete Blood Count/With Diff Urgent
Comprehensive Metabolic Panel Urgent
Creatine Phosphokinase Urgent
Comment: ADD ON
Free T4 Urgent
Lactic Acid Urgent
Magnesium Urgent
Comment: ADD ON
TSH Reflex To Free T4 Urgent
Comment: ADD ON
04/26/24 12:16
Urinalysis Reflex To Culture Urgent
Date Specimen was Collected: 04/26/24
Time Specimen was Collected: 12:14
Urine Microscopic Reflex Cult Urgent
04/26/24 13:15
0.9% Sodium Chloride 1000 ml [Nss] 1,000 ml IV 100 mls/hr
04/26/24 13:16
Cardiac Monitoring- Treatment ONCE
Lactulose [Duphalac/Chronulac] 20 grams PO NOW STA
04/26/24 13:22
Add On- LAB Urgent
Tests Added?: bnp
CR Chest - 2 Views Urgent
Comment:
Reason For Exam: Shortness of breath heart failure
04/26/24 13:44
NT-proBNP Urgent
Comment: ADD ON
Troponin I Urgent
04/26/24 13:54
Admit/Transfer Patient As Directed
Co-Sign Provider:
Level of Care: Inpatient admission
Assign to:: Telemetry
Physician / Group: song marti
Diagnosis: atrial fib with RVr
Reason for Telemetry: Arrhythmia
Date to Stop Telemetry: 04/29/24
Time to Stop Telemetry: 11:00
Reason for Hospitalization: atrial fib with RVR
Expected length of stay greater than two midnights?: Yes
ELOS- Estimated Length of Stay in days: 3
I certify the patient meets the requirements for IP care: Yes
PRN Pain Medication Management As Directed
May give lesser potent ordered pain med per pt: Yes
preference::
Protocol:: Medication orders for pain may be administered in a
manner that supports deferring to patient preference
when the pt is:
- Requesting an ordered lesser potent pain medication.
Least to most potent pain medications are defined
as: acetaminophen < NSAID < tramadol < opioids
(morphine, oxycodone, hydromorphone).
- Requesting a lesser dose of the same medication IF
ORDERED.
- Requesting a less intrusive route of administration
if both routes are prescribed by the provider (PO <
IV).
04/26/24 13:56
Code Status As Directed
Resuscitation Status: Full Code
04/26/24 18:43
Acetaminophen [Tylenol] 650 mg PO Q4HPRN PRN
Bisacodyl [Dulcolax] 10 mg RECTAL [id number] PRN
Carbidopa/Levodopa [Sinemet 25-100] 1.5 tablet PO TID @ 0800,1200,1700
Docusate W/Senna [Senokot-S] 1 tablet PO BIDPRN PRN
Polyethylene Glycol Powder [Miralax] 17 grams PO DAILYPRN PRN
04/26/24 18:43
Activity As Directed
Activity Level: As Tolerated
Intake/ Output As Directed
Frequency: Per unit guidelines
Vital Signs As Directed
Frequency: Per unit guidelines
04/26/24 20:00
Apixaban [Eliquis] 2.5 mg PO BID
04/26/24 22:00
Carbidopa/Levodopa Cr [Sinemet Cr 25-100 (Extended Release)] 1 tablet PO HS
Metoprolol Xl [Toprol Xl] 50 mg PO HS
04/27/24 06:45
Basic Metabolic Panel IN AM
04/27/24 08:00
Diltiazem Extended Release [Cardizem Cd] 240 mg PO DAILY
Metoprolol Xl [Toprol Xl] 100 mg PO DAILY
04/29/24 08:23
Basic Metabolic Panel IN AM
04/29/24 11:00
DC Protocol for Telemetry ONCE
Abnormal Lab Results
04/26/24 04/26/24
11:27 12:16
RBC 5.49 H 10^6/uL
(4.20-5.40)
Hct 35.7 L %
(37.0-47.0)
MCV 65.0 L fL
(81.0-99.0)
MCH 23.0 L pg
(27.0-31.0)
RDW 27.1 H %
(11.5-14.5)
Absolute Neuts (auto) 7.6 H 10^3/uL
(1.4-6.5)
Absolute Lymphs (auto) 1.0 L 10^3/uL
(1.2-3.4)
Neutrophils % 81.1 H %
(42.2-75.2)
Lymphocytes % 11.1 L %
(20.5-51.1)
BUN 34 H mg/dl
(7-17)
Creatinine 1.4 H mg/dL
(0.6-1.0)
Glucose 117 H mg/dl
(70-99)
Total Bilirubin 1.6 H mg/dl
(0.2-1.3)
Creatine Kinase 24 L U/L
(30-135)
TSH (Reflex) 0.28 L uIU/ml
(0.47-4.68)
Leukocyte Esterase Rfl Trace A
(Negative)
Urine RBC 3-6 A /HPF
(0-2)
Urine Bacteria (Reflex) Few A
(Negative)
04/26/24 11:27
04/26/24 11:27
Vital Signs
Initial and Last Documented VS:
Initial Vital Signs
Temp Pulse Resp BP Pulse Ox
98.0 F 114 18 143/95 98
04/26/24 11:08 04/26/24 11:08 04/26/24 11:08 04/26/24 11:08 04/26/24 11:08
Last Documented Vital Signs
Temp Pulse Resp BP Pulse Ox
98 F 96 18 102/91 96
04/30/24 11:45 04/30/24 11:45 04/30/24 11:45 04/30/24 11:45 04/30/24 11:45
<Pascual Anton DO - Last Filed: 04/30/24 22:27>
*Critical Care Note
Total Time (30-74mins, 75-104mins- exclusive of procedures): Not Applicable
<Pascual Anton DO - Last Filed: 04/30/24 22:27>
Update Note
Update Note:
Update low threshold to admit sent in for admission by primary recently admitted, seen in the ER few days ago but left before evaluation will start saline hydration check proBNP chest x-ray CT of the head's been ordered urinalysis noted patient is
also constipated we will give some lactulose
ED Attending Note
<Kalyn Mancia PA-C - Last Filed: 04/26/24 19:05>
-
Portions of this chart may have been created with voice recognition software.� Occasional wrong word or��sound alike� substitutions may have occurred due to the inherent limitations of voice recognition software.
Discharge Plan
Departure
Patient Disposition: Admit
Date of Disposition: 04/26/24
Time of Disposition: 13:24
Admit to: Telemetry
Presentation/result/management discussed w/ accepting MD/DO: Hospitalist
Patient with high blood pressure during this ER visit?: No
Condition: Fair
Covid-19: Not Applicable
Discharge Problem:
Chronic kidney disease, stage 3a, BMI less than 19,adult, Persistent atrial fibrillation, Atrial fibrillation, rapid, Chronic diastolic (congestive) heart failure, CHF (congestive heart failure), KALYAN (acute kidney injury)
Interventions
Interventions:
*Risk Screen - Suicide Last Done: 04/26/24 11:13
*General Assessment Last Done: 04/26/24 11:13
*Neglect/Abuse Screening Last Done: 04/26/24 11:13
ED- Fall Risk Assessment Last Done: 04/26/24 13:20
*ED COVID-19 Vaccine History Last Done: 04/26/24 11:14
*Nursing Disposition Last Done: 04/26/24 18:18
ED- Cardiac Assessment Last Done: 04/26/24 13:20
ED- Neurological Assessment Last Done: 04/26/24 13:20
ED- Pulmonary Assessment Last Done: 04/26/24 13:20
Discharge Date and Time
Discharge Date/Time: 04/26/24 18:19
[2024-04-26 11:50] LABS: % Basophils 0.4 % (0-2); % Eosinophils 0.2 % (0-6); % Immature Granulocytes 0.3 % (0-0.5); % Lymphocytes 11.1 % (20.5-51.1); % Monocytes 6.9 % (1.7-9.3); % Neutrophils 81.1 % (42.2-75.2); Absolute Monocytes 0.6 10^3/uL (0.1-0.6); Absolute Neutrophils 7.6 10^3/uL (1.4-6.5); Hematocrit 35.7 % (37.0-47.0); Hemoglobin 12.6 g/dL (12.0-16.0); Mean Corp Hgb Conc. 35.3 g/dL (33.0-37.0); Nucleated Red Blood Cells % 0.6 %; Platelet Count 161 10^3/uL (130-400); Red Blood Cell Count 5.49 10^6/uL (4.20-5.40); Red Cell Dist. Width 27.1 % (11.5-14.5); White Blood Cell Count 9.3 10^3/uL (4.8-10.8)
[2024-04-26 11:56] LABS: Lactic Acid 1.4 mmol/L (0.7-2.0)
[2024-04-26 12:18] LABS: ALT (SGPT) 13 U/L (0-35); AST (SGOT) 24 U/L (14-36); Albumin 4.5 g/dl (3.5-5.0); Alkaline Phosphatase 105 U/L (38-126); Blood Urea Nitrogen 34 mg/dl (7-17); Calcium 8.9 mg/dl (8.4-10.2); Carbon Dioxide 29 mmol/L (22-30); Chloride 100 mmol/L (98-107); Glucose 117 mg/dl (70-99); Potassium 4.3 mmol/L (3.5-5.1); Sodium 141 mmol/L (135-145); Total Bilirubin 1.6 mg/dl (0.2-1.3); Total Protein 7.4 g/dl (6.3-8.2); eGFR 35.96
[2024-04-26 12:33] LABS: Urine Albumin Trace (Neg - Trace); Urine Bilirubin Negative (Negative); Urine Character Clear (Clear); Urine Color Yellow; Urine Glucose Negative (Negative); Urine Ketone Negative (Negative); Urine Leukocyte Trace (Negative); Urine Nitrite Negative (Negative); Urine Occult Blood Negative (Negative); Urine Urobilinogen Negative (Neg - 1+)
[2024-04-26 13:12] LABS: Urine Urothelial Cell 0-2 /LPF (FEW)
[2024-04-26 13:15] LABS: Urine Bacteria Few (Negative)
[2024-04-26] MEDS: DUPHALAC/CHRONULAC 20 GRAMS PO (13:24)
--- NOTE | 2024-04-26 13:28 | HPS.HSE ---
Addendum entered and electronically signed by Kely Jaramillo DO 04/26/24 18:29:
The patient is seen and examined along with Karla. I agree with her history and physical, assessment, and plan of care as per below.
Blood pressure 103/67, HR 58 afebrile
Lungs CTA b/l
CV irregular rate
Neuro no focal deficits
Echo 10/2023
Mildly reduced left ventricular systolic function. Left ventricular ejection
fraction is 42%, by volumetric assessment.
Mild global hypokinesis of the basal to mid inferior and inferolateral wall.
Moderate to severe mitral regurgitation.
Mild eccentric aortic regurgitation.
Mild pulmonary hypertension.
Compared to previous echo 12/21/2020, there is no regional wall motion
abnormality with newly depressed systolic function. The mitral regurgitation
has increased. The pulmonary hypertension is new.
A.fib with RVR, now rate controlled; possibly contributing to patient's severe fatigue, along with possible underlying HFrEF and KALYAN
Less likely infectious etiology
-give last dose of oral abx tonight, UA does not appear infected
-Cardiology consultation appreciated with recs for IV Lasix 20 , they ordered one time dose and will monitor clinically
-repeat labs in am, check TSH, Mg, repeat renal function in am
-continue Neuro checks, consider brain MRI, Neuro consult pending clinical course
-cont home BP meds/rate controlling meds with parameters given borderline low BP
-IV fluids on hold given IV diuresis
-repeat creat in am, monitor renal function
Original Note:
Family Physician
-
Family Physician:
Chief Complaint
-
confusion
History of Present Illness
89-year-old female with pMh for atrial fib, Parkinson, multiple UTI's, CHF, presented to us with worsening confusion, weak and very tired. she was evaluated at PCP and was noted to have hypotensive and tachycardia. patient denied DELVALLE,dizzy or
syncope.denied fever, chills,chest dariusz, sob. denied abdominal pain,n,v,d. denied dysuria or hematuria. patient usually exercise with her walker but since the discharge she only walks to the bathroom and sits on the sofa.
UA negative. CT head pending. chest xay pending. patient received lactulose, normal saline. in ER. admitting for further management.
Medical History
Past Medical History
Past Medical History: Reports Other
Additional Past Medical History:
HTN
Parkinson disease
chronic systolic heart failure
stage 3b kidney disease
paroxysmal atrial fib
Past Surgical History: Reports Other
Additional Past Surgical History:
right femur surgery
c section
wisdom teeth extraction
Social History
Tobacco: Non-smoker
Alcohol: Occasional
Drug: None
Personal: Single
Living: With Family
Family History
Family History: Not pertinent
Allergies / Home Medications
Allergies reflects when Allergies were last updated in [facility].
Home Medications with original date entered in [facility]
Allergy/Medication List:
Allergies
Allergy/AdvReac Type Severity Reaction Status Date / Time
zinc Allergy Tongue Verified 04/26/24 11:13
Swelling
Home Medications
apixaban 2.5 mg tablet (Eliquis) 2.5 mg PO BID blod clot prevention 07/27/23
carbidopa 25 mg-levodopa 100 mg tablet 1.5 tab PO TID parkinsons 07/27/23
carbidopa ER 25 mg-levodopa 100 mg tablet,extended release 1 tab PO HS Parkinsons 07/27/23
rasagiline 1 mg tablet 1 mg PO HS parkinsons 07/27/23
acetaminophen 500 mg tablet (Tylenol Extra Strength) 1,000 mg PO TID 02/02/24
coenzyme Q10 100 mg capsule (CoQ-10) 100 mg PO TID Supplement 02/02/24
furosemide 20 mg tablet 20 mg PO DAILY Fluid Retention/Swelling 02/03/24
metoprolol succinate 100 mg tablet,extended release 24 hr 100 mg PO DAILY #30 tabs 02/12/24
diltiazem HCl 240 mg tablet,extended release 24 hr (Matzim [place]) 240 mg PO DAILY 04/15/24
cefuroxime axetil 500 mg tablet 500 mg PO BID 5 days #10 tabs 04/21/24
metoprolol succinate 25 mg tablet,extended release 24 hr 50 mg (2 x 25 mg) PO HS #30 tabs 04/21/24
Review of Systems
-
Constitutional: Reports No Symptoms
EENT: Reports No Symptoms
Respiratory: Reports No Symptoms
Cardiac: Reports No Symptoms
Abdomen/GI: Reports No Symptoms
: Reports No Symptoms
Musculoskeletal: Reports No Symptoms
Skin: Reports No Symptoms
Neurological: Reports Weakness
Endocrine: Reports No Symptoms
Hematologic/Lymphatic: Reports No Symptoms
Psych: Reports No Symptoms
Physical Exam
Vital Signs
Vital Signs
Temp Pulse Resp BP Pulse Ox
98.0 F 114 18 143/95 98
04/26/24 11:08 04/26/24 11:08 04/26/24 11:08 04/26/24 11:08 04/26/24 11:08
Physical Exam
General: Well Developed, Well Nourished and No Apparent Distress
HEENT: NormoCephalic, Moist mucous membranes and Atraumatic
Respiratory: Clear
Cardiac: Irregular Rhythm and Tachycardia; No Murmur or Rub
GI: Soft, Non Tender, Non Distended and Normal Bowel Sounds; No Organomegaly
Rectal: Deferred by Provider
Musculoskeletal: No Clubbing, No Cyanosis and No Edema
Skin: No Rash
Neuro: AO x 3 and Nonfocal/grossly intact
Psych: Calm
Laboratory Results
-
04/26/24 11:27
04/26/24 11:27
Laboratory Results
Lactic Acid 1.4 mmol/L (0.7-2.0) 04/26/24 11:27
Total Bilirubin 1.6 mg/dl (0.2-1.3) H 04/26/24 11:27
AST 24 U/L (14-36) 04/26/24 11:27
ALT 13 U/L (0-35) 04/26/24 11:27
Alkaline Phosphatase 105 U/L (38-126) 04/26/24 11:27
Data Reviewed
-
Lab Data: Labs Reviewed by me
Impression/Plan
-
#toxic metabolic encephalopathy/generalized weakness likely from atrial fib with RVR
-UA negative
-head CT No CT evidence for acute intracranial hemorrhage or transcortical infarct.
2. Moderate bilateral temporal and frontal lobe volume loss consistent with a chronic neurodegenerative disease.
3. Moderate cerebellar volume loss.
4. Severe white matter leukoaraiosis.
-chest x ray pending
-PT/OT consulted
-obtain CK,mag,TSh t4
#Atrial fib with RVR
-EKg with atrial fib with RVr
-metoprolol, Cardizem,eliquis continued
#acute kidney injury ok CKd likely dehydration
-cr 1.4
-normal saline continued
-BMP in am
#Chronic HFpEF
-patient not in acute exacerbation
- monitor I&Os
- daily weights
#recent UTI
-ceftin continued
# Under weight - encourage PO nutrition
# hypertension
#Parkinson's disease
-carbidopa, and rasagiline continued
#Code status: Full Code
#DVT Prophylaxis: Eliquis
[2024-04-26] MEDS: NSS 1000 IV (13:42)
[2024-04-26 14:26] LABS: Troponin I < 0.012 ng/ml
[2024-04-26 15:08] LABS: NT-proBNP 13800 pg/ml
[2024-04-26 16:14] LABS: Creatine Phosphokinase 24 U/L (30-135)
[2024-04-26 16:32] LABS: TSH Reflex To Free T4 0.28 uIU/ml (0.47-4.68)
--- NOTE | 2024-04-26 16:39 | CON.CAR ---
Addendum entered and electronically signed by Gerson Capser MD 04/26/24 17:18:
I saw and examined the patient.
The ROBOTICS SYSTEMS ENGINEER's note was reviewed and I agree with the note.
Comment:
We will advance rate control meds
Might be time to add AMIODARONE and move to rhythm control approach. Will review with Dr. Reyes.
Her pBNP and small effusions with nonspecific symptoms suggests that the AFib is adding to HF exacerbation. Will increase diuresis.
Can advance meds for HF while here as well.
Echo 10/2023
Mildly reduced left ventricular systolic function. Left ventricular ejection
fraction is 42%, by volumetric assessment.
Mild global hypokinesis of the basal to mid inferior and inferolateral wall.
Moderate to severe mitral regurgitation.
Mild eccentric aortic regurgitation.
Mild pulmonary hypertension.
Compared to previous echo 12/21/2020, there is no regional wall motion
abnormality with newly depressed systolic function. The mitral regurgitation
has increased. The pulmonary hypertension is new.
Original Note:
Consultation
Consultation Request
Date/Time Consultation Requested: 04/26/2023 16:00
Date/Time Consultation Performed: 04/26/2023 16:15
Requesting Provider: MARVIN Hernandez
Performing Provider: MARVIN Foley for Dr. Casper
Reason for Consultation: Atrial fibrillation with RVR
Medical History
-
Chief Complaint: Weakness
History of Present Illness:
Sheila Pinedo is an 89 year old female (known to Dr. 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
weakness. Her daughter endorses associated confusion. She states she has been falling asleep frequently throughout the day. This is unusual for her mother. She was found to be in atrial fibrillation with rapid ventricular response. Cardiology
was consulted for rhythm management.
Past Medical History
Past Medical History: Arrhythmias (paroxysmal atrial fibrillation), CHF, HTN, Renal Failure (CKD), Valvular Disease (mitral regurgitation) and Other (as above)
Social History
Tobacco: Non-Smoker
Alcohol: None
Living: With Family
Employment: Retired
Family History
Family History: Reviewed & Not Pertinent
Allergies / Home Medications
Allergy/AdvReac Type Severity Reaction Status Date / Time
zinc Allergy Tongue Verified 04/26/24 11:13
Swelling
�Medication �Instructions �Recorded �Confirmed �Type
apixaban 2.5 mg tablet (Eliquis) 2.5 mg PO BID blod clot prevention 07/27/23 04/26/24 History
carbidopa 25 mg-levodopa 100 mg 1.5 tab PO TID parkinsons 07/27/23 04/26/24 History
tablet
carbidopa ER 25 mg-levodopa 100 mg 1 tab PO HS Parkinsons 07/27/23 04/26/24 History
tablet,extended release
acetaminophen 500 mg tablet 1,000 mg PO TIDPRN PRN mild pain 02/02/24 04/26/24 History
(Tylenol Extra Strength)
coenzyme Q10 100 mg capsule 100 mg PO TID Supplement 02/02/24 04/26/24 History
(CoQ-10)
furosemide 20 mg tablet 20 mg PO DAILY Fluid 02/03/24 04/26/24 History
Retention/Swelling
metoprolol succinate 100 mg 100 mg PO DAILY #30 tabs 02/12/24 04/26/24 Rx
tablet,extended release 24 hr
diltiazem HCl 240 mg 240 mg PO DAILY 04/15/24 04/26/24 History
tablet,extended release 24 hr
(Matzim LA)
cefuroxime axetil 500 mg tablet 500 mg PO BID 5 days #10 tabs 04/21/24 04/26/24 Rx
metoprolol succinate 25 mg 50 mg PO HS 04/26/24 04/26/24 History
tablet,extended release 24 hr
(Toprol XL)
rasagiline 1 mg tablet 1 mg PO HS 04/26/24 04/26/24 History
Review of Systems
-
History Source: Patient
All other systems: Negative unless noted
Constitutional: Fatigue
EENT: No Symptoms
Respiratory: No Symptoms
Cardiac: No Symptoms
Abdomen/GI: No Symptoms
: No Symptoms
Musculoskeletal: No Symptoms
Skin: No Symptoms
Neurological: Weakness
Endocrine: No Symptoms
Hematologic/Lymphatic: No Symptoms
Physical Exam
Vital Signs
Temp Pulse Resp BP Pulse Ox
98.0 F 74 22 102/63 96
04/26/24 11:08 04/26/24 15:30 04/26/24 15:30 04/26/24 15:00 04/26/24 15:30
Lab Results
04/26/24 11:27
04/26/24 11:27
Troponin I < 0.012 ng/ml 04/26/24 13:44
Tur-B-Cnttjlzkkcr Pept [id number] pg/ml 04/26/24 13:44
Physical Exam
General: Well Developed, Well Nourished, No Apparent Distress and Comfortable
HEENT: Normocephalic, Anicteric and Moist Mucous Membranes
Respiratory: Clear and Non Labored Respirations
Cardiac: S1/S2, Irregular Rhythm and Peripheral Edema
Breast: Deferred by me
GI: Soft, Non Tender, Non Distended and Normal Bowel Sounds
Rectal: Deferred by Provider
Genito-urinary: No Costovertebral Tender
Musculoskeletal: No Clubbing and No Cyanosis
Skin: Warm and Dry
Neuro: AO x 3
Hematologic/Lymphatic: No Lymphadenopathy
Psych: Calm
Impression / Plan
-
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
Primary Political Organizer: Dr. Reyes
Atrial fibrillation with RVR
-Rates now improved, continue current medical therapy
-Can consider rhythm control with amiodarone, will defer to primary stunner
-Oral anticoagulation: Apixaban 2.5 mg twice daily (age 89, weight <60 kg)
HFmrEF, chronic
-Weight stable
-She denies shortness of breath
-Continue medical therapy
Weakness, per primary
CKD
HTN, stable
Parkinson's disease
Data Reviewed
-
EKG: Report Reviewed by me
Medical Tests (Nuc Med, Echo etc): Report Reviewed by me
Labs: Labs Reviewed by me
Old Records: Reviewed
[2024-04-26 17:02] LABS: Free T4 1.82 ng/dl (0.78-2.19)
[2024-04-26] MEDS: LASIX 20 MG IV (17:57)
--- NOTE | 2024-04-26 18:17 | EDRN ---
Patient taken to room 406-1 on monitor on stretcher by trace evidence technician.
--- NOTE | 2024-04-26 19:17 | PTCARENOTE ---
Received patient form ED. AAOx3. Denies any pain or discomfort. Was transfered from stretcher to bed with 2 people. Orineted to unit. Updated on pain of care.
[2024-04-26] MEDS: SINEMET 25-100 1.5 TABLET PO (20:55)
[2024-04-26] MEDS: ELIQUIS 2.5 MG PO (20:56)
[2024-04-26] MEDS: CEFTIN 500 MG PO (20:58)
[2024-04-26 21:27] LABS: Glucose - Point of Care 171 mg/dl (70-99)
[2024-04-26] MEDS: TOPROL XL PO (21:33)
[2024-04-26] MEDS: RASAGILINE MESYLATE 1 MG PO (21:33)
[2024-04-26] MEDS: SINEMET CR 25-100 (EXTENDED RELEASE) 1 TABLET PO (23:55)
[2024-04-27] VITALS (8 sets, daily range): BP systolic 113–137; BP diastolic 76–90; PULSE 86; O2SAT 96; BMI 19.0
[2024-04-27 07:43] LABS: Blood Urea Nitrogen 31 mg/dl (7-17); Calcium 8.3 mg/dl (8.4-10.2); Carbon Dioxide 29 mmol/L (22-30); Chloride 101 mmol/L (98-107); Estimated Creatinine Clearance 19 ml/min; Glucose 92 mg/dl (70-99); Potassium 3.7 mmol/L (3.5-5.1); Sodium 141 mmol/L (135-145); eGFR 35.96
--- NOTE | 2024-04-27 08:02 | W.PN.CD ---
Addendum entered and electronically signed by Daniel Schwab MD 04/27/24 08:38:
Reviewed with Dr Reyes who is her primary healthcare management
will start amiodarone with close monitoring for HR
will lower Cardizem to try and avoid bradycardia while amio added ( due to HF and mildly reduced LVF would favor continued use Toprol over cardizem.)
Continue Elqiuis
Original Note:
Today's Communication / Plan
-
adequate rate control
continue tx for HF
Will be confirming afib management with her primary healthcare management this morning ( will likely add amiodarone and then will need to monitor for bradycardia and reduce other rate control meds )
Impression / Plan
-
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
Primary Retrieval Specialist: Dr. Reyes
Atrial fibrillation with RVR
-Rates now improved ( on diltizaem 240 and metoprolol 50, continue current medical therapy
- some slower rate but no long pauses
-Can consider rhythm control with amiodarone, will defer to primary healthcare management
-Oral anticoagulation: Apixaban 2.5 mg twice daily (age 89, weight <60 kg)
HFmrEF, chronic
-Weight stable
-She denies shortness of breath
-Continue medical therapy
Weakness, per primary
CKD
HTN, stable
Parkinson's disease
Physical Exam
Vital Signs/Labs
Vital Signs
Temp Pulse Resp BP Pulse Ox
98.3 F 71 17 128/77 95
04/27/24 03:14 04/27/24 03:14 04/27/24 03:14 04/27/24 03:14 04/27/24 03:14
04/26/24 04/27/24 04/28/24
06:59 06:59 06:59
Actual Weight 44.084 kg
04/26/24 11:27
04/27/24 06:45
Magnesium 2.0 mg/dl (1.6-2.3) 04/26/24 11:27
Free T4 1.82 ng/dl (0.78-2.19) 04/26/24 11:27
04/26/24
13:44
Ale-W-Dlrkqcnosvb Pept [id number]
LAB Results
04/26/24
13:44
Troponin I < 0.012
Physical Exam
Constitutional: No acute distress
Cardiovascular: Rhythm/rate is irregular
Respiratory: Wheeze Absent and Rhonchi Absent
GI: Soft
Neuro/Psych: Alert
Other: Other (edema bilat)
Data Reviewed
-
Date of Service: April 27, 2024
Medical Decision Making: Reviewed Test Results
Echo: Report Reviewed by me
Medical Tests (PFT, Pathology etc): Report Reviewed by me
--- NOTE | 2024-04-27 08:20 | VNURNOTE ---
Chart reviewed. Patient is current with [facility] nursing, OT. Will continue to follow hospital course and DC plans.
[2024-04-27] MEDS: ELIQUIS 2.5 MG PO ×2 (09:39→20:50)
[2024-04-27] MEDS: TOPROL XL 100 MG PO (09:40)
[2024-04-27] MEDS: SINEMET 25-100 1.5 TABLET PO ×3 (09:40→16:15)
[2024-04-27] MEDS: FLUSH (NSS) 1 FLUSH IV (09:41)
[2024-04-27] MEDS: CARDIZEM CD 120 MG PO (09:41)
[2024-04-27] MEDS: PACERONE 200 MG PO ×2 (09:41→20:50)
--- NOTE | 2024-04-27 16:06 | PTCARENOTE ---
Pt awake and alert, oriented x 3 but forgetful. NEWELL; weak; OOB to chair/BSC with assistance. VSS. Telemetry:A fib; HR currently 70's. On room air- pulse ox 98%, no c/o SOB. Abd soft, rounded, magalis PO well. Voids on BSC. Resting in bed at
present, no c/o. Will continue to monitor.
--- NOTE | 2024-04-27 16:18 | W.PN.HOSP.TC ---
Today's Communication/Plan
-
Amiodarone load
Continue with metoprolol, decrease diltiazem
IV Lasix, likely can transition to oral soon
Telemetry
Assessment / Plan
Assessment / Plan
#Paroxysmal AF with RVR
-Presented in RVR, rates have since improved
-Home medications include diltiazem, metoprolol, Eliquis
-No known history of electrophysiologic interventions
-Seen by cardiology, reduced diltiazem and started amiodarone
-Does have history of mildly reduced EF, would avoid CCB as possible
-Continue diltiazem, metoprolol; continue with amiodarone load
-Continue Eliquis 2.5 mg for anticoagulation
-Monitor on telemetry
#HFmrEF
-Most recent echocardiogram with LVEF 40 to 45%
-GDMT includes beta-lloyd; also on diltiazem which is not ideal
-Did have elevated BNP, small effusions seen on x-ray here
-Suspect mild decompensation, reduced diastolic filling time
-Currently on IV Lasix daily, will continue and trend BMP/I's and O's
#CKD stage IIIb
-Renal function appears at baseline
#Parkinson's disease
#Dementia
-Remains on home Sinemet regimen
DVT prophylaxis: Eliquis
CODE STATUS: Full code
Anticipated Discharge: 24 - 48 hours
Subjective/Interval History
-
Date of Service: April 27, 2024
Seen and examined at the bedside. No acute events reported overnight. AFVSS as of this morning
Heart rate in the 80s per minute upon my eval, seems irregular
Denies any acute complaints though ROS limited from dementia
Objective Data
-
Labs:
Laboratory Results
04/27/24
06:45
Sodium 141
Potassium 3.7
Chloride 101
Carbon Dioxide 29
BUN 31 H
Creatinine 1.4 H
Glucose 92
Calcium 8.3 L
Vital Signs:
Vital Signs
Temp Pulse Resp BP Pulse Ox
98.1 F 80 18 120/81 98
04/27/24 15:25 04/27/24 15:25 04/27/24 15:25 04/27/24 15:25 04/27/24 16:06
I&O
04/26/24 04/27/24 04/28/24
06:59 06:59 06:59
Intake Total 480 / 480
Balance 480 / 480
Review of Systems
-
History Source: Patient
All other systems: Reviewed and negative
Physical Exam
-
General: Well Developed, No Apparent Distress, Comfortable and Other (Thin and frail appearing)
HEENT: Normocephalic, Atraumatic and Moist Mucous Membranes
Respiratory: Clear to Auscultation and Non Labored Respirations
Cardiac: S1/S2 and Irregular Rhythm; Negative Murmur, Rub, Gallop or Tachycardic
GI: Soft, Nontender, Nondistended and Normal Bowel Sounds
Musculoskeletal: No Clubbing, No Cyanosis and No Edema
Skin: Warm, Dry and Other (Hypopigmented lesions on face); Negative Rash
Neuro: Awake, Alert, Oriented and Nonfocal/Grossly Intact
Psych: Calm
Data Reviewed
-
Labs: Labs Reviewed by me
[2024-04-27] MEDS: SINEMET CR 25-100 (EXTENDED RELEASE) 1 TABLET PO (20:50)
[2024-04-27] MEDS: RASAGILINE MESYLATE 1 MG PO (20:50)
[2024-04-27] MEDS: TOPROL XL 50 MG PO (20:50)
[2024-04-28 03:55] VITALS: BP 130/93
--- NOTE | 2024-04-28 04:57 | PTCARENOTE ---
Addendum entered by Yoly Dumont RN 04/28/24 05:38:
CERTIFIED HISTOLOGIC TECHNICIAN aware 2 RNs unable to obtain blood work. stated ok to wait for phlebotomy to draw them
Original Note:
Danni WONG aware pt's heart rate fluctuating between 110 and 130. was 80-90s during day with some bursts to 120. asymptomatic, bp 130/93. ordered to give morning Amiodarone and send am labs early. Magnesium was added to morning labs. pt
updated orders.
[2024-04-28] MEDS: PACERONE 200 MG PO (04:59)
[2024-04-28 06:00] VITALS: BMI 18.2
[2024-04-28 07:50] VITALS: BP 145/94
--- NOTE | 2024-04-28 07:56 | W.PN.CD ---
Today's Communication / Plan
-
-Will increase amiodarone load to 400 mg twice daily (was initiated at a dose of 200 mg twice daily yesterday).
-Continue threat monitoring analyst to monitor for any significant pauses.
Impression / Plan
-
IMPRESSION/PLAN: Sheila Pinedo is an 89 year old female (known to Dr. 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
presents with weakness. Cardiology consulted for A-fib with RVR.
Permanent atrial fibrillation with RVR:
-Will increase amiodarone load to 400 mg twice daily (was initiated at a dose of 200 mg twice daily yesterday).
-Continue threat monitoring analyst to monitor for any significant pauses.
-Continue Toprol-XL 100 mg QAM and 50 mg QPM.
-Continue Cardizem CD 120 mg daily (was decreased yesterday from 240 mg daily).
-Oral anticoagulation: Apixaban 2.5 mg twice daily (age 89, weight <60 kg).
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
-Relatively stable; has chronic edema.
-No significant dyspnea at this time.
-Continue Lasix 20 mg IV daily for now.
-Continue current dose of Toprol-XL; further GDMT limited by renal dysfunction and low blood pressure.
Weakness, per primary: Progressive deconditioning most likely secondary to age and comorbidities.
CKD: Continue to monitor renal function.
HTN: Controlled on current medications.
Parkinson's disease: Has been having some progressive weakness/deconditioning.
Physical Exam
Vital Signs/Labs
Vital Signs
Temp Pulse Resp BP Pulse Ox
97.2 F 106 17 130/93 92
04/28/24 03:55 04/28/24 03:55 04/28/24 03:55 04/28/24 03:55 04/28/24 03:55
04/27/24 04/28/24 04/29/24
06:59 06:59 06:59
Actual Weight 44.084 kg 42.326 kg
Magnesium 2.0 mg/dl (1.6-2.3) 04/26/24 11:27
Free T4 1.82 ng/dl (0.78-2.19) 04/26/24 11:27
04/26/24
13:44
Bvk-G-Bvlmdnuzqgu Pept [id number]
LAB Results
04/26/24
13:44
Troponin I < 0.012
Physical Exam
Constitutional: No acute distress and Comfortable
EENT: Anicteric
Cardiovascular: Rhythm/rate is irregular, Pedal edema present (1-2+), Systolic murmur present (2/6) and S1S2 is normal
Respiratory: Respiratory effort normal and Rhonchi Present (Minimal bibasilar)
GI: Soft
Neuro/Psych: Alert and Oriented
Other: Skin (Warm, dry)
Data Reviewed
-
Date of Service: April 28, 2024
EKG: Tracing Personally Visualized and interpreted (Telemetry: A-fib)
Labs: Labs Reviewed by me
[2024-04-28] MEDS: TOPROL XL 100 MG PO (08:03)
[2024-04-28] MEDS: PACERONE 400 MG PO ×2 (08:03→20:13)
[2024-04-28] MEDS: ELIQUIS 2.5 MG PO ×2 (08:03→20:13)
[2024-04-28] MEDS: CARDIZEM CD 120 MG PO (08:03)
[2024-04-28] MEDS: LASIX 20 MG IV (08:04)
[2024-04-28] MEDS: SINEMET 25-100 1.5 TABLET PO ×3 (08:04→16:52)
[2024-04-28] MEDS: FLUSH (NSS) 1 FLUSH IV (08:04)
[2024-04-28 09:07] LABS: % Basophils 0.3 % (0-2); % Eosinophils 0.2 % (0-6); % Immature Granulocytes 0.3 % (0-0.5); % Lymphocytes 13.3 % (20.5-51.1); % Monocytes 9.1 % (1.7-9.3); % Neutrophils 76.8 % (42.2-75.2); Absolute Lymphocytes 1.2 10^3/uL (1.2-3.4); Absolute Monocytes 0.8 10^3/uL (0.1-0.6); Absolute Neutrophils 6.9 10^3/uL (1.4-6.5); Hematocrit 33.8 % (37.0-47.0); Hemoglobin 12.1 g/dL (12.0-16.0); Mean Corp Hgb Conc. 35.8 g/dL (33.0-37.0); Mean Corpuscular Hgb 23.1 pg (27.0-31.0); Mean Corpuscular Volume 64.6 fL (81.0-99.0); Nucleated Red Blood Cells % 0.3 %; Platelet Count 148 10^3/uL (130-400); Red Blood Cell Count 5.23 10^6/uL (4.20-5.40)
[2024-04-28 10:30] VITALS: BMI 18.2
[2024-04-28 11:55] VITALS: BP 99/63
[2024-04-28 12:10] LABS: Blood Urea Nitrogen 28 mg/dl (7-17); Calcium 8.5 mg/dl (8.4-10.2); Carbon Dioxide 28 mmol/L (22-30); Chloride 101 mmol/L (98-107); Estimated Creatinine Clearance 21 ml/min; Glucose 125 mg/dl (70-99); Magnesium 1.9 mg/dl (1.6-2.3); Potassium 4.1 mmol/L (3.5-5.1); Sodium 139 mmol/L (135-145); eGFR 43.27
--- NOTE | 2024-04-28 15:56 | W.PN.HOSP.TC ---
Addendum entered and electronically signed by Juan Carlos Johnston DO 04/28/24 16:03:
#Microcytosis
-Hemoglobin 12.1, MCV 64
-Has history of ANDREW though not on meds
-Question if this is thalassemia
-Ordered iron panel for AM
Original Note:
Today's Communication/Plan
-
Continue amiodarone load
Consider discontinuing diltiazem if NSR restored
Case management for VN
Likely DC tomorrow
Assessment / Plan
Assessment / Plan
#Paroxysmal AF with RVR
-Presented in RVR, rates have since improved
-Home medications include diltiazem, metoprolol, Eliquis
-No known history of electrophysiologic interventions
-Seen by cardiology, reduced diltiazem and started amiodarone
-Does have history of mildly reduced EF, would avoid CCB as possible
-As of this morning HR in the 80s, remains in AF
Plan
-Continue diltiazem, metoprolol at current dosages
-Continue with PO amiodarone load 400 mg BID
-Consider discontinuation of diltiazem once NSR restored
-Monitor on telemetry
#HFmrEF
-Most recent echocardiogram with LVEF 40 to 45%
-GDMT includes beta-lloyd; also on diltiazem which is not ideal
-Did have elevated BNP, small effusions seen on x-ray here
-Suspect mild decompensation, reduced diastolic filling time
-Currently on IV Lasix daily, will continue and trend BMP/I's and O's
#CKD stage IIIb
-Renal function appears at baseline
#Parkinson's disease
#Dementia
-Remains on home Sinemet regimen
DVT prophylaxis: Eliquis
Diet: Low-cholesterol
CODE STATUS: Full code
Anticipated Discharge: Within 24 hours
Subjective/Interval History
-
Date of Service: April 28, 2024
Seen and examined at the bedside. No acute events reported overnight. AFVSS this morning
No longer tachycardic, now in rate controlled AF. Labs stable
Denies any acute complaints.
Objective Data
-
Labs:
Laboratory Results
04/28/24 04/28/24
08:17 11:06
WBC 9.0
Hgb 12.1
Hct 33.8 L
Plt Count 148
Sodium Cancelled 139
Potassium Cancelled 4.1
Chloride Cancelled 101
Carbon Dioxide Cancelled 28
BUN Cancelled 28 H
Creatinine Cancelled 1.2 H
Glucose Cancelled 125 H
Calcium Cancelled 8.5
Vital Signs:
Vital Signs
Temp Pulse Resp BP Pulse Ox
97.4 F 76 22 99/63 91
04/28/24 11:55 04/28/24 11:55 04/28/24 11:55 04/28/24 11:55 04/28/24 11:55
I&O
04/27/24 04/28/24 04/29/24
06:59 06:59 06:59
Intake Total 480 / 480 1080 / 1080
Balance 480 / 480 1080 / 1080
Review of Systems
-
History Source: Patient
All other systems: Reviewed and negative
Physical Exam
-
General: Well Developed, Well Nourished, No Apparent Distress and Comfortable
HEENT: Normocephalic, Atraumatic and Moist Mucous Membranes
Respiratory: Clear to Auscultation and Non Labored Respirations; Negative Wheezes or Rales
Cardiac: S1/S2 and Irregular Rhythm; Negative Murmur, Rub, Gallop or Tachycardic
GI: Soft, Nontender, Nondistended and Normal Bowel Sounds
Musculoskeletal: No Clubbing, No Cyanosis and No Edema
Skin: Warm, Dry and Other (Deep pigmented lesions); Negative Rash
Neuro: Awake, Alert, Oriented and Nonfocal/Grossly Intact
Psych: Calm
Data Reviewed
-
Labs: Labs Reviewed by me, Discussed with Nurse and Discussed with Patient
[2024-04-28 16:06] VITALS: BP 102/62
--- NOTE | 2024-04-28 16:37 | PTCARENOTE ---
Pt AAO x3; forgetful at times. NEWELL; OOB to chair with assist x1; pt weak. Magalis OOB activity. VSS. Telemetry:Afib. On room air- pulseox 100 %, pt with (+) slight ROTH; denies SOB. Abd soft, magalis Po well. Voids on BSC/incont urine. Resting in bed
at present, no c/o. Will continue to monitor.
--- NOTE | 2024-04-28 17:12 | CM ---
Alert awake oriented patient who lives with her dgt Linnette who lives in a 2 story home with 2 steps to enter and 12 to bed bathroom. She is assisted in all activities of daily living.Pt has a 24 hour home care provider who speaks no Greenlandic. Spoke with dgt
she felt her mom needed SNF at tn. Will reviewed PT OT evals with dgt which recommend VN .
Rolling walker
[facility] VN/SNF
Pharmacy [facility]
PCP Dr Zarate
PLAN PT OT indicate VN
[2024-04-28 20:14] VITALS: BP 131/88
[2024-04-28] MEDS: SINEMET CR 25-100 (EXTENDED RELEASE) 1 TABLET PO (22:22)
[2024-04-28] MEDS: RASAGILINE MESYLATE 1 MG PO (22:23)
[2024-04-28] MEDS: TOPROL XL 50 MG PO (22:23)
[2024-04-28 22:32] VITALS: BP 134/85
[2024-04-29 03:55] VITALS: BP 139/98
[2024-04-29 06:00] VITALS: BMI 18.1
[2024-04-29 07:30] VITALS: BP 137/95
[2024-04-29 09:04] LABS: % Basophils 0.3 % (0-2); % Eosinophils 0.3 % (0-6); % Immature Granulocytes 0.3 % (0-0.5); % Lymphocytes 11.8 % (20.5-51.1); % Monocytes 5.7 % (1.7-9.3); % Neutrophils 81.6 % (42.2-75.2); Absolute Lymphocytes 1.1 10^3/uL (1.2-3.4); Absolute Monocytes 0.5 10^3/uL (0.1-0.6); Absolute Neutrophils 7.4 10^3/uL (1.4-6.5); Hematocrit 31.8 % (37.0-47.0); Hemoglobin 11.1 g/dL (12.0-16.0); Mean Corp Hgb Conc. 36.1 g/dL (33.0-37.0); Mean Corpuscular Hgb 23.4 pg (27.0-31.0); Mean Corpuscular Volume 64.7 fL (81.0-99.0); Nucleated Red Blood Cells % 0.2 %; Platelet Count 164 10^3/uL (130-400); Red Blood Cell Count 4.79 10^6/uL (4.20-5.40); Red Cell Dist. Width 26.7 % (11.5-14.5); White Blood Cell Count 9.1 10^3/uL (4.8-10.8)
--- NOTE | 2024-04-29 09:05 | W.PN.CD ---
Today's Communication / Plan
-
-Continue PO amiodarone load.
-Continue telemetry to monitor for any significant pauses.
-Continue Toprol-XL 100 mg QAM and 50 mg QPM.
-Continue Cardizem CD 120 mg daily (was decreased 2 days ago from 240 mg daily); may be able to discontinue once amiodarone fully takes effect.
-Continue Lasix 20 mg IV daily today; transition back to Lasix 20 mg PO daily tomorrow.
Impression / Plan
-
IMPRESSION/PLAN: Sheila Pinedo is an 89 year old female (known to Dr. 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
presents with weakness. Cardiology consulted for A-fib with RVR.
Permanent atrial fibrillation with RVR:
-Continue PO amiodarone load.
-Continue telemetry to monitor for any significant pauses.
-Continue Toprol-XL 100 mg QAM and 50 mg QPM.
-Continue Cardizem CD 120 mg daily (was decreased 2 days ago from 240 mg daily); may be able to discontinue once amiodarone fully takes effect.
-Oral anticoagulation: Apixaban 2.5 mg twice daily (age 89, weight <60 kg).
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
-Remains relatively stable; has chronic edema.
-No significant dyspnea at this time.
-Continue Lasix 20 mg IV daily today; transition back to Lasix 20 mg PO daily tomorrow.
-Continue current dose of Toprol-XL; further GDMT limited by renal dysfunction and low blood pressure.
Weakness, per primary: Progressive deconditioning most likely secondary to age and comorbidities.
CKD: Continue to monitor renal function.
HTN: Controlled on current medications.
Parkinson's disease: Has been having some progressive weakness/deconditioning.
Physical Exam
Vital Signs/Labs
Vital Signs
Temp Pulse Resp BP Pulse Ox
97.7 F 90 18 137/95 96
04/29/24 07:30 04/29/24 07:30 04/29/24 07:30 04/29/24 07:30 04/29/24 07:30
04/28/24 04/29/24 04/30/24
06:59 06:59 06:59
Actual Weight 42.326 kg 41.957 kg
04/29/24 08:23
Magnesium 1.9 mg/dl (1.6-2.3) 04/28/24 11:06
Free T4 1.82 ng/dl (0.78-2.19) 04/26/24 11:27
04/26/24
13:44
Fvl-X-Zfhijqgueoe Pept [id number]
LAB Results
04/26/24
13:44
Troponin I < 0.012
Physical Exam
Constitutional: No acute distress and Comfortable
EENT: Anicteric
Cardiovascular: Rhythm/rate is irregular, Pedal edema present (trace to 1+), Systolic murmur present (2/6) and S1S2 is normal
Respiratory: Respiratory effort normal and Lungs clear to auscul.
GI: Soft
Neuro/Psych: AO x 3
Other: Skin (Warm, dry, intact)
Data Reviewed
-
Date of Service: April 29, 2024
EKG: Report Reviewed by me (Telemetry: A-fib)
Medical Tests (PFT, Pathology etc): Discussed with Nurse
Labs: Labs Reviewed by me
[2024-04-29 09:11] LABS: Blood Urea Nitrogen 29 mg/dl (7-17); Calcium 8.6 mg/dl (8.4-10.2); Carbon Dioxide 32 mmol/L (22-30); Chloride 98 mmol/L (98-107); Estimated Creatinine Clearance 21 ml/min; Glucose 99 mg/dl (70-99); Iron 65 ug/dl (37-170); Magnesium 1.8 mg/dl (1.6-2.3); Potassium 4.1 mmol/L (3.5-5.1); Sodium 140 mmol/L (135-145); eGFR 43.27
[2024-04-29 09:20] LABS: Percent Saturation 26 % (20-50); Total Iron Binding Capacity 246 ug/dl (265-497)
[2024-04-29] MEDS: LASIX 20 MG IV (09:28)
[2024-04-29] MEDS: ELIQUIS 2.5 MG PO ×2 (09:29→20:18)
[2024-04-29] MEDS: CARDIZEM CD 120 MG PO (09:29)
[2024-04-29] MEDS: PACERONE 400 MG PO ×2 (09:29→20:18)
[2024-04-29] MEDS: TOPROL XL 100 MG PO (09:29)
[2024-04-29] MEDS: SINEMET 25-100 1.5 TABLET PO ×3 (09:29→16:33)
[2024-04-29 11:06] VITALS: BP 144/100; PULSE 119
[2024-04-29 11:17] VITALS: BP 142/97
--- NOTE | 2024-04-29 12:51 | W.PN.HOSP.TC ---
Today's Communication/Plan
-
Continue amiodarone load
Transition to oral Lasix
Will speak to cardiology about possible discharge today
Assessment / Plan
Assessment / Plan
#Paroxysmal AF with RVR
-Presented in RVR, rates have since improved
-Home medications include diltiazem, metoprolol, Eliquis
-No known history of electrophysiologic interventions
-Seen by cardiology, reduced diltiazem and started amiodarone
-Does have history of mildly reduced EF, would avoid CCB as possible
-As of this morning HR in the 80s, remains in AF
-Continue diltiazem, metoprolol at current dosages
-Continue with PO amiodarone load 400 mg BID
-Consider discontinuation of diltiazem once NSR restored
-Monitor on telemetry
#HFmrEF
-Most recent echocardiogram with LVEF 40 to 45%
-GDMT includes beta-lloyd; also on diltiazem which is not ideal
-Did have elevated BNP, small effusions seen on x-ray here
-Suspect mild decompensation, reduced diastolic filling time
-Currently on IV Lasix daily, will continue and trend BMP/I's and O's
-Transitioning to oral Lasix 40 mg on 04/30
#CKD stage IIIb
-Renal function appears at baseline
#Parkinson's disease
#Dementia
-Remains on home Sinemet regimen
DVT prophylaxis: Eliquis
Diet: Low-cholesterol
CODE STATUS: Full code
Anticipated Discharge: Within 24 hours
Subjective/Interval History
-
Date of Service: April 29, 2024
Seen and examined at the bedside. No acute events reported overnight. AFVSS this morning
Renal function stable. Heart rate remains irregular, rate controlled
Denies any new complaints, states she feels well
Objective Data
-
Labs:
Laboratory Results
04/29/24
08:23
WBC 9.1
Hgb 11.1 L
Hct 31.8 L
Plt Count 164
Sodium 140
Potassium 4.1
Chloride 98
Carbon Dioxide 32 H
BUN 29 H
Creatinine 1.2 H
Glucose 99
Calcium 8.6
Vital Signs:
Vital Signs
Temp Pulse Resp BP Pulse Ox
97.7 F 80 18 142/97 96
04/29/24 11:17 04/29/24 11:17 04/29/24 11:17 04/29/24 11:17 04/29/24 11:17
I&O
04/28/24 04/29/24 04/30/24
06:59 06:59 06:59
Intake Total 1080 / 1080 900 / 900
Balance 1080 / 1080 900 / 900
Review of Systems
-
History Source: Patient
All other systems: Reviewed and negative
Physical Exam
-
General: Well Developed, No Apparent Distress, Comfortable and Other (Thin and frail)
HEENT: Normocephalic, Atraumatic, Moist Mucous Membranes and Anicteric
Respiratory: Clear to Auscultation and Non Labored Respirations
Cardiac: S1/S2 and Irregular Rhythm; Negative Murmur, Rub or Gallop
GI: Soft, Nontender, Nondistended and Normal Bowel Sounds
Musculoskeletal: No Clubbing, No Cyanosis and No Edema
Skin: Warm, Dry and Other (Depigmented patches); Negative Rash
Neuro: AO x 3 and Nonfocal/Grossly Intact
Psych: Calm
--- NOTE | 2024-04-29 12:52 | CM ---
Addendum entered by Ann Angel RN 04/29/24 17:38:
Spoke with [facility] pt can gopi have [facility] will on respite care at [place].Kate at [place] aware.
Addendum entered by Ann Angel RN 04/29/24 12:55:
Dgt will transport home.
Original Note:
Spoke with dgfern Anglin [phone] reviewed PT OT evals which indicate VN .
Dgt is traveling this week and pt will be in [place] under respite care.
Dgt said she will probable take pt to respite care and will not need VN.
PLAN To respite care at [place] set up be luis Anglin . No needs
[2024-04-29 15:28] VITALS: BP 96/57
[2024-04-29 19:58] VITALS: BP 117/83
[2024-04-29] MEDS: RASAGILINE MESYLATE 1 MG PO (20:18)
[2024-04-29] MEDS: SINEMET CR 25-100 (EXTENDED RELEASE) 1 TABLET PO (20:18)
[2024-04-29] MEDS: TOPROL XL 50 MG PO (20:18)
--- NOTE | 2024-04-30 01:00 | PTCARENOTE ---
Addendum entered by Hafsa Felix RN 04/30/24 03:34:
Pt becoming more confused throughout the night, refusing any medication and vital signs. Pt stated 'You are using me for sex and drugs' Pt also threatening to call the mds manager. Unable to reoriented. Will continue to monitor.
Original Note:
Around 1900 pt had an unwitnessed fall- pt was found in prayer position at the side of the bed. Pt complaining of chest pain- EKG and vitals taken. Notified COMMUNICATION ELECTRONIC TECHNICIAN- CXR ordered and pain meds- which later the pt refused.
--- NOTE | 2024-04-30 02:31 | W.PN.UPDATE ---
Update Note
Progress Note Update
AT the beginning change of shift RN reports pt unwitnessed fall oob. Pt got oob unassisted. Found on knees in prayer position. No visible injuries, but did c/o of CP- stated she may had hit chest? Will check CXR for any fx.
Around midnight RN reports confusion and suspicion on what nurses are doing. Looking back on previous admits pt has had episodes of more disorientation at times. Will closely monitor.
[2024-04-30 07:50] VITALS: BP 145/95
--- NOTE | 2024-04-30 07:50 | PTCARENOTE ---
Dr. Casper and Dr. Johnston made aware pt. had a 10 beat run of Vtach at 0611. Pt. Afib on tele in the s currently while resting in bed. No new orders at this time.
[2024-04-30] MEDS: CARDIZEM CD PO (09:47)
[2024-04-30] MEDS: PACERONE PO (09:48)
[2024-04-30] MEDS: TOPROL XL PO (09:48)
[2024-04-30] MEDS: SINEMET 25-100 PO ×2 (09:48→12:35)
[2024-04-30] MEDS: ELIQUIS PO (09:48)
--- NOTE | 2024-04-30 09:52 | PTCARENOTE ---
Pt. refused all morning medications. This nurse tried to offer them three separate times and importance of taking them explained to pt., pt. still unwilling to take medications. Dr. Johnston and Dr. Casper made aware.
[2024-04-30 11:45] VITALS: BP 102/91
--- NOTE | 2024-04-30 12:41 | W.PN.HOSP.TC ---
Today's Communication/Plan
-
Amiodarone load outpatient
Discharge today
Assessment / Plan
Assessment / Plan
#Paroxysmal AF with RVR
-Presented in RVR, rates have since improved
-Home medications include diltiazem, metoprolol, Eliquis
-No known history of electrophysiologic interventions
-Seen by cardiology, reduced diltiazem and started amiodarone
-Does have history of mildly reduced EF, would avoid CCB as possible
-As of this morning HR in the 80s, remains in AF
-Continue diltiazem, metoprolol at current dosages
-Consider discontinuation of diltiazem once NSR restored
-Amiodarone 400 mg twice daily to complete 10 days, then 200 mg daily thereafter
-Outpatient LFTs and 1 month, follow-up with visitor use assistant
#HFmrEF
-Most recent echocardiogram with LVEF 40 to 45%
-GDMT includes beta-lloyd; also on diltiazem which is not ideal
-Did have elevated BNP, small effusions seen on x-ray here
-Suspect mild decompensation, reduced diastolic filling time
-Currently on IV Lasix daily, will continue and trend BMP/I's and O's
-Transitioning to oral Lasix 40 mg on 04/30
#CKD stage IIIb
-Renal function appears at baseline
#Parkinson's disease
#Dementia
-Remains on home Sinemet regimen
DVT prophylaxis: Eliquis
Diet: Low-cholesterol
CODE STATUS: Full code
Anticipated Discharge: Today
Subjective/Interval History
-
Date of Service: April 30, 2024
Seen and examined at the bedside. Overnight had mechanical fall that was unwitnessed, patient found out of bed and on her knees on the floor in prayer position. AFVSS on 1 L oxygen, SpO2 high 90s. Complained of some chest pain following but x-ray
without fracture.
As of this morning she states she feels better., Less chest pain. Remains in rate controlled AF. Brief run of NSVT overnight though no sinus pauses per my telemetry read
No further acute complaints this morning
Objective Data
-
Vital Signs:
Vital Signs
Temp Pulse Resp BP Pulse Ox
98 F 96 18 102/91 96
04/30/24 11:45 04/30/24 11:45 04/30/24 11:45 04/30/24 11:45 04/30/24 11:45
I&O
04/29/24 04/30/24 05/01/24
06:59 06:59 06:59
Intake Total 900 / 900 240 / 240
Output Total 300 / 300
Balance 900 / 900 240 / 240 -300 / -300
Review of Systems
-
History Source: Patient
All other systems: Reviewed and negative
Physical Exam
-
General: Well Developed, No Apparent Distress, Comfortable, Appears Chronically Ill and Cachectic
HEENT: Normocephalic, Atraumatic, Moist Mucous Membranes and Anicteric
Respiratory: Clear to Auscultation and Non Labored Respirations
Cardiac: S1/S2 and Irregular Rhythm; Negative Murmur, Rub, Gallop or Tachycardic
GI: Soft, Nontender, Nondistended and Normal Bowel Sounds
Musculoskeletal: No Clubbing, No Cyanosis, No Edema and Clubbing
Skin: Warm, Dry, Normal Turgor and Other (Hypopigmented spots); Negative Rash
Neuro: Awake, Alert, Oriented and Nonfocal/Grossly Intact; Negative Tremors
Psych: Calm
--- NOTE | 2024-04-30 12:49 | CM ---
Plan: Discharge to [facility] w/ private duty respite care
CM spoke with daughter via phone; she will provide transport to facility
--- NOTE | 2024-04-30 16:47 | W.DCSUMMARY ---
Discharge Summary
Discharge Data
Date of Admission: 04/26/24
Date of Discharge: 04/30/24
-
Pending Results: No
Hospital Course
89-year-old female with Parkinson's disease atrial fibrillation, CKD 3B, heart failure with minimally reduced EF that presented to the hospital with rapid ventricular response. Was initiated on amiodarone load with 400 mg twice daily for total of
10-day course. Diltiazem dose was reduced due to reduced ejection fraction, continued on beta-lloyd. She had improvement to her heart rate while in the hospital, with resolution of RVR, however remained in atrial fibrillation. Was discharged on
oral amiodarone to complete outpatient amio load, with plan for 200 mg daily following the load. Plan to eventually discontinue diltiazem once sinus rhythm restored. Received short course of IV diuretics in the hospital though did not require
significant supplemental oxygen. No evidence of tachycardia-bradycardia syndrome, no pauses noted on telemetry.
She did have a mechanical fall during the hospitalization overnight when she got out of bed without assistance. Was found on her knees, complained of mild chest pain at the time. Ischemic workup unremarkable. Had a chest x-ray that did not show
any signs of fractures or any other acute findings. Fall precautions following discharge
Discharge Plan
-
Patient Disposition: Assisted Living
Discharge Diagnosis/Procedures: Atrial fibrillation with rapid ventricular response
Condition: Fair
Diet: No restrictions and No added salt
Activity: As tolerated
Driving Restrictions: No driving
Bathing Restrictions: None
Blood Work: LFTs in 1 month
Other Services: PT and OT
Specialty Instructions: Weigh Daily- Call MD for wt gain/loss 3 lbs overnight/5 lbs in 1 week
Activity Restrictions/Additional Instructions:
Schedule follow-up appointment with family doctor. Should be seen in office within 1 to 2 weeks of discharge
Schedule follow-up with last model maker
Instructions: *PCP/Other Civil Engineering Professional Heart Failure Instructions
Referrals:
Darryn Reyes MD [Active] - in two to three weeks
Josephine Zarate MD [Family Provider] -
Additional Discharge Medication Instructions: Continue amiodarone 400 mg (two 200 mg tablets) twice daily through 05/07/2024. On 05/08/2024 start taking amiodarone 200 mg daily
Reduced diltiazem to 120 mg daily. Cardiology may discontinue this medicine after completion of amiodarone load
Prescriptions:
New
diltiazem HCl 120 mg Capsule,Extended Release 24hr
120 mg PO DAILY 30 Days Qty: 30 0RF
amiodarone 200 mg Tablet
400 mg PO BID 7 Days Qty: 28 0RF
amiodarone 200 mg tablet
200 mg PO DAILY 30 Days Qty: 30 0RF
Rx Instructions:
Start taking on 05/08/2024
Continued
carbidopa-levodopa 25-100 mg Tablet Extended Release
1 tab PO HS
carbidopa-levodopa 25-100 mg Tablet
1.5 tab PO TID
Eliquis 2.5 MG tablet
2.5 mg PO BID
acetaminophen [Tylenol Extra Strength] 500 mg Tablet
1,000 mg PO TIDPRN PRN (Reason: mild pain)
coenzyme Q10 [CoQ-10] 100 mg Capsule
100 mg PO TID
furosemide 20 mg tablet
20 mg PO DAILY
metoprolol succinate 100 mg Tablet Extended Release 24 Hr
100 mg PO DAILY Qty: 30 0RF
metoprolol succinate [Toprol XL] 25 mg Tablet Extended Release 24 Hr
50 mg PO HS
rasagiline 1 mg Tablet
1 mg PO HS
Discontinued
diltiazem HCl [Matzim LA] 240 mg Tablet Extended Release 24 Hr
240 mg PO DAILY
cefuroxime axetil 500 mg tablet
500 mg PO BID
Discharge Orders:
Discharge Patient (As Directed); Ordered 04/30/24
Ordered By: Juan Carlos Johnston
Discharge Date and Time
Discharge Date/Time: 04/30/24 15:32
Print Language: UPPER SORBIAN
== END 2024-04-30 15:32 | disposition home health service (06) | DRG 308 ==
LOC: 4 EAST ACU 14:56
PROVIDERS: Emergency Medicine; Physician Assistant; Registered Nurse; ADMITTING PHYSICIAN Internal Medicine; ATTENDING PHYSICIAN Internal Medicine; CONSULT PHYSICIAN Internal Medicine Cardiovascular Disease; EMERGENCY PHYSICIAN Emergency Medicine; FAMILY PHYSICIAN Family Medicine
DX: I48.19 Other persistent atrial fibrillation (principal); G92.8 Other toxic encephalopathy; N17.9 Acute kidney failure, unspecified; I50.42 Chronic combined systolic (congestive) and diastolic (congestive) heart failure; I13.0 Hypertensive heart and chronic kidney disease with heart failure and stage 1 through stage 4 chronic kidney disease, or unspecified chronic kidney disease; Z68.1 Body mass index [BMI] 19.9 or less, adult; E86.0 Dehydration; R63.6 Underweight; N18.32 Chronic kidney disease, stage 3b; G20.A1 Parkinson's disease without dyskinesia, without mention of fluctuations
CPT/HCPCS: 70450; 71045; 71046; 80048; 80053; 81003; 81015; 82550; 82728; 82962; 83540; 83550; 83605; 83735; 83880; 84439; 84443; 84484; 85025; 93005; 96360; 96361; 97162; 97166; 97530; 99285

== ENCOUNTER → 2024-05-03 10:43 | Outpatient (REF) | payer OTHER, SELFPAY ==
[2024-05-03 12:47] LABS: Hematocrit 33.4 % (37.0-47.0); Hemoglobin 11.6 g/dL (12.0-16.0); Mean Corp Hgb Conc. 34.7 g/dL (33.0-37.0); Mean Corpuscular Hgb 23.1 pg (27.0-31.0); Mean Corpuscular Volume 66.4 fL (81.0-99.0); Platelet Count 153 10^3/uL (130-400); Red Blood Cell Count 5.03 10^6/uL (4.20-5.40); White Blood Cell Count 9.5 10^3/uL (4.8-10.8)
== END ==
LOC: OLABWHC 10:43
PROVIDERS: ATTENDING PHYSICIAN Family Medicine
DX: I50.9 Heart failure, unspecified (principal); G20.A1 Parkinson's disease without dyskinesia, without mention of fluctuations; E78.5 Hyperlipidemia, unspecified
CPT/HCPCS: 36415; 85027

== ENCOUNTER → 2024-05-04 10:13 | Outpatient (REF) | payer OTHER, SELFPAY ==
[2024-05-04 12:46] LABS: ALT (SGPT) < 10 U/L (0-35); AST (SGOT) 19 U/L (14-36); Albumin 3.6 g/dl (3.5-5.0); Alkaline Phosphatase 74 U/L (38-126); Blood Urea Nitrogen 45 mg/dl (7-17); Calcium 8.8 mg/dl (8.4-10.2); Carbon Dioxide 30 mmol/L (22-30); Glucose 96 mg/dl (70-99); Magnesium 2.1 mg/dl (1.6-2.3); Total Bilirubin 1.1 mg/dl (0.2-1.3); Total Protein 6.2 g/dl (6.3-8.2); eGFR 20.91
[2024-05-04 13:17] LABS: Chloride 101 mmol/L (98-107); Sodium 140 mmol/L (135-145)
== END ==
LOC: OLABWHC 10:13
PROVIDERS: ATTENDING PHYSICIAN Family Medicine
DX: I50.9 Heart failure, unspecified (principal); D64.9 Anemia, unspecified; G20.A1 Parkinson's disease without dyskinesia, without mention of fluctuations
CPT/HCPCS: 36415; 80053; 83735